=== PATIENT | male | born 1960 | race Caucasian/White ===

== ENCOUNTER → 2016-05-26 | Outpatient (CLI) | payer BC ==
--- NOTE | 2016-05-26 19:28 | PN ---
A 55-year-old male patient coming to see me in follow-up regarding his obstructive sleep apnea. The patient is coming in for a compliancy check. The patient has severe ROSA with an AHI of 65 and currently he is on CPAP at a pressure of 15 cm of water. The patient is utilizing AirFit P10 full-face mask. His compliancy data showed excellent CPAP use every night without any interruption. His average CPAP use is 8 hours per night. His AHI is down to 3.8. He is having some difficulties with leak around the mask with a leak factor of 58 liters per minute. Clinically he is much improved and alert during the day. His Phoenix score is down to 4. BP is 155/78, pulse 67, respirations 16. Phoenix score is 4 and weight is 258, temperature 97.6. GENERAL APPEARANCE: Calm, comfortable. HEENT: Negative for JVD. No goiter, neck mass. LUNGS: Clear to auscultation. HEART: Sounds are regular rate and rhythm. Normal S1, S2. ABDOMEN: Soft, nontender. EXTREMITIES: No edema. No cyanosis or clubbing. IMPRESSION: 1. Obstructive sleep apnea, severe with an AHI of 65, currently on CPAP pressure of 15 with good clinical response and compliance. 2. Leaks around the mask interface. 3. Hypersomnia, improved. Phoenix score is down to 4. PLAN: 1. Continue CPAP at the pressure of 15. 2. Add C-Flex of 3. 3. Offer this patient various mask interfaces to improve air leak. 4. Maintain good sleep hygiene measures. 5. See me back in a year's time in follow-up.
== END | disposition home or self-care (01) ==

== ENCOUNTER 2016-07-14 23:59 | Emergency (ER) | payer BC ==
[2016-07-15 00:06] VITALS: RESP 18
[2016-07-15] MEDS ORDERED: traMADol 50 MG TAB PO STA (00:33)
--- NOTE | 2016-07-15 00:47 | ED ---
Extremity Problem HPI - General Chief complaint: Extremity Problem,Nontraumatic Stated complaint: Leg swelling/Rash Time Seen by Provider: 07/15/16 00:11 Source: patient, RN notes reviewed Mode of arrival: ambulatory Limitations: no limitations - History of Present Illness Initial comments: Patient is a 55-year-old male presents to the emergency room for evaluation of right leg swelling and pain. Patient states he noticed a small rash over his right ankle yesterday and went and saw his primary care provider. Patient states he was placed on cortisone cream. Patient states today he noticed that the rash has become more significantly red and irritated. Patient states he noticed swelling of his right ankle that began today. Patient states he feels like his right foot is on fire. Patient states his calf muscle feels "tight". Patient states he's having pain on the posterior portion of his right knee. Patient denies any recent trauma to his leg. Patient states that he walks most of the day. Patient denies sitting in a plane recently. Patient denies any recent significant past medical history. Patient states he quit smoking about a year ago. Patient denies new detergents, lotions. - Related Data Home Medications Medication Instructions Recorded Confirmed Fluticasone Nasal [place] [Flonase 1 spr EA NOSTRIL DAILY 10/21/15 07/15/16 Nasal [place]] Loratadine [Claritin] 10 mg PO DAILY 10/21/15 07/15/16 Losartan/Hydrochlorothiazide 1 tab PO DAILY@1400 10/21/15 07/15/16 [Losartan-Hctz 100-25 mg Tab] Lovastatin [Mevacor] 20 mg PO DAILY 10/21/15 07/15/16 Montelukast Sodium [Singulair] 10 mg PO HS PRN 10/21/15 07/15/16 Olopatadine HCl [Pataday] 1 drop BOTH EYES BID 10/21/15 07/15/16 amLODIPine BESYLATE [Norvasc] 10 mg PO DAILY@1400 10/21/15 07/15/16 Previous Rx's Medication Instructions Recorded traMADol HCl [Ultram] 50 mg PO Q4H PRN #15 tab 07/15/16 Allergies Allergy/AdvReac Type Severity Reaction Status Date / Time No Known Allergies Allergy Verified 01/05/16 08:20 Review of Systems ROS Statement: Those systems with pertinent positive or pertinent negative responses have been documented in the HPI. ROS Other: All systems not noted in ROS Statement are negative. Past Medical History Past Medical History: GERD/Reflux, Hypertension, Osteoarthritis (OA), Skin Disorder Additional Past Medical History / Comment(s): inguinal hernia and umbilical hernia, psoriasis History of Any Multi-Drug Resistant Organisms: None Reported Past Surgical History: Appendectomy, Cholecystectomy, Hernia Repair Additional Past Surgical History / Comment(s): rt inguinal hernia x 2,vasectomy, Past Anesthesia/Blood Transfusion Reactions: Motion Sickness Additional Past Anesthesia/Blood Transfusion Reaction / Comment(s): no hx blood transfusion Past Psychological History: Anxiety, Panic Disorder Smoking Status: Former smoker Past Alcohol Use History: None Reported Additional Past Alcohol Use History / Comment(s): smoked on and off 17 yrs <1ppd Past Drug Use History: None Reported - Past Family History Father Family Medical History: Congestive Heart Failure (CHF), Myocardial Infarction ( [place]) Additional Family Medical History / Comment(s): alsoholism Mother Family Medical History: No Reported History General Exam - General Exam Comments Initial Comments: Sitting in exam room in no acute distress. Limitations: no limitations General appearance: alert, in no apparent distress Head exam: Present: atraumatic, normocephalic, normal inspection Eye exam: Present: normal appearance ENT exam: Present: normal exam Neck exam: Present: normal inspection Respiratory exam: Present: normal lung sounds bilaterally. Absent: respiratory distress Cardiovascular Exam: Present: regular rate, normal rhythm, normal heart sounds Right Knee exam: Present: full ROM, tenderness (Posterior knee) Lower Leg exam: Present: swelling. Absent: tenderness Ankle exam: Present: full ROM, swelling, erythema (erythematous, nonraised circumfrential rash over right ankle) Foot/Toe exam: Present: full ROM, swelling. Absent: tenderness Neurovascular tendon exam: Present: no vascular compromise. Absent: pulse deficit (2+ dorsal pedal and posterior tibial pulses), abnormal cap refill ( capillary refill less than 2 seconds) Gait: observed and limited by pain Back exam: Present: normal inspection Neurological exam: Present: alert, oriented X3, CN II-XII intact, normal gait Psychiatric exam: Present: normal affect, normal mood Skin exam: Present: warm, dry, intact, normal color Course Vital Signs 07/15/16 07/15/16 00:03 03:04 Temperature 98.3 F 98.5 F Pulse Rate 68 55 L Respiratory 18 18 Rate Blood Pressure 188/88 137/77 O2 Sat by Pulse 99 97 Oximetry Medical Decision Making - Medical Decision Making Patient is a 55-year-old male presents to the emergency room for evaluation of right leg pain and swelling. Right lower extremity venous Doppler shows no signs of DVT. D-dimer negative. WBC within normal limits. ESR within normal limits. Physical exam nonsignificant for possible gout. Patient has good pulses. Capillary refill less than 2 seconds. It appears the rash is a form of contact dermatitis. Advised patient to continue using cortisone cream as prescribed by his primary care provider. Advised patient to follow-up with renal medicine specialist or his primary care provider for further evaluation of right leg edema and pain. Patient may need to follow up with telephone answering service operator for further evaluation. Results discussed with patient. Patient states he understands everything that was discussed with him. Return parameters discussed. Case discussed with Dr. Lockwood who also evaluated patient. - Lab Data Result diagrams: 07/15/16 00:50 07/15/16 00:50 Lab Results 07/15/16 07/15/16 07/15/16 Range/Units 00:50 00:50 00:50 WBC 9.6 (3.8-10.6) k/uL RBC 4.91 (4.30-5.90) m/uL Hgb 14.6 (13.0-17.5) gm/dL Hct 42.3 (39.0-53.0) % MCV 86.1 (80.0-100.0) fL MCH 29.6 (25.0-35.0) pg MCHC 34.4 (31.0-37.0) g/dL RDW 13.0 (11.5-15.5) % Plt Count 287 (150-450) k/uL Neutrophils % 60 % Lymphocytes % 26 % Monocytes % 6 % Eosinophils % 3 % Basophils % 1 % Neutrophils # 5.8 (1.3-7.7) k/uL Lymphocytes # 2.6 (1.0-4.8) k/uL Monocytes # 0.6 (0-1.0) k/uL Eosinophils # 0.3 (0-0.7) k/uL Basophils # 0.1 (0-0.2) k/uL ESR Cancelled D-Dimer 0.48 (<0.60) mg/L FEU Sodium (137-145) mmol/L Potassium (3.5-5.1) mmol/L Chloride (98-107) mmol/L Carbon Dioxide (22-30) mmol/L Anion Gap mmol/L BUN (9-20) mg/dL Creatinine (0.66-1.25) mg/dL Est GFR (MDRD) Af Amer (>60 ml/min/1.73 sqM) Est GFR (MDRD) Non-Af (>60 ml/min/1.73 sqM) Glucose (74-99) mg/dL Calcium (8.4-10.2) mg/dL Total Bilirubin (0.2-1.3) mg/dL AST (17-59) U/L ALT (21-72) U/L Alkaline Phosphatase (38-126) U/L Total Creatine Kinase 288 H (55-170) U/L CK-MB (CK-2) 2.7 H* (0.0-2.4) ng/mL CK-MB (CK-2) Rel Index 0.9 Total Protein (6.3-8.2) g/dL Albumin (3.5-5.0) g/dL 07/15/16 07/15/16 Range/Units 00:50 02:05 WBC (3.8-10.6) k/uL RBC (4.30-5.90) m/uL Hgb (13.0-17.5) gm/dL Hct (39.0-53.0) % MCV (80.0-100.0) fL MCH (25.0-35.0) pg MCHC (31.0-37.0) g/dL RDW (11.5-15.5) % Plt Count (150-450) k/uL Neutrophils % % Lymphocytes % % Monocytes % % Eosinophils % % Basophils % % Neutrophils # (1.3-7.7) k/uL Lymphocytes # (1.0-4.8) k/uL Monocytes # (0-1.0) k/uL Eosinophils # (0-0.7) k/uL Basophils # (0-0.2) k/uL ESR 9 D-Dimer (<0.60) mg/L FEU Sodium 143 (137-145) mmol/L Potassium 3.7 (3.5-5.1) mmol/L Chloride 105 (98-107) mmol/L Carbon Dioxide 26 (22-30) mmol/L Anion Gap 12 mmol/L BUN 13 (9-20) mg/dL Creatinine 0.90 (0.66-1.25) mg/dL Est GFR (MDRD) Af Amer >60 (>60 ml/min/1.73 sqM) Est GFR (MDRD) Non-Af >60 (>60 ml/min/1.73 sqM) Glucose 105 H (74-99) mg/dL Calcium 10.2 (8.4-10.2) mg/dL Total Bilirubin 0.5 (0.2-1.3) mg/dL AST 29 (17-59) U/L ALT 52 (21-72) U/L Alkaline Phosphatase 69 (38-126) U/L Total Creatine Kinase (55-170) U/L CK-MB (CK-2) (0.0-2.4) ng/mL CK-MB (CK-2) Rel Index Total Protein 7.7 (6.3-8.2) g/dL Albumin 4.4 (3.5-5.0) g/dL - Radiology Data Radiology results: report reviewed, image reviewed Disposition Clinical Impression: Right leg pain, Rash and nonspecific skin eruption, Leg edema, right Disposition: HOME SELF-CARE Condition: Good Instructions: Leg Edema (ED) Additional Instructions: Please follow up with primary care provider or renal medicine specialist in 1-2 days. If any new symptom arises, symptoms worsen or fever develops, return to ER as soon as possible. Prescriptions: traMADol HCl [Ultram] 50 mg PO Q4H PRN #15 tab PRN Reason: Pain Referrals: Anuel Dvoer MD [Primary Care Provider] - 1-2 days Rodrigo Parra DO [Doctor of Osteopathic Medicine] - 1-2 days Time of Disposition: 03:56
--- NOTE | 2016-07-15 01:21 | US ---
History: Reason: Pain Exam: US VENOUS RIGHT LOWER EXTREMITY Comparison: None available FINDINGS: Deep venous system of the right lower extremity as appears patent and compressible with spontaneous and augmented flow without evidence of intraluminal echoes. IMPRESSION: No evidence of DVT within the right lower extremity.
[2016-07-15 01:49] LABS: Basophils # (A) 0.1 k/uL (0-0.2); Basophils % (A) 1 %; CH 29.6; CHCM 34.5; Eosinophils # (A) 0.3 k/uL (0-0.7); Eosinophils % (A) 3 %; HCT 42.3 % (39.0-53.0); HDW 2.64; HGB 14.6 gm/dL (13.0-17.5); Luc # (Auto) 0.28; Luc % (Auto) 3; Lymphocytes # (A) 2.6 k/uL (1.0-4.8); Lymphocytes % (A) 26 %; MCH 29.6 pg (25.0-35.0); MCHC 34.4 g/dL (31.0-37.0); MCV 86.1 fL (80.0-100.0); Mean Platelet Volume 7.7; Monocytes # (A) 0.6 k/uL (0-1.0); Monocytes % (A) 6 %; Neutrophils # (A) 5.8 k/uL (1.3-7.7); Neutrophils % (A) 60 %; RBC 4.91 m/uL (4.30-5.90); WBC 9.6 k/uL (3.8-10.6); WBC (Perox) 9.53
[2016-07-15 01:57] LABS: ALT 52 U/L (21-72); AST 29 U/L (17-59); Alkaline Phosphatase 69 U/L (38-126); Anion Gap 12 mmol/L; Blood Urea Nitrogen 13 mg/dL (9-20); Calcium 10.2 mg/dL (8.4-10.2); Carbon Dioxide 26 mmol/L (22-30); Chloride 105 mmol/L (98-107); Glucose 105 mg/dL (74-99); Non-African American GFR(MDRD) >60 (>60 ml/min/1.73 sqM); Potassium 3.7 mmol/L (3.5-5.1); Sodium 143 mmol/L (137-145); Total Bilirubin 0.5 mg/dL (0.2-1.3); Total Protein 7.7 g/dL (6.3-8.2)
[2016-07-15 02:11] LABS: Creatine Kinase MB 2.7 ng/mL (0.0-2.4)
[2016-07-15 03:05] VITALS: BP 137/77; PULSE 55; TEMP 98.5
== END 2016-07-15 04:03 | disposition home or self-care (01) ==
LOC: EC 23:59
DX: M79.604 Pain in right leg (principal); R60.0 Localized edema; M25.561 Pain in right knee; R21 Rash and other nonspecific skin eruption; I10 Essential (primary) hypertension; Z87.891 Personal history of nicotine dependence; Z79.899 Other long term (current) drug therapy
CPT/HCPCS: 36415; 80053; 82550; 82553; 85025; 85379; 85652; 99284

== ENCOUNTER → 2017-02-09 | Outpatient (CLI) | payer BC ==
--- NOTE | 2017-02-09 20:03 | PN ---
PROGRESS NOTE Vicente is 55, who was diagnosed having severe obstructive sleep apnea with an AHI of 67, he is currently on a CPAP pressure of 15 cm of water. He is coming for a followup and a check. His interval history is positive for the arthritis that was attributed to gout and this was affecting his toe and the right knee. He was treated with steroids and he has gained some limited amount of weight since then. He has been using his CPAP. He is very compliant. He is benefiting from the treatment. He is waking up alert and refreshed during the day. He tells me that he cannot sleep without machine at all. He has been wearing it every night. He is averaging about 7 hours of CPAP use every night. His AHI while on treatment is down to 2.6 and the patient's leak factor of the mask around 59 L/minute. He is using AirFit P 10 nose mask. Despite increased leak, he is very comfortable. He does not have any major issues, does not wake up at night and his treatment seems to be successful and is not interested in making adjustments in his mask interface. REVIEW OF SYSTEMS: 12-point review of system was done. Positive findings are mentioned above in the history of present illness. INTERVAL HISTORY: Is positive for few pounds weight gain related to systemic steroids. was positive for development of arthritis and gout. PHYSICAL EXAMINATION: BP is 116/67, pulse 72, respirations 16, temperature 98.1. Saturation 97% on room air. General appearance: Appears calm and comfortable. HEENT short neck, crowding of posterior pharynx. There is no goiter or neck masses. LUNGS: Clear to auscultation. HEART: Sounds regular rate and rhythm. Normal S1, S2. No S3, S4. No murmurs. ABDOMEN: Soft, nontender. No organomegaly. EXTREMITIES: No edema. No cyanosis or clubbing. Neuro: Alert and oriented times three. No focal neurological deficits. Psych is negative for anxiety or depression. Skin is negative for ulcers, wounds or cellulitis. is negative for joint deformities or arthritis. IMPRESSION: 1. Symptomatic obstructive sleep apnea with an AHI of 65 currently on CPAP pressure of 15 with excellent clinical response and compliance. The patient continues to benefit from treatment despite increased leak around the nose mask. Currently his AHI is down to 2.6 while on treatment. 2. Hypersomnia recovered. PLAN: 1. Encourage weight loss. 2. Avoid steroid therapy. 3. Implement good sleep hygiene measures. 4. Continue CPAP at same level of pressure. 5. No need for adjustment of mask interface as long as the patient is benefitting from treatment and his treatment is successful. 6. Will see him back in a year's time or earlier if needed. JOVON / EILEEN: [id number] /
== END ==
LOC: SLEEP 14:08
PROVIDERS: ATTEND Internal Medicine Critical Care Medicine
DX: G47.33 Obstructive sleep apnea (adult) (pediatric) (principal)

== ENCOUNTER 2017-05-07 11:57 | Observation (INO) | payer BC ==
[2017-05-07 12:40] LABS: Basophils % (A) 0 %; Eosinophils # (A) 0.1 k/uL (0-0.7); Eosinophils % (A) 1 %; HGB 14.8 gm/dL (13.0-17.5); Lymphocytes # (A) 1.8 k/uL (1.0-4.8); Lymphocytes % (A) 16 %; MCH 29.1 pg (25.0-35.0); MCHC 32.9 g/dL (31.0-37.0); MCV 88.4 fL (80.0-100.0); Mean Platelet Volume 7.3; Monocytes # (A) 0.6 k/uL (0-1.0); Monocytes % (A) 5 %; Neutrophils # (A) 8.6 k/uL (1.3-7.7); Neutrophils % (A) 77 %; Platelet Count 299 k/uL (150-450); RBC 5.09 m/uL (4.30-5.90); WBC 11.2 k/uL (3.8-10.6)
[2017-05-07 12:51] LABS: ALT 61 U/L (21-72); AST 28 U/L (17-59); Albumin 4.3 g/dL (3.5-5.0); Alkaline Phosphatase 64 U/L (38-126); Anion Gap 11 mmol/L; Blood Urea Nitrogen 18 mg/dL (9-20); Calcium 10.1 mg/dL (8.4-10.2); Carbon Dioxide 27 mmol/L (22-30); Chloride 99 mmol/L (98-107); Glucose 132 mg/dL (74-99); Lipase 118 U/L (23-300); Potassium 4.2 mmol/L (3.5-5.1); Sodium 137 mmol/L (137-145); Total Bilirubin 0.5 mg/dL (0.2-1.3); Total Protein 7.4 g/dL (6.3-8.2)
[2017-05-07 13:00] LABS: Prothrombin Time 9.8 sec (9.0-12.0)
[2017-05-07 13:16] LABS: Partial Thromboplastin Time 19.4 sec (22.0-30.0)
--- NOTE | 2017-05-07 13:29 | XR ---
EXAMINATION TYPE: XR chest 2V DATE OF EXAM: 05/07/2017 COMPARISON: 01/04/2016 HISTORY: Chest pain TECHNIQUE: Frontal and lateral views of the chest are obtained. FINDINGS: There is no focal air space opacity, pleural effusion, or pneumothorax seen. The cardiac silhouette size is within normal limits. The osseous structures are intact. Right hemidiaphragm kelin vation is similar to the exam of 2016 and chronic. Cholecystectomy clips are noted within the right u pper quadrant. Minimal multilevel degenerative changes of the thoracic spine are present. IMPRESSION: No acute cardiopulmonary process.
[2017-05-07] MEDS ORDERED: NALOXONE 0.4 MG/ML 1 ML VIAL IV PRN (13:38)
[2017-05-07] MEDS ORDERED: ONDANSETRON 4 MG/2 ML VIAL IVP PRN (13:38)
--- NOTE | 2017-05-07 13:38 | ED ---
Chest Pain HPI - General Chief Complaint: Chest Pain Stated Complaint: Chest pain Time Seen by Provider: 05/07/17 12:07 Source: patient, EMS Mode of arrival: EMS Limitations: no limitations - History of Present Illness Initial Comments: Patient complains of chest pain. Pain is substernal. It is pressure-like. He rates the pain 6/10. Patient was walking when the pain began. He has no nausea , vomiting, diaphoresis. He has no lightheadedness or dizziness. He denies palpitations. He has had no sick contacts. He was given aspirin prior to arrival for this. Nothing makes the chest pressure better or worse. - Related Data Home Medications Medication Instructions Recorded Confirmed Fluticasone Nasal [place] [Flonase 1 spr EA NOSTRIL DAILY PRN 10/21/15 05/07/17 Nasal [place]] Loratadine [Claritin] 10 mg PO DAILY 10/21/15 05/07/17 Losartan/Hydrochlorothiazide 1 tab PO DAILY@1400 10/21/15 05/07/17 [Losartan-Hctz 100-25 mg Tab] Lovastatin [Mevacor] 20 mg PO HS 10/21/15 05/07/17 Montelukast Sodium [Singulair] 10 mg PO HS 10/21/15 05/07/17 Olopatadine HCl [Pataday] 1 drop BOTH EYES BID PRN 10/21/15 05/07/17 Albuterol Inhaler [Ventolin Hfa 1 - 2 puff INHALATION RT-Q6H PRN 05/07/17 Inhaler] Allopurinol [Zyloprim] 100 mg PO BID 05/07/17 05/07/17 Gabapentin [Neurontin] 300 mg PO BID@0800,1600 05/07/17 05/07/17 Gabapentin [Neurontin] 400 mg PO HS 05/07/17 05/07/17 Allergies Allergy/AdvReac Type Severity Reaction Status Date / Time No Known Allergies Allergy Verified 05/07/17 12:45 Review of Systems ROS Statement: Those systems with pertinent positive or pertinent negative responses have been documented in the HPI. ROS Other: All systems not noted in ROS Statement are negative. EKG Findings - EKG Comments: EKG Findings:: EKG interpreted by me showing ventricular rate 73 bpm, normal WA interval and QRS complexes, no ST elevation or depression, interpreted by me as normal sinus rhythm. Past Medical History Past Medical History: GERD/Reflux, Hypertension, Osteoarthritis (OA), Skin Disorder Additional Past Medical History / Comment(s): inguinal hernia and umbilical hernia, psoriasis, Gout History of Any Multi-Drug Resistant Organisms: None Reported Past Surgical History: Appendectomy, Cholecystectomy, Hernia Repair Additional Past Surgical History / Comment(s): rt inguinal hernia x 2,vasectomy, Past Anesthesia/Blood Transfusion Reactions: Motion Sickness Additional Past Anesthesia/Blood Transfusion Reaction / Comment(s): no hx blood transfusion Past Psychological History: Anxiety, Panic Disorder Smoking Status: Former smoker Past Alcohol Use History: Occasional Past Drug Use History: None Reported - Past Family History Father Family Medical History: Congestive Heart Failure (CHF), Myocardial Infarction ( [place]) Additional Family Medical History / Comment(s): alsoholism Mother Family Medical History: No Reported History General Exam Limitations: no limitations General appearance: alert, in no apparent distress Head exam: Present: atraumatic, normocephalic, normal inspection Eye exam: Present: normal appearance, PERRL, EOMI. Absent: scleral icterus, conjunctival injection, periorbital swelling ENT exam: Present: normal exam, mucous membranes moist Neck exam: Present: normal inspection. Absent: tenderness, meningismus, lymphadenopathy Respiratory exam: Present: normal lung sounds bilaterally. Absent: respiratory distress, wheezes, rales, rhonchi, stridor Cardiovascular Exam: Present: regular rate, normal rhythm, normal heart sounds. Absent: systolic murmur, diastolic murmur, rubs, gallop, clicks GI/Abdominal exam: Present: soft, normal bowel sounds. Absent: distended, tenderness, guarding, rebound, rigid Extremities exam: Present: normal inspection, full ROM, normal capillary refill. Absent: tenderness, pedal edema, joint swelling, calf tenderness Back exam: Present: normal inspection Neurological exam: Present: alert, oriented X3, CN II-XII intact Psychiatric exam: Present: normal affect, normal mood Skin exam: Present: warm, dry, intact, normal color. Absent: rash Course Vital Signs 05/07/17 12:04 Temperature 99.4 F Pulse Rate 78 Respiratory 14 Rate Blood Pressure 144/68 O2 Sat by Pulse 96 Oximetry Chest Pain MDM - [facility] Patient complains of chest pain. Initial workup is negative. Patient will be admitted to the hospital. I will consult cardiology. Disposition Clinical Impression: Chest pain Disposition: ADMITTED IP TO THIS HOSP Condition: Fair Instructions: Chest Pain (ED) Referrals: Anuel Dover MD [Primary Care Provider] - 1-2 days Time of Disposition: 13:38
[2017-05-07] MEDS ORDERED: KETOTIFEN 0.025% OPHTH DROPS 5 ML BTL BOTH EYES PRN (13:40)
[2017-05-07] MEDS: LOSARTAN-HCTZ 50-12.5 MG 1 EACH TAB PO SCH (16:44)
[2017-05-07] MEDS: GABAPENTIN 300 MG CAP PO SCH (16:48)
[2017-05-07] MEDS: MONTELUKAST 10 MG TAB PO SCH (19:56)
[2017-05-07] MEDS: ATORVASTATIN 10 MG TAB PO SCH (19:56)
[2017-05-07] MEDS: FAMOTIDINE 20 MG TAB PO SCH (19:56)
[2017-05-07] MEDS: ALLOPURINOL 100 MG TAB PO SCH (19:56)
[2017-05-07] MEDS: GABAPENTIN 400 MG CAP PO SCH (19:56)
[2017-05-08 04:32] LABS: Appearance,Urine Clear (Clear); Bilirubin,Urine Negative (Negative); Blood,Urine Negative (Negative); Color,Urine Light Yellow; Glucose,Urine (UA) Negative (Negative); Ketones,Urine Negative (Negative); Leukocyte Esterase,Urine Negative (Negative); Nitrite,Urine Negative (Negative); Protein,Urine Negative (Negative); Specific Gravity,Urine 1.007 (1.001-1.035); Urobilinogen,Urine <2.0 mg/dL (<2.0)
[2017-05-08] MEDS: FAMOTIDINE 20 MG TAB PO SCH ×2 (08:40→22:00)
[2017-05-08] MEDS: ALLOPURINOL 100 MG TAB PO SCH ×2 (08:41→22:00)
[2017-05-08] MEDS: LORATADINE 10 MG TAB PO SCH (08:41)
[2017-05-08] MEDS: GABAPENTIN 400 MG CAP PO SCH ×2 (08:42→22:00)
[2017-05-08] MEDS: GABAPENTIN 300 MG CAP PO SCH ×2 (08:43→16:32)
--- NOTE | 2017-05-08 13:01 | CONS ---
CONSULTATION Mr. Lovelace is a 56-year-old gentleman who is seen for evaluation of chest pain. Patient gives a history that yesterday he started having pain between the shoulder blades and subsequently to the left side of the chest. The pain was increasing with deep breathing as well as with the sudden change in the position. It was not associated with any nausea or vomiting. The patient is moderately active physically. He denies any exertional chest pain. The patient was admitted about a year ago with atypical chest pain. EKGs and cardiac enzymes were normal and the stress test was normal. Patient has a history of hypertension, hyperlipidemia. There is no history of diabetes. There is no previous history of myocardial infarction. PAST MEDICAL HISTORY: Includes history of hypertension, inguinal hernia, umbilical hernia repair, appendicectomy, cholecystectomy, history of motion sickness. SOCIAL HISTORY: Smoking history, patient is a former smoker. FAMILY HISTORY: Family history of congestive cardiac failure. HOME MEDICATIONS: Include Flonase nasal spray, Claritin 10 mg daily, Losartan HCT once a day, Mevacor 20 mg daily, albuterol inhaler once a day, and Zyloprim. PHYSICAL EXAMINATION: At present reveals a 56-year-old gentleman who does not appear to be in any acute distress. Patient has a low-grade fever in the emergency room. He is afebrile now. Blood pressure is 114/63 mmHg. HEENT examination is negative. Neck is supple. There is no increase in jugular venous pressure. Both the carotid pulses are felt. There is no bruit. Chest is symmetrical. Heart: The PMI is not felt. First and second heart sounds are normal. There is no evidence of any murmur. Lungs are clinically clear to auscultation and percussion. Abdomen is soft. Liver and spleen are not enlarged. Bowel sounds are heard. Extremities: Peripheral pulses are 2+. EKG shows normal sinus rhythm without any acute ischemic changes. Patient's 3 sets of troponins are normal. FINAL IMPRESSION: 1. This patient is admitted with symptoms of chest pain. Clinically it appears to be atypical anginal pain. EKGs and cardiac enzymes are normal. There is no evidence of acute coronary syndrome. 2. History of hypertension. 3. History of hyperlipidemia. RECOMMENDATIONS: We will obtain echo and Doppler study. If the patient remains pain free, patient can be probably discharged home tomorrow and evaluation with a repeat stress test as an outpatient. Thank you very much for letting me participate in the care of this nice gentleman. MMKERRYL / IJN: [id number] /
[2017-05-08] MEDS: LOSARTAN-HCTZ 50-12.5 MG 1 EACH TAB PO SCH (14:54)
--- NOTE | 2017-05-08 15:33 | ECHOF ---
Referral Reason:chest pain MEASUREMENTS -------- HEIGHT: 182.9 cm WEIGHT: 110.7 kg BP: IVSd: 1.3 cm (0.6 - 1.1) LVIDd: 4.7 cm (3.9 - 5.3) LVPWd: 1.1 cm (0.6 - 1.1) EDV(Teich): 103 ml IVSs: 1.7 cm LVIDs: 4.0 cm LVPWs: 1.2 cm %IVS Thck: 35 % ESV(Teich): 70 ml EF(Teich): 32 % %FS: 15 % SV(Teich): 33 ml LA Diam: 4.2 cm (2.7 - 3.8) RVIDd: 3.1 cm (< 3.3) LALs A4C: 5.5 cm LAAs A4C: 18.5 cm LAESV A-L A4C: 53 ml LAESV MOD A4C: 52 ml LALs A2C: 5.5 cm LAAs A2C: 21.9 cm LAESV A-L A2C: 74 ml LAESV MOD A2C: 70 ml LAESV(A-L): 63 ml LAESV Index (A-L): 27.15 ml/m Ao Diam: 3.2 cm (2.0 - 3.7) LA Diam: 4.5 cm (2.7 - 3.8) AV Cusp: 2.2 cm (1.5 - 2.6) EPSS: 0.8 cm MV E Ervin: 0.64 m/s MV DecT: 188 ms MV Dec Taylor: 3.4 m/s MV A Ervin: 0.64 m/s MV E/A Ratio: 1.00 MV PHT: 55 ms AV Vmax: 1.37 m/s AV maxP.51 mmHg TR Vmax: 1.28 m/s TR maxP.59 mmHg RAP: 5.00 mmHg RVSP: 11.59 mmHg MV EF SLOPE: 99.72 mm/s (70 - 150) MV EXCURSION: 18.39 mm (> 18.000) FINDINGS -------- Sinus rhythm. This was a technically adequate study. The left ventricular size is normal. Left ventricular wall thickness is normal. Overall left vent ricular systolic function is low-normal with, an EF between 50 - 55 %. The right ventricle is normal in size. The right atrial size is normal. There is mild aortic valve sclerosis. There is no evidence of aortic regurgitation. Mild mitral annular calcification present. Mild mitral regurgitation is present. Mild tricuspid regurgitation present. There is no evidence of pulmonary hypertension. The right v entricular systolic pressure, as measured by Doppler, is 11.59mmHg. There is no pulmonic regurgitation present. The aortic root size is normal. There is no pericardial effusion. CONCLUSIONS -------- 1. The left ventricular size is normal. 2. Left ventricular wall thickness is normal. 3. Overall left ventricular systolic function is low-normal with, an EF between 50 - 55 %. 4. There is mild aortic valve sclerosis. 5. Mild mitral annular calcification present. 6. Mild mitral regurgitation is present. 7. Mild tricuspid regurgitation present. 8. There is no evidence of pulmonary hypertension. 9. The right ventricular systolic pressure, as measured by Doppler, is 11.59mmHg. 10. There is no pulmonic regurgitation present. 11. The aortic root size is normal. 12. There is no pericardial effusion. [employer]: Valentina Alex RDCS
--- NOTE | 2017-05-08 20:22 | HP ---
HISTORY AND PHYSICAL DATE OF SERVICE: 05/07/2017 CHIEF COMPLAINTS: Chest pain. This 56-year-old gentleman with a past medical history of multiple medical problems, including GERD, hypertension, DJD, history of pneumonia, sleep apnea is being followed by Dr. Dover and Ingris Ortiz in the outpatient setting. The patient apparently had chest pressure and 6/10 chest pressure type, especially when walking. Patient also had blood pressure fluctuations. Patient also had left forearm discomfort also. The patient came to [facility] and admitted for further evaluation and treatment. Patient had apparently sepsis which was negative about 1 year ago. The patient also had an extensive family history of coronary artery disease. There is no history of any fever, rigors, chills. No history of headache, loss of consciousness, seizures . PAST MEDICAL HISTORY: Hypertension, DJD, history of pneumonia, sleep apnea, history of inguinal hernia repair. MEDICATIONS PRIOR TO ADMISSION: Include home medications are: 1. Pataday 1 drop both eyes b.i.d. p.r.n. 2. Singular 10 mg daily. 3. Mevacor 20 mg q.h.s. 4. Losartan/hydrochlorothiazide 100/25 mg p.o. daily. 5. Claritin 10 mg daily. 6. Neurontin 400 mg q.h.s. and 300 mg p.o. b.i.d. 7. Flonase 1 spray daily p.r.n. 8. Zyloprim 100 mg p.o. b.i.d. 9. Ventolin HFA 1-2 puffs every 6 hours p.r.n. ALLERGIES: None. FAMILY HISTORY: History of CHF, myocardial infarction, alcohol in the family. SOCIAL HISTORY: History of alcohol. Remote history of smoking. REVIEW OF SYSTEMS: ENT: No diminished hearing, diminished vision. CARDIOVASCULAR: As mentioned earlier. RESPIRATORY: As mentioned earlier. GI: No nausea, vomiting. : No dysuria. NERVOUS: No numbness or weakness. ALLERGY/IMMUNOLOGY: No asthma or hay fever. MUSCULOSKELETAL: As mentioned earlier. HEMATOLOGY/ONCOLOGY: No history of anemia. ENDOCRINE: No history of diabetes, hypothyroidism. CONSTITUTIONAL: As mentioned earlier. DERMATOLOGY: Negative. RHEUMATOLOGY: Negative. PSYCHIATRY: As mentioned earlier. PHYSICAL EXAM: Alert, oriented x3. The pulse is 60, blood pressure 141/63, respirations 18, temperature 97.9, pulse ox 96% on 2L. HEENT: Conjunctivae normal. Oral mucosa moist. NECK: No jugular venous distention. No carotid bruits. No lymph node enlargement. CARDIOVASCULAR: S1, S2 muffled. RESPIRATORY: Breath sounds diminished in the bases. No rhonchi. No crackles. ABDOMEN: Soft, obese, nontender. No mass palpable. LEGS: No edema. No swelling. NERVOUS SYSTEM: Higher functions as mentioned earlier. Moves all 4 limbs. No focal motor or sensory deficits. LYMPHATIC: No lymphadenopathy in neck or axillae. SKIN: No ulcer, rash or bleeding. LABS: WBC 11.2. Troponins are negative. Glucose 132. ASSESSMENT: 1. Chest pain, possibly unstable angina. 2. History of gastroesophageal reflux disease. 3. Hypertension. 4. History of syncope. 5. Inguinal hernia repair. 6. Anxiety, panic disorder. 7. Family history of coronary artery disease. RECOMMENDATIONS AND DISCUSSION: In this 56-year-old gentleman who presented with multiple complex medical issues, will monitor the patient closely, continue the current medical management and symptomatic treatment. Rule out myocardial infarction, Cardiology consultation, possible stress test or cardiac cath. Guarded prognosis. Further recommendations to follow. A copy will be forwarded to Dr. Dover, who is the primary physician. MMODL / IJN: [id number] /
--- NOTE | 2017-05-08 21:15 | PN ---
PROGRESS NOTE DATE OF SERVICE: 05/08/2017 This 56-year-old gentleman who was admitted with chest pain is being closely monitored. Myocardial infarction ruled out. closely monitored. Cardiology is following the patient closely. No chest pain. No palpitations. No fever currently. PHYSICAL EXAM: Alert and oriented x3. The pulse is 50. Blood pressure is 131/78, respiration 16, temperature 97.6, pulse ox 97% on room air. HEENT: Conjunctivae normal. Oral mucosa moist. Neck is no jugular venous distention. No carotid bruit. No lymph node enlargement. Cardiovascular S1, S2 muffled. No S3, no S4. RESPIRATORY: Breath sounds diminished in the bases. A few scattered rhonchi. No crackles. ABDOMEN: Soft, nontender. No mass palpable. No mass palpable. Legs no edema. No swelling. Central nervous system: No focal deficits. LABS: Noted. ASSESSMENT: 1. Chest pain possible unstable angina. 2. Hypertension. 3. Degenerative joint disease. 4. Family history of coronary artery disease. 5. Sleep apnea. 6. History of inguinal hernia. 7. History of gout. 8. History of anxiety, panic disorder. RECOMMENDATIONS AND DISCUSSION: In this 56-year-old gentleman who presented with multiple complex medical issues , we will monitor the patient closely. Continue the current medications, management and symptomatic treatment. Follow closely with Cardiology. Otherwise, consider further workup to rule out possibility of coronary artery disease. Either as inpatient of outpatient ambulation, await 2D echo reports. MMODL / IJN: [id number] / PRERNA
[2017-05-08] MEDS: ATORVASTATIN 10 MG TAB PO SCH (22:00)
[2017-05-08] MEDS: MONTELUKAST 10 MG TAB PO SCH (22:00)
[2017-05-09 06:04] LABS: Basophils # (A) 0.1 k/uL (0-0.2); Basophils % (A) 1 %; Eosinophils # (A) 0.2 k/uL (0-0.7); Eosinophils % (A) 2 %; HCT 50.5 % (39.0-53.0); HGB 15.9 gm/dL (13.0-17.5); Lymphocytes # (A) 3.1 k/uL (1.0-4.8); Lymphocytes % (A) 24 %; MCH 28.7 pg (25.0-35.0); MCHC 31.5 g/dL (31.0-37.0); MCV 91.2 fL (80.0-100.0); Mean Platelet Volume 7.3; Monocytes # (A) 0.7 k/uL (0-1.0); Monocytes % (A) 6 %; Neutrophils # (A) 8.7 k/uL (1.3-7.7); Neutrophils % (A) 68 %; Platelet Count 326 k/uL (150-450); RBC 5.54 m/uL (4.30-5.90); RDW 14.5 % (11.5-15.5); WBC 12.9 k/uL (3.8-10.6)
[2017-05-09 06:18] LABS: Anion Gap 12 mmol/L; Blood Urea Nitrogen 18 mg/dL (9-20); Calcium 9.6 mg/dL (8.4-10.2); Carbon Dioxide 28 mmol/L (22-30); Chloride 99 mmol/L (98-107); Glucose 83 mg/dL (74-99); Potassium 4.3 mmol/L (3.5-5.1); Sodium 139 mmol/L (137-145)
[2017-05-09] MEDS: LORATADINE 10 MG TAB PO SCH (08:19)
[2017-05-09] MEDS: FAMOTIDINE 20 MG TAB PO SCH (08:19)
[2017-05-09] MEDS: ALLOPURINOL 100 MG TAB PO SCH (08:19)
[2017-05-09] MEDS: GABAPENTIN 300 MG CAP PO SCH (08:19)
[2017-05-09 09:00] VITALS: RESP 16
[2017-05-09 12:48] VITALS: BP 151/71; PULSE 88; TEMP 96.9
[2017-05-09] MEDS: LOSARTAN-HCTZ 50-12.5 MG 1 EACH TAB PO SCH (14:11)
--- NOTE | 2017-05-09 15:11 | DS ---
DISCHARGE SUMMARY DATE OF SERVICE: 05/09/2017. FINAL DIAGNOSES: 1. Chest pain, myocardial infarction ruled out, rule out coronary disease. 2. Possible pleurisy. 3. Hypertension. 4. History of degenerative joint disease. 5. Family history of coronary artery disease. 6. Sleep apnea. 7. History of inguinal hernia. 8. History of gout. 9. History of anxiety and panic disorder. DISCHARGE DISPOSITION: The patient is being discharged in stable condition with guarded prognosis. Cardiology cleared the patient for discharge. HISTORY OF PRESENT ILLNESS: This 56-year-old gentleman with past medical history of multiple medical problems was admitted with chest pain. Myocardial infarction ruled out. Cardiology recommended outpatient followup. The patient is able to ambulate. The pain was increasing on respirations as well. Patient previously had a stress test in the outpatient setting. On exam, vitals are stable. CARDIOVASCULAR: S1, S2. ABDOMEN: Soft. Nontender. NERVOUS SYSTEM: No focal deficits. DISCHARGE ADVICE AND MEDICATIONS: 1. Diet is cardiac. 2. Activity limited until followup. 3. Follow up with primary physician as advised. 4. Follow up with Cardiology as advised. 5. Follow with Dr. Dover in 2 days. MEDICATIONS: 1. Ventolin HFA 1-2 puffs q.6h p.r.n. 2. Zyloprim 100 mg p.o. b.i.d. 3. Ecotrin 81 mg p.o. daily. 4. Fluticasone 1 spray daily. 5. Neurontin 300 mg p.o. b.i.d. and 400 mg q.h.s. 7. Losartan hydrochlorothiazide 1 tab p.o. daily. 8. Mevacor 20 mg q.h.s. 9. Singular 10 mg q.h.s. 10.Olopatadine, Pataday 1 drop both eyes p.o. daily. MMODL / IJN: [id number] / MTDD
== END 2017-05-09 15:33 | disposition home or self-care (01) ==
LOC: EC 11:57 → 6SEL 13:39
PROVIDERS: ADMIT Internal Medicine; ATTEND Internal Medicine
DX: R07.89 Other chest pain (principal); K21.9 Gastro-esophageal reflux disease without esophagitis; I10 Essential (primary) hypertension; Z82.49 Family history of ischemic heart disease and other diseases of the circulatory system; Z87.891 Personal history of nicotine dependence; M19.90 Unspecified osteoarthritis, unspecified site; L40.9 Psoriasis, unspecified; G47.30 Sleep apnea, unspecified; M10.9 Gout, unspecified; F41.9 Anxiety disorder, unspecified; F41.0 Panic disorder [episodic paroxysmal anxiety]; Z98.890 Other specified postprocedural states; Z79.899 Other long term (current) drug therapy; Z87.01 Personal history of pneumonia (recurrent)
CPT/HCPCS: 99285; 36415; 93005; 93306; 83880; 80053; 80048; 83690; 83735; 84484 ×2; 85025 ×2; 85610; 85730; 81003; 87502; 71020; G0378 ×3

== ENCOUNTER 2017-07-24 12:07 | Emergency (ER) | payer BC ==
[2017-07-24] MEDS ORDERED: KETOROLAC 30 MG/ML 1 ML VIAL IM STA (12:45)
--- NOTE | 2017-07-24 12:57 | ED ---
General Adult HPI - General Chief complaint: Extremity Injury, Lower Stated complaint: Swollen Right Leg Time Seen by Provider: 07/24/17 12:32 Source: patient, RN notes reviewed Mode of arrival: ambulatory Limitations: no limitations - History of Present Illness Initial comments: 56-year-old male presents to the emergency department with a chief complaint of right knee pain. Patient states that the knee has been swollen for over a week now. Patient states he has a history of gout and saw his payroll accounting manager about a week ago and started colchicine. Patient states that the swelling has gone down considerably since that time. However it is still bothering him and he is having difficulty working. He is scheduled to work [employer] and Wednesday night. 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 Patient states the pain is in the calf, behind his knee, and [id number]. Patient states it is painful to walk on. He takes ibuprofen for pain medication but has not taken it today. He is also on allopurinol for gout. Patient denies any recent injury to the right knee. He denies ever having fluid taken off the knee. Patient denies recent travel, surgery. Patient is seeing his payroll accounting manager again in 3 days. - Related Data Home Medications Medication Instructions Recorded Confirmed Fluticasone Nasal [place] [Flonase 1 spr EA NOSTRIL DAILY PRN 10/21/15 07/24/17 Nasal [place]] Loratadine [Claritin] 10 mg PO DAILY 10/21/15 07/24/17 Losartan/Hydrochlorothiazide 1 tab PO DAILY@1400 10/21/15 07/24/17 [Losartan-Hctz 100-25 mg Tab] Montelukast Sodium [Singulair] 10 mg PO HS 10/21/15 07/24/17 Albuterol Inhaler [Ventolin Hfa 1 - 2 puff INHALATION RT-Q6H PRN 05/07/17 Inhaler] Allopurinol [Zyloprim] 100 mg PO BID 05/07/17 07/24/17 Gabapentin [Neurontin] 400 mg PO TID 05/07/17 07/24/17 ALPRAZolam [Xanax] 0.25 mg PO DAILY PRN 07/24/17 07/24/17 Atorvastatin [Lipitor] 40 mg PO HS 07/24/17 07/24/17 Colchicine [Colcrys] 0.6 mg PO DAILY@1400 07/24/17 07/24/17 Ibuprofen [Motrin] 800 mg PO TID PRN 07/24/17 07/24/17 Olopatadine HCl [Patanol] 1 drop BOTH EYES BID 07/24/17 07/24/17 Omeprazole [PriLOSEC] 20 mg PO HS 07/24/17 07/24/17 Previous Rx's Medication Instructions Recorded Aspirin EC [Ecotrin Low Dose] 81 mg PO DAILY #30 tablet. 05/09/17 Allergies Allergy/AdvReac Type Severity Reaction Status Date / Time No Known Allergies Allergy Verified 07/24/17 13:14 Review of Systems ROS Statement: Those systems with pertinent positive or pertinent negative responses have been documented in the HPI. ROS Other: All systems not noted in ROS Statement are negative. Past Medical History Past Medical History: GERD/Reflux, Hypertension, Osteoarthritis (OA), Pneumonia , Skin Disorder, Sleep Apnea/CPAP/BIPAP, Syncope Additional Past Medical History / Comment(s): inguinal hernia and umbilical hernia, psoriasis, Gout STRESS TEST 2016-NEG,DDD, STEROID INJ IN BACK History of Any Multi-Drug Resistant Organisms: None Reported Past Surgical History: Appendectomy, Cholecystectomy, Hernia Repair Additional Past Surgical History / Comment(s): rt inguinal hernia x 3, [facility] HERNIA REPAIR,vasectomy, Past Anesthesia/Blood Transfusion Reactions: Motion Sickness Additional Past Anesthesia/Blood Transfusion Reaction / Comment(s): no hx blood transfusion Past Psychological History: Anxiety, Panic Disorder Smoking Status: Former smoker - Past Family History Father Family Medical History: Congestive Heart Failure (CHF), Myocardial Infarction ( [place]) Additional Family Medical History / Comment(s): alcoholism Mother Family Medical History: Osteoarthritis (OA) General Exam Limitations: no limitations General appearance: alert, in no apparent distress Head exam: Present: atraumatic, normocephalic, normal inspection Respiratory exam: Present: normal lung sounds bilaterally. Absent: respiratory distress, wheezes, rales, rhonchi, stridor Cardiovascular Exam: Present: regular rate, normal rhythm, normal heart sounds. Absent: systolic murmur, diastolic murmur, rubs, gallop, clicks GI/Abdominal exam: Present: soft, normal bowel sounds. Absent: distended, tenderness, guarding, rebound, rigid Extremities exam: Present: full ROM, tenderness (in the right lower extremity, behind the knee), normal capillary refill (< 2 seconds in RLE), joint swelling ( swelling of the right knee.). Absent: pedal edema, calf tenderness (not tender to palpation, but patient states it is tender when he walks) Course Vital Signs 07/24/17 12:13 Temperature 98.4 F Pulse Rate 70 Respiratory 17 Rate Blood Pressure 170/79 O2 Sat by Pulse 97 Oximetry Medical Decision Making - Medical Decision Making 56-year-old male presents to the emergency department with a chief complaint of right knee pain. This pain has been going on for over a week. He states the pain is mostly behind his knee. Patient states he has a history of gout. He was started on colchicine one week ago which decreased the inflammation greatly. However it is still bothering him. 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 An ultrasound was taken of the right lower extremity and was negative for DVT. 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 Patient is following up with rheumatology in 3 days and will discuss with them about the Reeves's cyst. However i will also give him a referral to ortho in case rheumatology does not work with the Reeves's cyst. Patient was given a 30 mg shot of Toradol which helped with his pain. He is feeling better at this time. Starting this evening patient will increase his dose of ibuprofen from 100 mg twice a day to 800 mg TID-QID with food. He was not given steroids as he says his payroll accounting manager will probably give him a shot in 3 days at his appointment. He was given work off for the next 2 nights until he sees the payroll accounting manager as he is unable to stand for prolonged periods of time required in the factory. Disposition Clinical Impression: Knee pain, right, Reeves's cyst, Gout Disposition: HOME SELF-CARE Condition: Good Instructions: Gout (ED), Bakers Cyst (ED) Additional Instructions: Please follow up with rheumatology at your scheduled appointment in 3 days. Please follow-up with orthopedics if needed for the Reeves's cyst. Please increased your dose of ibuprofen to 800 mg 3 times a day to 4 times a day beginning later tonight. You may use ice for pain relief as well. Please try to keep your leg elevated and rested until you see payroll accounting manager on Wednesday. Referrals: Anuel Dover MD [Primary Care Provider] - 1-2 days Dorothy Shi PAC [PHYSICIAN ROLLER CHECKER] - 1-2 days Time of Disposition: 15:15
--- NOTE | 2017-07-24 14:37 | US ---
EXAMINATION TYPE: US venous doppler duplex LE RT DATE OF EXAM: 07/24/2017 12:48 PM COMPARISON: US 07/15/2016 CLINICAL HISTORY: Right leg Pain and swelling. History of gout right leg SIDE PERFORMED: Right TECHNIQUE: The lower extremity deep venous system is examined utilizing real time linear array sonog lyndsay with graded compression, doppler sonography and color-flow sonography. 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 There is normal flow, compressibility, vascular waveforms. Probable Reeves's cyst i n right popliteal fossa.
[2017-07-24 15:37] VITALS: BP 142/79; PULSE 57; RESP 16; TEMP 97.9
== END 2017-07-24 15:36 | disposition home or self-care (01) ==
LOC: EC 12:07
DX: M71.21 Synovial cyst of popliteal space [Baker], right knee (principal); M10.9 Gout, unspecified; K21.9 Gastro-esophageal reflux disease without esophagitis; I10 Essential (primary) hypertension; G47.30 Sleep apnea, unspecified; Z99.89 Dependence on other enabling machines and devices; Z87.891 Personal history of nicotine dependence; Z79.899 Other long term (current) drug therapy
CPT/HCPCS: 93971; 99283; 96372; J1885

== ENCOUNTER 2017-10-04 02:49 | Emergency (ER) | payer BC ==
[2017-10-04 02:56] VITALS: BP 221/98; PULSE 83; RESP 18; TEMP 99.1
[2017-10-04 03:37] LABS: Basophils # (A) 0.1 k/uL (0-0.2); Basophils % (A) 0 %; Eosinophils # (A) 0.1 k/uL (0-0.7); Eosinophils % (A) 1 %; HCT 42.6 % (39.0-53.0); HGB 14.6 gm/dL (13.0-17.5); Lymphocytes # (A) 2.6 k/uL (1.0-4.8); Lymphocytes % (A) 20 %; MCH 30.1 pg (25.0-35.0); MCHC 34.4 g/dL (31.0-37.0); MCV 87.4 fL (80.0-100.0); Monocytes # (A) 0.6 k/uL (0-1.0); Monocytes % (A) 5 %; Neutrophils # (A) 9.2 k/uL (1.3-7.7); Neutrophils % (A) 72 %; Platelet Count 264 k/uL (150-450); RBC 4.87 m/uL (4.30-5.90); RDW 14.4 % (11.5-15.5); WBC 12.7 k/uL (3.8-10.6)
--- NOTE | 2017-10-04 03:39 | ED ---
Arrhythmia/Palpitations HPI - General Chief Complaint: Arrhythmia/Palpitations Stated Complaint: heart racing Time Seen by Provider: 10/04/17 03:23 Source: patient Mode of arrival: ambulatory Limitations: no limitations - History of Present Illness Initial Comments: This patient's a 57-year-old man who presents to be evaluated for palpitations, shortness of breath, and anxiety. He states that he had been in his usual state of health last night. He was awakened approximately 2 AM with a sensation that his heart was racing, he was having a tight feeling in his chest at the epigastric area, and he was feeling a little short of breath. Patient states that he got up and things started to resolve but he felt he should be evaluated here. MD Complaint: "heart racing" Onset/Timin -: hour(s) Context: awoke with symptoms Associated Symptoms: shortness of breath, anxiety - Related Data Home Medications Medication Instructions Recorded Confirmed Fluticasone Nasal [place] [Flonase 1 spr EA NOSTRIL DAILY PRN 10/21/15 07/24/17 Nasal [place]] Loratadine [Claritin] 10 mg PO DAILY 10/21/15 07/24/17 Losartan/Hydrochlorothiazide 1 tab PO DAILY@1400 10/21/15 07/24/17 [Losartan-Hctz 100-25 mg Tab] Montelukast Sodium [Singulair] 10 mg PO 10/21/15 07/24/17 Albuterol Inhaler [Ventolin Hfa 1 - 2 puff INHALATION RT-Q6H PRN 05/07/17 Inhaler] Allopurinol [Zyloprim] 100 mg PO BID 05/07/17 07/24/17 Gabapentin [Neurontin] 400 mg PO TID 05/07/17 07/24/17 ALPRAZolam [Xanax] 0.25 mg PO DAILY PRN 07/24/17 07/24/17 Atorvastatin [Lipitor] 40 mg PO 07/24/17 07/24/17 Colchicine [Colcrys] 0.6 mg PO DAILY@1400 07/24/17 07/24/17 Ibuprofen [Motrin] 800 mg PO TID PRN 07/24/17 07/24/17 Olopatadine HCl [Patanol] 1 drop BOTH EYES BID 07/24/17 07/24/17 Omeprazole [PriLOSEC] 20 mg PO HS 07/24/17 07/24/17 Previous Rx's Medication Instructions Recorded Aspirin EC [Ecotrin Low Dose] 81 mg PO DAILY #30 tablet. 05/09/17 Allergies Allergy/AdvReac Type Severity Reaction Status Date / Time No Known Allergies Allergy Verified 10/04/17 02:56 Review of Systems ROS Statement: Those systems with pertinent positive or pertinent negative responses have been documented in the HPI. ROS Other: All systems not noted in ROS Statement are negative. Constitutional: Denies: fever, chills, weakness Respiratory: Reports: as per HPI, dyspnea. Denies: cough, wheezes Cardiovascular: Reports: chest pain, palpitations. Denies: dyspnea on exertion , orthopnea, edema, syncope Gastrointestinal: Denies: abdominal pain, nausea, vomiting, diarrhea Genitourinary: Denies: dysuria, hematuria Musculoskeletal: Denies: back pain Skin: Denies: rash Neurological: Denies: headache, weakness, numbness Past Medical History Past Medical History: GERD/Reflux, Hypertension, Osteoarthritis (OA), Pneumonia , Skin Disorder, Sleep Apnea/CPAP/BIPAP, Syncope Additional Past Medical History / Comment(s): inguinal hernia and umbilical hernia, psoriasis, Gout STRESS TEST 2016-NEG,DDD, STEROID INJ IN BACK History of Any Multi-Drug Resistant Organisms: None Reported Past Surgical History: Appendectomy, Cholecystectomy, Hernia Repair Additional Past Surgical History / Comment(s): rt inguinal hernia x 3, [facility] HERNIA REPAIR,vasectomy, Past Anesthesia/Blood Transfusion Reactions: Motion Sickness Additional Past Anesthesia/Blood Transfusion Reaction / Comment(s): no hx blood transfusion Past Psychological History: Anxiety, Panic Disorder Smoking Status: Former smoker Past Alcohol Use History: Rare Past Drug Use History: None Reported - Past Family History Father Family Medical History: Congestive Heart Failure (CHF), Myocardial Infarction ( [place]) Additional Family Medical History / Comment(s): alcoholism Mother Family Medical History: Osteoarthritis (OA) General Exam Limitations: no limitations General appearance: alert, in no apparent distress Head exam: Present: atraumatic, normocephalic Eye exam: Present: normal appearance. Absent: scleral icterus, conjunctival injection Respiratory exam: Present: normal lung sounds bilaterally. Absent: respiratory distress, wheezes, rales, rhonchi, stridor Cardiovascular Exam: Present: regular rate, normal rhythm, normal heart sounds. Absent: systolic murmur, diastolic murmur, rubs, gallop GI/Abdominal exam: Present: soft. Absent: distended, tenderness, guarding, rebound Extremities exam: Present: normal inspection, normal capillary refill. Absent: pedal edema, calf tenderness Back exam: Present: normal inspection Neurological exam: Present: alert Skin exam: Present: warm, dry, intact, normal color. Absent: rash, cyanosis, diaphoretic, erythema, petechiae, pallor, mottled Course Vital Signs 10/04/17 02:51 Temperature 99.1 F Pulse Rate 83 Respiratory 18 Rate Blood Pressure 221/98 O2 Sat by Pulse 96 Oximetry EKG Findings - EKG Results: EKG: interpreted by CELY GALINDO, sinus rhythm (Rate approximate 76 bpm), normal axis, normal QRS, normal ST/T - PR, Pacemaker, Normal: Normal tracing: normal tracing Medical Decision Making - Lab Data Result diagrams: 10/04/17 03:29 10/04/17 03:29 Lab Results 10/04/17 10/04/17 10/04/17 Range/Units 03:29 03:29 03:29 WBC 12.7 H (3.8-10.6) k/uL RBC 4.87 (4.30-5.90) m/uL Hgb 14.6 (13.0-17.5) gm/dL Hct 42.6 (39.0-53.0) % MCV 87.4 (80.0-100.0) fL MCH 30.1 (25.0-35.0) pg MCHC 34.4 (31.0-37.0) g/dL RDW 14.4 (11.5-15.5) % Plt Count 264 (150-450) k/uL Neutrophils % 72 % Lymphocytes % 20 % Monocytes % 5 % Eosinophils % 1 % Basophils % 0 % Neutrophils # 9.2 H (1.3-7.7) k/uL Lymphocytes # 2.6 (1.0-4.8) k/uL Monocytes # 0.6 (0-1.0) k/uL Eosinophils # 0.1 (0-0.7) k/uL Basophils # 0.1 (0-0.2) k/uL PT (9.0-12.0) sec INR (<1.2) APTT (22.0-30.0) sec Sodium 143 (137-145) mmol/L Potassium 4.1 (3.5-5.1) mmol/L Chloride 106 (98-107) mmol/L Carbon Dioxide 23 (22-30) mmol/L Anion Gap 14 mmol/L BUN 20 (9-20) mg/dL Creatinine 0.79 (0.66-1.25) mg/dL Est GFR (CKD-EPI)AfAm >90 (>60 ml/min/1.73 sqM) Est GFR (CKD-EPI)NonAf >90 (>60 ml/min/1.73 sqM) Glucose 143 H (74-99) mg/dL Calcium 9.6 (8.4-10.2) mg/dL Magnesium 2.1 (1.6-2.3) mg/dL Total Bilirubin 0.4 (0.2-1.3) mg/dL AST 36 (17-59) U/L ALT 59 (21-72) U/L Alkaline Phosphatase 120 (38-126) U/L Total Creatine Kinase 167 (55-170) U/L CK-MB (CK-2) 3.5 H* (0.0-2.4) ng/mL CK-MB (CK-2) Rel Index 2.1 Troponin I <0.012 (0.000-0.034) ng/mL Total Protein 6.9 (6.3-8.2) g/dL Albumin 4.4 (3.5-5.0) g/dL 10/04/17 Range/Units 03:29 WBC (3.8-10.6) k/uL RBC (4.30-5.90) m/uL Hgb (13.0-17.5) gm/dL Hct (39.0-53.0) % MCV (80.0-100.0) fL MCH (25.0-35.0) pg MCHC (31.0-37.0) g/dL RDW (11.5-15.5) % Plt Count (150-450) k/uL Neutrophils % % Lymphocytes % % Monocytes % % Eosinophils % % Basophils % % Neutrophils # (1.3-7.7) k/uL Lymphocytes # (1.0-4.8) k/uL Monocytes # (0-1.0) k/uL Eosinophils # (0-0.7) k/uL Basophils # (0-0.2) k/uL PT 9.6 (9.0-12.0) sec INR 1.0 (<1.2) APTT 22.2 (22.0-30.0) sec Sodium (137-145) mmol/L Potassium (3.5-5.1) mmol/L Chloride (98-107) mmol/L Carbon Dioxide (22-30) mmol/L Anion Gap mmol/L BUN (9-20) mg/dL Creatinine (0.66-1.25) mg/dL Est GFR (CKD-EPI)AfAm (>60 ml/min/1.73 sqM) Est GFR (CKD-EPI)NonAf (>60 ml/min/1.73 sqM) Glucose (74-99) mg/dL Calcium (8.4-10.2) mg/dL Magnesium (1.6-2.3) mg/dL Total Bilirubin (0.2-1.3) mg/dL AST (17-59) U/L ALT (21-72) U/L Alkaline Phosphatase (38-126) U/L Total Creatine Kinase (55-170) U/L CK-MB (CK-2) (0.0-2.4) ng/mL CK-MB (CK-2) Rel Index Troponin I (0.000-0.034) ng/mL Total Protein (6.3-8.2) g/dL Albumin (3.5-5.0) g/dL Disposition Clinical Impression: Sleep apnea Disposition: HOME SELF-CARE Condition: Good Instructions: Palpitations (ED) Referrals: Anuel Dover MD [Primary Care Provider] - 1-2 days
[2017-10-04 03:47] LABS: ALT 59 U/L (21-72); AST 36 U/L (17-59); Albumin 4.4 g/dL (3.5-5.0); Alkaline Phosphatase 120 U/L (38-126); Anion Gap 14 mmol/L; Blood Urea Nitrogen 20 mg/dL (9-20); Calcium 9.6 mg/dL (8.4-10.2); Carbon Dioxide 23 mmol/L (22-30); Chloride 106 mmol/L (98-107); Glucose 143 mg/dL (74-99); Magnesium 2.1 mg/dL (1.6-2.3); Potassium 4.1 mmol/L (3.5-5.1); Sodium 143 mmol/L (137-145); Total Bilirubin 0.4 mg/dL (0.2-1.3); Total Protein 6.9 g/dL (6.3-8.2)
[2017-10-04 03:54] LABS: Creatine Kinase 167 U/L (55-170)
[2017-10-04 03:55] LABS: Partial Thromboplastin Time 22.2 sec (22.0-30.0); Prothrombin Time 9.6 sec (9.0-12.0)
[2017-10-04 04:06] LABS: Troponin I <0.012 ng/mL (0.000-0.034)
[2017-10-04 04:08] LABS: Creatine Kinase MB 3.5 ng/mL (0.0-2.4)
--- NOTE | 2017-10-04 04:10 | XR ---
EXAM: XR Chest, 1 View CLINICAL HISTORY: dysrhythmia TECHNIQUE: Frontal view of the chest. COMPARISON: 05/07/2017 FINDINGS: Lungs: Unremarkable. No consolidation. Elevation of the right hemidiaphragm Pleural space: Unremarkable. No pneumothorax. Heart: Unremarkable. No cardiomegaly. Mediastinum: Unremarkable. Bones/joints: Unremarkable. IMPRESSION: Normal chest x-ray. Stable appearance from the prior study
== END 2017-10-04 05:04 | disposition home or self-care (01) ==
LOC: EC 02:49
DX: G47.30 Sleep apnea, unspecified (principal); R07.89 Other chest pain; F41.0 Panic disorder [episodic paroxysmal anxiety]; K21.9 Gastro-esophageal reflux disease without esophagitis; I10 Essential (primary) hypertension; Z99.89 Dependence on other enabling machines and devices; Z87.891 Personal history of nicotine dependence; Z79.899 Other long term (current) drug therapy
CPT/HCPCS: 36415; 71045; 80053; 82550; 82553; 83735; 84484; 85025; 85610; 85730; 93005; 99285

== ENCOUNTER → 2017-10-13 | Outpatient (CLI) | payer BC ==
--- NOTE | 2017-10-13 16:36 | MR ---
EXAMINATION TYPE: MR knee RT wo con DATE OF EXAM: 10/13/2017 COMPARISON: NONE HISTORY: Internal derangement of right knee TECHNIQUE: Multiplanar, multisequence imaging of the right knee is performed without IV contrast. FINDINGS: MEDIAL MENISCUS: There is increased signal within the substance of the posterior horn medial meniscus compatible with internal derangement or degenerative change. Anterior horn medial meniscus appears n ormal. LATERAL MENISCUS: Anterior and posterior horns are intact without tear. CRUCIATE LIGAMENTS: The anterior and posterior cruciate ligaments are intact and unremarkable. COLLATERAL LIGAMENTS: The medial collateral ligament and lateral collateral ligament complex are inta ct and unremarkable. EXTENSOR MECHANISM: Visualized quadriceps and patellar tendons are intact. EFFUSION: There is a small to moderate joint effusion. POPLITEAL CYST: There is a 5.4 x 1.8 x 2.0 cm popliteal cyst. TRICOMPARTMENT SPACES: There is narrowing of the medial compartment joint space. Milder narrowing of the lateral compartment joint space may be present. Patellofemoral joint space appears preserved. CARTILAGE: There is thinning of the articular cartilage mostly within the medial compartment joint sp augustus. BONE MARROW SIGNAL: No focal abnormal marrow signal is appreciated. OTHER: No additional significant abnormality is appreciated. IMPRESSION: 1. Type I tear posterior horn medial meniscus. 2. Moderate joint effusion. 3. Osteoarthritic degenerative change greater within the medial compartment right knee. 4. Popliteal cyst.
== END | disposition home or self-care (01) ==
LOC: RADMRIMAIN 09:10
PROVIDERS: ATTEND Internal Medicine Rheumatology
DX: S83.241A Other tear of medial meniscus, current injury, right knee, initial encounter (principal); M17.11 Unilateral primary osteoarthritis, right knee; M71.21 Synovial cyst of popliteal space [Baker], right knee

== ENCOUNTER 2017-10-29 23:49 | Observation (INO) | payer BC ==
--- NOTE | 2017-10-30 00:27 | ED ---
General Adult HPI - General Chief complaint: Arrhythmia/Palpitations Stated complaint: heart palpitations Time Seen by Provider: 10/30/17 00:04 Source: patient, family Mode of arrival: ambulatory Limitations: no limitations - Related Data Home Medications Medication Instructions Recorded Confirmed Fluticasone Nasal [place] [Flonase 1 spr EA NOSTRIL DAILY PRN 10/21/15 10/29/17 Nasal [place]] Loratadine [Claritin] 10 mg PO DAILY 10/21/15 10/29/17 Losartan/Hydrochlorothiazide 1 tab PO DAILY@1400 10/21/15 10/29/17 [Losartan-Hctz 100-25 mg Tab] Montelukast Sodium [Singulair] 10 mg PO HS 10/21/15 10/29/17 Albuterol Inhaler [Ventolin Hfa 1 - 2 puff INHALATION RT-Q6H PRN 05/07/17 Inhaler] Allopurinol [Zyloprim] 100 mg PO BID 05/07/17 10/29/17 Gabapentin [Neurontin] 400 mg PO TID 05/07/17 10/29/17 ALPRAZolam [Xanax] 0.25 mg PO DAILY PRN 07/24/17 10/29/17 Atorvastatin [Lipitor] 40 mg PO HS 07/24/17 10/29/17 Colchicine [Colcrys] 0.6 mg PO DAILY@1400 07/24/17 10/29/17 Ibuprofen [Motrin] 800 mg PO TID PRN 07/24/17 10/29/17 Olopatadine HCl [Patanol] 1 drop BOTH EYES BID 07/24/17 10/29/17 Omeprazole [PriLOSEC] 20 mg PO HS 07/24/17 10/29/17 Previous Rx's Medication Instructions Recorded Aspirin EC [Ecotrin Low Dose] 81 mg PO DAILY #30 tablet. 05/09/17 Allergies Allergy/AdvReac Type Severity Reaction Status Date / Time No Known Allergies Allergy Verified 10/29/17 23:54 Review of Systems ROS Statement: Those systems with pertinent positive or pertinent negative responses have been documented in the HPI. ROS Other: All systems not noted in ROS Statement are negative. Past Medical History Past Medical History: GERD/Reflux, Hypertension, Osteoarthritis (OA), Pneumonia , Skin Disorder, Sleep Apnea/CPAP/BIPAP, Syncope Additional Past Medical History / Comment(s): inguinal hernia and umbilical hernia, psoriasis, Gout STRESS TEST 2016-NEG,DDD, STEROID INJ IN BACK History of Any Multi-Drug Resistant Organisms: None Reported Past Surgical History: Appendectomy, Cholecystectomy, Hernia Repair Additional Past Surgical History / Comment(s): rt inguinal hernia x 3, [facility] HERNIA REPAIR,vasectomy, Past Anesthesia/Blood Transfusion Reactions: Motion Sickness Additional Past Anesthesia/Blood Transfusion Reaction / Comment(s): no hx blood transfusion Past Psychological History: Anxiety, Panic Disorder Smoking Status: Former smoker Past Alcohol Use History: Rare Past Drug Use History: None Reported - Past Family History Father Family Medical History: Congestive Heart Failure (CHF), Myocardial Infarction ( [place]) Additional Family Medical History / Comment(s): alcoholism Mother Family Medical History: Osteoarthritis (OA) General Exam Limitations: no limitations Course Vital Signs 10/29/17 10/30/17 23:50 00:56 Temperature 99.2 F Pulse Rate 85 75 Respiratory 20 16 Rate Blood Pressure 189/92 140/80 O2 Sat by Pulse 97 96 Oximetry EKG Findings - EKG Comments: EKG Findings:: EKG shows sinus rhythm rate of 82, [place] 170, QRS 90, QTc 441 Medical Decision Making - Lab Data Result diagrams: 10/30/17 00:16 10/30/17 00:16 Lab Results 10/30/17 10/30/17 10/30/17 Range/Units 00:16 00:16 00:16 WBC 12.3 H (3.8-10.6) k/uL RBC 4.82 (4.30-5.90) m/uL Hgb 14.4 (13.0-17.5) gm/dL Hct 42.4 (39.0-53.0) % MCV 87.9 (80.0-100.0) fL MCH 29.9 (25.0-35.0) pg MCHC 34.0 (31.0-37.0) g/dL RDW 14.3 (11.5-15.5) % Plt Count 371 (150-450) k/uL Neutrophils % 71 % Lymphocytes % 20 % Monocytes % 6 % Eosinophils % 1 % Basophils % 0 % Neutrophils # 8.8 H (1.3-7.7) k/uL Lymphocytes # 2.5 (1.0-4.8) k/uL Monocytes # 0.7 (0-1.0) k/uL Eosinophils # 0.1 (0-0.7) k/uL Basophils # 0.0 (0-0.2) k/uL PT (9.0-12.0) sec INR (<1.2) APTT (22.0-30.0) sec Sodium 141 (137-145) mmol/L Potassium 3.7 (3.5-5.1) mmol/L Chloride 105 (98-107) mmol/L Carbon Dioxide 25 (22-30) mmol/L Anion Gap 11 mmol/L BUN 20 (9-20) mg/dL Creatinine 0.80 (0.66-1.25) mg/dL Est GFR (CKD-EPI)AfAm >90 (>60 ml/min/1.73 sqM) Est GFR (CKD-EPI)NonAf >90 (>60 ml/min/1.73 sqM) Glucose 126 H (74-99) mg/dL Calcium 9.9 (8.4-10.2) mg/dL Magnesium 2.0 (1.6-2.3) mg/dL Total Bilirubin 0.3 (0.2-1.3) mg/dL AST 29 (17-59) U/L ALT 57 (21-72) U/L Alkaline Phosphatase 97 (38-126) U/L Total Creatine Kinase 205 H (55-170) U/L CK-MB (CK-2) 3.0 H* (0.0-2.4) ng/mL CK-MB (CK-2) Rel Index 1.5 Troponin I <0.012 (0.000-0.034) ng/mL Total Protein 7.0 (6.3-8.2) g/dL Albumin 4.5 (3.5-5.0) g/dL 10/30/17 Range/Units 00:16 WBC (3.8-10.6) k/uL RBC (4.30-5.90) m/uL Hgb (13.0-17.5) gm/dL Hct (39.0-53.0) % MCV (80.0-100.0) fL MCH (25.0-35.0) pg MCHC (31.0-37.0) g/dL RDW (11.5-15.5) % Plt Count (150-450) k/uL Neutrophils % % Lymphocytes % % Monocytes % % Eosinophils % % Basophils % % Neutrophils # (1.3-7.7) k/uL Lymphocytes # (1.0-4.8) k/uL Monocytes # (0-1.0) k/uL Eosinophils # (0-0.7) k/uL Basophils # (0-0.2) k/uL PT 9.8 (9.0-12.0) sec INR 1.0 (<1.2) APTT 22.8 (22.0-30.0) sec Sodium (137-145) mmol/L Potassium (3.5-5.1) mmol/L Chloride (98-107) mmol/L Carbon Dioxide (22-30) mmol/L Anion Gap mmol/L BUN (9-20) mg/dL Creatinine (0.66-1.25) mg/dL Est GFR (CKD-EPI)AfAm (>60 ml/min/1.73 sqM) Est GFR (CKD-EPI)NonAf (>60 ml/min/1.73 sqM) Glucose (74-99) mg/dL Calcium (8.4-10.2) mg/dL Magnesium (1.6-2.3) mg/dL Total Bilirubin (0.2-1.3) mg/dL AST (17-59) U/L ALT (21-72) U/L Alkaline Phosphatase (38-126) U/L Total Creatine Kinase (55-170) U/L CK-MB (CK-2) (0.0-2.4) ng/mL CK-MB (CK-2) Rel Index Troponin I (0.000-0.034) ng/mL Total Protein (6.3-8.2) g/dL Albumin (3.5-5.0) g/dL Disposition Clinical Impression: Chest pain, Palpitations, PVC (premature ventricular contraction) Disposition[facility] Condition: Good Instructions: Palpitations (ED) Is patient prescribed a controlled substance at d/c from ED?: No Referrals: Anuel Dover MD [Primary Care Provider] - 1-2 days
[2017-10-30 00:28] LABS: Basophils % (A) 0 %; Eosinophils # (A) 0.1 k/uL (0-0.7); Eosinophils % (A) 1 %; HCT 42.4 % (39.0-53.0); HGB 14.4 gm/dL (13.0-17.5); Lymphocytes # (A) 2.5 k/uL (1.0-4.8); Lymphocytes % (A) 20 %; MCH 29.9 pg (25.0-35.0); MCV 87.9 fL (80.0-100.0); Monocytes # (A) 0.7 k/uL (0-1.0); Monocytes % (A) 6 %; Neutrophils # (A) 8.8 k/uL (1.3-7.7); Neutrophils % (A) 71 %; Platelet Count 371 k/uL (150-450); RBC 4.82 m/uL (4.30-5.90); RDW 14.3 % (11.5-15.5); WBC 12.3 k/uL (3.8-10.6)
[2017-10-30] MEDS ORDERED: MORPHINE SULFATE 2 MG/ML SYRINGE IVP STA (00:31)
[2017-10-30] MEDS ORDERED: DIAZEPAM 5 MG/ML 2 ML INJ IVP STA (00:31)
[2017-10-30 00:36] LABS: ALT 57 U/L (21-72); AST 29 U/L (17-59); Albumin 4.5 g/dL (3.5-5.0); Alkaline Phosphatase 97 U/L (38-126); Anion Gap 11 mmol/L; Blood Urea Nitrogen 20 mg/dL (9-20); Calcium 9.9 mg/dL (8.4-10.2); Carbon Dioxide 25 mmol/L (22-30); Chloride 105 mmol/L (98-107); Glucose 126 mg/dL (74-99); Potassium 3.7 mmol/L (3.5-5.1); Sodium 141 mmol/L (137-145); Total Bilirubin 0.3 mg/dL (0.2-1.3)
[2017-10-30 00:38] LABS: Creatine Kinase 205 U/L (55-170)
[2017-10-30 00:39] LABS: Partial Thromboplastin Time 22.8 sec (22.0-30.0); Prothrombin Time 9.8 sec (9.0-12.0)
--- NOTE | 2017-10-30 00:48 | XR ---
EXAMINATION TYPE: XR chest 2V DATE OF EXAM: 10/30/2017 COMPARISON: 10/04/2017 HISTORY: Chest pain TECHNIQUE: Frontal and lateral views of the chest are obtained. FINDINGS: Heart and mediastinum are normal. Lungs are clear. Diaphragm is normal. There are chest le ads. Bony thorax appears normal. IMPRESSION: Normal chest. No change.
[2017-10-30 00:51] LABS: Troponin I <0.012 ng/mL (0.000-0.034)
[2017-10-30] MEDS ORDERED: ASPIRIN 81 MG PO STA (01:36)
[2017-10-30] MEDS ORDERED: NITROGLYCERIN SL TABS 0.4 MG TAB SUBLINGUAL PRN (01:36)
[2017-10-30 06:12] LABS: Creatine Kinase 139 U/L (55-170)
[2017-10-30 06:25] LABS: Creatine Kinase MB 2.2 ng/mL (0.0-2.4); Troponin I <0.012 ng/mL (0.000-0.034)
[2017-10-30] MEDS ORDERED: METOPROLOL TARTRATE 50 MG TAB PO SCH (09:00)
--- NOTE | 2017-10-30 11:54 | P.CRDCN ---
History of Present Illness History of present illness: Mr. Lovelace is a pleasant 57-year-old male past medical history significant for hypertension, obstructive sleep apnea, gastroesophageal reflux disease and obesity. He follows with Dr. Escamilla in the office. We have been asked to see him in consultation for symptoms of palpitations. He states when he was working last night he started feeling fluttering or flip-flopping in his chest. He states this would come on with no specific aggravating factor. He denies associated chest pain, dizziness, shortness of breath, nausea, vomiting or diaphoresis. He states he recently started using chewing tobacco approximately 2 days ago. He has a recent smoker he quit smoking in 2016 he had been smoking heavily since 1997. He recently saw Dr. Elizabeth In the office for evaluation of atypical chest discomfort and underwent a Cardiolite stress test. The stress test was negative for reversible cardiac ischemia. Most recent echocardiogram performed in April 2017 reveals preserved left ventricular systolic function with ejection fraction 50-55%, mild tricuspid regurgitation. EKG on arrival reveals sinus mechanism with PVCs with nonspecific T-wave abnormalities inferiorly. Chest x-ray is negative for acute cardiopulmonary process. Laboratory data reviewed, hemoglobin 14.4, WBC 12.3, platelets 371, sodium 141, potassium 3.7, magnesium 2.0, creatinine 0.8, troponin negative 2 with an elevated CK at 205 and a CK-MB of 3.0. Current cardiac medications include aspirin 81 mg daily, atorvastatin 40 mg daily, losartan/hydrochlorothiazide 100/25 mg daily. He also takes Prilosec, Claritin, Neurontin, colchicine, allopurinol, Ventolin and Xanax. Review of Systems At the time of my exam: CONSTITUTIONAL: Denies fever. Denies chills. EYES: Denies blurred vision. Denies vision changes. Denies eye pain. EARS, NOSE, MOUTH & THROAT: Denies headache. Denies sore throat. Denies ear pain. CARDIOVASCULAR: Denies chest pain. Denies shortness of breath. Denies orthopnea. Denies PND. Denies palpitations. RESPIRATORY: Denies cough. GASTROINTESTINAL: Denies abdominal pain. Denies diarrhea. Denies constipation. Denies nausea. Denies vomiting. MUSCULOSKELETAL: Denies myalgias. INTEGUMENTARY: Denies pruitis. Denies rash. NEUROLOGIC: Denies numbness. Denies tingling. Denies weakness. PSYCHIATRIC: Denies anxiety. Denies depression. ENDOCRINE: Denies fatigue. Denies weight change. Denies polydipsia. Denies polyurina. GENITOURINARY: Denies burning, hematuria or urgency with micturation. HEMATOLOGIC: Denies history of anemia. Denies bleeding. Past Medical History Past Medical History: GERD/Reflux, Hypertension, Osteoarthritis (OA), Pneumonia , Skin Disorder, Sleep Apnea/CPAP/BIPAP, Syncope Additional Past Medical History / Comment(s): inguinal hernia and umbilical hernia, psoriasis, Gout STRESS TEST 2016-NEG,DDD, STEROID INJ IN BACK History of Any Multi-Drug Resistant Organisms: None Reported Past Surgical History: Appendectomy, Cholecystectomy, Hernia Repair Additional Past Surgical History / Comment(s): rt inguinal hernia x 3, [facility] HERNIA REPAIR,vasectomy, Past Anesthesia/Blood Transfusion Reactions: Motion Sickness Additional Past Anesthesia/Blood Transfusion Reaction / Comment(s): no hx blood transfusion Past Psychological History: Anxiety, Panic Disorder Smoking Status: Former smoker Past Alcohol Use History: Rare Past Drug Use History: None Reported - Past Family History Father Family Medical History: Congestive Heart Failure (CHF), Myocardial Infarction ( [place]) Additional Family Medical History / Comment(s): alcoholism Mother Family Medical History: Osteoarthritis (OA) Medications and Allergies Home Medications Medication Instructions Recorded Confirmed Type Fluticasone Nasal [place] [Flonase 1 spr EA NOSTRIL DAILY PRN 10/21/15 10/30/17 History Nasal [place]] Loratadine [Claritin] 10 mg PO DAILY 10/21/15 10/30/17 History Losartan/Hydrochlorothiazide 1 tab PO DAILY 10/21/15 10/30/17 History [Losartan-Hctz 100-25 mg Tab] Montelukast Sodium [Singulair] 10 mg PO HS 10/21/15 10/30/17 History Albuterol Inhaler [Ventolin Hfa 1 - 2 puff INHALATION RT-Q6H PRN 05/07/17 History Inhaler] Gabapentin [Neurontin] 400 mg PO TID 05/07/17 10/30/17 History Aspirin EC [Ecotrin Low Dose] 81 mg PO DAILY #30 tablet. 05/09/17 10/30/17 Rx ALPRAZolam [Xanax] 0.25 mg PO DAILY PRN 07/24/17 10/30/17 History Atorvastatin [Lipitor] 40 mg PO HS 07/24/17 10/30/17 History Colchicine [Colcrys] 0.6 mg PO DAILY 07/24/17 10/30/17 History Ibuprofen [Motrin] 800 mg PO TID PRN 07/24/17 10/30/17 History Olopatadine HCl [Patanol] 1 drop BOTH EYES BID 07/24/17 10/30/17 History Omeprazole [PriLOSEC] 20 mg PO HS 07/24/17 10/30/17 History Allopurinol [Zyloprim] 300 mg PO DAILY 10/30/17 10/30/17 History Allergies Allergy/AdvReac Type Severity Reaction Status Date / Time No Known Allergies Allergy Verified 10/30/17 10:12 Physical Exam Vitals: Vital Signs Temp Pulse Resp BP Pulse Ox 10/30/17 04:51 65 16 141/82 97 10/30/17 01:45 74 16 146/78 98 10/30/17 00:56 75 16 140/80 96 10/29/17 23:50 99.2 F 85 20 189/92 97 Intake and Output 10/29/17 10/30/17 10/30/17 22:59 06:59 14:59 Other: Weight 117.934 kg Blood pressure 141/82 heart rate 65 afebrile maintaining oxygen saturation on room air GENERAL: This is a 57-year-old occasion male in no apparent distress at the time of my examination. Obese. HEENT: Head is atraumatic, normocephalic. Pupils are equal, round. Sclerae anicteric. Conjunctivae are clear. Mucous membranes of the mouth are moist. Neck is supple. There is no jugular venous distention. No carotid bruit is heard. LUNGS: Clear to auscultation no wheezes, rales or rhonchi. No chest wall tenderness is noted on palpation or with deep breathing. HEART: Regular rate and rhythm without murmurs, rubs or gallops. S1 and S2 heard. ABDOMEN: Soft, nontender. Bowel sounds are heard. No organomegaly noted. EXTREMITIES: No evidence of peripheral edema and no calf tenderness noted. VASCULAR: Radial and dorsalis pedis pulses palpated, no evidence of clubbing. NEUROLOGIC: Patient is awake, alert and oriented x3. ( Results 10/30/17 00:16 10/30/17 00:16 Cardiac Enzymes 10/30/17 10/30/17 10/30/17 Range/Units 00:16 00:16 05:35 AST 29 (17-59) U/L CK-MB (CK-2) 3.0 H* 2.2 (0.0-2.4) ng/mL Troponin I <0.012 <0.012 (0.000-0.034) ng/mL Coagulation 10/30/17 Range/Units 00:16 PT 9.8 (9.0-12.0) sec APTT 22.8 (22.0-30.0) sec CBC 10/30/17 Range/Units 00:16 WBC 12.3 H (3.8-10.6) k/uL RBC 4.82 (4.30-5.90) m/uL Hgb 14.4 (13.0-17.5) gm/dL Hct 42.4 (39.0-53.0) % Plt Count 371 (150-450) k/uL Comprehensive Metabolic Panel 10/30/17 Range/Units 00:16 Sodium 141 (137-145) mmol/L Potassium 3.7 (3.5-5.1) mmol/L Chloride 105 (98-107) mmol/L Carbon Dioxide 25 (22-30) mmol/L BUN 20 (9-20) mg/dL Creatinine 0.80 (0.66-1.25) mg/dL Glucose 126 H (74-99) mg/dL Calcium 9.9 (8.4-10.2) mg/dL AST 29 (17-59) U/L ALT 57 (21-72) U/L Alkaline Phosphatase 97 (38-126) U/L Total Protein 7.0 (6.3-8.2) g/dL Albumin 4.5 (3.5-5.0) g/dL Current Medications Generic Name Dose Route Start Last Admin Trade Name Freq PRN Reason Stop Dose Admin Aspirin 325 mg 10/31/17 09:00 Aspirin PO DAILY [facility] Metoprolol Tartrate 50 mg 10/30/17 09:00 Lopressor PO BID [facility] Nitroglycerin 0.4 mg 10/30/17 01:36 Nitrostat SUBLINGUAL Q5M PRN Chest Pain Intake and Output 06/10/30/17 10/30/17 22:59 06:59 14:59 Other: Weight 117.934 kg 10/30/17 00:16 10/30/17 00:16 Assessment and Plan Assessment: ASSESSMENT 1. Palpitations with evidence of PVCs on EKG and telemetry 2. Hypertension 3. Dyslipidemia 4. Gastroesophageal reflux disease 5. Chronic tobacco use 6. Sleep apnea 7. Obesity PLAN Check TSH. Resume losartan/chlorothiazide, aspirin and atorvastatin at home doses. Continue to monitor on telemetry for evidence of arrhythmia. Thank you kindly for this consultation. Nurse Practitioner note has been reviewed, I agree with a documented findings and plan of care. Patient was seen and examined.
--- NOTE | 2017-10-30 12:01 | P.HPIM ---
History of Present Illness This is a pleasant 57 years old male with past medical history of GERD, hypertension, osteoarthritis, pneumonia, sleep apnea on CPAP/BiPAP, syncope, negative stress test in 2016 as per document chronic back pain status post steroid injection. Cholecystectomy. Reports smoking about 2 years ago. Occasional alcohol drinking. Patient presents this time because of palpitation. Patient stating when day earlier at work he was chewing tobacco with his friend after that he started having palpitation continue was not associated with chest pain, abdominal pain, dizziness, dyspnea or syncope. Patient comes to the emergency room and currently his palpitation is improved but still there. 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 Also. He reports history of chest pain where he underwent stress test about 6 months ago, mostly its unremarkable as per patient but he is not sure. In ED patient had EKG showing sinus rhythm with frequent premature contrecoup or complexes, ventricular rate is 82/m and QTC is 441 Review of Systems CONSTITUTIONAL: No fever, no malaise, no fatigue. HEENT: No recent visual problems or hearing problems. Denied any sore throat. CARDIOVASCULAR: No orthopnea, PND, no palpitations, no syncope. PULMONARY: No shortness of breath, no cough, no hemoptysis. GASTROINTESTINAL: No diarrhea, no nausea, no vomiting, no abdominal pain. Normoactive bowel sounds. NEUROLOGICAL: No headaches, no weakness, no numbness. HEMATOLOGICAL: Denies any bleeding or petechiae. GENITOURINARY: Denies any burning micturition, frequency, or urgency. MUSCULOSKELETAL/RHEUMATOLOGICAL: Denies any joint pain, swelling, or any muscle pain. ENDOCRINE: Denies any polyuria or polydipsia. Past Medical History Past Medical History: GERD/Reflux, Hypertension, Osteoarthritis (OA), Pneumonia , Skin Disorder, Sleep Apnea/CPAP/BIPAP, Syncope Additional Past Medical History / Comment(s): inguinal hernia and umbilical hernia, psoriasis, Gout STRESS TEST 2016-NEG,DDD, STEROID INJ IN BACK History of Any Multi-Drug Resistant Organisms: None Reported Past Surgical History: Appendectomy, Cholecystectomy, Hernia Repair Additional Past Surgical History / Comment(s): rt inguinal hernia x 3, [facility] HERNIA REPAIR,vasectomy, Past Anesthesia/Blood Transfusion Reactions: Motion Sickness Additional Past Anesthesia/Blood Transfusion Reaction / Comment(s): no hx blood transfusion Past Psychological History: Anxiety, Panic Disorder Smoking Status: Former smoker Past Alcohol Use History: Rare Past Drug Use History: None Reported - Past Family History Father Family Medical History: Congestive Heart Failure (CHF), Myocardial Infarction ( [place]) Additional Family Medical History / Comment(s): alcoholism Mother Family Medical History: Osteoarthritis (OA) Medications and Allergies Home Medications Medication Instructions Recorded Confirmed Type Fluticasone Nasal [place] [Flonase 1 spr EA NOSTRIL DAILY PRN 10/21/15 10/30/17 History Nasal [place]] Loratadine [Claritin] 10 mg PO DAILY 10/21/15 10/30/17 History Losartan/Hydrochlorothiazide 1 tab PO DAILY 10/21/15 10/30/17 History [Losartan-Hctz 100-25 mg Tab] Montelukast Sodium [Singulair] 10 mg PO HS 10/21/15 10/30/17 History Albuterol Inhaler [Ventolin Hfa 1 - 2 puff INHALATION RT-Q6H PRN 05/07/17 History Inhaler] Gabapentin [Neurontin] 400 mg PO TID 05/07/17 10/30/17 History Aspirin EC [Ecotrin Low Dose] 81 mg PO DAILY #30 tablet.dr 05/09/17 10/30/17 Rx ALPRAZolam [Xanax] 0.25 mg PO DAILY PRN 07/24/17 10/30/17 History Atorvastatin [Lipitor] 40 mg PO HS 07/24/17 10/30/17 History Colchicine [Colcrys] 0.6 mg PO DAILY 07/24/17 10/30/17 History Ibuprofen [Motrin] 800 mg PO TID PRN 07/24/17 10/30/17 History Olopatadine HCl [Patanol] 1 drop BOTH EYES BID 07/24/17 10/30/17 History Omeprazole [PriLOSEC] 20 mg PO HS 07/24/17 10/30/17 History Allopurinol [Zyloprim] 300 mg PO DAILY 10/30/17 10/30/17 History Allergies Allergy/AdvReac Type Severity Reaction Status Date / Time No Known Allergies Allergy Verified 10/30/17 10:12 Physical Exam Vitals: Vital Signs Temp Pulse Resp BP Pulse Ox 10/30/17 08:51 74 18 149/70 97 10/30/17 08:00 18 10/30/17 04:51 65 16 141/82 97 10/30/17 01:45 74 16 146/78 98 10/30/17 00:56 75 16 140/80 96 10/29/17 23:50 99.2 F 85 20 189/92 97 Intake and Output 10/29/17 10/30/17 10/30/17 22:59 06:59 14:59 Other: Weight 117.934 kg GENERAL: The patient is alert and oriented x3, not in any acute distress. Well developed, well nourished. HEENT: Pupils are round and equally reacting to light. EOMI. No scleral icterus. No conjunctival pallor. Normocephalic, atraumatic. No pharyngeal erythema. No thyromegaly. CARDIOVASCULAR: S1 and S2 present. No murmurs, rubs, or gallops. PULMONARY: Chest is clear to auscultation, no wheezing or crackles. ABDOMEN: Soft, nontender, nondistended, normoactive bowel sounds. No palpable organomegaly. MUSCULOSKELETAL: No joint swelling or deformity. EXTREMITIES: No cyanosis, clubbing, or pedal edema. NEUROLOGICAL: Gross neurological examination did not reveal any focal deficits. SKIN: No rashes. Results CBC & Chem 7: 10/30/17 00:16 10/30/17 00:16 Labs: Abnormal Lab Results - Last 24 Hours (Table) 10/30/17 10/30/17 10/30/17 Range/Units 00:16 00:16 00:16 WBC 12.3 H (3.8-10.6) k/uL Neutrophils # 8.8 H (1.3-7.7) k/uL Glucose 126 H (74-99) mg/dL Total Creatine Kinase 205 H (55-170) U/L CK-MB (CK-2) 3.0 H* (0.0-2.4) ng/mL Assessment and Plan Assessment: -Palpitation, EKG showing frequent PVCs -History of chest pain and syncope -Hypertension -GERD -osteoarthritis -Chronic back pain Plan: This is a pleasant 57 years old male with past medical history as above who presents because of one-day of palpitation. Recurrent. EKG showing frequent PVCs. We going to admit him with cardiology consultation and cardiology workup. Continue with same treatment, continue with symptomatic treatment. GI and DVT prophylaxis. And further recommendation based on clinical course
[2017-10-30] MEDS ORDERED: PANTOPRAZOLE 40 MG TABLET PO SCH (12:15)
[2017-10-30 12:21] VITALS: PULSE 57
[2017-10-30 12:58] VITALS: BP 134/63; RESP 16; TEMP 97.7
--- NOTE | 2017-10-30 13:51 | P.CRDCN ---
History of Present Illness History of present illness: Gen. elderly male patient of Dr. Escamilla who presented with recurrent palpitations and fluttering in the chest that made him dizzy and nauseous and sweaty. Right ventricular outflow tract PVCs free wall/posteriorly, were noted. He's had a stress test and echo in the office. I would advise him to see Dr. Escamilla and get a 24 Holter monitor to assess his PVC burden for consideration for EP study and ablation. I explained to the patient that if he has a low PVC burden, this could affect the mapping procedure during an EP study Past Medical History Past Medical History: GERD/Reflux, Hypertension, Osteoarthritis (OA), Pneumonia , Skin Disorder, Sleep Apnea/CPAP/BIPAP, Syncope Additional Past Medical History / Comment(s): inguinal hernia and umbilical hernia, psoriasis, Gout STRESS TEST 2016-NEG,DDD, STEROID INJ IN BACK History of Any Multi-Drug Resistant Organisms: None Reported Past Surgical History: Appendectomy, Cholecystectomy, Hernia Repair Additional Past Surgical History / Comment(s): rt inguinal hernia x 3, [facility] HERNIA REPAIR,vasectomy, Past Anesthesia/Blood Transfusion Reactions: Motion Sickness Additional Past Anesthesia/Blood Transfusion Reaction / Comment(s): no hx blood transfusion Past Psychological History: Anxiety, Panic Disorder Smoking Status: Former smoker Past Alcohol Use History: Rare Past Drug Use History: None Reported - Past Family History Father Family Medical History: Congestive Heart Failure (CHF), Myocardial Infarction ( [place]) Additional Family Medical History / Comment(s): alcoholism Mother Family Medical History: Osteoarthritis (OA) Medications and Allergies Home Medications Medication Instructions Recorded Confirmed Type RX: Fluticasone Nasal [place] 1 spr EA NOSTRIL DAILY PRN 10/21/15 10/30/17 History [Flonase Nasal [place]] RX: Loratadine [Claritin] 10 mg PO DAILY 10/21/15 10/30/17 History RX: Losartan/Hydrochlorothiazide 1 tab PO DAILY 10/21/15 10/30/17 History [Losartan-Hctz 100-25 mg Tab] RX: Montelukast Sodium [Singulair] 10 mg PO HS 10/21/15 10/30/17 History RX: Albuterol Inhaler [Ventolin 1 - 2 puff INHALATION RT-Q6H PRN 05/07/17 History Hfa Inhaler] RX: Gabapentin [Neurontin] 400 mg PO TID 05/07/17 10/30/17 History Aspirin EC [Ecotrin Low Dose] 81 mg PO DAILY #30 tablet. 05/09/17 10/30/17 Rx ALPRAZolam [Xanax] 0.25 mg PO DAILY PRN 07/24/17 10/30/17 History Atorvastatin [Lipitor] 40 mg PO HS 07/24/17 10/30/17 History Colchicine [Colcrys] 0.6 mg PO DAILY 07/24/17 10/30/17 History Ibuprofen [Motrin] 800 mg PO TID PRN 07/24/17 10/30/17 History Olopatadine HCl [Patanol] 1 drop BOTH EYES BID 07/24/17 10/30/17 History Omeprazole [PriLOSEC] 20 mg PO HS 07/24/17 10/30/17 History Allopurinol [Zyloprim] 300 mg PO DAILY 10/30/17 10/30/17 History Allergies Allergy/AdvReac Type Severity Reaction Status Date / Time No Known Allergies Allergy Verified 10/30/17 10:12 Physical Exam Vitals: Vital Signs Temp Pulse Resp BP BP Pulse Ox 10/30/17 12:55 97.7 F 16 134/63 97 10/30/17 12:00 57 L 20 147/71 95 10/30/17 08:51 74 18 149/70 97 10/30/17 08:00 18 10/30/17 04:51 65 16 141/82 97 10/30/17 01:45 74 16 146/78 98 10/30/17 00:56 75 16 140/80 96 10/29/17 23:50 99.2 F 85 20 189/92 97 Intake and Output 10/29/17 10/30/17 10/30/17 22:59 06:59 14:59 Other: Weight 117.934 kg 117.6 kg Results 10/30/17 00:16 10/30/17 00:16 Cardiac Enzymes 10/30/17 10/30/17 10/30/17 Range/Units 00:16 00:16 05:35 AST 29 (17-59) U/L CK-MB (CK-2) 3.0 H* 2.2 (0.0-2.4) ng/mL Troponin I <0.012 <0.012 (0.000-0.034) ng/mL Coagulation 10/30/17 Range/Units 00:16 PT 9.8 (9.0-12.0) sec APTT 22.8 (22.0-30.0) sec CBC 10/30/17 Range/Units 00:16 WBC 12.3 H (3.8-10.6) k/uL RBC 4.82 (4.30-5.90) m/uL Hgb 14.4 (13.0-17.5) gm/dL Hct 42.4 (39.0-53.0) % Plt Count 371 (150-450) k/uL Comprehensive Metabolic Panel 10/30/17 Range/Units 00:16 Sodium 141 (137-145) mmol/L Potassium 3.7 (3.5-5.1) mmol/L Chloride 105 (98-107) mmol/L Carbon Dioxide 25 (22-30) mmol/L BUN 20 (9-20) mg/dL Creatinine 0.80 (0.66-1.25) mg/dL Glucose 126 H (74-99) mg/dL Calcium 9.9 (8.4-10.2) mg/dL AST 29 (17-59) U/L ALT 57 (21-72) U/L Alkaline Phosphatase 97 (38-126) U/L Total Protein 7.0 (6.3-8.2) g/dL Albumin 4.5 (3.5-5.0) g/dL Current Medications Generic Name Dose Route Start Last Admin Trade Name Freq PRN Reason Stop Dose Admin Aspirin 81 mg 10/31/17 09:00 Aspirin PO DAILY [facility] Atorvastatin Calcium 40 mg 10/30/17 21:00 Lipitor PO HS [facility] HCTZ/Losartan Potassium 2 each 10/30/17 14:00 Hyzaar 50-12.5 PO DAILY@1400 [facility] Heparin Sodium (Porcine) 5,000 unit 10/30/17 21:00 Heparin SQ Q12HR [facility] Nitroglycerin 0.4 mg 10/30/17 01:36 Nitrostat SUBLINGUAL Q5M PRN Chest Pain Pantoprazole Sodium 40 mg 10/30/17 12:15 Protonix PO AC-BRKFST MARIAELENA Intake and Output 10/29/17 10/30/17 10/30/17 22:59 06:59 14:59 Other: Weight 117.934 kg 117.6 kg Patient Weight 10/31/17 06:59 Weight 117.6 kg 10/30/17 00:16 10/30/17 00:16
[2017-10-30 13:53] LABS: Creatine Kinase 115 U/L (55-170)
[2017-10-30] MEDS ORDERED: LOSARTAN-HCTZ 50-12.5 MG 1 EACH TAB PO SCH (14:00)
[2017-10-30 14:03] LABS: Creatine Kinase MB 1.6 ng/mL (0.0-2.4); Troponin I <0.012 ng/mL (0.000-0.034)
--- NOTE | 2017-10-30 17:25 | P.DS ---
Providers Date of admission: 10/30/17 01:38 Attending physician: Shira Sanchez Consults: 10/30/17 01:36 Consult Physician Urgent Consulting Provider: Estrella Ridley Consult Reason/Comments: pvc,cp Do you want consulting provider notified?: Yes Primary care physician: Anuel Stanislaw [facility] Course: This is a pleasant 57 years old male with past medical history of GERD, hypertension, osteoarthritis, pneumonia, sleep apnea on CPAP/BiPAP, syncope, negative stress test in 2016 as per document chronic back pain status post steroid injection. Cholecystectomy. Reports smoking about 2 years ago. Occasional alcohol drinking. Patient presents this time because of palpitation. Patient stating when day earlier at work he was chewing tobacco with his friend after that he started having palpitation continue was not associated with chest pain, abdominal pain, dizziness, dyspnea or syncope. Patient comes to the emergency room and currently his palpitation is improved but still there. Of note the patient states this is the second episode., the first episode was over the when he came to emergency room and discharge right away to follow-up with his engraver pantograph as an outpatient. Also. He reports history of chest pain where he underwent stress test about 6 months ago, mostly its unremarkable as per patient but he is not sure. In ED patient had EKG showing sinus rhythm with frequent premature contrecoup or complexes, ventricular rate is 82/m and QTC is 441 patient has been evaluated by engraver pantograph here and recommended follow-up with cardiology office in one week for 24-hour Holter. Today is weekend I instructed the patient to call and make an appointment in 1 week and he verbalized understanding and acceptance. He had also mild leukocytosis of 12.3 K. Outpatient steroid injection for his low back pain about 1 week ago which is known to cause leukocytosis. Patient didn't want to wait to recheck his white BC and he agrees to take prescription to his doctor office where he has appointment on 11-24 recheck his WBC him again. Patient was cleared by engraver pantograph for discharge today. Patient on discharge denies any other symptoms and has no more palpitation. Patient was found stable and can be discharged home however he needs follow-up as an outpatient and he agrees Please refer to today exam in the H&P Time spent more than 35 minutes Patient Condition at Discharge: Good Plan - Discharge Summary Discharge Rx Participant: No New Discharge Prescriptions: No Action Loratadine [Claritin] 10 mg PO DAILY Fluticasone Nasal [place] [Flonase Nasal [place]] 1 spr EA NOSTRIL DAILY PRN PRN Reason: Congestion Montelukast Sodium [Singulair] 10 mg PO HS Losartan/Hydrochlorothiazide [Losartan-Hctz 100-25 mg Tab] 1 tab PO DAILY Albuterol Inhaler [Ventolin Hfa Inhaler] 1 - 2 puff INHALATION RT-Q6H PRN PRN Reason: Shortness Of Breath Gabapentin [Neurontin] 400 mg PO TID Aspirin EC [Ecotrin Low Dose] 81 mg PO DAILY #30 tablet. Colchicine [Colcrys] 0.6 mg PO DAILY ALPRAZolam [Xanax] 0.25 mg PO DAILY PRN PRN Reason: Anxiety Omeprazole [PriLOSEC] 20 mg PO HS Olopatadine HCl [Patanol] 1 drop BOTH EYES BID Atorvastatin [Lipitor] 40 mg PO HS Ibuprofen [Motrin] 800 mg PO TID PRN PRN Reason: Pain Allopurinol [Zyloprim] 300 mg PO DAILY Discharge Medication List Fluticasone Nasal [place] [Flonase Nasal [place]] 1 spr EA NOSTRIL DAILY PRN [History] Loratadine [Claritin] 10 mg PO DAILY 10/21/15 [History] Losartan/Hydrochlorothiazide [Losartan-Hctz 100-25 mg Tab] 1 tab PO DAILY [History] Montelukast Sodium [Singulair] 10 mg PO HS 10/21/15 [History] Albuterol Inhaler [Ventolin Hfa Inhaler] 1 - 2 puff INHALATION RT-Q6H PRN [History] Gabapentin [Neurontin] 400 mg PO TID 05/07/17 [History] Aspirin EC [Ecotrin Low Dose] 81 mg PO DAILY #30 tablet. 05/09/17 [Rx] ALPRAZolam [Xanax] 0.25 mg PO DAILY PRN 07/24/17 [History] Atorvastatin [Lipitor] 40 mg PO HS 07/24/17 [History] Colchicine [Colcrys] 0.6 mg PO DAILY 07/24/17 [History] Olopatadine HCl [Patanol] 1 drop BOTH EYES BID 07/24/17 [History] Omeprazole [PriLOSEC] 20 mg PO HS 07/24/17 [History] Allopurinol [Zyloprim] 300 mg PO DAILY 10/30/17 [History] Follow up Appointment(s)/Referral(s): Anuel Dover MD [Primary Care Provider] - 11/08/17 (we recommend to check your blood test with your doctor ) Edd Escamilla MD [STAFF PHYSICIAN] - 1 Week Patient Instructions/Handouts: Palpitations (ED)
[2017-10-30] MEDS ORDERED: ATORVASTATIN 40 MG TAB PO SCH (21:00)
[2017-10-30] MEDS ORDERED: HEPARIN SODIUM,PORCINE 5,000 UNIT/ML 1 ML VIAL SQ SCH (21:00)
[2017-10-31] MEDS ORDERED: ASPIRIN 81 MG PO SCH (09:00)
[2017-10-31] MEDS ORDERED: ASPIRIN 325 MG TAB PO SCH (09:00)
== END 2017-10-30 17:50 | disposition home or self-care (01) ==
LOC: EC 23:49 → 3OBS 10-30 01:38
PROVIDERS: ADMIT Hospitalist; ATTEND Hospitalist
DX: R00.2 Palpitations (principal); I49.3 Ventricular premature depolarization; I10 Essential (primary) hypertension; M19.90 Unspecified osteoarthritis, unspecified site; K21.9 Gastro-esophageal reflux disease without esophagitis; G47.33 Obstructive sleep apnea (adult) (pediatric); D72.829 Elevated white blood cell count, unspecified; T38.0X5A Adverse effect of glucocorticoids and synthetic analogues, initial encounter; M10.9 Gout, unspecified; F17.220 Nicotine dependence, chewing tobacco, uncomplicated; E78.5 Hyperlipidemia, unspecified; G89.29 Other chronic pain; M54.9 Dorsalgia, unspecified; R55 Syncope and collapse; E66.9 Obesity, unspecified; Z68.35 Body mass index [BMI] 35.0-35.9, adult; F41.0 Panic disorder [episodic paroxysmal anxiety]; Z99.89 Dependence on other enabling machines and devices; Z90.49 Acquired absence of other specified parts of digestive tract; Z90.89 Acquired absence of other organs; Z79.82 Long term (current) use of aspirin; Z79.51 Long term (current) use of inhaled steroids; Z79.899 Other long term (current) drug therapy; Z87.01 Personal history of pneumonia (recurrent); Z82.49 Family history of ischemic heart disease and other diseases of the circulatory system; Z81.1 Family history of alcohol abuse and dependence; Z82.61 Family history of arthritis
CPT/HCPCS: 99285 ×2; 36415; 93005; 80053; 84443; 82550; 82553; 83735; 84484; 85025; 85610; 85730; 71046; G0378

== ENCOUNTER 2017-11-02 15:12 | Observation (INO) | payer BC ==
[2017-11-02] MEDS ORDERED: SODIUM CHLORIDE 0.9% 1,000 ML IV STA (15:48)
[2017-11-02] MEDS ORDERED: ASPIRIN 81 MG PO STA (15:48)
[2017-11-02 16:08] LABS: ALT 48 U/L (21-72); AST 26 U/L (17-59); Albumin 4.5 g/dL (3.5-5.0); Alkaline Phosphatase 73 U/L (38-126); Anion Gap 13 mmol/L; Blood Urea Nitrogen 21 mg/dL (9-20); Calcium 9.8 mg/dL (8.4-10.2); Carbon Dioxide 24 mmol/L (22-30); Chloride 104 mmol/L (98-107); Glucose 158 mg/dL (74-99); Potassium 3.8 mmol/L (3.5-5.1); Sodium 141 mmol/L (137-145); Total Bilirubin 0.6 mg/dL (0.2-1.3); Total Protein 7.1 g/dL (6.3-8.2)
[2017-11-02 16:10] LABS: Basophils % (A) 0 %; Eosinophils # (A) 0.1 k/uL (0-0.7); Eosinophils % (A) 1 %; HCT 44.2 % (39.0-53.0); HGB 15.3 gm/dL (13.0-17.5); Lymphocytes # (A) 1.6 k/uL (1.0-4.8); Lymphocytes % (A) 11 %; MCH 30.5 pg (25.0-35.0); MCHC 34.7 g/dL (31.0-37.0); MCV 88.1 fL (80.0-100.0); Mean Platelet Volume 7.2; Monocytes # (A) 0.7 k/uL (0-1.0); Monocytes % (A) 4 %; Neutrophils # (A) 12.3 k/uL (1.3-7.7); Neutrophils % (A) 84 %; Platelet Count 356 k/uL (150-450); RBC 5.01 m/uL (4.30-5.90); RDW 14.5 % (11.5-15.5); WBC 14.8 k/uL (3.8-10.6)
[2017-11-02 16:19] LABS: Creatine Kinase 104 U/L (55-170)
[2017-11-02 16:21] LABS: Partial Thromboplastin Time 21.5 sec (22.0-30.0); Prothrombin Time 9.7 sec (9.0-12.0)
[2017-11-02 16:32] LABS: Creatine Kinase MB 1.9 ng/mL (0.0-2.4); Troponin I <0.012 ng/mL (0.000-0.034)
--- NOTE | 2017-11-02 16:35 | XR ---
EXAMINATION TYPE: XR chest 2V DATE OF EXAM: 11/02/2017 COMPARISON: Chest x-ray October 30, 2017 HISTORY: History of asthma with palpitations. TECHNIQUE: Frontal and lateral views of the chest are obtained. FINDINGS: Overlying EKG leads are redemonstrated. There is no focal air space opacity, pleural effus ion, or pneumothorax seen. The cardiac silhouette size is within normal limits. The osseous struct ures are intact. Cholecystectomy clips are redemonstrated. IMPRESSION: No acute cardiopulmonary process. No significant change from prior.
[2017-11-02] MEDS ORDERED: NITROGLYCERIN SL TABS 0.4 MG TAB SUBLINGUAL PRN (17:53)
[2017-11-02] MEDS ORDERED: ACETAMINOPHEN TAB 325 MG TAB PO PRN (17:53)
--- NOTE | 2017-11-02 17:53 | ED ---
Arrhythmia/Palpitations HPI - General Chief Complaint: Arrhythmia/Palpitations Stated Complaint: racing heart-revisit Time Seen by Provider: 11/02/17 15:22 Source: patient Mode of arrival: wheelchair Limitations: no limitations - History of Present Illness Initial Comments: Review 7 years old gentleman comes in with a palpitation he was recently hospitalized for palpitation he has appointment in 3 days to see the cardiology he said he feels his heart stopped sometime then it's too fast and do the time is to slow he also complaining about a bit of a chest pressure he is not short winded he denies any pleuritic chest pain no fever no chills he is not coughing up any phlegm he denies any history of asthma - Related Data Home Medications Medication Instructions Recorded Confirmed Fluticasone Nasal [place] [Flonase 1 spray EA NOSTRIL DAILY PRN 10/21/15 11/02/17 Nasal [place]] Loratadine [Claritin] 10 mg PO DAILY 10/21/15 11/02/17 Losartan/Hydrochlorothiazide 1 tab PO DAILY 10/21/15 11/02/17 [Losartan-Hctz 100-25 mg Tab] Montelukast Sodium [Singulair] 10 mg PO HS 10/21/15 11/02/17 Albuterol Inhaler [Ventolin Hfa 1 - 2 puff INHALATION RT-Q6H PRN 05/07/17 Inhaler] Gabapentin [Neurontin] 400 mg PO TID 05/07/17 11/02/17 ALPRAZolam [Xanax] 0.25 mg PO DAILY PRN 07/24/17 11/02/17 Atorvastatin [Lipitor] 40 mg PO HS 07/24/17 11/02/17 Olopatadine HCl [Patanol] 1 drop BOTH EYES BID PRN 07/24/17 11/02/17 Omeprazole [PriLOSEC] 20 mg PO HS 07/24/17 11/02/17 Allopurinol [Zyloprim] 300 mg PO DAILY 10/30/17 11/02/17 Previous Rx's Medication Instructions Recorded Aspirin EC [Ecotrin Low Dose] 81 mg PO DAILY #30 tablet. 05/09/17 Allergies Allergy/AdvReac Type Severity Reaction Status Date / Time No Known Allergies Allergy Verified 11/02/17 16:05 Review of Systems ROS Statement: Those systems with pertinent positive or pertinent negative responses have been documented in the HPI. ROS Other: All systems not noted in ROS Statement are negative. Past Medical History Past Medical History: GERD/Reflux, Hypertension, Osteoarthritis (OA), Pneumonia , Skin Disorder, Sleep Apnea/CPAP/BIPAP, Syncope Additional Past Medical History / Comment(s): inguinal hernia and umbilical hernia, psoriasis, Gout STRESS TEST 2016-NEG,DDD, STEROID INJ IN BACK History of Any Multi-Drug Resistant Organisms: None Reported Past Surgical History: Appendectomy, Cholecystectomy, Hernia Repair Additional Past Surgical History / Comment(s): rt inguinal hernia x 3, [facility] HERNIA REPAIR,vasectomy, Past Anesthesia/Blood Transfusion Reactions: Motion Sickness Additional Past Anesthesia/Blood Transfusion Reaction / Comment(s): no hx blood transfusion Past Psychological History: Anxiety, Panic Disorder Smoking Status: Former smoker Past Alcohol Use History: Rare Past Drug Use History: None Reported - Past Family History Father Family Medical History: Congestive Heart Failure (CHF), Myocardial Infarction ( [place]) Additional Family Medical History / Comment(s): alcoholism Mother Family Medical History: Osteoarthritis (OA) General Exam - General Exam Comments Initial Comments: General: The patient is awake and alert, in no distress, and does not appear acutely ill. Skin: Skin is warm and dry and no rashes or lesions are noted. Eye: Pupils are equal, round and reactive to light, extra-ocular movements are intact; there is normal conjunctiva bilaterally. Ears, nose, mouth and throat: There are moist mucous membranes and no oral lesions. Neck: The neck is supple, there is no tenderness or JVD. Cardiovascular: There is a regular rate and rhythm. No murmur, rub or gallop is appreciated. Respiratory: To auscultation bilateral, no wheezing no rhonchi no distress respiratory krueger noticed Gastrointestinal: Soft, non-distended, non-tender abdomen without masses or organomegaly noted. There is no rebound or guarding present. Bowel sounds are unremarkable. Back: There is no tenderness to palpation in the midline. There is no obvious deformity. Musculoskeletal: Normal ROM, no tenderness, There is no pedal edema. There is no calf tenderness or swelling. No cords were appreciated. Neurological: CN II-XII intact, Cranial nerves III through XII are intact. There are no obvious motor or sensory deficits. Coordination appears grossly intact. Speech is normal. Psychiatric: Cooperative, appropriate mood & affect, normal judgment. Limitations: no limitations Course Vital Signs 11/02/17 11/02/17 11/02/17 15:13 15:31 17:17 Temperature 98.2 F Pulse Rate 101 H 92 67 Respiratory 18 18 18 Rate Blood Pressure 144/77 170/77 110/63 O2 Sat by Pulse 97 97 97 Oximetry Count is elevated at term 15 there is some left shift troponin is unremarkable chemistries are unremarkable considering the palpitation and he be be admitted to Dr. Sanchez service cardiology be consulted white count we'll continue to watch him is afebrile right now or urinalysis is that explains EKG Findings - EKG Comments: EKG Findings:: EKG is a sinus rhythm ventricular rate is 82 [place] interval is 190 QRS duration is 94 QT/QTc is 370/441 review of this EKG reveals symptoms C is no ST elevation or ST depression noticed in this EKG Medical Decision Making - Lab Data Result diagrams: 11/02/17 15:33 11/02/17 15:33 Lab Results 11/02/17 11/02/17 11/02/17 Range/Units 15:33 15:33 15:33 WBC 14.8 H (3.8-10.6) k/uL RBC 5.01 (4.30-5.90) m/uL Hgb 15.3 (13.0-17.5) gm/dL Hct 44.2 (39.0-53.0) % MCV 88.1 (80.0-100.0) fL MCH 30.5 (25.0-35.0) pg MCHC 34.7 (31.0-37.0) g/dL RDW 14.5 (11.5-15.5) % Plt Count 356 (150-450) k/uL Neutrophils % 84 % Lymphocytes % 11 % Monocytes % 4 % Eosinophils % 1 % Basophils % 0 % Neutrophils # 12.3 H (1.3-7.7) k/uL Lymphocytes # 1.6 (1.0-4.8) k/uL Monocytes # 0.7 (0-1.0) k/uL Eosinophils # 0.1 (0-0.7) k/uL Basophils # 0.0 (0-0.2) k/uL PT (9.0-12.0) sec INR (<1.2) APTT (22.0-30.0) sec Sodium 141 (137-145) mmol/L Potassium 3.8 (3.5-5.1) mmol/L Chloride 104 (98-107) mmol/L Carbon Dioxide 24 (22-30) mmol/L Anion Gap 13 mmol/L BUN 21 H (9-20) mg/dL Creatinine 0.92 (0.66-1.25) mg/dL Est GFR (CKD-EPI)AfAm >90 (>60 ml/min/1.73 sqM) Est GFR (CKD-EPI)NonAf >90 (>60 ml/min/1.73 sqM) Glucose 158 H (74-99) mg/dL Calcium 9.8 (8.4-10.2) mg/dL Magnesium 2.0 (1.6-2.3) mg/dL Total Bilirubin 0.6 (0.2-1.3) mg/dL AST 26 (17-59) U/L ALT 48 (21-72) U/L Alkaline Phosphatase 73 (38-126) U/L Total Creatine Kinase 104 (55-170) U/L CK-MB (CK-2) 1.9 (0.0-2.4) ng/mL CK-MB (CK-2) Rel Index 1.8 Troponin I <0.012 (0.000-0.034) ng/mL Total Protein 7.1 (6.3-8.2) g/dL Albumin 4.5 (3.5-5.0) g/dL 11/02/17 Range/Units 15:33 WBC (3.8-10.6) k/uL RBC (4.30-5.90) m/uL Hgb (13.0-17.5) gm/dL Hct (39.0-53.0) % MCV (80.0-100.0) fL MCH (25.0-35.0) pg MCHC (31.0-37.0) g/dL RDW (11.5-15.5) % Plt Count (150-450) k/uL Neutrophils % % Lymphocytes % % Monocytes % % Eosinophils % % Basophils % % Neutrophils # (1.3-7.7) k/uL Lymphocytes # (1.0-4.8) k/uL Monocytes # (0-1.0) k/uL Eosinophils # (0-0.7) k/uL Basophils # (0-0.2) k/uL PT 9.7 (9.0-12.0) sec INR 1.0 (<1.2) APTT 21.5 L (22.0-30.0) sec Sodium (137-145) mmol/L Potassium (3.5-5.1) mmol/L Chloride (98-107) mmol/L Carbon Dioxide (22-30) mmol/L Anion Gap mmol/L BUN (9-20) mg/dL Creatinine (0.66-1.25) mg/dL Est GFR (CKD-EPI)AfAm (>60 ml/min/1.73 sqM) Est GFR (CKD-EPI)NonAf (>60 ml/min/1.73 sqM) Glucose (74-99) mg/dL Calcium (8.4-10.2) mg/dL Magnesium (1.6-2.3) mg/dL Total Bilirubin (0.2-1.3) mg/dL AST (17-59) U/L ALT (21-72) U/L Alkaline Phosphatase (38-126) U/L Total Creatine Kinase (55-170) U/L CK-MB (CK-2) (0.0-2.4) ng/mL CK-MB (CK-2) Rel Index Troponin I (0.000-0.034) ng/mL Total Protein (6.3-8.2) g/dL Albumin (3.5-5.0) g/dL Disposition Clinical Impression: Palpitation Disposition: ADMITTED IP TO THIS HOSP Condition: Good Instructions: Palpitations (ED) Referrals: Anuel Dover MD [Primary Care Provider] - 1-2 days
[2017-11-02] MEDS ORDERED: ALPRAZolam 0.25 MG TAB PO PRN (17:56)
[2017-11-02] MEDS ORDERED: FLUTICASONE 50MCG/SPRAY NASAL 16GM EA NOSTRIL PRN (17:56)
[2017-11-02] MEDS ORDERED: ALBUTEROL NEBULIZED 2.5 MG/3 ML INHALATION PRN (17:56)
[2017-11-02] MEDS ORDERED: KETOTIFEN 0.025% OPHTH DROPS 5 ML BTL BOTH EYES PRN (17:56)
[2017-11-02] MEDS: GABAPENTIN 400 MG CAP PO SCH (20:52)
[2017-11-02] MEDS ORDERED: MONTELUKAST 10 MG TAB PO SCH (21:00)
[2017-11-02] MEDS ORDERED: ATORVASTATIN 40 MG TAB PO SCH (21:00)
[2017-11-02] MEDS ORDERED: PANTOPRAZOLE 40 MG TABLET PO SCH (21:00)
[2017-11-02] MEDS ORDERED: TEMAZEPAM 15 MG CAP PO PRN (21:00)
--- NOTE | 2017-11-02 22:02 | HP ---
HISTORY AND PHYSICAL CHIEF COMPLAINT: Palpitations. HISTORY OF PRESENT ILLNESS: This 57-year-old gentleman with a past medical history of multiple medical problems, including hypertension, DJD, history pneumonia, sleep apnea, history of inguinal hernia, cholecystectomy, anxiety, panic disorder, being followed by Dr. Dover in the outpatient setting, was recently admitted with palpitations. Patient was treated symptomatically. Patient discharged home, but after going home, the patient had again multiple palpitations. One episode was rather prolonged and the patient came to [facility] and admitted for further evaluation and treatment. Patient also complaining of mild chest pressure, also. There is no history of any fever, rigors. No history of headache, loss of consciousness, seizures. PAST MEDICAL HISTORY: History of GERD, hypertension, DJD, history of sleep apnea, syncope, inguinal hernia, appendectomy, anxiety, panic disorder. MEDICATIONS PRIOR TO ADMISSION: Home medications are: 1. Prilosec 20 mg q.h.s. 2. Patanol 1 drop both eyes b.i.d. p.r.n. 3. Singular 10 mg q.h.s. 4. Losartan/hydrochlorothiazide 100/25 p.o. b.i.d. p.o. daily. 5. Claritin 10 mg p.o. daily. 6. Neurontin 100 mg p.o. t.i.d. 7. Flonase nasal spray daily p.r.n. 8. Lipitor 40 mg q.h.s. 9. Ecotrin 81 mg. 10.Zyloprim 300 mg p.o. daily. 11.Ventolin HFA 1-2 puffs every 6 hours p.r.n. 12.Xanax 0.5 daily p.r.n. ALLERGIES: None. FAMILY HISTORY: History of CHF, myocardial infarction, alcoholism in the family. SOCIAL HISTORY: Occasional alcohol. Previous history of smoking. REVIEW OF SYSTEMS: ENT: No diminished hearing or vision. CARDIOVASCULAR: As mentioned earlier. RESPIRATORY: As mentioned earlier. GI: No nausea, vomiting. : No dysuria. NERVOUS: No numbness or weakness. ALLERGY/IMMUNOLOGY: No asthma, hay fever. MUSCULOSKELETAL: As mentioned earlier. HEMATOLOGY/ONCOLOGY: No history of anemia. ENDOCRINE: No history of diabetes, hypothyroidism. CONSTITUTIONAL: As mentioned earlier. DERMATOLOGY: Negative. RHEUMATOLOGY: Negative. PSYCHIATRY: As mentioned earlier. PHYSICAL EXAM: Alert and oriented x3. Pulse 72, blood pressure 147/69, respirations 16, temperature 98.6, pulse ox 94% on room air. HEENT: Conjunctivae normal. Oral mucosa moist. NECK: No jugular venous distention. No carotid bruits. No lymph node enlargement. CARDIOVASCULAR: S1, S2 muffled. RESPIRATORY: Breath sounds diminished in the bases. A few scattered rhonchi. No crackles. ABDOMEN: Soft, obese, nontender. No mass palpable. LEGS: No edema. No swelling. NERVOUS SYSTEM: Higher functions as mentioned earlier. Moves all 4 limbs. No focal motor or sensory deficits. LYMPHATIC: No lymphadenopathy in the neck or axillae. SKIN: No ulcer, rash or bleeding. LABS: At this time show WBC 14, hemoglobin 15.3 and BUN is 21 and glucose 158. ASSESSMENT: 1. Chest palpitations for evaluation, possible cardiac arrhythmia, rule out coronary artery disease. 2. Increased WBC. 3. Hypertension. 4. Gastroesophageal reflux disease. 5. History pneumonia. 6. History of sleep apnea. 7. History of syncope. 8. Inguinal hernia and umbilical hernia. 9. History of psoriasis. 10.History of gout. 11.History of anxiety, panic disorder. RECOMMENDATIONS AND DISCUSSION: In this 57-year-old gentleman who presented with multiple complex medical issues, we will monitor the patient closely, continue the current medical management and symptomatic treatment, definitively rule out the possibility of myocardial infarction, cardiology consultation. The patient had a stress test in 2016. We will continue to monitor. Guarded prognosis because of the multiple complex medical conditions. Further recommendations to follow. A copy of this dictation will be forwarded to Dr. Dover, who is the primary physician. See orders for further details. MMODL / IJN: [id number] /
[2017-11-02 22:48] LABS: Creatine Kinase 77 U/L (55-170)
[2017-11-02 23:01] LABS: Creatine Kinase MB 1.3 ng/mL (0.0-2.4); Troponin I <0.012 ng/mL (0.000-0.034)
[2017-11-03 02:24] LABS: Appearance,Urine Clear (Clear); Bilirubin,Urine Negative (Negative); Blood,Urine Negative (Negative); Color,Urine Light Yellow; Glucose,Urine (UA) Negative (Negative); Ketones,Urine Negative (Negative); Leukocyte Esterase,Urine Negative (Negative); Nitrite,Urine Negative (Negative); Protein,Urine Negative (Negative); Specific Gravity,Urine 1.006 (1.001-1.035); Urobilinogen,Urine <2.0 mg/dL (<2.0)
[2017-11-03 02:47] LABS: Amphetamine Screen,Urine Not Detected (NotDetected); Barbiturate Screen,Urine Not Detected (NotDetected); Benzodiazepines Screen,Urine Not Detected (NotDetected); Cocaine Screen,Urine Not Detected (NotDetected); Methadone Screen, Urine Not Detected (NotDetected); Opiate Screen,Urine Not Detected (NotDetected); Oxycodone Screen, Urine Not Detected (NotDetected); Phencyclidine Screen,Urine Not Detected (NotDetected); Tricyclic Antidepressant,Urine Not Detected (NotDetected); Urn Cannabinoid Scrn Not Detected (NotDetected)
[2017-11-03 07:40] LABS: Anion Gap 9 mmol/L; Blood Urea Nitrogen 16 mg/dL (9-20); Calcium 9.1 mg/dL (8.4-10.2); Carbon Dioxide 24 mmol/L (22-30); Chloride 107 mmol/L (98-107); Cholesterol 139 mg/dL (<200); Glucose 99 mg/dL (74-99); HDL Cholesterol 38 mg/dL (40-60); LDL Cholesterol,Calculated 75 mg/dL (0-99); Potassium 4.1 mmol/L (3.5-5.1); Sodium 140 mmol/L (137-145); Triglycerides 129 mg/dL (<150)
[2017-11-03 08:35] LABS: Basophils % (A) 0 %; Eosinophils # (A) 0.1 k/uL (0-0.7); Eosinophils % (A) 1 %; HCT 43.5 % (39.0-53.0); HGB 14.4 gm/dL (13.0-17.5); Lymphocytes # (A) 2.5 k/uL (1.0-4.8); Lymphocytes % (A) 19 %; MCHC 33.2 g/dL (31.0-37.0); MCV 90.4 fL (80.0-100.0); Mean Platelet Volume 7.3; Monocytes % (A) 8 %; Neutrophils # (A) 9.1 k/uL (1.3-7.7); Neutrophils % (A) 71 %; Platelet Count 306 k/uL (150-450); RBC 4.81 m/uL (4.30-5.90); RDW 14.3 % (11.5-15.5); WBC 12.9 k/uL (3.8-10.6)
[2017-11-03] MEDS ORDERED: ALLOPURINOL 300 MG TAB PO SCH (09:00)
[2017-11-03] MEDS ORDERED: ASPIRIN 325 MG TAB PO SCH (09:00)
[2017-11-03] MEDS ORDERED: ASPIRIN 81 MG PO SCH (09:00)
[2017-11-03] MEDS ORDERED: LORATADINE 10 MG TAB PO SCH (09:00)
[2017-11-03] MEDS ORDERED: LOSARTAN-HCTZ 50-12.5 MG 1 EACH TAB PO SCH (09:00)
[2017-11-03 10:19] LABS: Creatine Kinase 73 U/L (55-170); Creatine Kinase MB 1.2 ng/mL (0.0-2.4); Troponin I <0.012 ng/mL (0.000-0.034)
--- NOTE | 2017-11-03 11:43 | P.CRDCN ---
History of Present Illness History of present illness: Mr. Lovelace is a pleasant 57-year-old male past medical history significant for hypertension, obstructive sleep apnea, GERD and obestiy. He denies coronary artery disease. He follows with Dr. Escamilla in the office. We have been asked to see him in consultation for palpitations. He was seen here over the weekend and diagnosed with right ventricular outflow tract PVC's per Dr. Barton. He was advised to follow up with Dr. Escamilla for Holter monitor to assess PVC burden for consideration of EP study. His appointment with Dr. Escamilla is 11/12. He states he again felt frequent palpitations yesterday that were associated with shortness of breath, nausea, dizziness and mild chest pain. He states he could feel persistent fluttering that was not precipitated by any specific factors. The symptoms have been intermittent and ongoing since admission. He became concerned with his symptoms and came back for evaluation. EKG reveals sinus mechanism with non-specific T-wave abnormalities noted with supraventricular PVC noted. Similar to previous EKG. Chest x-ray is negative for an acute cardiopulmonary process. Laboratory data reviewed, WBC 12.9, hemoglobin 14.4, platelets 306, sodium 141, potassium 3.8, magnesium 2.0, creatinine 0.92, cardiac enzymes negative 2, TSH 1.53. Most recent echocardiogram performed April 2017 reveals preserved left ventricular systolic function with ejection fraction 50-55%, mild MR and mild TR noted. Current cardiac medications include aspirin 81 mg daily, atorvastatin 40 mg daily, losartan/hydrochlorothiazide 100/25 mg daily. He also takes Prilosec, Claritin, Neurontin, allopurinol, Ventolin and Xanax when necessary. He underwent a Cardiolite stress test in the office June 2017 which was negative for reversible cardiac ischemia. Review of Systems At the time of my exam: CONSTITUTIONAL: Denies fever. Denies chills. EYES: Denies blurred vision. Denies vision changes. Denies eye pain. EARS, NOSE, MOUTH & THROAT: Denies headache. Denies sore throat. Denies ear pain. CARDIOVASCULAR: Denies chest pain. Denies shortness of breath. Denies orthopnea. Denies PND. Complains of palpitations. RESPIRATORY: Denies cough. GASTROINTESTINAL: Denies abdominal pain. Denies diarrhea. Denies constipation. Denies nausea. Denies vomiting. MUSCULOSKELETAL: Denies myalgias. INTEGUMENTARY: Denies pruitis. Denies rash. NEUROLOGIC: Denies numbness. Denies tingling. Denies weakness. PSYCHIATRIC: Denies anxiety. Denies depression. ENDOCRINE: Denies fatigue. Denies weight change. Denies polydipsia. Denies polyurina. GENITOURINARY: Denies burning, hematuria or urgency with micturation. HEMATOLOGIC: Denies history of anemia. Denies bleeding. Past Medical History Past Medical History: GERD/Reflux, Hypertension, Osteoarthritis (OA), Pneumonia , Skin Disorder, Sleep Apnea/CPAP/BIPAP, Syncope Additional Past Medical History / Comment(s): inguinal hernia and umbilical hernia, psoriasis, Gout STRESS TEST 2016-NEG,DDD, STEROID INJ IN BACK History of Any Multi-Drug Resistant Organisms: None Reported Past Surgical History: Appendectomy, Cholecystectomy, Hernia Repair Additional Past Surgical History / Comment(s): rt inguinal hernia x 3, [facility] HERNIA REPAIR,vasectomy, Past Anesthesia/Blood Transfusion Reactions: Motion Sickness Additional Past Anesthesia/Blood Transfusion Reaction / Comment(s): no hx blood transfusion Smoking Status: Former smoker - Past Family History Father Family Medical History: Congestive Heart Failure (CHF), Myocardial Infarction ( [place]) Additional Family Medical History / Comment(s): alcoholism Mother Family Medical History: Osteoarthritis (OA) Medications and Allergies Home Medications Medication Instructions Recorded Confirmed Type Fluticasone Nasal [place] [Flonase 1 spray EA NOSTRIL DAILY PRN 10/21/15 11/02/17 History Nasal [place]] Loratadine [Claritin] 10 mg PO DAILY 10/21/15 11/02/17 History Losartan/Hydrochlorothiazide 1 tab PO DAILY 10/21/15 11/02/17 History [Losartan-Hctz 100-25 mg Tab] Montelukast Sodium [Singulair] 10 mg PO HS 10/21/15 11/02/17 History Albuterol Inhaler [Ventolin Hfa 1 - 2 puff INHALATION RT-Q6H PRN 05/07/17 History Inhaler] Gabapentin [Neurontin] 400 mg PO TID 05/07/17 11/02/17 History Aspirin EC [Ecotrin Low Dose] 81 mg PO DAILY #30 tablet. 05/09/17 11/02/17 Rx ALPRAZolam [Xanax] 0.25 mg PO DAILY PRN 07/24/17 11/02/17 History Atorvastatin [Lipitor] 40 mg PO HS 07/24/17 11/02/17 History Olopatadine HCl [Patanol] 1 drop BOTH EYES BID PRN 07/24/17 11/02/17 History Omeprazole [PriLOSEC] 20 mg PO HS 07/24/17 11/02/17 History Allopurinol [Zyloprim] 300 mg PO DAILY 10/30/17 11/02/17 History Allergies Allergy/AdvReac Type Severity Reaction Status Date / Time No Known Allergies Allergy Verified 11/02/17 16:05 Physical Exam Vitals: Vital Signs Temp Pulse Pulse Resp BP BP Pulse Ox 11/02/17 23:52 98.6 F 54 L 16 145/69 93 L 11/02/17 18:59 98.6 F 72 16 147/69 94 L 11/02/17 18:37 66 18 124/65 100 11/02/17 17:17 67 18 110/63 97 11/02/17 15:31 92 18 170/77 97 11/02/17 15:13 98.2 F 101 H 18 144/77 97 Intake and Output 11/02/17 11/03/17 11/03/17 22:59 06:59 14:59 Intake Total 480 Balance 480 Intake: Oral 480 Other: Weight 116.7 kg Blood pressure 145/69 heart rate 54 afebrile maintaining oxygen saturation on room air GENERAL: This is a 57-year-old male in no apparent distress at the time of my examination. HEENT: Head is atraumatic, normocephalic. Pupils are equal, round. Sclerae anicteric. Conjunctivae are clear. Mucous membranes of the mouth are moist. Neck is supple. There is no jugular venous distention. No carotid bruit is heard. LUNGS: Clear to auscultation no wheezes, rales or rhonchi. No chest wall tenderness is noted on palpation or with deep breathing. HEART: Regular rate and rhythm without murmurs, rubs or gallops. S1 and S2 heard. ABDOMEN: Soft, nontender. Bowel sounds are heard. No organomegaly noted. EXTREMITIES: No evidence of peripheral edema and no calf tenderness noted. VASCULAR: Radial and dorsalis pedis pulses palpated, no evidence of clubbing. NEUROLOGIC: Patient is awake, alert and oriented x3. Results 11/03/17 07:20 11/02/17 15:33 Cardiac Enzymes 11/02/17 11/02/17 11/02/17 Range/Units 15:33 15:33 22:00 AST 26 (17-59) U/L CK-MB (CK-2) 1.9 1.3 (0.0-2.4) ng/mL Troponin I <0.012 <0.012 (0.000-0.034) ng/mL Coagulation 11/02/17 Range/Units 15:33 PT 9.7 (9.0-12.0) sec APTT 21.5 L (22.0-30.0) sec CBC 11/02/17 11/03/17 Range/Units 15:33 07:20 WBC 14.8 H 12.9 H (3.8-10.6) k/uL RBC 5.01 4.81 (4.30-5.90) m/uL Hgb 15.3 14.4 (13.0-17.5) gm/dL Hct 44.2 43.5 (39.0-53.0) % Plt Count 356 306 (150-450) k/uL Comprehensive Metabolic Panel 11/02/17 Range/Units 15:33 Sodium 141 (137-145) mmol/L Potassium 3.8 (3.5-5.1) mmol/L Chloride 104 (98-107) mmol/L Carbon Dioxide 24 (22-30) mmol/L BUN 21 H (9-20) mg/dL Creatinine 0.92 (0.66-1.25) mg/dL Glucose 158 H (74-99) mg/dL Calcium 9.8 (8.4-10.2) mg/dL AST 26 (17-59) U/L ALT 48 (21-72) U/L Alkaline Phosphatase 73 (38-126) U/L Total Protein 7.1 (6.3-8.2) g/dL Albumin 4.5 (3.5-5.0) g/dL Current Medications Generic Name Dose Route Start Last Admin Trade Name Freq PRN Reason Stop Dose Admin Acetaminophen 650 mg 11/02/17 17:53 Tylenol Tab PO Q4HR PRN Pain Albuterol Sulfate 2.5 mg 11/02/17 17:56 Ventolin Nebulized INHALATION RT-Q6H PRN Shortness Of Breath Allopurinol 300 mg 11/03/17 09:00 Zyloprim PO DAILY [facility] Alprazolam 0.25 mg 11/02/17 17:56 Xanax PO DAILY PRN Anxiety Aspirin 325 mg 11/03/17 09:00 Aspirin PO DAILY [facility] Aspirin 81 mg 11/03/17 09:00 Aspirin PO DAILY [facility] Atorvastatin Calcium 40 mg 11/02/17 21:00 11/02/17 20:52 Lipitor PO 40 mg HS [facility] Administration Fluticasone Propionate 1 spray 11/02/17 17:56 Flonase Nasal [place] EA NOSTRIL DAILY PRN Congestion Gabapentin 400 mg 11/02/17 22:00 11/02/17 20:52 Neurontin PO 400 mg TID MARIAELENA Administration HCTZ/Losartan Potassium 2 each 11/03/17 09:00 Hyzaar 50-12.5 PO DAILY [facility] Ketotifen Fumarate 1 drops 11/02/17 17:56 Zaditor BOTH EYES BID PRN Allergy Symptoms Loratadine 10 mg 11/03/17 09:00 Claritin PO DAILY [facility] Montelukast Sodium 10 mg 11/02/17 21:00 11/02/17 20:53 Singulair PO 10 mg HS MARIAELENA Administration Nitroglycerin 0.4 mg 11/02/17 17:53 Nitrostat SUBLINGUAL Q5M PRN Chest Pain Pantoprazole Sodium 40 mg 11/02/17 21:00 11/02/17 20:52 Protonix PO 40 mg HS MARIAELENA Administration Temazepam 15 mg 11/02/17 21:00 Restoril PO HS PRN Insomnia Intake and Output 11/02/17 11/03/17 11/03/17 22:59 06:59 14:59 Intake Total 480 Balance 480 Intake: Oral 480 Other: Weight 116.7 kg 11/03/17 07:20 11/02/17 15:33 Assessment and Plan Assessment: ASSESSMENT 1. Palpitations with PVCs on EKG and telemetry 2. Hypertension 3. Dyslipidemia 4. Gastroesophageal reflux disease 5. Chronic tobacco use 6. Sleep apnea 7. Leukocytosis PLAN Apply 24-hour Holter monitor to assess PVC burden for possibility of ablation as an outpatient. Follow up with Dr. Escamilla at already scheduled appointment 11/12. Thank you kindly for this consultation. Nurse Practitioner note has been reviewed, I agree with a documented findings and plan of care. Patient was seen and examined.
[2017-11-03] MEDS: GABAPENTIN 400 MG CAP PO SCH (12:06)
[2017-11-03 12:11] VITALS: BP 158/77; PULSE 57; RESP 18; TEMP 98.5
--- NOTE | 2017-11-03 16:32 | DS ---
DISCHARGE SUMMARY DATE OF SERVICE: 11/03/2017. FINAL DIAGNOSES: 1. Palpitations, rule out cardiac arrhythmia. Myocardial infarction ruled out. 2. Increased WBC. 3. Hypertension. 4. Gastroesophageal reflux disease. 5. History of pneumonia. 6. History of sleep apnea. 7. History of syncope. 8. History inguinal hernia, umbilical hernia. 9. History of psoriasis. 10.History of gout. 11.Anxiety and panic attack. DISCHARGE DISPOSITION: The patient is discharged in stable condition with guarded prognosis. HISTORY OF PRESENT ILLNESS: This 57-year-old gentleman with a past medical history of multiple medical problems was admitted chest palpitations. Myocardial infarction ruled out. Cardiology recommended outpatient Holter monitoring. The patient has some element of anxiety also. PVCs shown in telemetry, which showed during the previous admission also. On exam, vitals are stable. Cardiovascular: S1, S2 Abdomen: Soft. Nervous System: No focal deficit. DISCHARGE ADVICE AND MEDICATIONS: 1. Diet cardiac. 2. Activity limited until followup. 3. Follow up with Dr. Dover in 2-3 days. 4. Follow up with Cardiology has recommended, Holter monitor. 5. Ventolin HFA 1-2 q.6h p.r.n. 6. Zyloprim 300 mg p.o. daily. 7. Xanax 0.5 daily. 8. Lipitor 40 mg q.h.s. 9. Flonase 1 spray daily. 10.Neurontin 400 mg p.o. t.i.d. 11.Claritin 10 mg daily. 12.Losartan hydrochlorothiazide 1 tab p.o. daily. 13.Singulair 10 mg q.h.s. 14.Patanol 1 drop both eyes. 15.Prilosec 20 mg q.h.s. 16.Ecotrin 81 mg p.o. daily. Once again, the patient discharged in stable condition with guarded prognosis. MMODL / IJN: [id number] /
== END 2017-11-03 15:12 | disposition home or self-care (01) ==
LOC: EC 15:12 → 3OBS 17:53
PROVIDERS: ADMIT Hospitalist; ATTEND Hospitalist
DX: R00.2 Palpitations (principal); I10 Essential (primary) hypertension; K21.9 Gastro-esophageal reflux disease without esophagitis; Z87.01 Personal history of pneumonia (recurrent); G47.33 Obstructive sleep apnea (adult) (pediatric); R55 Syncope and collapse; K42.9 Umbilical hernia without obstruction or gangrene; K40.90 Unilateral inguinal hernia, without obstruction or gangrene, not specified as recurrent; L40.9 Psoriasis, unspecified; M10.9 Gout, unspecified; F41.0 Panic disorder [episodic paroxysmal anxiety]; I49.3 Ventricular premature depolarization; E78.5 Hyperlipidemia, unspecified; D72.829 Elevated white blood cell count, unspecified; E66.9 Obesity, unspecified; Z68.34 Body mass index [BMI] 34.0-34.9, adult; R07.89 Other chest pain; Z79.899 Other long term (current) drug therapy; R11.0 Nausea; I49.8 Other specified cardiac arrhythmias; R42 Dizziness and giddiness; M19.90 Unspecified osteoarthritis, unspecified site; Z99.89 Dependence on other enabling machines and devices; Z79.82 Long term (current) use of aspirin; Z90.49 Acquired absence of other specified parts of digestive tract; Z87.891 Personal history of nicotine dependence; Z82.49 Family history of ischemic heart disease and other diseases of the circulatory system
CPT/HCPCS: 99285; 96360 ×2; 96361 ×2; 36415; 93005; 93225; 93226; 80061; 80053; 80048; 84443; 82550 ×2; 82553 ×2; 83735; 84484 ×2; 85025 ×2; 85610; 85730; 81003; 80306; 71046; G0378 ×2

== ENCOUNTER 2017-12-01 17:06 | Emergency (ER) | payer BC ==
--- NOTE | 2017-12-01 17:25 | ED ---
General Adult HPI - General Chief complaint: Arrhythmia/Palpitations Stated complaint: chest pain Time Seen by Provider: 12/01/17 17:07 Source: EMS, RN notes reviewed, old records reviewed Mode of arrival: EMS Limitations: no limitations - History of Present Illness Initial comments: This is a 57-year-old male to the ER for evaluation. Patient was essay for evaluation regarding regarding palpitations, patient feeling flushed. Patient has history of palpitations was started on metoprolol. No other change in medications. Patient has no nausea vomiting diarrhea no drugs or alcohol. Patient denies any other complaints. No change in diet and awaking weight loss. Patient states he was at work he felt the palpitations like his heart was beating in his chest, no chest pain no shortness of breath - Related Data Home Medications Medication Instructions Recorded Confirmed Fluticasone Nasal [place] [Flonase 1 spray EA NOSTRIL DAILY PRN 10/21/15 12/01/17 Nasal [place]] Loratadine [Claritin] 10 mg PO DAILY 10/21/15 12/01/17 Losartan/Hydrochlorothiazide 1 tab PO DAILY 10/21/15 12/01/17 [Losartan-Hctz 100-25 mg Tab] Montelukast Sodium [Singulair] 10 mg PO HS 10/21/15 12/01/17 Albuterol Inhaler [Ventolin Hfa 2 puff INHALATION RT-Q4H PRN 05/07/17 12/01/17 Inhaler] Gabapentin [Neurontin] 400 mg PO TID 05/07/17 12/01/17 ALPRAZolam [Xanax] 0.25 mg PO DAILY PRN 07/24/17 12/01/17 Atorvastatin [Lipitor] 40 mg PO HS 07/24/17 12/01/17 Olopatadine HCl [Patanol] 1 drop BOTH EYES BID PRN 07/24/17 12/01/17 Omeprazole [PriLOSEC] 40 mg PO HS 07/24/17 12/01/17 Allopurinol [Zyloprim] 300 mg PO DAILY 10/30/17 12/01/17 Colchicine 0.6 mg PO DAILY 12/01/17 12/01/17 Ibuprofen [Motrin] 800 mg PO TID PRN 12/01/17 12/01/17 Metoprolol Succinate (ER) [Toprol 25 mg PO DAILY 12/01/17 12/01/17 Xl] Previous Rx's Medication Instructions Recorded Aspirin EC [Ecotrin Low Dose] 81 mg PO DAILY #30 tablet. 05/09/17 Allergies Allergy/AdvReac Type Severity Reaction Status Date / Time No Known Allergies Allergy Verified 12/01/17 17:37 Review of Systems ROS Statement: Those systems with pertinent positive or pertinent negative responses have been documented in the HPI. ROS Other: All systems not noted in ROS Statement are negative. Past Medical History Past Medical History: GERD/Reflux, Hypertension, Osteoarthritis (OA), Pneumonia , Skin Disorder, Sleep Apnea/CPAP/BIPAP, Syncope Additional Past Medical History / Comment(s): inguinal hernia and umbilical hernia, psoriasis, Gout STRESS TEST 2016-NEG,DDD, STEROID INJ IN BACK History of Any Multi-Drug Resistant Organisms: None Reported Past Surgical History: Appendectomy, Cholecystectomy, Hernia Repair Additional Past Surgical History / Comment(s): rt inguinal hernia x 3, [facility] HERNIA REPAIR,vasectomy, Past Anesthesia/Blood Transfusion Reactions: Motion Sickness Additional Past Anesthesia/Blood Transfusion Reaction / Comment(s): no hx blood transfusion Past Psychological History: Anxiety, Panic Disorder Smoking Status: Former smoker - Past Family History Father Family Medical History: Congestive Heart Failure (CHF), Myocardial Infarction ( [place]) Additional Family Medical History / Comment(s): alcoholism Mother Family Medical History: Osteoarthritis (OA) General Exam Limitations: no limitations General appearance: alert, in no apparent distress Head exam: Present: atraumatic, normocephalic, normal inspection Eye exam: Present: normal appearance, PERRL, EOMI. Absent: scleral icterus, conjunctival injection, periorbital swelling ENT exam: Present: normal exam, mucous membranes moist Neck exam: Present: normal inspection. Absent: tenderness, meningismus, lymphadenopathy Respiratory exam: Present: normal lung sounds bilaterally. Absent: respiratory distress, wheezes, rales, rhonchi, stridor Cardiovascular Exam: Present: regular rate, normal rhythm, normal heart sounds. Absent: systolic murmur, diastolic murmur, rubs, gallop, clicks GI/Abdominal exam: Present: soft, normal bowel sounds. Absent: distended, tenderness, guarding, rebound, rigid Extremities exam: Present: normal inspection, full ROM, normal capillary refill. Absent: tenderness, pedal edema, joint swelling, calf tenderness Back exam: Present: normal inspection Neurological exam: Present: alert, oriented X3, CN II-XII intact Psychiatric exam: Present: normal affect, normal mood Skin exam: Present: warm, dry, intact, normal color. Absent: rash Course Vital Signs 12/01/17 17:07 Temperature 99.1 F Pulse Rate 66 Respiratory 16 Rate Blood Pressure 165/77 O2 Sat by Pulse 99 Oximetry - Reevaluation(s) Reevaluation #1: 12/01/17 19:14 Spoke with cardiology, history of PVCs positive PVCs. Patient can be discharged home to follow-up as an outpatient Reevaluation #2: 12/01/17 19:15 Medical record is reviewed including to prior hospital admissions for same EKG Findings - EKG Comments: EKG Findings:: EKG shows sinus rhythm rate of 71, ME 180, QRS 92, QTc 447 Medical Decision Making - Medical Decision Making 67 male the ER with palpitations history of, positive PVC. Patient can be discharged home - Lab Data Result diagrams: 12/01/17 17:11 12/01/17 17:11 Lab Results 12/01/17 12/01/17 12/01/17 Range/Units 17:11 17:11 17:11 WBC 9.4 (3.8-10.6) k/uL RBC 4.35 (4.30-5.90) m/uL Hgb 13.0 (13.0-17.5) gm/dL Hct 38.4 L (39.0-53.0) % MCV 88.2 (80.0-100.0) fL MCH 29.9 (25.0-35.0) pg MCHC 33.9 (31.0-37.0) g/dL RDW 13.6 (11.5-15.5) % Plt Count 274 (150-450) k/uL Neutrophils % 74 % Lymphocytes % 17 % Monocytes % 5 % Eosinophils % 1 % Basophils % 0 % Neutrophils # 6.9 (1.3-7.7) k/uL Lymphocytes # 1.6 (1.0-4.8) k/uL Monocytes # 0.5 (0-1.0) k/uL Eosinophils # 0.1 (0-0.7) k/uL Basophils # 0.0 (0-0.2) k/uL PT (9.0-12.0) sec INR (<1.2) APTT (22.0-30.0) sec Sodium 139 (137-145) mmol/L Potassium 3.8 (3.5-5.1) mmol/L Chloride 105 (98-107) mmol/L Carbon Dioxide 24 (22-30) mmol/L Anion Gap 10 mmol/L BUN 18 (9-20) mg/dL Creatinine 0.84 (0.66-1.25) mg/dL Est GFR (CKD-EPI)AfAm >90 (>60 ml/min/1.73 sqM) Est GFR (CKD-EPI)NonAf >90 (>60 ml/min/1.73 sqM) Glucose 112 H (74-99) mg/dL Calcium 9.1 (8.4-10.2) mg/dL Total Bilirubin 0.5 (0.2-1.3) mg/dL AST 35 (17-59) U/L ALT 54 (21-72) U/L Alkaline Phosphatase 77 (38-126) U/L Total Creatine Kinase 267 H (55-170) U/L CK-MB (CK-2) 3.0 H* (0.0-2.4) ng/mL CK-MB (CK-2) Rel Index 1.1 Troponin I <0.012 (0.000-0.034) ng/mL Total Protein 6.3 (6.3-8.2) g/dL Albumin 4.0 (3.5-5.0) g/dL Urine Color Urine Appearance (Clear) Urine pH (5.0-8.0) Ur Specific [place] (1.001-1.035) Urine Protein (Negative) Urine Glucose (UA) (Negative) Urine Ketones (Negative) Urine Blood (Negative) Urine Nitrite (Negative) Urine Bilirubin (Negative) Urine Urobilinogen (<2.0) mg/dL Ur Leukocyte Esterase (Negative) 12/01/17 12/01/17 Range/Units 17:11 17:52 WBC (3.8-10.6) k/uL RBC (4.30-5.90) m/uL Hgb (13.0-17.5) gm/dL Hct (39.0-53.0) % MCV (80.0-100.0) fL MCH (25.0-35.0) pg MCHC (31.0-37.0) g/dL RDW (11.5-15.5) % Plt Count (150-450) k/uL Neutrophils % % Lymphocytes % % Monocytes % % Eosinophils % % Basophils % % Neutrophils # (1.3-7.7) k/uL Lymphocytes # (1.0-4.8) k/uL Monocytes # (0-1.0) k/uL Eosinophils # (0-0.7) k/uL Basophils # (0-0.2) k/uL PT 9.8 (9.0-12.0) sec INR 1.0 (<1.2) APTT 22.9 (22.0-30.0) sec Sodium (137-145) mmol/L Potassium (3.5-5.1) mmol/L Chloride (98-107) mmol/L Carbon Dioxide (22-30) mmol/L Anion Gap mmol/L BUN (9-20) mg/dL Creatinine (0.66-1.25) mg/dL Est GFR (CKD-EPI)AfAm (>60 ml/min/1.73 sqM) Est GFR (CKD-EPI)NonAf (>60 ml/min/1.73 sqM) Glucose (74-99) mg/dL Calcium (8.4-10.2) mg/dL Total Bilirubin (0.2-1.3) mg/dL AST (17-59) U/L ALT (21-72) U/L Alkaline Phosphatase (38-126) U/L Total Creatine Kinase (55-170) U/L CK-MB (CK-2) (0.0-2.4) ng/mL CK-MB (CK-2) Rel Index Troponin I (0.000-0.034) ng/mL Total Protein (6.3-8.2) g/dL Albumin (3.5-5.0) g/dL Urine Color Light Yellow Urine Appearance Clear (Clear) Urine pH 6.0 (5.0-8.0) Ur Specific [place] 1.006 (1.001-1.035) Urine Protein Negative (Negative) Urine Glucose (UA) Negative (Negative) Urine Ketones Negative (Negative) Urine Blood Negative (Negative) Urine Nitrite Negative (Negative) Urine Bilirubin Negative (Negative) Urine Urobilinogen <2.0 (<2.0) mg/dL Ur Leukocyte Esterase Negative (Negative) Disposition Clinical Impression: Palpitations, PVC (premature ventricular contraction) Disposition: HOME SELF-CARE Condition: Good Instructions: Palpitations (ED) Is patient prescribed a controlled substance at d/c from ED?: No Referrals: Anuel Dover MD [Primary Care Provider] - 1-2 days
[2017-12-01 17:38] LABS: Basophils % (A) 0 %; Eosinophils # (A) 0.1 k/uL (0-0.7); Eosinophils % (A) 1 %; HCT 38.4 % (39.0-53.0); Lymphocytes # (A) 1.6 k/uL (1.0-4.8); Lymphocytes % (A) 17 %; MCH 29.9 pg (25.0-35.0); MCHC 33.9 g/dL (31.0-37.0); MCV 88.2 fL (80.0-100.0); Mean Platelet Volume 6.8; Monocytes # (A) 0.5 k/uL (0-1.0); Monocytes % (A) 5 %; Neutrophils # (A) 6.9 k/uL (1.3-7.7); Neutrophils % (A) 74 %; Platelet Count 274 k/uL (150-450); RBC 4.35 m/uL (4.30-5.90); RDW 13.6 % (11.5-15.5); WBC 9.4 k/uL (3.8-10.6)
[2017-12-01 17:43] LABS: ALT 54 U/L (21-72); AST 35 U/L (17-59); Alkaline Phosphatase 77 U/L (38-126); Anion Gap 10 mmol/L; Blood Urea Nitrogen 18 mg/dL (9-20); Calcium 9.1 mg/dL (8.4-10.2); Carbon Dioxide 24 mmol/L (22-30); Chloride 105 mmol/L (98-107); Glucose 112 mg/dL (74-99); Potassium 3.8 mmol/L (3.5-5.1); Sodium 139 mmol/L (137-145); Total Bilirubin 0.5 mg/dL (0.2-1.3); Total Protein 6.3 g/dL (6.3-8.2)
[2017-12-01 17:48] LABS: Partial Thromboplastin Time 22.9 sec (22.0-30.0); Prothrombin Time 9.8 sec (9.0-12.0)
[2017-12-01 17:54] LABS: Creatine Kinase 267 U/L (55-170)
--- NOTE | 2017-12-01 18:03 | XR ---
EXAMINATION: XR chest 2V DATE AND TIME: 12/01/2017 5:44 PM ORDERING PROVIDER: Scottie Parker DO CLINICAL INDICATION: Weakness TECHNIQUE: PA and lateral COMPARISON: 11/02/2017 DESCRIPTION: The lungs are clear. The pleural spaces are negative. The cardiac silhouette is not enlarged. The mediastinal and pleural silhouettes are unremarkable. The skeletal structures are intact without focal findings. The soft tissues are unremarkable. IMPRESSION: NO ACUTE PROCESS.
[2017-12-01 18:05] LABS: Appearance,Urine Clear (Clear); Bilirubin,Urine Negative (Negative); Blood,Urine Negative (Negative); Color,Urine Light Yellow; Glucose,Urine (UA) Negative (Negative); Ketones,Urine Negative (Negative); Leukocyte Esterase,Urine Negative (Negative); Nitrite,Urine Negative (Negative); Protein,Urine Negative (Negative); Specific Gravity,Urine 1.006 (1.001-1.035); Urobilinogen,Urine <2.0 mg/dL (<2.0)
[2017-12-01 18:07] LABS: Troponin I <0.012 ng/mL (0.000-0.034)
[2017-12-01 19:30] VITALS: BP 143/65; PULSE 69; RESP 18; TEMP 97.8
== END 2017-12-01 19:35 | disposition home or self-care (01) ==
LOC: EC 17:06
DX: I49.3 Ventricular premature depolarization (principal); K21.9 Gastro-esophageal reflux disease without esophagitis; I10 Essential (primary) hypertension; Z79.899 Other long term (current) drug therapy; Z87.891 Personal history of nicotine dependence
CPT/HCPCS: 36415; 71046; 80053; 81003; 82550; 82553; 84484; 85025; 85610; 85730; 93005; 99285

== ENCOUNTER → 2018-04-19 | Outpatient (CLI) | payer BC ==
--- NOTE | 2018-04-19 15:28 | PN ---
PROGRESS NOTE A 57-year-old male patient coming to see me in followup regarding his obstructive sleep apnea. This is an annual check. The patient has severe ROSA with an AHI of 65. Since the time of diagnosis, gained around 20 pounds. used to weigh 243, he is up to 263. Currently, CPAP at a pressure of 15. He is doing extremely well. No apneas while on CPAP therapy. No snoring while on CPAP therapy. He continues to benefit from the treatment. He is using the AirFit P10 Medium-size nose pillows. Compliance data shows excellent use, an average of 7.2 hours per night. CPAP use for more than 4 hours 100%, leak factor is 46 L/minute. AHI while on treatment is down to 3.5. Clinically, he is benefitting from the treatment. He has a degenerative arthritis and he is receiving Depo-Medrol shot for back pain and sciatic and degenerative arthritis and based on that, he is gaining weight. REVIEW OF SYSTEMS: A 12-point review of system was done, positive for weight gain. No major hypersomnia or sleepiness during the day. No snoring at nighttime. No sleep paralysis. No hallucinations. No nocturnal dyspnea, chest pain, heartburn or any other complications of CPAP therapy. BP 145/75, pulse 71, respirations 18, temperature 98.2, saturation 96% on room air. Weight is 263, height is 5, 11 inches, [place] score is 3, BMI 36.6. GENERAL APPEARANCE: Calm, comfortable. Head is atraumatic, normocephalic. NECK: Supple. Mallampati class IV. There is no goiter neck mass. LUNGS: Clear to auscultation. HEART: Sounds regular rhythm. Normal S1, S2. No S3, S4. No murmurs. ABDOMEN: Soft, nontender. No organomegaly. EXTREMITIES: No edema. No cyanosis or clubbing. IMPRESSION: 1. Symptomatic obstructive sleep apnea, severe apnea-hypopnexa index of 65 currently on CPAP pressure of 15 cm of water. 2. Obesity with interval weight gain. Body mass index is 36.6. Weight is 263. 3. Chronic degenerative arthritis, receiving steroid shots which are obviously contributing to his weight gain. 4. Hypersomnia, improved. PLAN: 1. Keep CPAP with a pressure of 15. Treatment remains successful, compliance data was checked and evaluated. 2. Implement good sleep hygiene measures. 3. New CPAP supplies and during the AirFit P10 nose pillows. 4. We will continue to follow. See me back in a year's time. Of emphasis will be weight loss knowing that the patient has gained around 20 pounds since his original diagnosis two years back. Will continue to follow. MMKERRYL / JAYDENN: [id number] /
== END | disposition home or self-care (01) ==
LOC: SLEEP 13:36
PROVIDERS: ATTEND Internal Medicine Critical Care Medicine
DX: G47.33 Obstructive sleep apnea (adult) (pediatric) (principal); E66.9 Obesity, unspecified; M19.90 Unspecified osteoarthritis, unspecified site; Z68.36 Body mass index [BMI] 36.0-36.9, adult; Z99.89 Dependence on other enabling machines and devices

== ENCOUNTER 2018-07-10 11:05 | Observation (INO) | payer BC ==
[2018-07-10] MEDS ORDERED: FAMOTIDINE 20 MG/2 ML VIAL IV STA (11:16)
--- NOTE | 2018-07-10 11:16 | ED ---
Chest Pain HPI - General Chief Complaint: Chest Pain Stated Complaint: Chest pain Time Seen by Provider: 07/10/18 11:12 Source: patient Mode of arrival: EMS Limitations: no limitations - History of Present Illness Initial Comments: Patient is a 57-year-old male presenting for chest pressure. The patient states that his been intermittent for the last 3 days. However, when he was at discharge, he became much more severe and is located in the middle of his chest. His also located in the left side and not radiating. It is not associated with any modifying factors. It is also not associated with nausea/ vomiting/diarrhea but he states that he has been burping. He states that he has had multiple stress tests all of which been negative but his last cath was in the . He denies any infectious eye symptoms such as fevers or chills or cough. - Related Data Home Medications Medication Instructions Recorded Confirmed Fluticasone Nasal [place] [Flonase 1 spray EA NOSTRIL DAILY PRN 10/21/15 07/10/18 Nasal [place]] Loratadine [Claritin] 10 mg PO DAILY 10/21/15 07/10/18 Losartan/Hydrochlorothiazide 1 tab PO DAILY 10/21/15 07/10/18 [Losartan-Hctz 100-25 mg Tab] Montelukast Sodium [Singulair] 10 mg PO HS 10/21/15 07/10/18 Albuterol Inhaler [Ventolin Hfa 2 puff INHALATION RT-Q4H PRN 05/07/17 07/10/18 Inhaler] Gabapentin [Neurontin] 400 mg PO TID 05/07/17 07/10/18 ALPRAZolam [Xanax] 0.25 mg PO DAILY PRN 07/24/17 07/10/18 Atorvastatin [Lipitor] 40 mg PO HS 07/24/17 07/10/18 Allopurinol [Zyloprim] 300 mg PO DAILY 10/30/17 07/10/18 Colchicine 0.6 mg PO DAILY PRN 12/01/17 07/10/18 Ibuprofen [Motrin] 800 mg PO TID PRN 12/01/17 07/10/18 Metoprolol Succinate (ER) [Toprol 25 mg PO DAILY 12/01/17 07/10/18 Xl] Similson Complete Eye Drop 1 drop BOTH EYES DAILY PRN 07/10/18 07/10/18 Previous Rx's Medication Instructions Recorded Aspirin EC [Ecotrin Low Dose] 81 mg PO DAILY #30 tablet. 05/09/17 Allergies Allergy/AdvReac Type Severity Reaction Status Date / Time No Known Allergies Allergy Verified 12/01/17 17:37 Review of Systems ROS Statement: Those systems with pertinent positive or pertinent negative responses have been documented in the HPI. Constitutional: Negative for chills, fatigue and fever. HENT: Negative for congestion. Respiratory: Negative for chest tightness, shortness of breath and wheezing. Negative for cough Cardiovascular: Positive for chest pain and palpitations. Gastrointestinal: Negative for abdominal pain. Negative for abdominal distention , diarrhea, nausea and vomiting. Genitourinary: Negative for dysuria. Musculoskeletal: Negative for back pain, neck pain and neck stiffness. Skin: Negative for color change. Neurological: Negative for dizziness, speech difficulty, weakness and light- headedness. Psychiatric/Behavioral: Negative for agitation and confusion. Negative for anxiety ROS Other: All systems not noted in ROS Statement are negative. EKG Findings - EKG Comments: EKG Findings:: EKG shows sinus bradycardia with a rate of 59 bpm, VA interval 198, QRS 92, QTC 392. There is a mild ST elevation less than 1 mm in lead V1. There are no reciprocal depressions. Past Medical History Past Medical History: GERD/Reflux, Hypertension, Osteoarthritis (OA), Pneumonia , Skin Disorder, Sleep Apnea/CPAP/BIPAP, Syncope Additional Past Medical History / Comment(s): inguinal hernia and umbilical hernia, psoriasis, Gout STRESS TEST 2016-NEG,DDD, STEROID INJ IN BACK History of Any Multi-Drug Resistant Organisms: None Reported Past Surgical History: Appendectomy, Cholecystectomy, Hernia Repair Additional Past Surgical History / Comment(s): rt inguinal hernia x 3, [facility] HERNIA REPAIR,vasectomy, Past Anesthesia/Blood Transfusion Reactions: Motion Sickness Additional Past Anesthesia/Blood Transfusion Reaction / Comment(s): no hx blood transfusion Past Psychological History: Anxiety, Panic Disorder Smoking Status: Former smoker Past Alcohol Use History: Rare Past Drug Use History: None Reported - Past Family History Father Family Medical History: Congestive Heart Failure (CHF), Myocardial Infarction ( [place]) Additional Family Medical History / Comment(s): alcoholism Mother Family Medical History: Osteoarthritis (OA) General Exam - General Exam Comments Initial Comments: Constitutional: Pt appears well-developed and well-nourished. No distress. Head: Normocephalic and atraumatic. Eyes: EOM are normal. Neck: Normal range of motion. Neck supple. Cardiovascular: Normal rate, regular rhythm, S1 normal, S2 normal and normal heart sounds. Exam reveals no gallop and no friction rub. No murmur heard. Pulmonary/Chest: Effort normal and breath sounds normal. No tachypnea and no bradypnea. No respiratory distress. No wheezes or rales noted. Abdominal: Soft. Bowel sounds are normal. Pt exhibits no shifting dullness, no distension, no pulsatile liver, no fluid wave, no abdominal bruit and no ascites. There is no rigidity, no rebound, no guarding, no tenderness at McBurney's point and negative Cortez's sign. There is no tenderness. Musculoskeletal: Normal range of motion. Neurological: Pt is alert and oriented to person, place, and time. No cranial nerve deficit. Skin: Skin is warm and dry. No rash noted. Pt is not diaphoretic. No erythema. No pallor. Psychiatric: Pt has a normal mood and affect. Pt behavior is normal. Thought content normal. Limitations: no limitations Course Vital Signs 07/10/18 07/10/18 11:06 13:13 Temperature 99.3 F Pulse Rate 78 53 L Respiratory 18 18 Rate Blood Pressure 136/86 135/77 O2 Sat by Pulse 97 98 Oximetry Chest Pain MDM - MDM Laboratory studies showed that there was mild leukocytosis 12.6 but there is no obvious evidence of infection. From a cardiac standpoint, EKG had some very minimal findings of ST elevations in the anterior leads. However, troponin was noted to be negative. Chest x-ray was also negative for acute infiltrate or emergent process. However, because the patient has significant risk factors in his been 2 years since he has had stresses here this facility, it is thought that it be worthwhile to keep him in observation for cardiac evaluation.Explained all labs and diagnostic test results and that we will admit patient to hospital. Pt is agreeable to plan and case has been discussed with Dr. Cherry and they agree to accept the pt. Disposition Clinical Impression: Chest pain Disposition: ADMITTED IP TO THIS HOSP Condition: Fair Instructions (If sedation given, give patient instructions): Chest Pain (ED) Referrals: Anuel Dover MD [Primary Care Provider] - 1-2 days Decision to Admit Reason: Admit from EC Decision Date: 07/10/18 Decision Time: 14:53
[2018-07-10 13:11] LABS: Basophils % (A) 0 %; Eosinophils # (A) 0.1 k/uL (0-0.7); Eosinophils % (A) 1 %; HCT 41.4 % (39.0-53.0); HGB 13.8 gm/dL (13.0-17.5); Lymphocytes # (A) 2.1 k/uL (1.0-4.8); Lymphocytes % (A) 17 %; MCH 29.2 pg (25.0-35.0); MCHC 33.4 g/dL (31.0-37.0); MCV 87.4 fL (80.0-100.0); Mean Platelet Volume 7.4; Monocytes # (A) 0.7 k/uL (0-1.0); Monocytes % (A) 5 %; Neutrophils # (A) 9.6 k/uL (1.3-7.7); Neutrophils % (A) 76 %; Platelet Count 282 k/uL (150-450); RBC 4.74 m/uL (4.30-5.90); WBC 12.6 k/uL (3.8-10.6)
[2018-07-10 13:19] LABS: ALT 46 U/L (21-72); AST 23 U/L (17-59); Alkaline Phosphatase 89 U/L (38-126); Anion Gap 8 mmol/L; Blood Urea Nitrogen 19 mg/dL (9-20); Calcium 9.5 mg/dL (8.4-10.2); Carbon Dioxide 25 mmol/L (22-30); Chloride 109 mmol/L (98-107); Glucose 102 mg/dL (74-99); Magnesium 2.1 mg/dL (1.6-2.3); Potassium 4.2 mmol/L (3.5-5.1); Sodium 142 mmol/L (137-145); Total Bilirubin 0.3 mg/dL (0.2-1.3); Total Protein 6.6 g/dL (6.3-8.2)
--- NOTE | 2018-07-10 13:28 | XR ---
EXAMINATION TYPE: XR chest 2V DATE OF EXAM: 07/10/2018 COMPARISON: 12/01/2017 HISTORY: 57-year-old male with chest pain TECHNIQUE: PA and lateral views FINDINGS: Heart is upper limits of normal in size. Aorta and pulmonary vasculature within normal limits. No con solidation or pleural effusion. IMPRESSION: No acute cardiopulmonary process.
[2018-07-10 13:39] LABS: INR 0.9 (<1.2); Prothrombin Time 9.8 sec (9.0-12.0)
[2018-07-10] MEDS ORDERED: NITROGLYCERIN SL TABS 0.4 MG TAB SUBLINGUAL PRN (14:42)
[2018-07-10] MEDS ORDERED: IBUPROFEN 800 MG TAB PO PRN (15:35)
[2018-07-10] MEDS ORDERED: ALPRAZolam 0.25 MG TAB PO PRN (15:35)
[2018-07-10] MEDS ORDERED: [UNRECOGNIZED DRUG - OTHER] BOTH EYES PRN (15:35)
[2018-07-10] MEDS ORDERED: ALBUTEROL NEBULIZED 2.5 MG/3 ML INHALATION PRN (15:35)
[2018-07-10] MEDS ORDERED: COLCHICINE 0.6 MG EACH PO PRN (15:35)
[2018-07-10] MEDS: GABAPENTIN 400 MG CAP PO SCH ×2 (16:22→21:50)
[2018-07-10 16:34] LABS: Glucose,Whole Blood 126 mg/dL (75-99)
[2018-07-10 16:44] VITALS: BMI 35.8
[2018-07-10 20:40] LABS: Glucose,Whole Blood 114 mg/dL (75-99)
[2018-07-10] MEDS ORDERED: ONDANSETRON 4 MG/2 ML VIAL IVP PRN (20:48)
[2018-07-10] MEDS ORDERED: MAGNESIUM HYDROXIDE 2,400 MG/10 ML CUP PO PRN (20:48)
[2018-07-10] MEDS ORDERED: LACTULOSE 20 GM/30 ML CUP PO PRN (20:48)
[2018-07-10] MEDS ORDERED: ACETAMINOPHEN TAB 325 MG TAB PO PRN (20:48)
[2018-07-10] MEDS ORDERED: TEMAZEPAM 15 MG CAP PO PRN (20:48)
[2018-07-10] MEDS ORDERED: CALCIUM CARBONATE 500 MG CHEWABLE PO PRN (20:48)
[2018-07-10] MEDS ORDERED: ENOXAPARIN 40 MG/0.4 ML SYRINGE SQ SCH (21:00)
[2018-07-10] MEDS ORDERED: MONTELUKAST 10 MG TAB PO SCH (21:00)
[2018-07-10] MEDS ORDERED: ATORVASTATIN 40 MG TAB PO SCH ×2 (21:00)
--- NOTE | 2018-07-10 21:28 | HP ---
HISTORY AND PHYSICAL DATE OF ADMISSION: July 10, 2018. PRESENTING COMPLAINT: Palpitations. HISTORY OF PRESENTING COMPLAINT: This is a pleasant 57-year-old patient who follows with Dr. Dover. Musculoskeletal Physiotherapist is Dr. Ellyn Escamilla. Chronic stable medical conditions include GERD, hypertension, osteoarthritis, obstructive sleep apnea, and recently diagnosed diabetes. The patient was at [employer] this morning and noticed some palpitation and chest pressure, has been present on and off and then got an anxiety attack, felt a bit weird. Also had a near syncope episode. There was no perspiration. The patient decided to come in. The patient not too long ago had a negative stress test stress. Admitted for further cardiac workup. REVIEW OF SYSTEMS: CONSTITUTIONAL: None. HEENT: None. CARDIOVASCULAR: As above. GASTROINTESTINAL: Heartburn. GENITOURINARY: None. MUSCULOSKELETAL: Arthritic pain in joints. DERMATOLOGICAL, HEMATOLOGIC, LYMPHATIC: none. PSYCHIATRY none. NEUROLOGICAL none. PAST MEDICAL HISTORY: GERD, hypertension, osteoarthritis, skin disorder, obstructive sleep apnea, uses CPAP. Inguinal and umbilical hernia psoriasis. Gout. Negative stress test in 2016. Steroid injection in the past. PAST SURGICAL HISTORY: Appendectomy, cholecystectomy, hernia repair, right inguinal hernia repair, umbilical hernia repair, vasectomy. PSYCH HISTORY: History of anxiety. SOCIAL HISTORY: Lives alone. Smoked for 18 years, 1 pack a day stopped in 2015. The patient works at [employer]. FAMILY HISTORY: Of myocardial infarction, congestive heart failure. HOME MEDICATIONS: 1. complete eye drops 1 drop both eyes daily p.r.n. 2. Singulair 10 mg q.h.s. 3. Toprol-XL 25 mg a day. 4. Losartan hydrochlorothiazide 100/25 1 tablet p.o. daily. 5. Claritin 10 mg p.o. daily. 6. Motrin 800 mg t.i.d. p.r.n. 7. Neurontin 400 mg p.o. t.i.d. 8. Flonase, colchicine 0.6 mg daily p.r.n. 9. Lipitor 40 mg q.h.s. 10.Aspirin 81 mg a day. 11.Allopurinol 300 mg a day. 12.Ventolin HFA 2 puffs q.4 p.r.n. 13.Xanax 0.25 p.o. daily p.r.n. ALLERGIES: None. PHYSICAL EXAMINATION: VITAL SIGNS: Vital signs on presentation temperature 99.3, pulse 78, respiratory 18, blood pressure 136/86, pulse ox 97% on 2 L and 98% room air. GENERAL APPEARANCE: Well built, BMI 35.8. Lying in bed, slightly anxious. EYES: Pupils are equal. Conjunctivae normal. HEENT: External appearance of nose and ears normal. Oral cavity normal. NECK: JVD not raised. Mass not palpable. RESPIRATORY: Effort normal. LUNGS are clear. CARDIOVASCULAR: 1st and 2nd sounds normal. No edema. ABDOMEN: Soft, nontender. Liver and spleen not palpable. LYMPHATICS: No lymph nodes palpable in the neck and axilla. PSYCHIATRY: Alert and oriented times three. Mood and affect slightly anxious- appearing. NEUROLOGICAL: Pupils equal. Cranial nerves grossly intact. Power and sensation grossly intact. INVESTIGATIONS: White count 12.6, hemoglobin 13.8. Potassium 4.2. BUN and creatinine is normal. Troponin times two negative. EKG tracing personally reviewed by me shows normal sinus rhythm, some Q-waves in inferior leads. Chest x-ray film personally reviewed by me shows elevated right diaphragm, borderline cardiomegaly. Lung martinez are clear. ASSESSMENT: 1. The patient is having episodes of palpitation, chest pressure, has underlying anxiety. This could be psychosomatic, but need to rule out a cardiac cause. The patient's last stress test 3 years ago was negative. The patient's cardiac risk factors include obesity, newly diagnosed diabetes and hypertension. 2. Gastroesophageal reflux disease. 3. Essential hypertension. 4. Primary osteoarthritis. 5. Obstructive sleep apnea uses CPAP machine. 6. Newly diagnosed diabetes mellitus type 2. 7. Obesity; BMI 35.8. 8. Elevated right diaphragm. PLAN: Serial cardiac enzymes are in place. Telemetry is in place to rule out any arrhythmia. The patient will need a stress test. We will also do a sniff test on the patient. Care was discussed with the patient. Questions were answered. Copy to Dr. Dover. JOVON / EILEEN: [id number] /
[2018-07-11 03:33] VITALS: RESP 18
[2018-07-11 03:57] LABS: Cholesterol 116 mg/dL (<200); HDL Cholesterol 36 mg/dL (40-60); LDL Cholesterol,Calculated 56 mg/dL (0-99); Triglycerides 122 mg/dL (<150)
[2018-07-11 06:42] LABS: Glucose,Whole Blood 92 mg/dL (75-99)
[2018-07-11] MEDS ORDERED: ASPIRIN 81 MG PO SCH (09:00)
[2018-07-11] MEDS ORDERED: LOSARTAN-HCTZ 50-12.5 MG 1 EACH TAB PO SCH (09:00)
[2018-07-11] MEDS ORDERED: ASPIRIN 325 MG TAB PO SCH (09:00)
[2018-07-11] MEDS ORDERED: ALLOPURINOL 300 MG TAB PO SCH (09:00)
[2018-07-11] MEDS ORDERED: LORATADINE 10 MG TAB PO SCH (09:00)
[2018-07-11] MEDS ORDERED: METOPROLOL SUCCINATE (ER) 25 MG TAB.ER.24H PO SCH (09:00)
--- NOTE | 2018-07-11 11:06 | FL ---
EXAMINATION TYPE: [place] sniff test without CXR DATE OF EXAM: 07/11/2018 COMPARISON: 11/16/2015 and 07/10/2018 HISTORY: Shortness of breath after hernia repair 2 years ago. Right hemidiaphragm elevation. TECHNIQUE: 36 seconds of fluoroscopy time was utilized to evaluate the right hemidiaphragm with real- time fluoroscopic imaging. The exam was video recorded and therefore no fluoroscopic images were save d. FINDINGS: There is normal and symmetric hemidiaphragm excursion bilaterally. No radiographic evidence of phrenic nerve palsy or paralysis. Right hemidiaphragm is slightly elevated in comparison to the l eft, unchanged from the exam of 11/16/2015 IMPRESSION: Normal sniff test. No evidence of phrenic nerve palsy/paralysis.
[2018-07-11 11:54] LABS: Glucose,Whole Blood 217 mg/dL (75-99)
--- NOTE | 2018-07-11 12:43 | P.CRDCN ---
History of Present Illness History of present illness: This is a pleasant 57-year-old male past medical history significant for hypertension, dyslipidemia, gout, anxiety and palpitations with PVCs. He follows in the office with Dr. VC Escamilla. He has no history of prior coronary artery disease. He has been diagnosed with RV outflow tract PVC's and is maintained on Toprol. We have been asked to see him in consultation for symptoms of chest discomfort and palpitations. Approximately 2 weeks ago he was diagnosed with a sinus infection and started on antibiotics and steroids. Shortly thereafter he started feeling palpitations intermittently throughout the week. While at [employer] yesterday started feeling palpitations again and then a pressure sensation in his chest. This was very intermittent with no specific aggravating factors. He denies associated shortness of breath, dizziness, nausea, vomiting or diaphoresis. He denies exertional chest pain. He states he has continued to feel intermittent PVC's since arriving at the the hospital. EKG reveals sinus mechanism with no acute ST-T wave abnormalities with evidence of inferior Q waves. Similar to previous EKG. Telemetry tracings are unremarkable. Chest x-ray negative for an acute cardiopulmonary process. Laboratory data reviewed, cardiac enzymes negative 3, WBC 12.6, hemoglobin 13.8 , platelets 282, sodium 142, potassium 4.2, creatinine 0.73, magnesium 2.1, NT proBNP 154, LDL 56 and HDL 36. Current cardiac medications include aspirin 81 mg daily, atorvastatin 40 mg daily, losartan/hydrochlorothiazide 100/25 mg daily and Toprol 25 mg daily. Most recent stress test performed in the office June 2017 with a Cardiolite stress test which revealed evidence of a fixed defect in the inferoseptal wall suggestive of soft tissue attenuation with no reversible cardiac ischemia. At the time of my exam: CONSTITUTIONAL: Denies fever. Denies chills. EYES: Denies blurred vision. Denies vision changes. Denies eye pain. EARS, NOSE, MOUTH & THROAT: Denies headache. Denies sore throat. Denies ear pain. CARDIOVASCULAR: Denies chest pain. Denies shortness of breath. Denies orthopnea. Denies PND. Denies palpitations. RESPIRATORY: Denies cough. GASTROINTESTINAL: Denies abdominal pain. Denies diarrhea. Denies constipation. Denies nausea. Denies vomiting. MUSCULOSKELETAL: Denies myalgias. INTEGUMENTARY: Denies pruitis. Denies rash. NEUROLOGIC: Denies numbness. Denies tingling. Denies weakness. PSYCHIATRIC: Denies anxiety. Denies depression. ENDOCRINE: Denies fatigue. Denies weight change. Denies polydipsia. Denies polyurina. GENITOURINARY: Denies burning, hematuria or urgency with micturation. HEMATOLOGIC: Denies history of anemia. Denies bleeding. Blood pressure 150/77 heart rate 53 afebrile maintaining oxygen saturation on room air GENERAL: This is a 57-year-old male in no apparent distress at the time of my examination. HEENT: Head is atraumatic, normocephalic. Pupils are equal, round. Sclerae anicteric. Conjunctivae are clear. Mucous membranes of the mouth are moist. Neck is supple. There is no jugular venous distention. No carotid bruit is heard. LUNGS: Clear to auscultation no wheezes, rales or rhonchi. No chest wall tenderness is noted on palpation or with deep breathing. HEART: Regular rate and rhythm without murmurs, rubs or gallops. S1 and S2 heard. ABDOMEN: Soft, nontender. Bowel sounds are heard. No organomegaly noted. EXTREMITIES: No evidence of peripheral edema and no calf tenderness noted. VASCULAR: Radial and dorsalis pedis pulses palpated, no evidence of clubbing. NEUROLOGIC: Patient is awake, alert and oriented x3. ASSESSMENT Palpitations with history of PVC's Chest pain associated with palpitations, an acute event has been ruled out. Recent stress test in the office is negative for reversible ischemia. Hypertension Dyslipidemia Asthma Anxiety History of gout PLAN An acute coronary event has been ruled out. TSH obtained and is normal. Palpitations most likely exacerbated by recent sinus infection and steroid use. Stable to be discharged home to follow up with Dr. Escamilla in the office. Thank you kindly for this consultation. Nurse Practitioner note has been reviewed, I agree with a documented findings and plan of care. Patient was seen and examined. Past Medical History Past Medical History: GERD/Reflux, Hypertension, Osteoarthritis (OA), Pneumonia , Skin Disorder, Sleep Apnea/CPAP/BIPAP, Syncope Additional Past Medical History / Comment(s): inguinal hernia and umbilical hernia, psoriasis, Gout STRESS TEST 2016-NEG,DDD, STEROID INJ IN BACK, CPAP at home History of Any Multi-Drug Resistant Organisms: None Reported Past Surgical History: Appendectomy, Cholecystectomy, Hernia Repair Additional Past Surgical History / Comment(s): rt inguinal hernia x 3, [facility] HERNIA REPAIR,vasectomy, Past Anesthesia/Blood Transfusion Reactions: Motion Sickness Additional Past Anesthesia/Blood Transfusion Reaction / Comment(s): no hx blood transfusion Past Psychological History: Anxiety, Panic Disorder Additional Psychological History / Comment(s): 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 LIVES ALONE IN [address], NO PETS. 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 SERVICE Smoking Status: Former smoker Past Alcohol Use History: Rare Additional Past Alcohol Use History / Comment(s): STARTED 1997 AND QUIT 2015 SMOKED 1 PPD Past Drug Use History: None Reported - Past Family History Father Family Medical History: Congestive Heart Failure (CHF), Myocardial Infarction ( [place]) Additional Family Medical History / Comment(s): alcoholism Mother Family Medical History: Osteoarthritis (OA) Medications and Allergies Home Medications Medication Instructions Recorded Confirmed Type Fluticasone Nasal [place] [Flonase 1 spray EA NOSTRIL DAILY PRN 10/21/15 07/10/18 History Nasal [place]] Loratadine [Claritin] 10 mg PO DAILY 10/21/15 07/10/18 History Losartan/Hydrochlorothiazide 1 tab PO DAILY 10/21/15 07/10/18 History [Losartan-Hctz 100-25 mg Tab] Montelukast Sodium [Singulair] 10 mg PO HS 10/21/15 07/10/18 History Albuterol Inhaler [Ventolin Hfa 2 puff INHALATION RT-Q4H PRN 05/07/17 07/10/18 History Inhaler] Gabapentin [Neurontin] 400 mg PO TID 05/07/17 07/10/18 History Aspirin EC [Ecotrin Low Dose] 81 mg PO DAILY #30 tablet. 05/09/17 07/10/18 Rx ALPRAZolam [Xanax] 0.25 mg PO DAILY PRN 07/24/17 07/10/18 History Atorvastatin [Lipitor] 40 mg PO HS 07/24/17 07/10/18 History Allopurinol [Zyloprim] 300 mg PO DAILY 10/30/17 07/10/18 History Colchicine 0.6 mg PO DAILY PRN 12/01/17 07/10/18 History Ibuprofen [Motrin] 800 mg PO TID PRN 12/01/17 07/10/18 History Metoprolol Succinate (ER) [Toprol 25 mg PO DAILY 12/01/17 07/10/18 History Xl] Similson Complete Eye Drop 1 drop BOTH EYES DAILY PRN 07/10/18 07/10/18 History Allergies Allergy/AdvReac Type Severity Reaction Status Date / Time No Known Allergies Allergy Verified 12/01/17 17:37 Physical Exam Vitals: Vital Signs Temp Pulse Pulse Resp BP BP Pulse Ox 07/11/18 07:35 97.8 F 53 L 18 150/77 97 07/11/18 03:32 97.8 F 53 L 18 150/72 98 07/11/18 02:21 60 17 07/11/18 00:19 98.3 F 62 18 139/69 98 07/10/18 21:18 59 L 18 07/10/18 20:00 57 L 18 07/10/18 19:53 98.1 F 58 L 18 128/70 96 07/10/18 16:16 99.3 F 71 16 163/81 98 07/10/18 16:15 97.4 F L 63 16 153/78 98 07/10/18 16:01 71 16 163/81 98 07/10/18 15:55 65 18 161/83 98 07/10/18 13:13 53 L 18 135/77 98 07/10/18 11:06 99.3 F 78 18 136/86 97 Intake and Output 07/10/18 07/11/18 07/11/18 22:59 06:59 14:59 Other: Voiding Method Toilet Toilet # Voids 1 1 Results 07/10/18 12:50 07/10/18 12:50 Cardiac Enzymes 07/10/18 07/10/18 07/10/18 Range/Units 12:50 12:50 18:48 AST 23 (17-59) U/L Troponin I <0.012 <0.012 (0.000-0.034) ng/mL 07/11/18 Range/Units 01:00 AST (17-59) U/L Troponin I <0.012 (0.000-0.034) ng/mL Coagulation 07/10/18 Range/Units 12:50 PT 9.8 (9.0-12.0) sec APTT 23.0 (22.0-30.0) sec Lipids 07/10/18 Range/Units 12:50 Triglycerides 122 (<150) mg/dL Cholesterol 116 (<200) mg/dL HDL Cholesterol 36 L (40-60) mg/dL CBC 07/10/18 Range/Units 12:50 WBC 12.6 H (3.8-10.6) k/uL RBC 4.74 (4.30-5.90) m/uL Hgb 13.8 (13.0-17.5) gm/dL Hct 41.4 (39.0-53.0) % Plt Count 282 (150-450) k/uL Comprehensive Metabolic Panel 07/10/18 Range/Units 12:50 Sodium 142 (137-145) mmol/L Potassium 4.2 (3.5-5.1) mmol/L Chloride 109 H (98-107) mmol/L Carbon Dioxide 25 (22-30) mmol/L BUN 19 (9-20) mg/dL Creatinine 0.73 (0.66-1.25) mg/dL Glucose 102 H (74-99) mg/dL Calcium 9.5 (8.4-10.2) mg/dL AST 23 (17-59) U/L ALT 46 (21-72) U/L Alkaline Phosphatase 89 (38-126) U/L Total Protein 6.6 (6.3-8.2) g/dL Albumin 4.0 (3.5-5.0) g/dL Current Medications Generic Name Dose Route Start Last Admin Trade Name Freq PRN Reason Stop Dose Admin Acetaminophen 650 mg 07/10/18 20:48 Tylenol Tab PO Q6HR PRN Mild Pain or Fever > 100.5 Albuterol Sulfate 2.5 mg 07/10/18 15:35 Ventolin Nebulized INHALATION RT-Q4H PRN Shortness Of Breath Allopurinol 300 mg 07/11/18 09:00 Zyloprim PO DAILY MARIAELENA Alprazolam 0.25 mg 07/10/18 15:35 Xanax PO DAILY PRN Anxiety Aspirin 81 mg 07/11/18 09:00 Aspirin PO DAILY MARIAELENA Atorvastatin Calcium 40 mg 07/10/18 21:00 07/10/18 20:05 Lipitor PO Not Given HS MARIAELENA Atorvastatin Calcium 40 mg 07/10/18 21:00 07/10/18 20:04 Lipitor PO 40 mg HS [facility] Administration Calcium Carbonate/Glycine 1,000 mg 07/10/18 20:48 Tums PO Q4HR PRN Dyspepsia Colchicine 0.6 mg 07/10/18 15:35 Colcrys PO DAILY PRN gout flare Enoxaparin Sodium 40 mg 07/10/18 21:00 07/10/18 21:51 Lovenox SQ 40 mg HS [facility] Administration Gabapentin 400 mg 07/10/18 16:00 07/10/18 21:50 Neurontin PO 400 mg TID [facility] Administration HCTZ/Losartan Potassium 2 each 07/11/18 09:00 Hyzaar 50-12.5 PO DAILY [facility] Ibuprofen 800 mg 07/10/18 15:35 Motrin PO TID PRN Pain Lactulose 20 gm 07/10/18 20:48 Cephulac PO DAILY PRN Constipation Loratadine 10 mg 07/11/18 09:00 Claritin PO DAILY [facility] Magnesium Hydroxide 2,400 mg 07/10/18 20:48 Milk Of Magnesia PO DAILY PRN Constipation Metoprolol Succinate 25 mg 07/11/18 09:00 Toprol Xl PO DAILY [facility] Montelukast Sodium 10 mg 07/10/18 21:00 07/10/18 20:04 Singulair PO 10 mg HS [facility] Administration Nitroglycerin 0.4 mg 07/10/18 14:42 Nitrostat SUBLINGUAL Q5M PRN Chest Pain Ondansetron HCl 4 mg 07/10/18 20:48 Zofran IVP Q8HR PRN Nausea And Vomiting Temazepam 15 mg 07/10/18 20:48 Restoril PO HS PRN Insomnia Intake and Output 07/10/18 07/11/18 07/11/18 22:59 06:59 14:59 Other: Voiding Method Toilet Toilet # Voids 1 1 07/10/18 12:50 07/10/18 12:50
[2018-07-11] MEDS: GABAPENTIN 400 MG CAP PO SCH ×2 (14:50)
[2018-07-11 15:48] VITALS: BP 147/82; PULSE 71; TEMP 97.5
--- NOTE | 2018-07-12 06:26 | DS ---
DISCHARGE SUMMARY DATE OF ADMISSION: 07/10/2018 DATE OF DISCHARGE: 07/11/2018 FINAL DIAGNOSES: 1. Chest pain, palpitations, likely psychosomatic. 2. Gastroesophageal reflux disease. 3. Essential hypertension. 4. Primary osteoarthritis. 5. Obstructive sleep apnea, uses CPAP machine. 6. Newly diagnosed diabetes mellitus type 2. 7. Obesity; BMI 35.8. 8. Elevated right diaphragm with a Sniff test being negative. HOSPITAL COURSE: The patient presented with palpitation and chest pressure. He felt an anxiety attack was also coming on. The patient's troponins were negative. The patient was seen by Cardiology who cleared the patient to be discharged. The patient's right diaphragm was elevated on the chest x-ray. The Sniff test was negative. The patient is feeling well, up and about by the time of discharge. No further symptoms. On examination, temperature 97.5 pulse 71, respirations 18, blood pressure 147/82, pulse ox 97% on room air. LUNGS: Clear. CARDIOVASCULAR: First and second sounds normal. CONSULTATIONS: Dr. Ridley from Cardiology. DISCHARGE MEDICATIONS: 1. Flonase 1 spray each nostril daily p.r.n. 2. Claritin 10 mg a day. 3. Losartan hydrochlorothiazide 100/25 one tablet p.o. daily. 4. Singulair 10 mg q.h.s. 5. Ventolin HFA 2 puffs q.4 p.r.n. 6. Neurontin 400 mg t.i.d. 7. Aspirin 81 mg a day. 8. Xanax 0.25 p.o. daily p.r.n. 9. Lipitor 40 mg q.h.s. 10.Allopurinol 300 mg p.o. daily. 11.Colchicine 0.6 mg p.o. daily p.r.n. 12.Motrin 800 mg t.i.d. p.r.n. 13.Toprol XL 25 mg daily. 14. Complete Eye Drop 1 drop to both eyes p.r.n. Follow up with Dr. Dover in 2 days. Follow up with Dr. Ellyn Escamilla in one week. MMODL / IJN: [id number] /
== END 2018-07-11 16:31 | disposition home or self-care (01) ==
LOC: EC 11:05 → 1SOBS 14:42
PROVIDERS: ADMIT Hospitalist; ATTEND Hospitalist
DX: R07.89 Other chest pain (principal); I49.3 Ventricular premature depolarization; E11.9 Type 2 diabetes mellitus without complications; E66.9 Obesity, unspecified; Z68.35 Body mass index [BMI] 35.0-35.9, adult; E78.5 Hyperlipidemia, unspecified; F41.0 Panic disorder [episodic paroxysmal anxiety]; F41.1 Generalized anxiety disorder; G47.33 Obstructive sleep apnea (adult) (pediatric); I10 Essential (primary) hypertension; M10.9 Gout, unspecified; L40.9 Psoriasis, unspecified; J45.909 Unspecified asthma, uncomplicated; K21.9 Gastro-esophageal reflux disease without esophagitis; M19.91 Primary osteoarthritis, unspecified site; Z79.82 Long term (current) use of aspirin; Z79.899 Other long term (current) drug therapy; D72.829 Elevated white blood cell count, unspecified; Z87.891 Personal history of nicotine dependence; Z99.89 Dependence on other enabling machines and devices; Z90.49 Acquired absence of other specified parts of digestive tract; Z87.01 Personal history of pneumonia (recurrent); Z82.49 Family history of ischemic heart disease and other diseases of the circulatory system
CPT/HCPCS: 96372; 96374; 99285; 36415; 93005; 83880; 80061; 80053; 84443; 83735; 84484 ×2; 85025; 85610; 85730; 76000; 71046; G0378 ×2; J1650

== ENCOUNTER 2018-11-18 12:39 | Emergency (ER) | payer BC ==
[2018-11-18 12:56] VITALS: RESP 18
[2018-11-18] MEDS ORDERED: SODIUM CHLORIDE 0.9% 1,000 ML IV STA (12:59)
[2018-11-18] MEDS ORDERED: ACETAMINOPHEN TAB 325 MG TAB PO STA (13:28)
[2018-11-18 13:54] LABS: Basophils % (A) 0 %; Eosinophils # (A) 0.2 k/uL (0-0.7); Eosinophils % (A) 1 %; HCT 41.6 % (39.0-53.0); HGB 14.1 gm/dL (13.0-17.5); Lymphocytes # (A) 1.8 k/uL (1.0-4.8); Lymphocytes % (A) 17 %; MCH 29.3 pg (25.0-35.0); MCHC 33.9 g/dL (31.0-37.0); MCV 86.6 fL (80.0-100.0); Mean Platelet Volume 7.3; Monocytes # (A) 0.6 k/uL (0-1.0); Monocytes % (A) 6 %; Neutrophils # (A) 7.8 k/uL (1.3-7.7); Neutrophils % (A) 75 %; Platelet Count 305 k/uL (150-450); RBC 4.81 m/uL (4.30-5.90); RDW 13.5 % (11.5-15.5); WBC 10.5 k/uL (3.8-10.6)
--- NOTE | 2018-11-18 14:00 | ED ---
General Adult HPI - General Chief complaint: Abdominal Pain Stated complaint: abd pain Time Seen by Provider: 11/18/18 12:59 Source: patient, RN notes reviewed, old records reviewed Mode of arrival: ambulatory - History of Present Illness Initial comments: 58-year-old male patient with past medical history of hypertension, status post appendectomy cholecystectomy until hernia repair presents to ED for abdominal pain, distention, decreased flatus. Patient reports this has been ongoing for approximately 12 hours. Patient reports he has denies abdominal discomfort, no focal area of abdominal pain. Patient states that he is still passing flatus. Patient reports that he had diarrhea yesterday, has not had any stool since. Patient denies any nausea or vomiting, denies any increased eructation. Patient denies any chest pain or shortness of breath. Denies any other complaints at this time. Systemic: Pt denies fatigue, fever/chills, rash. Pt denies weakness, night sweats, weight loss. Neuro: Pt denies headache, visual disturbances, syncope or pre-syncope. HEENT: Pt denies ocular discharge or irritation, otalgia, rhinorrhea, pharyngitis or notable lymphadenopathy. Cardiopulmonary: Pt denies chest pain, SOB, heart palpitations, dyspnea on exertion. Abdominal/GI: Pt denies n/v/d. : Pt denies dysuria, burning w/ urination, frequency/urgency. Denies new onset urinary or bowel incontinence. MSK: Pt denies myalgia, loss of strength or function in extremities. Neuro: Pt denies new onset weakness, paresthesias. - Related Data Home Medications Medication Instructions Recorded Confirmed Fluticasone Nasal [place] [Flonase 1 spray EA NOSTRIL DAILY PRN 10/21/15 07/10/18 Nasal [place]] Loratadine [Claritin] 10 mg PO DAILY 10/21/15 07/10/18 Losartan/Hydrochlorothiazide 1 tab PO DAILY 10/21/15 07/10/18 [Losartan-Hctz 100-25 mg Tab] Montelukast Sodium [Singulair] 10 mg PO HS 10/21/15 07/10/18 Albuterol Inhaler [Ventolin Hfa 2 puff INHALATION RT-Q4H PRN 05/07/17 07/10/18 Inhaler] Gabapentin [Neurontin] 400 mg PO TID 05/07/17 07/10/18 ALPRAZolam [Xanax] 0.25 mg PO DAILY PRN 07/24/17 07/10/18 Atorvastatin [Lipitor] 40 mg PO HS 07/24/17 07/10/18 Allopurinol [Zyloprim] 300 mg PO DAILY 10/30/17 07/10/18 Colchicine 0.6 mg PO DAILY PRN 12/01/17 07/10/18 Ibuprofen [Motrin] 800 mg PO TID PRN 12/01/17 07/10/18 Metoprolol Succinate (ER) [Toprol 25 mg PO DAILY 12/01/17 07/10/18 XL] Similson Complete Eye Drop 1 drop BOTH EYES DAILY PRN 07/10/18 07/10/18 Previous Rx's Medication Instructions Recorded Aspirin EC [Ecotrin Low Dose] 81 mg PO DAILY #30 tablet. 05/09/17 Allergies Allergy/AdvReac Type Severity Reaction Status Date / Time No Known Allergies Allergy Verified 11/18/18 12:57 Review of Systems ROS Statement: Those systems with pertinent positive or pertinent negative responses have been documented in the HPI. ROS Other: All systems not noted in ROS Statement are negative. Past Medical History Past Medical History: GERD/Reflux, Hypertension, Osteoarthritis (OA), Pneumonia, Skin Disorder, Sleep Apnea/CPAP/BIPAP, Syncope Additional Past Medical History / Comment(s): inguinal hernia and umbilical hernia, psoriasis, Gout STRESS TEST 2016-NEG,DDD, STEROID INJ IN BACK, CPAP at home History of Any Multi-Drug Resistant Organisms: None Reported Past Surgical History: Appendectomy, Cholecystectomy, Hernia Repair Additional Past Surgical History / Comment(s): rt inguinal hernia x 3, [facility] HERNIA REPAIR,vasectomy, Past Anesthesia/Blood Transfusion Reactions: Motion Sickness Additional Past Anesthesia/Blood Transfusion Reaction / Comment(s): no hx blood transfusion Past Psychological History: Anxiety, Panic Disorder Smoking Status: Former smoker Past Alcohol Use History: Rare Past Drug Use History: None Reported - Past Family History Father Family Medical History: Congestive Heart Failure (CHF), Myocardial Infarction ([place]) Additional Family Medical History / Comment(s): alcoholism Mother Family Medical History: Osteoarthritis (OA) General Exam - General Exam Comments Initial Comments: Constitutional: NAD, AOX3, Pt has pleasant affect. HEENT: NC/AT, trachea midline, neck supple, no lymphadenopathy. Posterior pharynx non erythematous, without exudates. External ears appear normal, without discharge. Mucous membranes moist. Eyes PERRLA, EOM intact. There is no scleral icterus. No pallor noted. Cardiopulmonary: RRR, no murmurs, rubs or gallops, no JVD noted. Lungs CTAB in anterior and posterior martinez. No peripheral edema. Abdominal exam: Abdomen soft and mildly distended. Abdomen mildly tender to palpation in RLQ. Bowel sounds active in RLQ. No hepatosplenomegaly. No ecchymosis Neuro: CN II-XII grossly intact. No nuchal rigidity. No raccon eyes, no trinidad sign, no hemotympanum. No cervical spinal tenderness. MSK: No posterior calf tenderness bilaterally, homans sign negative bilaterally. Posterior tibialis and radial pulse +2 bilaterally. Sensation intact in upper and lower extremities. Full active ROM in upper and lower extremities, 5/5 stregnth. Course Vital Signs 11/18/18 11/18/18 12:54 14:53 Temperature 99.4 F 99.2 F Pulse Rate 78 73 Respiratory 18 18 Rate Blood Pressure 133/75 125/72 O2 Sat by Pulse 97 98 Oximetry Medical Decision Making - Medical Decision Making 58-year-old male patient with past medical history of hypertension, status post appendectomy cholecystectomy until hernia repair presents to ED for abdominal pain, distention, decreased flatus. Patient reports this has been ongoing for approximately 12 hours. Patient reports he has denies abdominal discomfort, no focal area of abdominal pain. Patient states that he is still passing flatus. Patient reports that he had diarrhea yesterday, has not had any stool since. Patient denies any nausea or vomiting, denies any increased eructation. Patient denies any chest pain or shortness of breath. Denies any other complaints at this time. Patient vital signs stable, afebrile. Physical exam displayed: Abdomen soft and mildly distended. Abdomen mildly tender to palpation in RLQ. CT abdomen and pelvis displayed mild to moderate uncomplicated epiploplic appendegitis. Radiologist Dr. Mortensen was contacted who confirmed this. Pt is s/p appendectomy. Pt will be discharged with tylenol 3. Will follow up with PCP and previously established surgeon Dr. Bhagat. Case discussed with Dr. Bonilla. - Lab Data Result diagrams: 11/18/18 13:35 11/18/18 13:35 Lab Results 11/18/18 11/18/18 11/18/18 Range/Units 13:35 13:35 13:35 WBC 10.5 (3.8-10.6) k/uL RBC 4.81 (4.30-5.90) m/uL Hgb 14.1 (13.0-17.5) gm/dL Hct 41.6 (39.0-53.0) % MCV 86.6 (80.0-100.0) fL MCH 29.3 (25.0-35.0) pg MCHC 33.9 (31.0-37.0) g/dL RDW 13.5 (11.5-15.5) % Plt Count 305 (150-450) k/uL Neutrophils % 75 % Lymphocytes % 17 % Monocytes % 6 % Eosinophils % 1 % Basophils % 0 % Neutrophils # 7.8 H (1.3-7.7) k/uL Lymphocytes # 1.8 (1.0-4.8) k/uL Monocytes # 0.6 (0-1.0) k/uL Eosinophils # 0.2 (0-0.7) k/uL Basophils # 0.0 (0-0.2) k/uL Sodium 141 (137-145) mmol/L Potassium 3.7 (3.5-5.1) mmol/L Chloride 106 (98-107) mmol/L Carbon Dioxide 26 (22-30) mmol/L Anion Gap 9 mmol/L BUN 11 (9-20) mg/dL Creatinine 0.70 (0.66-1.25) mg/dL Est GFR (CKD-EPI)AfAm >90 (>60 ml/min/1.73 sqM) Est GFR (CKD-EPI)NonAf >90 (>60 ml/min/1.73 sqM) Glucose 88 (74-99) mg/dL Plasma Lactic Acid Edilberto 0.8 (0.7-2.0) mmol/L Calcium 9.4 (8.4-10.2) mg/dL Total Bilirubin 0.5 (0.2-1.3) mg/dL AST 24 (17-59) U/L ALT 35 (21-72) U/L Alkaline Phosphatase 77 (38-126) U/L Total Protein 7.4 (6.3-8.2) g/dL Albumin 4.5 (3.5-5.0) g/dL Lipase 99 (23-300) U/L Urine Color Urine Appearance (Clear) Urine pH (5.0-8.0) Ur Specific [place] (1.001-1.035) Urine Protein (Negative) Urine Glucose (UA) (Negative) Urine Ketones (Negative) Urine Blood (Negative) Urine Nitrite (Negative) Urine Bilirubin (Negative) Urine Urobilinogen (<2.0) mg/dL Ur Leukocyte Esterase (Negative) 11/18/18 Range/Units 13:35 WBC (3.8-10.6) k/uL RBC (4.30-5.90) m/uL Hgb (13.0-17.5) gm/dL Hct (39.0-53.0) % MCV (80.0-100.0) fL MCH (25.0-35.0) pg MCHC (31.0-37.0) g/dL RDW (11.5-15.5) % Plt Count (150-450) k/uL Neutrophils % % Lymphocytes % % Monocytes % % Eosinophils % % Basophils % % Neutrophils # (1.3-7.7) k/uL Lymphocytes # (1.0-4.8) k/uL Monocytes # (0-1.0) k/uL Eosinophils # (0-0.7) k/uL Basophils # (0-0.2) k/uL Sodium (137-145) mmol/L Potassium (3.5-5.1) mmol/L Chloride (98-107) mmol/L Carbon Dioxide (22-30) mmol/L Anion Gap mmol/L BUN (9-20) mg/dL Creatinine (0.66-1.25) mg/dL Est GFR (CKD-EPI)AfAm (>60 ml/min/1.73 sqM) Est GFR (CKD-EPI)NonAf (>60 ml/min/1.73 sqM) Glucose (74-99) mg/dL Plasma Lactic Acid Edilberto (0.7-2.0) mmol/L Calcium (8.4-10.2) mg/dL Total Bilirubin (0.2-1.3) mg/dL AST (17-59) U/L ALT (21-72) U/L Alkaline Phosphatase (38-126) U/L Total Protein (6.3-8.2) g/dL Albumin (3.5-5.0) g/dL Lipase (23-300) U/L Urine Color Light Yellow Urine Appearance Clear (Clear) Urine pH 7.0 (5.0-8.0) Ur Specific [place] 1.006 (1.001-1.035) Urine Protein Negative (Negative) Urine Glucose (UA) Negative (Negative) Urine Ketones Negative (Negative) Urine Blood Negative (Negative) Urine Nitrite Negative (Negative) Urine Bilirubin Negative (Negative) Urine Urobilinogen <2.0 (<2.0) mg/dL Ur Leukocyte Esterase Negative (Negative) Disposition Clinical Impression: Epiploic appendagitis Disposition: HOME SELF-CARE Condition: Stable Additional Instructions: Patient to adhere to previously discussed treatment plan and will take medication(s) as directed. Patient to follow up with PCP in 1-2 days. Patient to return to ED if symptoms do not improve. Follow up with PCP and Dr. Bhagat tomorrow. Use pain medication as needed for pain. Return to ER if condition worsnes. Is patient prescribed a controlled substance at d/c from ED?: No Referrals: Anuel Dover MD [Primary Care Provider] - 1-2 days
[2018-11-18 14:03] LABS: Appearance,Urine Clear (Clear); Bilirubin,Urine Negative (Negative); Blood,Urine Negative (Negative); Color,Urine Light Yellow; Glucose,Urine (UA) Negative (Negative); Ketones,Urine Negative (Negative); Leukocyte Esterase,Urine Negative (Negative); Nitrite,Urine Negative (Negative); Protein,Urine Negative (Negative); Specific Gravity,Urine 1.006 (1.001-1.035); Urobilinogen,Urine <2.0 mg/dL (<2.0)
[2018-11-18 14:07] LABS: ALT 35 U/L (21-72); AST 24 U/L (17-59); African American GFR (CKD) >90 (>60 ml/min/1.73 sqM); Albumin 4.5 g/dL (3.5-5.0); Alkaline Phosphatase 77 U/L (38-126); Anion Gap 9 mmol/L; Blood Urea Nitrogen 11 mg/dL (9-20); Calcium 9.4 mg/dL (8.4-10.2); Carbon Dioxide 26 mmol/L (22-30); Chloride 106 mmol/L (98-107); Glucose 88 mg/dL (74-99); Lipase 99 U/L (23-300); Potassium 3.7 mmol/L (3.5-5.1); Sodium 141 mmol/L (137-145); Total Bilirubin 0.5 mg/dL (0.2-1.3); Total Protein 7.4 g/dL (6.3-8.2)
--- NOTE | 2018-11-18 14:29 | CT ---
EXAMINATION TYPE: CT abdomen pelvis w con DATE OF EXAM: 11/18/2018 COMPARISON: None. HISTORY: RLQ pain right lower quadrant pain. CT DLP: 1500.9 mGycm, Automated Exposure Control for Dose Reduction was Utilized. CONTRAST: CT scan of the abdomen and pelvis is performed without oral but with IV Contrast, patient injected wi th 100 mL of Isovue 300. FINDINGS: LUNG BASES: No significant abnormality is appreciated. LIVER/GB: Cholecystectomy clips are present. Liver is diffusely low dense consistent with fatty infil tration. PANCREAS: No significant abnormality is seen. SPLEEN: No significant abnormality is seen. ADRENALS: No significant abnormality is seen. KIDNEYS: No significant abnormality is seen. BOWEL: Terminal ileum is visualized coronal image 50-year-old felt within normal limits. Just superio r to this level there is mild to moderate fat stranding and ill-defined fluid along the mesenteric dee rface centered at site of a prominent 2.4 cm epiploic appendage coronal image 38. Normal abnormal tia endix difficult to visualize with certainty, perhaps it is surgically absent already? No inflammatory change centered at base of cecum is noted. Occasional diverticula in the left and sigmoid colon PROSTATE/SEMINAL VESICLES: No gross abnormality seen. LYMPH NODES: No greater than 1cm abdominal or pelvic lymph nodes are appreciated. OSSEOUS STRUCTURES: No significant abnormality is seen. OTHER: Moderate-sized fat-containing right inguinal hernia. IMPRESSION: CT findings are consistent with mild to moderate uncomplicated epiploic appendicitis as d etailed above in the proximal right colon medial mesenteric surface just above the terminal ileum.
[2018-11-18] MEDS ORDERED: ACET/COD 300 MG/30 MG STARTER PACK 6 TAB BTL PO STA (15:12)
[2018-11-18 15:46] VITALS: BP 147/77; PULSE 58; TEMP 98.2
== END 2018-11-18 15:44 | disposition home or self-care (01) ==
LOC: EC 12:39
DX: K63.89 Other specified diseases of intestine (principal); R14.0 Abdominal distension (gaseous); R14.3 Flatulence; I10 Essential (primary) hypertension; M10.9 Gout, unspecified; G47.30 Sleep apnea, unspecified; M19.90 Unspecified osteoarthritis, unspecified site; F41.0 Panic disorder [episodic paroxysmal anxiety]; Z87.891 Personal history of nicotine dependence; Z79.899 Other long term (current) drug therapy; Z87.01 Personal history of pneumonia (recurrent); Z87.19 Personal history of other diseases of the digestive system; Z90.49 Acquired absence of other specified parts of digestive tract; Z99.89 Dependence on other enabling machines and devices; Z98.890 Other specified postprocedural states
CPT/HCPCS: 36415; 80053; 83605; 83690; 85025; 81003; 74177; 99285; 96360; Q9967

== ENCOUNTER 2019-01-23 05:51 | Day surgery (SDC) | payer BC ==
[2019-01-17 18:04] VITALS: BMI 34.4
[~2019-01-23 05:51] MED LIST: DEXAMETHASONE SOD PHOSPHATE 10 MG/ML 1 ML VIAL IV ONE; HEPARIN SODIUM,PORCINE 5,000 UNIT/ML 1 ML VIAL SQ ONE; HYDROmorphone 0.5 MG/0.5 ML SYRINGE IVP PRN; LIDOCAINE 1% 20 ML VIAL (10MG/ML) FOR IV START INTRADERMA PRN; ONDANSETRON 4 MG/2 ML VIAL IVP ONE; fentaNYL (PF) 50 MCG/ML 2 ML AMP IV PRN
[2019-01-23] MEDS: LACTATED RINGERS 1,000 ML IV SCH ×2 (06:32→08:07)
[2019-01-23 06:34] LABS: Glucose,Whole Blood 122 mg/dL (75-99)
[2019-01-23] MEDS ORDERED: BUPIVACAINE (PF) 0.25% 30 ML VIAL SQ ONE ×3 (07:33→08:25)
[2019-01-23] MEDS ORDERED: PROPOFOL 10 MG/ML 20 ML VIAL IV ONE (08:08)
[2019-01-23] MEDS ORDERED: ROCURONIUM BROMIDE 10 MG/ML 10 ML VIAL IV ONE (08:08)
[2019-01-23] MEDS ORDERED: NEOSTIGMINE 1 MG/ML 10 ML VIAL ONE (08:08)
[2019-01-23] MEDS ORDERED: SUCCINYLCHOLINE CHLORIDE 100 MG/5 ML SYR IV ONE (08:08)
[2019-01-23] MEDS ORDERED: GLYCOPYRROLATE 0.2 MG/ML 2 ML VIAL ONE (08:08)
[2019-01-23] MEDS ORDERED: LIDOCAINE 1% INJ 10MG/ML (20 ML MDV) ONE (08:08)
[2019-01-23] MEDS ORDERED: MIDAZOLAM 2 MG/2 ML VIAL ONE (08:08)
[2019-01-23] MEDS ORDERED: ROPIVACAINE 5 MG/ML 30 ML VIAL ONE (08:08)
[2019-01-23] MEDS ORDERED: fentaNYL (PF) 50 MCG/ML 2 ML AMP ONE (08:08)
[2019-01-23] MEDS ORDERED: KETOROLAC 30 MG/ML 1 ML VIAL ONE (08:08)
--- NOTE | 2019-01-23 08:19 | P.GSHP ---
History of Present Illness H&P Date: 01/23/19 Chief Complaint: Right inguinal and umbilical hernia This is a 4-year-old male who presents today for repair of right inguinal and umbilical hernia. Past Medical History Past Medical History: Diabetes Mellitus, GERD/Reflux, Hyperlipidemia, Hypertension, Osteoarthritis (OA), Pneumonia, Skin Disorder, Sleep Apnea/CPAP/BIPAP, Syncope Additional Past Medical History / Comment(s): inguinal hernia and umbilical h ernia, psoriasis, Gout STRESS TEST 2016-NEG,DDD, STEROID INJ IN BACK, CPAP at home, TYPE II DIABETES History of Any Multi-Drug Resistant Organisms: None Reported Past Surgical History: Appendectomy, Cholecystectomy, Hernia Repair Additional Past Surgical History / Comment(s): rt inguinal hernia x 3, [facility] HERNIA REPAIR,vasectomy, Past Anesthesia/Blood Transfusion Reactions: Motion Sickness Additional Past Anesthesia/Blood Transfusion Reaction / Comment(s): no hx blood transfusion Smoking Status: Former smoker - Past Family History Father Family Medical History: Congestive Heart Failure (CHF), Myocardial Infarction ([place]) Additional Family Medical History / Comment(s): alcoholism Mother Family Medical History: Osteoarthritis (OA) Medications and Allergies Home Medications Medication Instructions Recorded Confirmed Type Fluticasone Nasal [place] [Flonase 1 spray EA NOSTRIL DAILY PRN 10/21/15 01/23/19 History Nasal [place]] Losartan/Hydrochlorothiazide 1 tab PO DAILY 10/21/15 01/23/19 History [Losartan-Hctz 100-25 mg Tab] Montelukast Sodium [Singulair] 10 mg PO HS 10/21/15 01/23/19 History Albuterol Inhaler [Ventolin Hfa 2 puff INHALATION RT-Q4H PRN 05/07/17 01/23/19 History Inhaler] Gabapentin [Neurontin] 400 mg PO TID 05/07/17 01/23/19 History Aspirin EC [Ecotrin Low Dose] 81 mg PO DAILY #30 tablet. 05/09/17 01/23/19 Rx ALPRAZolam [Xanax] 0.25 mg PO DAILY PRN 07/24/17 01/23/19 History Atorvastatin [Lipitor] 40 mg PO HS 07/24/17 01/23/19 History Allopurinol [Zyloprim] 300 mg PO DAILY 10/30/17 01/23/19 History Colchicine 0.6 mg PO DAILY PRN 12/01/17 01/23/19 History Ibuprofen [Motrin] 800 mg PO TID PRN 12/01/17 01/23/19 History Metoprolol Succinate (ER) [Toprol 25 mg PO DAILY 12/01/17 01/23/19 History XL] Similson Complete Eye Drop 1 drop BOTH EYES DAILY PRN 07/10/18 01/23/19 History Allergies Allergy/AdvReac Type Severity Reaction Status Date / Time No Known Allergies Allergy Verified 01/23/19 06:15 Surgical - Exam Vital Signs Temp Pulse Resp BP Pulse Ox 98.3 F 65 16 148/70 95 01/23/19 06:21 01/23/19 06:21 01/23/19 06:21 01/23/19 06:21 01/23/19 06:21 - General well developed, well nourished, no distress - Eyes PERRL - ENT normal pinna - Neck no masses - Respiratory normal expansion - Cardiovascular Rhythm: regular - Abdomen Abdomen: soft, non tender Hernia: inguinal (Right inguinal hernia), umbilical (Mild hernia) Results - Labs Abnormal Lab Results - Last 24 Hours (Table) 01/23/19 Range/Units 06:30 POC Glucose (mg/dL) 122 H (75-99) mg/dL Assessment and Plan Assessment: Recurrent right inguinal hernia, umbilical hernia we'll perform open repair.
[2019-01-23 09:26] VITALS: TEMP 97.2
[2019-01-23 09:32] LABS: Glucose,Whole Blood 147 mg/dL (75-99)
[2019-01-23 09:34] VITALS: RESP 18
[2019-01-23] MEDS ORDERED: SODIUM CHLORIDE 0.9% 1,000 ML IV ONE ×2 (09:37)
--- NOTE | 2019-01-23 09:46 | P.OP ---
Date of Procedure: 01/23/19 Preoperative Diagnosis: Recurrent radial hernia Umbilical hernia Postoperative Diagnosis: Recurrent radial hernia Umbilical hernia Procedure(s) Performed: Open repair of recurrent inguinal hernia Open repair of umbilical hernia Partial omentectomy Anesthesia: RADHA Surgeon: Brown Koenig Estimated Blood Loss (ml): 5 Pathology: other (Omentum) Condition: stable Disposition: PACU Description of Procedure: Patient's placed on the operative table in supine position. He received general anesthesia. His abdomen was prepped and draped usual sterile fashion. The patient had a previous right inguinal hernia. He scar was visualized. A standard inguinal hernia incision was made in the right groin. Then using blunt and sharp dissection with cautery the subcutaneous tissue divided. The fascia external week was exposed. The fascia was incised with 15 blade and using Metastases months scissors the fascia was opened. The incarcerated right inguinal hernias visualized. The incarcerated hernia sac was medial to the cord. This was inverted back into the peritoneal cavity. A mushroom plug mesh patch was placed by inserting the plug portion into the inguinal canal and then securing the Prolene to the hammer cells fascia and the pubic tubercle medially the fascia external oblique was then closed using 0 Vicryl suture. Marcus's fascia closed with 3-0 Vicryl suture skin was closed interrupted 3-0 Monocryl suture. Dermabond was applied. Next the umbilical hernia was repaired. An infra umbilical skin incision was made then using cautery the hernia sac was dissected free from some taste tissues. Hernia sac was opened and the incarcerated omentum was transected with cautery sent to pathology. The fascial defect was then closed with 0 Ethibond figure 8 suture. Skin was closed interrupted 3-0 Monocryl suture. Dermabond was applied. Patient top she will was sent to recovery in stable condition.
[2019-01-23 10:47] VITALS: BP 137/86; PULSE 68
--- NOTE | 2019-01-23 11:17 | P.ANPRN ---
Procedure Note - Anesthesia - Nerve Block Performed Right Transversus Abdominis Date of Procedure: 01/23/19 Procedure Start Time: 07:05 Procedure Stop Time: 07:09 Location of Patient Procedure: PreOp Indication: Acute Post-Operative Pain, Analgesia, Requested by Surgeon Sedation Type: Sedate with meaningful contact maintained Preparation: Sterile Prep Position: Supine Needle Types: Pajunk Needle Gauge: 21 Ultrasound used to visualize needle placement: Yes Ultrasound used to observe medication spread: Yes Injectate: 0.5% Ropivacaine (see comment for volume) Blood Aspirated: No Pain Paresthesia on Injection Noted: No Resistance on Injection: Normal Image Stored and Saved: Yes Events: Uneventful and Well Tolerated
== END 2019-01-23 11:27 | disposition home or self-care (01) ==
LOC: OR 05:51
PROVIDERS: ATTEND Surgery
DX: K40.31 Unilateral inguinal hernia, with obstruction, without gangrene, recurrent (principal); K42.0 Umbilical hernia with obstruction, without gangrene; I10 Essential (primary) hypertension; E78.5 Hyperlipidemia, unspecified; E11.9 Type 2 diabetes mellitus without complications; K21.9 Gastro-esophageal reflux disease without esophagitis; M19.90 Unspecified osteoarthritis, unspecified site; G47.30 Sleep apnea, unspecified; L40.9 Psoriasis, unspecified; M10.9 Gout, unspecified; Z79.82 Long term (current) use of aspirin; Z79.899 Other long term (current) drug therapy; Z87.891 Personal history of nicotine dependence; Z98.52 Vasectomy status; Z90.49 Acquired absence of other specified parts of digestive tract; Z99.89 Dependence on other enabling machines and devices; Z82.49 Family history of ischemic heart disease and other diseases of the circulatory system; Z81.1 Family history of alcohol abuse and dependence; Z82.69 Family history of other diseases of the musculoskeletal system and connective tissue
CPT/HCPCS: 64486; 88305; 49521; 49587; C1781; J2250; J1644; J1100; J2710; J0690; J2405; J2001; J3010; J1885; J2795; J0330; J2704

== ENCOUNTER 2019-05-25 01:17 | Emergency (ER) | payer BC ==
[2019-05-25 01:23] VITALS: TEMP 98.3
[2019-05-25] MEDS ORDERED: ASPIRIN 81 MG PO STA (01:52)
[2019-05-25] MEDS ORDERED: SODIUM CHLORIDE 0.9% 500 ML 500 ML IV STA (01:52)
[2019-05-25 02:09] LABS: Basophils # (A) 0.1 k/uL (0-0.2); Basophils % (A) 0 %; Eosinophils # (A) 0.2 k/uL (0-0.7); Eosinophils % (A) 1 %; HCT 39.8 % (39.0-53.0); HGB 13.7 gm/dL (13.0-17.5); Lymphocytes # (A) 2.5 k/uL (1.0-4.8); Lymphocytes % (A) 14 %; MCH 30.2 pg (25.0-35.0); MCHC 34.4 g/dL (31.0-37.0); MCV 87.6 fL (80.0-100.0); Mean Platelet Volume 7.8; Monocytes # (A) 0.9 k/uL (0-1.0); Monocytes % (A) 5 %; Neutrophils # (A) 14.5 k/uL (1.3-7.7); Neutrophils % (A) 79 %; Platelet Count 326 k/uL (150-450); RBC 4.55 m/uL (4.30-5.90); RDW 13.5 % (11.5-15.5); WBC 18.3 k/uL (3.8-10.6)
[2019-05-25 02:18] LABS: ALT 32 U/L (4-49); AST 33 U/L (17-59); African American GFR (CKD) >90 (>60 ml/min/1.73 sqM); Albumin 4.3 g/dL (3.5-5.0); Alkaline Phosphatase 76 U/L (38-126); Anion Gap 10 mmol/L; Blood Urea Nitrogen 21 mg/dL (9-20); Calcium 9.5 mg/dL (8.4-10.2); Carbon Dioxide 23 mmol/L (22-30); Chloride 107 mmol/L (98-107); Glucose 103 mg/dL (74-99); Magnesium 1.9 mg/dL (1.6-2.3); Non-African American GFR(CKD) >90 (>60 ml/min/1.73 sqM); Potassium 3.6 mmol/L (3.5-5.1); Sodium 140 mmol/L (137-145); Total Bilirubin 0.5 mg/dL (0.2-1.3); Total Protein 7.1 g/dL (6.3-8.2)
[2019-05-25 02:22] LABS: D-Dimer 0.31 mg/L FEU (<0.60); Partial Thromboplastin Time 22.9 sec (22.0-30.0); Prothrombin Time 10.1 sec (9.0-12.0)
--- NOTE | 2019-05-25 02:31 | XR ---
EXAMINATION TYPE: XR chest 2V DATE OF EXAM: 05/25/2019 COMPARISON: 07/10/2018 HISTORY: Chest pain TECHNIQUE: FINDINGS: Heart and mediastinum are normal. Lungs are clear. Diaphragm is normal. There are chest polly ds. Bony thorax appears normal. IMPRESSION: Normal chest. No change.
--- NOTE | 2019-05-25 03:42 | ED ---
General Adult HPI <Robel Lockwood - Last Filed: 05/25/19 05:31> - General Source: patient, family, RN notes reviewed, old records reviewed Mode of arrival: ambulatory Limitations: no limitations <Erik Rico - Last Filed: 05/26/19 05:04> - General Chief complaint: Chest Pain Stated complaint: Palpitations - History of Present Illness Initial comments: 58-year-old male patient presents seizure chief complaint of chest pain. Patient reports that beginning at approximately 4 PM yesterday he began experiencing some substernal chest heaviness. Patient force that he hasn't having cough, congestion for last 3 days. Was seen by his primary care yesterday initiated Augmentin. Patient reportedly had 1 dose of steroids ad ministered by his primary care provider but is not currently taking any steroids. Reports that he went to sleep last night approximately 9 PM. Woke up this morning with distal extremities in the chest heaviness. This is substernal, without any radiation. Denies any other associated symptoms. De nies any shortness of breath. Patient has a history of type 2 diabetes, hypertension and hyperlipidemia. Patient was most recently seen on an inpatient basis and July by cardiology where he was diagnosed with palpitations with PVCs. At that time patient had a recent in office stress test which was negative for reversible ischemia. Denies other complaints this time. Systemic: Pt denies fatigue, fever/chills, rash. Pt denies weakness, night sweats, weight loss. Neuro: Pt denies headache, visual disturbances, syncope or pre-syncope. HEENT: Pt denies ocular discharge or irritation, otalgia, rhinorrhea, pharyngitis or notable lymphadenopathy. Cardiopulmonary: Pt denies chest pain, heart palpitations, dyspnea on exertion. Abdominal/GI: Pt denies abdominal pain, n/v/d. : Pt denies dysuria, burning w/ urination, frequency/urgency. Denies new onset urinary or bowel incontinence. MSK: Pt denies myalgia, loss of strength or function in extremities. Neuro: Pt denies new onset weakness, paresthesias. (Erik Rico) - Related Data Home Medications Medication Instructions Recorded Confirmed Fluticasone Nasal [place] [Flonase 1 spray EA NOSTRIL DAILY PRN 10/21/15 05/25/19 Nasal [place]] Montelukast Sodium [Singulair] 10 mg PO HS 10/21/15 05/25/19 Gabapentin [Neurontin] 400 mg PO TID 05/07/17 05/25/19 ALPRAZolam [Xanax] 0.25 mg PO DAILY PRN 07/24/17 05/25/19 Atorvastatin [Lipitor] 40 mg PO HS 07/24/17 05/25/19 Allopurinol [Zyloprim] 300 mg PO DAILY 10/30/17 05/25/19 Ibuprofen [Motrin] 800 mg PO TID PRN 12/01/17 05/25/19 Metoprolol Succinate (ER) [Toprol 25 mg PO DAILY 12/01/17 05/25/19 XL] Albuterol Inhaler [Ventolin Hfa 1 - 2 puff INHALATION RT-Q6H PRN 05/25/19 05/25/19 Inhaler] Cetirizine HCl [Zyrtec] 10 mg PO DAILY 05/25/19 05/25/19 Hydrochlorothiazide 25 mg PO DAILY 05/25/19 05/25/19 Losartan [Cozaar] 100 mg PO DAILY 05/25/19 05/25/19 Previous Rx's Medication Instructions Recorded Aspirin EC [Ecotrin Low Dose] 81 mg PO DAILY #30 tablet. 05/09/17 Albuterol Inhaler [Ventolin Hfa 1 - 2 puff INHALATION Q4-6H PRN #1 05/25/19 Inhaler] inhaler Azithromycin [Zithromax Z-pack] 0 mg PO DIRECTED #6 tab 05/25/19 methylPREDNISolone Dose Pack 4 mg PO DIRECTED #21 package 05/25/19 [Medrol Dose Pack] Allergies Allergy/AdvReac Type Severity Reaction Status Date / Time No Known Allergies Allergy Verified 05/25/19 01:23 Review of Systems ROS Other: All systems not noted in ROS Statement are negative. <Robel Lockwood - Last Filed: 05/25/19 05:31> ROS Other: All systems not noted in ROS Statement are negative. <Erik Rico - Last Filed: 05/26/19 05:04> ROS Statement: Those systems with pertinent positive or pertinent negative responses have been documented in the HPI. Past Medical History Past Medical History: Diabetes Mellitus, GERD/Reflux, Hyperlipidemia, Hypertension, Osteoarthritis (OA), Pneumonia, Skin Disorder, Sleep Apnea/CPAP/BIPAP, Syncope Additional Past Medical History / Comment(s): inguinal hernia and umbilical hernia, psoriasis, Gout STRESS TEST 2016-NEG,DDD, STEROID INJ IN BACK, CPAP at home, TYPE II DIABETES History of Any Multi-Drug Resistant Organisms: None Reported Past Surgical History: Appendectomy, Cholecystectomy, Hernia Repair Additional Past Surgical History / Comment(s): rt inguinal hernia x 3, [facility] HERNIA REPAIR,vasectomy, Past Anesthesia/Blood Transfusion Reactions: Motion Sickness Additional Past Anesthesia/Blood Transfusion Reaction / Comment(s): no hx blood transfusion Past Psychological History: Anxiety, Panic Disorder Smoking Status: Former smoker Past Alcohol Use History: None Reported Past Drug Use History: None Reported - Past Family History Father Family Medical History: Congestive Heart Failure (CHF), Myocardial Infarction ([place]) Additional Family Medical History / Comment(s): alcoholism Mother Family Medical History: Osteoarthritis (OA) <Erik Rico - Last Filed: 05/26/19 05:04> General Exam Limitations: no limitations <Erik Rico - Last Filed: 05/26/19 05:04> - General Exam Comments Initial Comments: Constitutional: NAD, AOX3, Pt has pleasant affect. HEENT: NC/AT, trachea midline, neck supple, no lymphadenopathy. Posterior pharynx non erythematous, without exudates. External ears appear normal, without discharge. Mucous membranes moist. Eyes PERRLA, EOM intact. There is no scleral icterus. No pallor noted. Cardiopulmonary: RRR, no murmurs, rubs or gallops, no JVD noted. Lungs CTAB in anterior and posterior martinez. No peripheral edema. Abdominal exam: Abdomen soft and non-distended. Abdomen non-tender to palpation in all 4 quadrants. Bowel sounds active in LLQ. No hepatosplenomegaly. No ecchymosis Neuro: CN II-XII grossly intact. No nuchal rigidity. No raccon eyes, no trinidad sign, no hemotympanum. No cervical spinal tenderness. MSK: No posterior calf tenderness bilaterally, homans sign negative bilaterally. Posterior tibialis and radial pulse +2 bilaterally. Sensation intact in upper and lower extremities. Full active ROM in upper and lower extremities, 5/5 stregnth. (Erik Rico) Course Vital Signs 01/05/25/19 05/25/19 01:19 04:14 04:25 Temperature 98.3 F Pulse Rate 75 65 68 Respiratory 20 18 Rate Blood Pressure 183/92 132/79 O2 Sat by Pulse 98 98 Oximetry 05/25/19 05/25/19 04:32 05:44 Temperature Pulse Rate 69 78 Respiratory 17 Rate Blood Pressure 140/60 O2 Sat by Pulse Oximetry Medical Decision Making - Lab Data Result diagrams: 05/25/19 02:00 05/25/19 02:00 <Robel Lockwood - Last Filed: 05/25/19 05:31> - Lab Data Result diagrams: 05/25/19 02:00 05/25/19 02:00 - EKG Data -: EKG Interpreted by Me (and Dr. Sifuentes) <Erik Rico - Last Filed: 05/26/19 05:04> - Medical Decision Making 4-year-old male patient presents ED chief complaint of chest heaviness substernal nature. Patient vital signs with mild hypertension. Physical exam didn't display acute pathology. Laboratory investigations reveal leukocytosis likely due to recent steroid usage. Troponin is negative. D-dimer is negative. EKG is nonischemic. Patient reports the symptoms are minimal at this time. Patient signed out to attending physician Dr. Sifuentes pending repeat troponin. (Erik Rico) - Lab Data Lab Results 05/25/19 05/25/19 05/25/19 Range/Units 02:00 02:00 02:00 WBC 18.3 H (3.8-10.6) k/uL RBC 4.55 (4.30-5.90) m/uL Hgb 13.7 (13.0-17.5) gm/dL Hct 39.8 (39.0-53.0) % MCV 87.6 (80.0-100.0) fL MCH 30.2 (25.0-35.0) pg MCHC 34.4 (31.0-37.0) g/dL RDW 13.5 (11.5-15.5) % Plt Count 326 (150-450) k/uL Neutrophils % 79 % Lymphocytes % 14 % Monocytes % 5 % Eosinophils % 1 % Basophils % 0 % Neutrophils # 14.5 H (1.3-7.7) k/uL Lymphocytes # 2.5 (1.0-4.8) k/uL Monocytes # 0.9 (0-1.0) k/uL Eosinophils # 0.2 (0-0.7) k/uL Basophils # 0.1 (0-0.2) k/uL PT 10.1 (9.0-12.0) sec INR 1.0 (<1.2) APTT 22.9 (22.0-30.0) sec D-Dimer 0.31 (<0.60) mg/L FEU Sodium 140 (137-145) mmol/L Potassium 3.6 (3.5-5.1) mmol/L Chloride 107 (98-107) mmol/L Carbon Dioxide 23 (22-30) mmol/L Anion Gap 10 mmol/L BUN 21 H (9-20) mg/dL Creatinine 0.74 (0.66-1.25) mg/dL Est GFR (CKD-EPI)AfAm >90 (>60 ml/min/1.73 sqM) Est GFR (CKD-EPI)NonAf >90 (>60 ml/min/1.73 sqM) Glucose 103 H (74-99) mg/dL Calcium 9.5 (8.4-10.2) mg/dL Magnesium 1.9 (1.6-2.3) mg/dL Total Bilirubin 0.5 (0.2-1.3) mg/dL AST 33 (17-59) U/L ALT 32 (4-49) U/L Alkaline Phosphatase 76 (38-126) U/L Troponin I (0.000-0.034) ng/mL NT-Pro-B Natriuret Pep pg/mL Total Protein 7.1 (6.3-8.2) g/dL Albumin 4.3 (3.5-5.0) g/dL 05/25/19 05/25/19 05/25/19 Range/Units 02:00 02:00 04:50 WBC (3.8-10.6) k/uL RBC (4.30-5.90) m/uL Hgb (13.0-17.5) gm/dL Hct (39.0-53.0) % MCV (80.0-100.0) fL MCH (25.0-35.0) pg MCHC (31.0-37.0) g/dL RDW (11.5-15.5) % Plt Count (150-450) k/uL Neutrophils % % Lymphocytes % % Monocytes % % Eosinophils % % Basophils % % Neutrophils # (1.3-7.7) k/uL Lymphocytes # (1.0-4.8) k/uL Monocytes # (0-1.0) k/uL Eosinophils # (0-0.7) k/uL Basophils # (0-0.2) k/uL PT (9.0-12.0) sec INR (<1.2) APTT (22.0-30.0) sec D-Dimer (<0.60) mg/L FEU Sodium (137-145) mmol/L Potassium (3.5-5.1) mmol/L Chloride (98-107) mmol/L Carbon Dioxide (22-30) mmol/L Anion Gap mmol/L BUN (9-20) mg/dL Creatinine (0.66-1.25) mg/dL Est GFR (CKD-EPI)AfAm (>60 ml/min/1.73 sqM) Est GFR (CKD-EPI)NonAf (>60 ml/min/1.73 sqM) Glucose (74-99) mg/dL Calcium (8.4-10.2) mg/dL Magnesium (1.6-2.3) mg/dL Total Bilirubin (0.2-1.3) mg/dL AST (17-59) U/L ALT (4-49) U/L Alkaline Phosphatase (38-126) U/L Troponin I <0.012 <0.012 (0.000-0.034) ng/mL NT-Pro-B Natriuret Pep 160 pg/mL Total Protein (6.3-8.2) g/dL Albumin (3.5-5.0) g/dL - EKG Data EKG Comments: Ventricular rate 74, painful and 94, QRS 110, QT/QTC 398/411. Sinus rhythm with occasional PVC. Otherwise normal EKG. No concern for acute ischemia at this time. (Erik Rico) Disposition Is patient prescribed a controlled substance at d/c from ED?: No <Robel Lockwood - Last Filed: 05/25/19 05:31> Is patient prescribed a controlled substance at d/c from ED?: No <TrishaErik J - Last Filed: 05/26/19 05:04> Clinical Impression: Bronchitis Disposition: HOME SELF-CARE Condition: Stable Instructions (If sedation given, give patient instructions): Acute Bronchitis (ED) Prescriptions: methylPREDNISolone Dose Pack [Medrol Dose Pack] 4 mg PO DIRECTED #21 package Albuterol Inhaler [Ventolin Hfa Inhaler] 1 - 2 puff INHALATION Q4-6H PRN #1 inhaler PRN Reason: Cough Azithromycin [Zithromax Z-pack] 0 mg PO DIRECTED #6 tab Referrals: Anuel Dover MD [Primary Care Provider] - 1-2 days
[2019-05-25] MEDS ORDERED: IPRATROPIUM-ALBUTEROL 3 ML NEB INHALATION STA (04:11)
[2019-05-25 05:51] VITALS: BP 140/60; PULSE 78; RESP 17
== END 2019-05-25 05:51 | disposition home or self-care (01) ==
LOC: EC 01:17
DX: J40 Bronchitis, not specified as acute or chronic (principal); I10 Essential (primary) hypertension; D72.829 Elevated white blood cell count, unspecified; E78.5 Hyperlipidemia, unspecified; G47.30 Sleep apnea, unspecified; M19.90 Unspecified osteoarthritis, unspecified site; M10.9 Gout, unspecified; F41.9 Anxiety disorder, unspecified; Z87.891 Personal history of nicotine dependence; Z79.1 Long term (current) use of non-steroidal anti-inflammatories (NSAID); Z79.51 Long term (current) use of inhaled steroids; Z79.899 Other long term (current) drug therapy; Z87.01 Personal history of pneumonia (recurrent); Z99.89 Dependence on other enabling machines and devices; Z82.49 Family history of ischemic heart disease and other diseases of the circulatory system
CPT/HCPCS: 36415; 71046; 80053; 83735; 83880; 84484; 85025; 85379; 85610; 85730; 93005; 94640; 96360; 96361; 99285

== ENCOUNTER 2020-01-02 09:38 | Emergency (ER) | payer BC ==
[2020-01-02 09:44] VITALS: BP 166/90; PULSE 92; RESP 18; TEMP 98.7
[2020-01-02] MEDS ORDERED: KETOROLAC 15 MG/ML 1 ML VIAL IM STA (09:56)
--- NOTE | 2020-01-02 10:07 | ED ---
General Adult HPI - General Chief complaint: Extremity Injury, Lower Stated complaint: knee pain Time Seen by Provider: 01/02/20 09:49 Source: patient, RN notes reviewed Mode of arrival: ambulatory Limitations: no limitations - History of Present Illness Initial comments: 59-year-old male with a past medical history diabetes mellitus, hyperlipidemia, hypertension, GERD presents to the emergency room for a chief complaint of left knee pain. Patient states that 3 days ago he was twisting and injured the left knee. Patient states he heard a crack or a pop in the left knee at that time. Patient states that yesterday he went to work all day and afterwards it was worse. Patient reports that today he was walking down the stairs and at the bottom felt like he could not bear weight because of the pain.Patient has no other complaints at this time including shortness of breath, chest pain, abdominal pain, nausea or vomiting, headache, or visual changes. - Related Data Home Medications Medication Instructions Recorded Confirmed Fluticasone Nasal [place] [Flonase 1 spray EA NOSTRIL DAILY PRN 10/21/15 05/25/19 Nasal [place]] Montelukast Sodium [Singulair] 10 mg PO HS 10/21/15 05/25/19 Gabapentin [Neurontin] 400 mg PO TID 05/07/17 05/25/19 ALPRAZolam [Xanax] 0.25 mg PO DAILY PRN 07/24/17 05/25/19 Atorvastatin [Lipitor] 40 mg PO HS 07/24/17 05/25/19 allopurinoL [Zyloprim] 300 mg PO DAILY 10/30/17 05/25/19 Ibuprofen [Motrin] 800 mg PO TID PRN 12/01/17 05/25/19 Metoprolol Succinate (ER) [Toprol 25 mg PO DAILY 12/01/17 05/25/19 XL] Albuterol Inhaler ([place]hu) [Ventolin 1 - 2 puff INHALATION RT-Q6H PRN 05/25/19 05/25/19 Hfa Inhaler] Cetirizine HCl [Zyrtec] 10 mg PO DAILY 05/25/19 05/25/19 Losartan [Cozaar] 100 mg PO DAILY 05/25/19 05/25/19 hydroCHLOROthiazide 25 mg PO DAILY 05/25/19 05/25/19 Previous Rx's Medication Instructions Recorded Aspirin EC [Ecotrin Low Dose] 81 mg PO DAILY #30 tablet. 05/09/17 Albuterol Inhaler (Mhu) [Ventolin 1 - 2 puff INHALATION Q4-6H PRN #1 05/25/19 Hfa Inhaler (Mhu)] inhaler Azithromycin [Zithromax Z-pack] 0 mg PO DIRECTED #6 tab 05/25/19 methylPREDNISolone Dose Pack 4 mg PO DIRECTED #21 package 05/25/19 [Medrol Dose Pack] Allergies Allergy/AdvReac Type Severity Reaction Status Date / Time No Known Allergies Allergy Verified 01/02/20 09:44 Review of Systems ROS Statement: Those systems with pertinent positive or pertinent negative responses have been documented in the HPI. ROS Other: All systems not noted in ROS Statement are negative. Past Medical History Past Medical History: Diabetes Mellitus, GERD/Reflux, Hyperlipidemia, Hypertension, Osteoarthritis (OA), Skin Disorder, Sleep Apnea/CPAP/BIPAP, Syncope Additional Past Medical History / Comment(s): psoriasis, Gout STRESS TEST 2016- NEG,DDD, STEROID INJ IN BACK, CPAP at home, TYPE II DIABETES History of Any Multi-Drug Resistant Organisms: None Reported Past Surgical History: Appendectomy, Cholecystectomy, Hernia Repair Additional Past Surgical History / Comment(s): rt inguinal hernia x 3, [facility] HERNIA REPAIR,vasectomy, Past Anesthesia/Blood Transfusion Reactions: Motion Sickness Additional Past Anesthesia/Blood Transfusion Reaction / Comment(s): no hx blood transfusion Past Psychological History: Anxiety, Panic Disorder Smoking Status: Never smoker Past Alcohol Use History: Occasional Past Drug Use History: None Reported - Past Family History Father Family Medical History: Congestive Heart Failure (CHF), Myocardial Infarction ([place]) Additional Family Medical History / Comment(s): alcoholism Mother Family Medical History: Osteoarthritis (OA) General Exam Limitations: no limitations General appearance: alert, in no apparent distress Head exam: Present: atraumatic, normocephalic, normal inspection Eye exam: Present: normal appearance, PERRL, EOMI. Absent: scleral icterus, conjunctival injection, periorbital swelling ENT exam: Present: normal exam, mucous membranes moist Neck exam: Present: normal inspection. Absent: tenderness, meningismus Respiratory exam: Present: normal lung sounds bilaterally. Absent: respiratory distress, wheezes, rales, rhonchi, stridor Cardiovascular Exam: Present: regular rate, normal rhythm, normal heart sounds. Absent: systolic murmur, diastolic murmur, rubs, gallop, clicks GI/Abdominal exam: Present: soft, normal bowel sounds. Absent: distended, tenderness, guarding, rebound, rigid Extremities exam: Present: normal capillary refill (Capillary refill less than 2 seconds, DP pulse 2+ in the left lower extremity.), other (Sensation intact lower extremity, left.). Absent: full ROM (Patient has about 90 flexion of the left knee, full extension.), joint swelling (No edema or erythema noted of the left kidney.), calf tenderness Course Vital Signs 01/02/20 09:41 Temperature 98.7 F Pulse Rate 92 Respiratory 18 Rate Blood Pressure 166/90 O2 Sat by Pulse 99 Oximetry Medical Decision Making - Medical Decision Making X-ray of the left knee shows no acute fracture or dislocation. There is a suprapatellar small joint effusion. There is also mild to moderate tricompartmental joint space loss without significant spurring. At this time patient was placed in a knee immobilizer. Given prescription for crutches. He will follow up with orthopedics. He'll take Motrin and Tylenol for pain. He will return to the emergency room for any worsening symptoms. Disposition Clinical Impression: Knee pain, Suprapatellar effusion of knee Disposition: HOME SELF-CARE Condition: Good Instructions (If sedation given, give patient instructions): Knee Pain (ED) Additional Instructions: Please take Motrin and Tylenol for pain. Please rest ice and elevate the left knee. Use knee immobilizer while walking. Use crutches. Follow-up with orthopedics. Return to the emergency room for any worsening symptoms. Is patient prescribed a controlled substance at d/c from ED?: No Referrals: Anuel Dover MD [Primary Care Provider] - 1-2 days Brian Cortez MD [STAFF PHYSICIAN] - 1-2 days Time of Disposition: 10:30
--- NOTE | 2020-01-02 10:22 | XR ---
EXAMINATION TYPE: XR knee complete LT DATE OF EXAM: 01/02/2020 CLINICAL HISTORY: Pain and swelling after popping injury. TECHNIQUE: Three views of the left knee are obtained. COMPARISON: None. FINDINGS: There is no acute fracture/dislocation evident in the left knee. [id number] tricompa rtmental joint space loss without significant spurring. Increased density suprapatellar bursa suspici ous for small joint effusion. IMPRESSION: There is no acute fracture or dislocation in the left knee.
== END 2020-01-02 11:09 | disposition home or self-care (01) ==
LOC: EC 09:38
DX: M25.562 Pain in left knee (principal); M25.462 Effusion, left knee; E11.9 Type 2 diabetes mellitus without complications; E78.5 Hyperlipidemia, unspecified; I10 Essential (primary) hypertension; F41.0 Panic disorder [episodic paroxysmal anxiety]; Z79.899 Other long term (current) drug therapy
CPT/HCPCS: 73562; 99283; 96372; L1830; J1885

== ENCOUNTER 2020-09-24 22:46 | Observation (INO) | payer BC ==
--- NOTE | 2020-09-24 23:12 | ED ---
Chest Pain HPI - General Chief Complaint: Chest Pain Stated Complaint: Palpitations Time Seen by Provider: 09/24/20 23:07 Source: patient, RN notes reviewed, old records reviewed Mode of arrival: wheelchair Limitations: no limitations - History of Present Illness Initial Comments: This is a 60-year-old male DF for evaluation. Patient has palpitations on and off does admit to anxiety and has persistent chest pain. Patient does have shortness of breath mild nausea no significant chest pain and heaviness. Patient has no recent significant sick contacts. No travel history. Patient does have diabetes high blood pressure high cholesterol MD Complaint: chest pain -: hour(s) Onset: during rest Pain Location: substernal, left chest Pain Radiation: none Severity: moderate Severity scale (1-10): 4 Quality: tightness, heaviness Consistency: intermittent Improves With: nothing Context: recent illness Anginal Symptoms: nausea, sense of impending doom Other Symptoms: cough, palpitations Treatments Prior to Arrival: none - Related Data Home Medications Medication Instructions Recorded Confirmed Fluticasone Nasal [place] [Flonase 1 spray EA NOSTRIL DAILY 10/21/15 09/24/20 Nasal [place]] Montelukast Sodium [Singulair] 10 mg PO HS 10/21/15 09/24/20 Gabapentin [Neurontin] 400 mg PO TID 05/07/17 09/24/20 ALPRAZolam [Xanax] 0.25 mg PO DAILY PRN 07/24/17 09/24/20 Atorvastatin [Lipitor] 40 mg PO HS 07/24/17 09/24/20 allopurinoL [Zyloprim] 300 mg PO DAILY 10/30/17 09/24/20 Ibuprofen [Motrin] 800 mg PO TID PRN 12/01/17 09/24/20 Metoprolol Succinate (ER) [Toprol 25 mg PO DAILY 12/01/17 09/24/20 XL] Cetirizine HCl [Zyrtec] 10 mg PO DAILY 05/25/19 09/24/20 Losartan [Cozaar] 100 mg PO DAILY 05/25/19 09/24/20 hydroCHLOROthiazide 25 mg PO DAILY 05/25/19 09/24/20 Albuterol Inhaler [Ventolin Hfa 2 puff INHALATION RT-QID PRN 09/24/20 09/24/20 Inhaler] Olopatadine HCl [Patanol] 1 drop BOTH EYES BID 09/24/20 09/24/20 Previous Rx's Medication Instructions Recorded Aspirin EC [Ecotrin Low Dose] 81 mg PO DAILY #30 tablet. 05/09/17 Allergies Allergy/AdvReac Type Severity Reaction Status Date / Time No Known Allergies Allergy Verified 09/24/20 23:37 Review of Systems ROS Statement: Those systems with pertinent positive or pertinent negative responses have been documented in the HPI. ROS Other: All systems not noted in ROS Statement are negative. EKG Findings - EKG Comments: EKG Findings:: EKG is sinus rhythm 70 Pr 128 QRS 90 QTC 423 Past Medical History Past Medical History: Diabetes Mellitus, GERD/Reflux, Hyperlipidemia, Hypertension, Osteoarthritis (OA), Skin Disorder, Sleep Apnea/CPAP/BIPAP, Syncope Additional Past Medical History / Comment(s): psoriasis, Gout STRESS TEST 2016- NEG,DDD, STEROID INJ IN BACK, CPAP at home, TYPE II DIABETES History of Any Multi-Drug Resistant Organisms: None Reported Past Surgical History: Appendectomy, Cholecystectomy, Hernia Repair Additional Past Surgical History / Comment(s): rt inguinal hernia x 3, [facility] HERNIA REPAIR,vasectomy, Past Anesthesia/Blood Transfusion Reactions: Motion Sickness Additional Past Anesthesia/Blood Transfusion Reaction / Comment(s): no hx blood transfusion Past Psychological History: Anxiety, Panic Disorder Smoking Status: Never smoker Past Alcohol Use History: Occasional Past Drug Use History: None Reported - Past Family History Father Family Medical History: Congestive Heart Failure (CHF), Myocardial Infarction ([place]) Additional Family Medical History / Comment(s): alcoholism Mother Family Medical History: Osteoarthritis (OA) General Exam Limitations: no limitations General appearance: alert, in no apparent distress, anxious Head exam: Present: atraumatic, normocephalic, normal inspection Eye exam: Present: normal appearance, PERRL, EOMI. Absent: scleral icterus, conjunctival injection, periorbital swelling ENT exam: Present: normal exam, mucous membranes moist Neck exam: Present: normal inspection. Absent: tenderness, meningismus, lymphadenopathy Respiratory exam: Present: normal lung sounds bilaterally. Absent: respiratory distress, wheezes, rales, rhonchi, stridor Cardiovascular Exam: Present: regular rate, normal rhythm, normal heart sounds. Absent: systolic murmur, diastolic murmur, rubs, gallop, clicks GI/Abdominal exam: Present: soft, normal bowel sounds. Absent: distended, tenderness, guarding, rebound, rigid Extremities exam: Present: normal inspection, full ROM, normal capillary refill. Absent: tenderness, pedal edema, joint swelling, calf tenderness Back exam: Present: normal inspection Neurological exam: Present: alert, oriented X3, CN II-XII intact Psychiatric exam: Present: normal affect, normal mood Skin exam: Present: warm, dry, intact, normal color. Absent: rash Course Vital Signs 09/24/20 09/24/20 09/25/20 22:57 23:10 05:53 Temperature 97.9 F 98.4 F Pulse Rate 78 78 73 Respiratory 18 20 15 Rate Blood Pressure 161/90 157/88 116/72 O2 Sat by Pulse 97 96 96 Oximetry 09/25/20 09:10 Temperature Pulse Rate 68 Respiratory 18 Rate Blood Pressure 145/79 O2 Sat by Pulse Oximetry - Reevaluation(s) Reevaluation #1: Medical record is reviewed Patient has significant improvement in symptoms here in the ER Spoke patient regarding findings at length and questions are answered Chest Pain MDM - MDM 60 male positive PVCs. Chest pain. Patient will be admitted for cardiology to evaluate Disposition Clinical Impression: Palpitations, PVC (premature ventricular contraction), Chest pain, Atypical chest pain, Panic attack Disposition: ADMITTED IP TO THIS HOSP Is patient prescribed a controlled substance at d/c from ED?: No
[2020-09-24 23:46] LABS: Basophils # (A) 0.1 k/uL (0-0.2); Basophils % (A) 1 %; Eosinophils # (A) 0.2 k/uL (0-0.7); Eosinophils % (A) 2 %; HGB 14.3 gm/dL (13.0-17.5); Lymphocytes # (A) 1.8 k/uL (1.0-4.8); Lymphocytes % (A) 19 %; MCH 29.8 pg (25.0-35.0); MCHC 34.8 g/dL (31.0-37.0); MCV 85.8 fL (80.0-100.0); Mean Platelet Volume 7.8; Monocytes # (A) 0.5 k/uL (0-1.0); Monocytes % (A) 5 %; Neutrophils # (A) 7.2 k/uL (1.3-7.7); Neutrophils % (A) 73 %; Platelet Count 271 k/uL (150-450); RBC 4.78 m/uL (4.30-5.90); WBC 9.9 k/uL (3.8-10.6)
[2020-09-25 00:02] LABS: INR 0.9 (<1.2); Partial Thromboplastin Time 23.8 sec (22.0-30.0); Prothrombin Time 10.1 sec (9.0-12.0)
[2020-09-25 00:13] LABS: ALT 28 U/L (4-49); AST 31 U/L (17-59); African American GFR (CKD) >90 (>60 ml/min/1.73 sqM); Albumin 4.5 g/dL (3.5-5.0); Alkaline Phosphatase 101 U/L (38-126); Anion Gap 10 mmol/L; Blood Urea Nitrogen 19 mg/dL (9-20); Calcium 9.8 mg/dL (8.4-10.2); Carbon Dioxide 25 mmol/L (22-30); Chloride 105 mmol/L (98-107); Creatine Kinase 293 U/L (55-170); Glucose 134 mg/dL (74-99); Lipase 149 U/L (23-300); Magnesium 1.9 mg/dL (1.6-2.3); Non-African American GFR(CKD) >90 (>60 ml/min/1.73 sqM); Sodium 140 mmol/L (137-145); Total Bilirubin 0.4 mg/dL (0.2-1.3); Total Protein 7.1 g/dL (6.3-8.2)
[2020-09-25 00:14] LABS: Potassium 3.7 mmol/L (3.5-5.1)
[2020-09-25] MEDS ORDERED: NITROGLYCERIN SL TABS 0.4 MG TAB SUBLINGUAL PRN (01:26)
--- NOTE | 2020-09-25 02:07 | XR ---
EXAM: XR Chest, 2 Views CLINICAL HISTORY: ITS.REASON XR Reason: Chest Pain TECHNIQUE: Frontal and lateral views of the chest. COMPARISON: Chest x-ray dated 05/25/2019 FINDINGS: Lungs: Unremarkable. Pleural space: Unremarkable. Heart: Unremarkable. Mediastinum: Unremarkable. Bones/joints: Unremarkable. IMPRESSION: Normal chest x-rays.
[2020-09-25 05:54] VITALS: TEMP 98.4
[2020-09-25] MEDS ORDERED: ASPIRIN 81 MG PO SCH (09:00)
[2020-09-25] MEDS ORDERED: LOSARTAN 50 MG TAB PO SCH (09:00)
[2020-09-25] MEDS ORDERED: hydroCHLOROthiazide 25 MG TAB PO SCH (09:00)
[2020-09-25] MEDS ORDERED: METOPROLOL SUCCINATE (ER) 25 MG TAB.ER.24H PO SCH (09:00)
[2020-09-25 09:13] VITALS: RESP 18
[2020-09-25] MEDS ORDERED: ALBUTEROL NEBULIZED 2.5 MG/3 ML INHALATION PRN (09:57)
[2020-09-25] MEDS ORDERED: ALPRAZolam 0.25 MG TAB PO PRN (09:57)
[2020-09-25] MEDS ORDERED: GABAPENTIN 400 MG CAP PO SCH (10:00)
[2020-09-25] MEDS ORDERED: allopurinoL 300 MG TAB PO SCH (10:00)
[2020-09-25] MEDS ORDERED: KETOTIFEN 0.025% OPHTH DROPS 5 ML BTL BOTH EYES SCH (10:00)
[2020-09-25 13:33] VITALS: BP 151/89; PULSE 62
--- NOTE | 2020-09-25 16:12 | CONS ---
CONSULTATION Vicente Lovelace is a 59-year-old gentleman who used to see Dr. Ellyn Escamilla in the past. 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 Had a previous stress test in 2018 that was negative. He has hypertension and hyperlipidemia. He has not seen a engine repair supervisor in the last over a year. He came in because he felt anxious. He felt some palpitations. He also had a sensation of sharp discomfort in the chest. Quality of which was quite atypical. He has underlying history of hypertension, hyperlipidemia, and PVCs. At the time of my evaluation, he is resting comfortably without symptoms. The rhythm strip review suggests that he had mostly isolated PVCs. He is on Toprol-XL, which he is taking faithfully. At the time of my evaluation, he is quite asymptomatic. PAST MEDICAL HISTORY: 1. History of hypertension. 2. Hyperlipidemia. 3. Bronchial asthma. 4. 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 5. No evidence of any abnormal stress test or documented ischemia. In June 2017, he had a normal stress Cardiolite scan. He walked for about 6 minutes with a heart rate of 144 beats per minute and with exercise his PVCs actually improved. MEDICATIONS: Medications at home include metoprolol succinate 25 mg daily, Singulair 10 mg daily, hydrochlorothiazide 25 mg daily, Cozaar 100 mg daily. He takes some gabapentin, atorvastatin 40 mg daily, aspirin 81 mg daily. ALLERGIES: None. PHYSICAL EXAMINATION: On examination, blood pressure is 154/70, pulse rate is 68 per minute regular. HEENT unremarkable. Fundus was not examined by me. Neck is supple. No JVD. I do not hear a carotid bruit. There is no thyromegaly. Heart exam reveals S1, S2 heard normally without a rub, murmur or gallop. Lungs are clear. Abdomen is soft, nontender. Lower extremities reveal normal pulses. No edema. Central nervous system is normal. EKG revealed sinus mechanism, isolated PVCs. No acute changes. IMPRESSION: 1. Atypical chest pain in a patient with a normal stress test about 2-1/2 to 3 years ago. 2. Hyperlipidemia. 3. Hypertension, under fair control. 4. History of PVCs. RECOMMENDATIONS: I am recommending patient can be discharged today on current medications. I will see him in the office next week and make further recommendations and consider stress testing as an outpatient. Discussed my thoughts in detail with the patient. He can be discharged today. Thank you very much for the consult. JOVON / EILEEN: [id number] /
--- NOTE | 2020-09-25 20:12 | P.HPIM ---
History of Present Illness H&P Date: 09/25/20 Chief Complaint: Palpitations heart racing History of presenting complaint: This is a 59-year-old patient, follows with Dr. Dover. Chronic stable medical conditions include diabetes, GERD, hypertension, hyperlipidemia, osteoporosis redness, obstructive Sleep apnea, scoliosis, gout, has a CPAP at home. Patient presents with episodes of palpitation present on and off lasting for good 2 hours. [place] hot and sweaty. Her chest pressure no dizziness or lightheadedness. Did have some nausea. Denies any prior cardiac history. Had a negative stress test in 2016. Review of systems: GEN.: None EYES: None HEENT: None NECK: None RESPIRATORY: None CARDIOVASCULAR: As above GASTROINTESTINAL: None GENITOURINARY: None MUSCULOSKELETAL: None LYMPHATICS: None HEMATOLOGICAL: None PSYCHIATRY: None NEUROLOGICAL: None Past medical history to include: Diabetes mellitus, GERD, hypertension, hyperlipidemia, osteoarthritis, scoliosis, obstructive sleep apnea uses CPAP, gout, anxiety Social history: Lives alone. Works full [employer]. Patient smoked for 18 years [address] opped in 2016. Alcohol-Occasionally. Physical examination: VITAL SIGNS: 97.9, 78, 18, 161/90, 97% room air GENERAL: BMI 36.8, laying in bed, not in distress. EYES: Pupils equal. Conjunctiva normal. HEENT: External appearance of nose and ears normal, oral cavity grossly normal. NECK: JVD not raised; masses not palpable. HEART: First and second heart sounds are normal; no edema. LUNGS: Respiratory rate normal; clear to auscultation. ABDOMEN: Soft, nontender, liver spleen not palpable, no masses palpable. PSYCH: Alert and oriented x3; mood and affect normal. NEUROLOGICAL: Cranial nerves grossly intact; no facial asymmetry, power and sensation grossly intact. LYMPHATICS: No lymph nodes palpable in the axilla and neck INVESTIGATIONS, reviewed in the clinical context: WBC 9.9 hemoglobin 14.3 platelets 271 potassium 3.7 creatinine 0.82 Troponin I 3 negative ProBNP 64 Coronavirus [PCR]-not detected EKG tracing personally reviewed by me-normal sinus rhythm with PVC Chest x-ray film personally reviewed by me-unremarkable Assessment and plan: -Episodes of palpitation and heart racing accompanied by feeling hot and sweaty lasting for good hours 2 hours. Possible paroxysmal arrhythmia self-limiting. No ischemic symptoms. Patient put on telemetry. Cardiology consulted. -Essential hypertension on Cozaar -Hyperlipidemia On Lipitor -Chronic gout On allopurinol -Anxiety not otherwise specified On Xanax when necessary -Obstructive sleep apnea Uses CPAP Home medications resumed. Care was discussed with the patient. Cardiology consulted. Placed on telemetry. Past Medical History Past Medical History: Diabetes Mellitus, GERD/Reflux, Hyperlipidemia, Hypertension, Osteoarthritis (OA), Skin Disorder, Sleep Apnea/CPAP/BIPAP, Syncope Additional Past Medical History / Comment(s): psoriasis, Gout STRESS TEST 2016- NEG,DDD, STEROID INJ IN BACK, CPAP at home, TYPE II DIABETES History of Any Multi-Drug Resistant Organisms: None Reported Past Surgical History: Appendectomy, Cholecystectomy, Hernia Repair Additional Past Surgical History / Comment(s): rt inguinal hernia x 3, [facility] HERNIA REPAIR,vasectomy, Past Anesthesia/Blood Transfusion Reactions: Motion Sickness Additional Past Anesthesia/Blood Transfusion Reaction / Comment(s): no hx blood transfusion Past Psychological History: Anxiety, Panic Disorder Smoking Status: Never smoker Past Alcohol Use History: Occasional Past Drug Use History: None Reported - Past Family History Father Family Medical History: Congestive Heart Failure (CHF), Myocardial Infarction ([place]) Additional Family Medical History / Comment(s): alcoholism Mother Family Medical History: Osteoarthritis (OA) Medications and Allergies Home Medications Medication Instructions Recorded Confirmed Type Fluticasone Nasal [place] [Flonase 1 spray EA NOSTRIL DAILY 10/21/15 09/24/20 History Nasal [place]] Montelukast Sodium [Singulair] 10 mg PO HS 10/21/15 09/24/20 History Gabapentin [Neurontin] 400 mg PO TID 05/07/17 09/24/20 History Aspirin EC [Ecotrin Low Dose] 81 mg PO DAILY #30 tablet. 05/09/17 09/24/20 Rx ALPRAZolam [Xanax] 0.25 mg PO DAILY PRN 07/24/17 09/24/20 History Atorvastatin [Lipitor] 40 mg PO HS 07/24/17 09/24/20 History allopurinoL [Zyloprim] 300 mg PO DAILY 10/30/17 09/24/20 History Ibuprofen [Motrin] 800 mg PO TID PRN 12/01/17 09/24/20 History Metoprolol Succinate (ER) [Toprol 25 mg PO DAILY 12/01/17 09/24/20 History XL] Cetirizine HCl [Zyrtec] 10 mg PO DAILY 05/25/19 09/24/20 History Losartan [Cozaar] 100 mg PO DAILY 05/25/19 09/24/20 History hydroCHLOROthiazide 25 mg PO DAILY 05/25/19 09/24/20 History Albuterol Inhaler [Ventolin Hfa 2 puff INHALATION RT-QID PRN 09/24/20 09/24/20 History Inhaler] Olopatadine HCl [Patanol] 1 drop BOTH EYES BID 09/24/20 09/24/20 History Allergies Allergy/AdvReac Type Severity Reaction Status Date / Time No Known Allergies Allergy Verified 09/24/20 23:37 Physical Exam Vitals: Vital Signs Temp Pulse Resp BP Pulse Ox 09/25/20 09:10 68 18 145/79 09/25/20 05:53 98.4 F 73 15 116/72 96 09/24/20 23:10 78 20 157/88 96 09/24/20 22:57 97.9 F 78 18 161/90 97 Intake and Output 09/24/20 09/25/20 09/25/20 22:59 06:59 14:59 Other: Weight 122.924 kg Results CBC & Chem 7: 09/24/20 23:24 09/24/20 23:24 Labs: Abnormal Lab Results - Last 24 Hours (Table) 09/24/20 Range/Units 23:24 Glucose 134 H (74-99) mg/dL Creatine Kinase 293 H (55-170) U/L
--- NOTE | 2020-09-25 20:15 | P.DS ---
Providers Date of admission: 09/25/20 01:27 Expected date of discharge: 09/25/20 Attending physician: Joseph Cherry Consults: 09/25/20 01:26 Consult Physician Urgent Consulting Provider: Estrella Ridley Consult Reason/Comments: palpitaions,cp Do you want consulting provider notified?: Yes Primary care physician: [facility] Course: Chief Complaint: Palpitations heart racing History of presenting complaint: This is a 59-year-old patient, follows with Dr. Dover. Chronic stable medical conditions include diabetes, GERD, hypertension, hyperlipidemia, osteoporosis redness, obstructive Sleep apnea, scoliosis, gout, has a CPAP at home. Patient presents with episodes of palpitation present on and off lasting for good 2 hours. [place] hot and sweaty. Her chest pressure no dizziness or lightheadedness. Did have some nausea. Denies any prior cardiac history. Had a negative stress test in 2016. EKG was unremarkable. Telemetry did not show any arrhythmia. Troponins were negative. Seen by: Anuel Whitfield. Patient will follow-up with Dr. PAM Whitfield in the office Discussed with patient. Consultation: Dr. PAM Whitfield-cardiology Past medical history to include: Diabetes mellitus, GERD, hypertension, hyperlipidemia, osteoarthritis, scoliosis, obstructive sleep apnea uses CPAP, gout, anxiety Social history: Lives alone. Works full [employer]. Patient smoked for 18 years 1 pack a day stopped in 2016. Alcohol-Occasionally. Physical examination: VITAL SIGNS: 98.4, 73, 15, 160/72, 96% on room air GENERAL: BMI 36.8, comfortable EYES: Pupils equal. Conjunctiva normal. NECK: JVD not raised; masses not palpable. HEART: First and second heart sounds are normal; no edema. LUNGS: Respiratory rate normal; clear to auscultation. ABDOMEN: Soft, nontender, liver spleen not palpable, no masses palpable. PSYCH: Alert and oriented x3; mood and affect normal. INVESTIGATIONS, reviewed in the clinical context: WBC 9.9 hemoglobin 14.3 platelets 271 potassium 3.7 creatinine 0.82 Troponin I 3 negative ProBNP 64 Coronavirus [PCR]-not detected EKG tracing personally reviewed by me-normal sinus rhythm with PVC Chest x-ray film personally reviewed by me-unremarkable Assessment and plan: -Episodes of palpitation and heart racing accompanied by feeling hot and sweaty lasting for good hours 2 hours. Possible paroxysmal arrhythmia self-limiting. No ischemic symptoms. Patient put on telemetry. Seen by cardiology. Will follow-up in the office. Possibly paroxysmal arrhythmia -Essential hypertension on Cozaar, Toprol-XL -Hyperlipidemia On Lipitor -Chronic gout On allopurinol -Anxiety not otherwise specified On Xanax when necessary -Obstructive sleep apnea Uses CPAP Disposition: Home Plan - Discharge Summary New Discharge Prescriptions: Continue Fluticasone Nasal [place] [Flonase Nasal [place]] 1 spray EA NOSTRIL DAILY Montelukast Sodium [Singulair] 10 mg PO HS Gabapentin [Neurontin] 400 mg PO TID Aspirin EC [Ecotrin Low Dose] 81 mg PO DAILY #30 tablet. ALPRAZolam [Xanax] 0.25 mg PO DAILY PRN PRN Reason: Anxiety Atorvastatin [Lipitor] 40 mg PO HS allopurinoL [Zyloprim] 300 mg PO DAILY Metoprolol Succinate (ER) [Toprol XL] 25 mg PO DAILY Ibuprofen [Motrin] 800 mg PO TID PRN PRN Reason: Pain Losartan [Cozaar] 100 mg PO DAILY hydroCHLOROthiazide 25 mg PO DAILY Cetirizine HCl [Zyrtec] 10 mg PO DAILY Albuterol Inhaler [Ventolin Hfa Inhaler] 2 puff INHALATION RT-QID PRN PRN Reason: Shortness Of Breath Olopatadine HCl [Patanol] 1 drop BOTH EYES BID Discharge Medication List Fluticasone Nasal [place] [Flonase Nasal [place]] 1 spray EA NOSTRIL DAILY 10/21/15 [History] Montelukast Sodium [Singulair] 10 mg PO HS 10/21/15 [History] Gabapentin [Neurontin] 400 mg PO TID 05/07/17 [History] Aspirin EC [Ecotrin Low Dose] 81 mg PO DAILY #30 tablet. 05/09/17 [Rx] ALPRAZolam [Xanax] 0.25 mg PO DAILY PRN 07/24/17 [History] Atorvastatin [Lipitor] 40 mg PO HS 07/24/17 [History] allopurinoL [Zyloprim] 300 mg PO DAILY 10/30/17 [History] Ibuprofen [Motrin] 800 mg PO TID PRN 12/01/17 [History] Metoprolol Succinate (ER) [Toprol XL] 25 mg PO DAILY 12/01/17 [History] Cetirizine HCl [Zyrtec] 10 mg PO DAILY 05/25/19 [History] Losartan [Cozaar] 100 mg PO DAILY 05/25/19 [History] hydroCHLOROthiazide 25 mg PO DAILY 05/25/19 [History] Albuterol Inhaler [Ventolin Hfa Inhaler] 2 puff INHALATION RT-QID PRN 09/24/20 [History] Olopatadine HCl [Patanol] 1 drop BOTH EYES BID 09/24/20 [History] Follow up Appointment(s)/Referral(s): Bg Whitfield MD [STAFF PHYSICIAN] - 10/02/20 8:30 am Anuel Dover MD [Primary Care Provider] - 1-2 days Discharge Disposition: HOME SELF-CARE
[2020-09-25] MEDS ORDERED: ATORVASTATIN 40 MG TAB PO SCH (21:00)
[2020-09-25] MEDS ORDERED: MONTELUKAST 10 MG TAB PO SCH (21:00)
[2020-09-26] MEDS ORDERED: ASPIRIN 325 MG TAB PO SCH (09:00)
== END 2020-09-25 13:33 | disposition home or self-care (01) ==
LOC: EC 22:46 → 1SOBS 09-25 01:27
PROVIDERS: ADMIT Hospitalist; ATTEND Hospitalist
DX: R07.89 Other chest pain (principal); I49.3 Ventricular premature depolarization; R00.2 Palpitations; R00.0 Tachycardia, unspecified; I10 Essential (primary) hypertension; E78.5 Hyperlipidemia, unspecified; M1A.9XX0 Chronic gout, unspecified, without tophus (tophi); F41.9 Anxiety disorder, unspecified; R11.0 Nausea; G47.33 Obstructive sleep apnea (adult) (pediatric); Z20.822 Contact with and (suspected) exposure to COVID-19; E11.9 Type 2 diabetes mellitus without complications; F41.0 Panic disorder [episodic paroxysmal anxiety]; K21.9 Gastro-esophageal reflux disease without esophagitis; M81.0 Age-related osteoporosis without current pathological fracture; J45.909 Unspecified asthma, uncomplicated; M41.9 Scoliosis, unspecified; M19.90 Unspecified osteoarthritis, unspecified site; L40.9 Psoriasis, unspecified; J45.998 Other asthma; Z79.82 Long term (current) use of aspirin; Z79.899 Other long term (current) drug therapy; Z98.52 Vasectomy status; Z87.891 Personal history of nicotine dependence; Z90.49 Acquired absence of other specified parts of digestive tract; Z81.1 Family history of alcohol abuse and dependence; Z82.49 Family history of ischemic heart disease and other diseases of the circulatory system; Z82.61 Family history of arthritis
CPT/HCPCS: 99285; 36415; 93005; 83880; 80053; 82550; 83690; 83735; 84484 ×2; 85025; 85610; 85730; 87635; 71046; G0378

== ENCOUNTER 2021-12-13 12:18 | Observation (INO) | payer BC ==
[2021-12-13] MEDS ORDERED: ASPIRIN 81 MG PO STA (12:33)
[2021-12-13] MEDS ORDERED: NITROGLYCERIN OINT 1 INCH/GM PACKET TOPICAL STA (12:33)
--- NOTE | 2021-12-13 12:56 | ED ---
General Adult HPI - General Chief complaint: Chest Pain Stated complaint: chest pain Time Seen by Provider: 12/13/21 12:20 Source: patient, RN notes reviewed, old records reviewed Mode of arrival: ambulatory Limitations: no limitations - History of Present Illness Initial comments: This is a 61-year-old male with past medical history significant for diet controlled diabetes high blood pressure. Patient also has a strong family history of heart disease his sister at 50 years old from a heart attack. Recent states she quit smoking about 6 years ago. Patient comes in today because last couple days he's been having chest pain or difficulty just sits and rests it seems to go away. Patient came in today because he is having chest pain and radiates under his left arm is mildly short of breath he has had no diaphoretic episodes and also in denies any nausea. Patient denies abdominal pain patient denies any vomiting or diarrhea. Patient denies any recent fever chills or cough. Patient denies lightheadedness or dizziness. Patient states he was told to have a stress test by cardiology over a year ago and he has not follow-up to do that. Patient currently is having chest pain but is not as bad as it was earlier. - Related Data Home Medications Medication Instructions Recorded Confirmed Fluticasone Nasal [place] [Flonase 1 spray EA NOSTRIL DAILY 10/21/15 09/24/20 Nasal [place]] Montelukast Sodium [Singulair] 10 mg PO HS 10/21/15 09/24/20 Gabapentin [Neurontin] 400 mg PO TID 05/07/17 09/24/20 ALPRAZolam [Xanax] 0.25 mg PO DAILY PRN 07/24/17 09/24/20 Atorvastatin [Lipitor] 40 mg PO HS 07/24/17 09/24/20 allopurinoL [Zyloprim] 300 mg PO DAILY 10/30/17 09/24/20 Ibuprofen [Motrin] 800 mg PO TID PRN 12/01/17 09/24/20 Metoprolol Succinate (ER) [Toprol 25 mg PO DAILY 12/01/17 09/24/20 XL] Cetirizine HCl [Zyrtec] 10 mg PO DAILY 05/25/19 09/24/20 Losartan [Cozaar] 100 mg PO DAILY 05/25/19 09/24/20 hydroCHLOROthiazide 25 mg PO DAILY 05/25/19 09/24/20 Albuterol Inhaler [Ventolin Hfa 2 puff INHALATION RT-QID PRN 09/24/20 09/24/20 Inhaler] Olopatadine HCl [Patanol 0.1%] 1 drop BOTH EYES BID 09/24/20 09/24/20 Previous Rx's Medication Instructions Recorded Aspirin EC [Ecotrin Low Dose] 81 mg PO DAILY #30 tablet. 05/09/17 Allergies Allergy/AdvReac Type Severity Reaction Status Date / Time No Known Allergies Allergy Verified 12/13/21 12:28 Review of Systems ROS Statement: Those systems with pertinent positive or pertinent negative responses have been documented in the HPI. ROS Other: All systems not noted in ROS Statement are negative. Past Medical History Past Medical History: Diabetes Mellitus, GERD/Reflux, Hyperlipidemia, Hypertension, Osteoarthritis (OA), Skin Disorder, Sleep Apnea/CPAP/BIPAP, Syncope Additional Past Medical History / Comment(s): psoriasis, Gout STRESS TEST 2016- NEG,DDD, STEROID INJ IN BACK, CPAP at home, TYPE II DIABETES History of Any Multi-Drug Resistant Organisms: None Reported Past Surgical History: Appendectomy, Cholecystectomy, Hernia Repair Additional Past Surgical History / Comment(s): rt inguinal hernia x 3, [facility] HERNIA REPAIR,vasectomy, Past Anesthesia/Blood Transfusion Reactions: Motion Sickness Additional Past Anesthesia/Blood Transfusion Reaction / Comment(s): no hx blood transfusion Past Psychological History: Anxiety, Panic Disorder Smoking Status: Never smoker Past Alcohol Use History: Occasional Past Drug Use History: None Reported - Past Family History Father Family Medical History: Congestive Heart Failure (CHF), Myocardial Infarction ([place]) Additional Family Medical History / Comment(s): alcoholism Mother Family Medical History: Osteoarthritis (OA) General Exam - General Exam Comments Initial Comments: GENERAL: Patient is well-developed and well-nourished. Patient is nontoxic and well- hydrated and is in mild distress. ENT: Neck is soft and supple. No significant lymphadenopathy is noted. Oropharynx is clear. Moist mucous membranes. Neck has full range of motion without eliciting any pain. EYES: The sclera were anicteric and conjunctiva were pink and moist. Extraocular movements were intact and pupils were equal round and reactive to light. Eyelids were unremarkable. PULMONARY: Unlabored respirations. Good breath sounds bilaterally. No audible rales rhon chi or wheezing was noted. CARDIOVASCULAR: There is a regular rate and rhythm without any murmurs gallops or rubs. ABDOMEN: Soft and nontender with normal bowel sounds. SKIN: Skin is clear with no lesions or rashes and otherwise unremarkable. NEUROLOGIC: Patient is alert and oriented x3. Cranial nerves II through XII are grossly intact. Motor and sensory are also intact. Normal speech, volume and content. Symmetrical smile. MUSCULOSKELETAL: Normal extremities with adequate strength and full range of motion. No lower extremity swelling or edema. No calf tenderness. LYMPHATICS: No significant lymphadenopathy is noted PSYCHIATRIC: Normal psychiatric evaluation. Limitations: no limitations Course Vital Signs 12/13/21 12/13/21 12:25 12:47 Temperature 98.4 F Pulse Rate 89 76 Respiratory 20 16 Rate Blood Pressure 181/71 160/92 O2 Sat by Pulse 98 97 Oximetry Medical Decision Making - Medical Decision Making EKG shows sinus rhythm at 72 bpm OH interval is 214 QRS is under QT interval 323 QTC is 347. Patient's EKG shows no ST segment elevation or depression. Chest x-ray shows no acute abnormality. I spoke with some physicians that he agreed to admit the patient admitted the patient wrote admitting orders - Lab Data Result diagrams: 12/13/21 12:46 12/13/21 12:46 Lab Results 12/13/21 12/13/21 12/13/21 Range/Units 12:46 12:46 12:46 WBC 6.4 (3.8-10.6) k/uL RBC 4.67 (4.30-5.90) m/uL Hgb 14.4 (13.0-17.5) gm/dL Hct 42.0 (39.0-53.0) % MCV 89.8 (80.0-100.0) fL MCH 30.8 (25.0-35.0) pg MCHC 34.3 (31.0-37.0) g/dL RDW 13.5 (11.5-15.5) % Plt Count 277 (150-450) k/uL MPV 8.0 Neutrophils % 73 % Lymphocytes % 19 % Monocytes % 3 % Eosinophils % 3 % Basophils % 0 % Neutrophils # 4.6 (1.3-7.7) k/uL Lymphocytes # 1.2 (1.0-4.8) k/uL Monocytes # 0.2 (0-1.0) k/uL Eosinophils # 0.2 (0-0.7) k/uL Basophils # 0.0 (0-0.2) k/uL PT 10.2 (9.0-12.0) sec INR 0.9 (<1.2) APTT 22.7 (22.0-30.0) sec Sodium 139 (137-145) mmol/L Potassium 3.4 L (3.5-5.1) mmol/L Chloride 105 (98-107) mmol/L Carbon Dioxide 21 L (22-30) mmol/L Anion Gap 13 mmol/L BUN 14 (9-20) mg/dL Creatinine 0.65 L (0.66-1.25) mg/dL Est GFR (CKD-EPI)AfAm >90 (>60 ml/min/1.73 sqM) Est GFR (CKD-EPI)NonAf >90 (>60 ml/min/1.73 sqM) Glucose 165 H (74-99) mg/dL Calcium 9.5 (8.4-10.2) mg/dL Magnesium 1.7 (1.6-2.3) mg/dL Total Bilirubin 0.7 (0.2-1.3) mg/dL AST 39 (17-59) U/L ALT 34 (4-49) U/L Alkaline Phosphatase 87 (38-126) U/L Troponin I (0.000-0.034) ng/mL Total Protein 7.2 (6.3-8.2) g/dL Albumin 4.6 (3.5-5.0) g/dL 12/13/21 Range/Units 12:46 WBC (3.8-10.6) k/uL RBC (4.30-5.90) m/uL Hgb (13.0-17.5) gm/dL Hct (39.0-53.0) % MCV (80.0-100.0) fL MCH (25.0-35.0) pg MCHC (31.0-37.0) g/dL RDW (11.5-15.5) % Plt Count (150-450) k/uL MPV Neutrophils % % Lymphocytes % % Monocytes % % Eosinophils % % Basophils % % Neutrophils # (1.3-7.7) k/uL Lymphocytes # (1.0-4.8) k/uL Monocytes # (0-1.0) k/uL Eosinophils # (0-0.7) k/uL Basophils # (0-0.2) k/uL PT (9.0-12.0) sec INR (<1.2) APTT (22.0-30.0) sec Sodium (137-145) mmol/L Potassium (3.5-5.1) mmol/L Chloride (98-107) mmol/L Carbon Dioxide (22-30) mmol/L Anion Gap mmol/L BUN (9-20) mg/dL Creatinine (0.66-1.25) mg/dL Est GFR (CKD-EPI)AfAm (>60 ml/min/1.73 sqM) Est GFR (CKD-EPI)NonAf (>60 ml/min/1.73 sqM) Glucose (74-99) mg/dL Calcium (8.4-10.2) mg/dL Magnesium (1.6-2.3) mg/dL Total Bilirubin (0.2-1.3) mg/dL AST (17-59) U/L ALT (4-49) U/L Alkaline Phosphatase (38-126) U/L Troponin I <0.012 (0.000-0.034) ng/mL Total Protein (6.3-8.2) g/dL Albumin (3.5-5.0) g/dL Disposition Clinical Impression: Chest pain Disposition: ADMITTED IP TO THIS [facility] Referrals: Anuel Dover MD [Primary Care Provider] - 1-2 days Time of Disposition: 13:50
[2021-12-13 12:57] LABS: Basophils % (A) 0 %; Eosinophils # (A) 0.2 k/uL (0-0.7); Eosinophils % (A) 3 %; HGB 14.4 gm/dL (13.0-17.5); Lymphocytes # (A) 1.2 k/uL (1.0-4.8); Lymphocytes % (A) 19 %; MCH 30.8 pg (25.0-35.0); MCHC 34.3 g/dL (31.0-37.0); MCV 89.8 fL (80.0-100.0); Monocytes # (A) 0.2 k/uL (0-1.0); Monocytes % (A) 3 %; Neutrophils # (A) 4.6 k/uL (1.3-7.7); Neutrophils % (A) 73 %; Platelet Count 277 k/uL (150-450); RBC 4.67 m/uL (4.30-5.90); RDW 13.5 % (11.5-15.5); WBC 6.4 k/uL (3.8-10.6)
[2021-12-13 13:07] LABS: ALT 34 U/L (4-49); AST 39 U/L (17-59); African American GFR (CKD) >90 (>60 ml/min/1.73 sqM); Albumin 4.6 g/dL (3.5-5.0); Alkaline Phosphatase 87 U/L (38-126); Anion Gap 13 mmol/L; Blood Urea Nitrogen 14 mg/dL (9-20); Calcium 9.5 mg/dL (8.4-10.2); Carbon Dioxide 21 mmol/L (22-30); Chloride 105 mmol/L (98-107); Glucose 165 mg/dL (74-99); INR 0.9 (<1.2); Magnesium 1.7 mg/dL (1.6-2.3); Non-African American GFR(CKD) >90 (>60 ml/min/1.73 sqM); Partial Thromboplastin Time 22.7 sec (22.0-30.0); Potassium 3.4 mmol/L (3.5-5.1); Prothrombin Time 10.2 sec (9.0-12.0); Sodium 139 mmol/L (137-145); Total Bilirubin 0.7 mg/dL (0.2-1.3); Total Protein 7.2 g/dL (6.3-8.2)
--- NOTE | 2021-12-13 13:46 | XR ---
EXAMINATION TYPE: XR chest 2V DATE OF EXAM: 12/13/2021 12:55 PM COMPARISON: Chest radiographs from 09/25/2020 TECHNIQUE: XR chest 2V 2 view. CLINICAL INDICATION:Male, 61 years old with history of Chest Pain; FINDINGS: Lungs/Pleura: There is no evidence of pleural effusion, focal consolidation, or pneumothorax. Pulmonary vascularity: Unremarkable. Heart/mediastinum: Cardiomediastinal silhouette is unremarkable. Musculoskeletal: No acute osseous pathology. IMPRESSION: No acute cardiopulmonary disease/process.
[2021-12-13] MEDS ORDERED: NITROGLYCERIN SL TABS 0.4 MG TAB SUBLINGUAL PRN (13:51)
[2021-12-13] MEDS ORDERED: LORazepam 2 MG/ML INJ IV STA (14:05)
[2021-12-13] MEDS ORDERED: LORATADINE 10 MG TAB PO PRN (14:39)
[2021-12-13] MEDS ORDERED: POTASSIUM CHLORIDE ER 20 MEQ TAB.ER PO STA (14:44)
--- NOTE | 2021-12-13 14:48 | P.HPIM ---
History of Present Illness H&P Date: 12/13/21 Chief Complaint: Chest pain Patient is a 61-year-old male with PMH of type 2 diabetes mellitus controlled with diet, hypertension, dyslipidemia, obstructive sleep apnea and asthma that presents ED for chest pain. Patient reports 2 day history of palpitations and heaviness in his left chest. The pain radiates from the substernal area to the left armpit. His chest pain is associated with diaphoresis. He denies any nausea or vomiting. No history of CAD or CHF. He recently had a sister that from a cardiac event in her 50s which prompted him to come to the ED. He denies any headache, lower extremity edema, fever or chills, cough, shortness of breath, changes in urination or bowel habits. No changes in appetite or weight. He denies any dizziness, numbness/weakness/tingling of the extremities. In the ED, vital signs were stable except for elevated SBP as high as 181. CBC was unremarkable. Coagulation panel negative. CMP showed potassium of 3.4, bicarb of 21 and creatinine is 0.65 with glucose of 165. Initial troponin was less than 0.012 with EKG showing sinus rhythm with first-degree AV block. Chest x- ray was negative. Patient is admitted for chest pain, rule out acute coronary syndrome under observation status. Review of systems is performed and is negative except above. General: [non toxic], [no distress], [appears at stated age] Derm: [warm], [dry] Head: [atraumatic], [normocephalic], [symmetric] Eyes: [EOMI], [no lid lag], [anicteric sclera] Mouth: [no lip lesion], [mucus membranes moist] Cardiovascular: [S1S2 reg], [no murmur] Lungs: [CTA bilateral], [no rhonchi, no rales] , [no accessory muscle use] Abdominal: [soft], [ nontender to palpation], [no guarding], [no appreciable organomegaly] Ext: [no gross muscle atrophy], [no edema], [no contractures] Neuro: [ CN II-XI grossly intact], [no focal neuro deficits] Psych: [Alert], [oriented], [appropriate affect] #Chest pain with palpitations #Hypokalemia #Diabetes mellitus #Morbid obesity Chronic conditions: Obstructive sleep apnea, hypertension, dyslipidemia, asthma Patient presents with chest pain with typical features. Less likely to be musculoskeletal. Troponins were trended and ACS will be ruled out. He was given aspirin 324 mg by mouth in the ED. He'll be restarted on aspirin and Lipitor. Telemetry monitoring will be ordered. Echocardiogram will be ordered. Cardiology will be consulted for further management of this patient. His potassium will be replaced and BMP will be repeated tomorrow morning. Patient be started on low-dose insulin sliding scale along with Accu-Cheks 4 times a day and hypoglycemic precautions. Patient would benefit from a structured weight loss program. CPAP will be ordered for bedtime with regard to ROSA. Restart hydr ochlorothiazide, losartan and metoprolol for history of hypertension. Monitor vitals, adjust medications if necessary. His asthma appears stable and will be restarted on Singulair with albuterol inhaler as needed for shortness breath and wheezing. DVT prophylaxis: [Heparin] Discussed with: [Patient, ED physician] Anticipated discharge: [1-2 days] Anticipated discharge place: [Home] A total of [35] minutes was spent on the care of this complex patient more than 50% of the time was spent in counseling and care coordination. Patient names his daughter Susan [phone] decision maker if he can't make decisions for himself. Patient would like to be full code. Past Medical History Past Medical History: Diabetes Mellitus, GERD/Reflux, Hyperlipidemia, Hypertension, Osteoarthritis (OA), Skin Disorder, Sleep Apnea/CPAP/BIPAP, Syncope Additional Past Medical History / Comment(s): psoriasis, Gout STRESS TEST 2016- NEG,DDD, STEROID INJ IN BACK, CPAP at home, TYPE II DIABETES History of Any Multi-Drug Resistant Organisms: None Reported Past Surgical History: Appendectomy, Cholecystectomy, Hernia Repair Additional Past Surgical History / Comment(s): rt inguinal hernia x 3, UMB HERNIA REPAIR,vasectomy, Past Anesthesia/Blood Transfusion Reactions: Motion Sickness Additional Past Anesthesia/Blood Transfusion Reaction / Comment(s): no hx blood transfusion Past Psychological History: Anxiety, Panic Disorder Smoking Status: Never smoker Past Alcohol Use History: Occasional Past Drug Use History: None Reported - Past Family History Father Family Medical History: Congestive Heart Failure (CHF), Myocardial Infarction ([place]) Additional Family Medical History / Comment(s): alcoholism Mother Family Medical History: Osteoarthritis (OA) Medications and Allergies Home Medications Medication Instructions Recorded Confirmed Type Fluticasone Nasal [place] [Flonase 1 spray EA NOSTRIL DAILY 10/21/15 12/13/21 History Nasal [place]] Montelukast Sodium [Singulair] 10 mg PO HS 10/21/15 12/13/21 History Gabapentin [Neurontin] 400 mg PO TID 05/07/17 12/13/21 History Aspirin EC [Ecotrin Low Dose] 81 mg PO DAILY #30 tablet. 05/09/17 12/13/21 Rx Atorvastatin [Lipitor] 40 mg PO HS 07/24/17 12/13/21 History allopurinoL [Zyloprim] 300 mg PO DAILY 10/30/17 12/13/21 History Ibuprofen [Motrin] 800 mg PO TID PRN 12/01/17 12/13/21 History Metoprolol Succinate (ER) [Toprol 25 mg PO DAILY 12/01/17 12/13/21 History XL] Cetirizine HCl [Zyrtec] 10 mg PO DAILY PRN 05/25/19 12/13/21 History hydroCHLOROthiazide 25 mg PO DAILY 05/25/19 12/13/21 History Albuterol Inhaler [Ventolin Hfa 2 puff INHALATION RT-QID PRN 09/24/20 12/13/21 History Inhaler] Olopatadine HCl [Patanol 0.1%] 1 drop BOTH EYES BID 09/24/20 12/13/21 History Losartan Potassium [Cozaar] 100 mg PO DAILY 12/13/21 12/13/21 History Allergies Allergy/AdvReac Type Severity Reaction Status Date / Time No Known Allergies Allergy Verified 12/13/21 14:16 Physical Exam Vitals: Vital Signs Temp Pulse Resp BP Pulse Ox 12/13/21 12:47 76 16 160/92 97 12/13/21 12:25 98.4 F 89 20 181/71 98 Intake and Output 12/12/21 12/13/21 12/13/21 22:59 06:59 14:59 Other: Weight 120.202 kg Results CBC & Chem 7: 12/13/21 12:46 12/13/21 12:46 Labs: Abnormal Lab Results - Last 24 Hours (Table) 08/06/22 Range/Units 12:46 Potassium 3.4 L (3.5-5.1) mmol/L Carbon Dioxide 21 L (22-30) mmol/L Creatinine 0.65 L (0.66-1.25) mg/dL Glucose 165 H (74-99) mg/dL
[2021-12-13] MEDS: HEPARIN SODIUM,PORCINE/PF 5,000 UNIT/0.5 ML SYRINGE SQ SCH (15:32)
[2021-12-13] MEDS: GABAPENTIN 400 MG CAP PO SCH ×2 (15:32→21:31)
[2021-12-13 18:01] LABS: Glucose,Whole Blood 95 mg/dL (70-110)
[2021-12-13] MEDS: INSULIN ASPART (NovoLOG) 100 UNIT/ML VIAL SQ SCH ×2 (18:07→21:31)
[2021-12-13] MEDS: NITROGLYCERIN OINT 1 INCH/GM PACKET TOPICAL SCH (18:08)
[2021-12-13 21:07] LABS: Glucose,Whole Blood 110 mg/dL (70-110)
[2021-12-13] MEDS: MONTELUKAST 10 MG TAB PO SCH (21:31)
[2021-12-13] MEDS: ATORVASTATIN 40 MG TAB PO SCH (21:31)
[2021-12-13] MEDS ORDERED: ACETAMINOPHEN TAB 325 MG TAB PO PRN (21:35)
[2021-12-14] MEDS: HEPARIN SODIUM,PORCINE/PF 5,000 UNIT/0.5 ML SYRINGE SQ SCH ×4 (00:18→23:24)
[2021-12-14] MEDS: NITROGLYCERIN OINT 1 INCH/GM PACKET TOPICAL SCH ×5 (00:18→23:24)
[2021-12-14 07:39] LABS: Glucose,Whole Blood 118 mg/dL (70-110)
[2021-12-14] MEDS: ALBUTEROL HFA INHALER INHALATION PRN ×4 (08:11→20:22)
[2021-12-14 08:53] LABS: African American GFR (CKD) >90 (>60 ml/min/1.73 sqM); Anion Gap 9 mmol/L; Blood Urea Nitrogen 13 mg/dL (9-20); Calcium 9.1 mg/dL (8.4-10.2); Carbon Dioxide 24 mmol/L (22-30); Chloride 106 mmol/L (98-107); Glucose 93 mg/dL (74-99); Non-African American GFR(CKD) >90 (>60 ml/min/1.73 sqM); Potassium 4.1 mmol/L (3.5-5.1); Sodium 139 mmol/L (137-145)
[2021-12-14] MEDS ORDERED: ASPIRIN 325 MG TAB PO SCH (09:00)
[2021-12-14] MEDS: INSULIN ASPART (NovoLOG) 100 UNIT/ML VIAL SQ SCH ×4 (09:06→20:24)
[2021-12-14] MEDS ORDERED: CAFFEINE CITRATE 60 MG/3 ML VIAL IV PRN (09:26)
[2021-12-14] MEDS ORDERED: AMINOPHYLLINE 500 MG/20 ML VIAL IV PRN (09:26)
--- NOTE | 2021-12-14 09:34 | P.CRDCN ---
History of Present Illness Consult date: 12/14/21 Chief complaint: Chest pain History of present illness: This is a 61-year-old gentleman with a past medical history significant for borderline diabetes as well as hypertension and dyslipidemia and also very significant family history of coronary artery disease with his sister just recently with massive heart attack resented to the hospital complaining of chest discomfort. The patient was in his usual state of health but about 3 days ago he started experiencing intermittent episodes of chest discomfort. He described the discomfort as a pressure in the middle of the chest with no radiation to the arms or neck or shoulders or back in no associated symptoms of sweating or nausea or vomiting or any feeling of heart racing or fluttering or presyncope or see. He checked his pressure and the pressure was elevated he was at home and h e started having an anxiety and the chest discomfort has gotten worse. He decided to come to the hospital. Currently he is chest pain-free. He underwent a workup including EKG showing sinus rhythm without any significant ST or T-wave abnormalities and also cardiac enzymes came in to be unremarkable. The chest x- ray did not show any acute abnormalities Past Medical History Past Medical History: Diabetes Mellitus, GERD/Reflux, Hyperlipidemia, Hypertension, Osteoarthritis (OA), Skin Disorder, Sleep Apnea/CPAP/BIPAP, Syncope Additional Past Medical History / Comment(s): psoriasis, Gout STRESS TEST 2016- NEG,DDD, STEROID INJ IN BACK, CPAP at home, TYPE II DIABETES History of Any Multi-Drug Resistant Organisms: None Reported Past Surgical History: Appendectomy, Cholecystectomy, Hernia Repair Additional Past Surgical History / Comment(s): rt inguinal hernia x 3, UMB HERNIA REPAIR,vasectomy, Past Anesthesia/Blood Transfusion Reactions: Motion Sickness Additional Past Anesthesia/Blood Transfusion Reaction / Comment(s): no hx blood transfusion Past Psychological History: Anxiety, Panic Disorder Additional Psychological History / Comment(s): 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 LIVES ALONE IN [address]ND [address]LO[address]T, NO PETS. 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 SERVICE Smoking Status: Former smoker Past Alcohol Use History: Occasional Additional Past Alcohol Use History / Comment(s): STARTED 1997 AND QUIT 2016 SMOKED 1 PPD Past Drug Use History: None Reported - Past Family History Father Family Medical History: Congestive Heart Failure (CHF), Myocardial Infarction ([place]) Additional Family Medical History / Comment(s): alcoholism Mother Family Medical History: Osteoarthritis (OA) Medications and Allergies Home Medications Medication Instructions Recorded Confirmed Type Fluticasone Nasal [place] [Flonase 1 spray EA NOSTRIL DAILY 10/21/15 12/13/21 History Nasal [place]] Montelukast Sodium [Singulair] 10 mg PO HS 10/21/15 12/13/21 History Gabapentin [Neurontin] 400 mg PO TID 05/07/17 12/13/21 History Aspirin EC [Ecotrin Low Dose] 81 mg PO DAILY #30 tablet. 05/09/17 12/13/21 Rx Atorvastatin [Lipitor] 40 mg PO HS 07/24/17 12/13/21 History allopurinoL [Zyloprim] 300 mg PO DAILY 10/30/17 12/13/21 History Ibuprofen [Motrin] 800 mg PO TID PRN 12/01/17 12/13/21 History Metoprolol Succinate (ER) [Toprol 25 mg PO DAILY 12/01/17 12/13/21 History XL] Cetirizine HCl [Zyrtec] 10 mg PO DAILY PRN 05/25/19 12/13/21 History hydroCHLOROthiazide 25 mg PO DAILY 05/25/19 12/13/21 History Albuterol Inhaler [Ventolin Hfa 2 puff INHALATION RT-QID PRN 09/24/20 12/13/21 History Inhaler] Olopatadine HCl [Patanol 0.1%] 1 drop BOTH EYES BID 09/24/20 12/13/21 History Losartan Potassium [Cozaar] 100 mg PO DAILY 12/13/21 12/13/21 History Allergies Allergy/AdvReac Type Severity Reaction Status Date / Time No Known Allergies Allergy Verified 12/13/21 14:16 Physical Exam Vitals: Vital Signs Temp Pulse Pulse Resp BP BP Pulse Ox 12/14/21 08:11 98 12/14/21 07:00 97.8 F 49 L 15 124/72 98 12/14/21 02:00 97.8 F 57 L 18 147/77 98 12/13/21 20:00 97.9 F 59 L 17 124/68 98 12/13/21 15:39 60 12 129/69 96 12/13/21 12:47 76 16 160/92 97 12/13/21 12:25 98.4 F 89 20 181/71 98 Intake and Output 12/13/21 12/14/21 12/14/21 22:59 06:59 14:59 Other: # Voids 2 2 Weight 120.202 kg - Constitutional General appearance: no acute distress - Respiratory Respiratory: bilateral: CTA - Cardiovascular Rhythm: regular Heart sounds: normal: S1, S2 Results 12/13/21 12:46 12/14/21 07:37 Cardiac Enzymes 12/13/21 12/13/21 12/13/21 Range/Units 12:46 12:46 15:51 AST 39 (17-59) U/L Troponin I <0.012 <0.012 (0.000-0.034) ng/mL 12/13/21 Range/Units 21:11 AST (17-59) U/L Troponin I <0.012 (0.000-0.034) ng/mL Coagulation 12/13/21 Range/Units 12:46 PT 10.2 (9.0-12.0) sec APTT 22.7 (22.0-30.0) sec CBC 12/13/21 Range/Units 12:46 WBC 6.4 (3.8-10.6) k/uL RBC 4.67 (4.30-5.90) m/uL Hgb 14.4 (13.0-17.5) gm/dL Hct 42.0 (39.0-53.0) % Plt Count 277 (150-450) k/uL Comprehensive Metabolic Panel 12/13/21 12/14/21 Range/Units 12:46 07:37 Sodium 139 139 (137-145) mmol/L Potassium 3.4 L 4.1 (3.5-5.1) mmol/L Chloride 105 106 (98-107) mmol/L Carbon Dioxide 21 L 24 (22-30) mmol/L BUN 14 13 (9-20) mg/dL Creatinine 0.65 L 0.77 (0.66-1.25) mg/dL Glucose 165 H 93 (74-99) mg/dL Calcium 9.5 9.1 (8.4-10.2) mg/dL AST 39 (17-59) U/L ALT 34 (4-49) U/L Alkaline Phosphatase 87 (38-126) U/L Total Protein 7.2 (6.3-8.2) g/dL Albumin 4.6 (3.5-5.0) g/dL Current Medications Generic Name Dose Route Start Last Admin Trade Name Freq PRN Reason Stop Dose Admin Acetaminophen 650 mg 12/13/21 21:35 12/13/21 21:42 Acetaminophen Tab 325 Mg Tab PO 650 mg Q4HR PRN Administration Fever and/ or Pain Albuterol Sulfate 2 puff 12/13/21 14:39 12/14/21 08:11 Albuterol Hfa Inhaler INHALATION 2 puff RT-QID PRN Administration Shortness Of Breath Allopurinol 300 mg 12/14/21 09:00 Allopurinol 300 Mg Tab PO DAILY [facility] Aminophylline 100 mg 12/14/21 09:26 Aminophylline 500 Mg/20 Ml Vial IV 12/14/21 13:28 ONCE PRN Patient Response Aspirin 81 mg 12/14/21 09:00 Aspirin 81 Mg PO DAILY [facility] Atorvastatin Calcium 40 mg 12/13/21 21:00 12/13/21 21:31 Atorvastatin 40 Mg Tab PO 40 mg HS [facility] Administration Caffeine Citrate 60 mg 12/14/21 09:26 Caffeine Citrate 60 Mg/3 Ml Vial IV 12/14/21 13:28 ONCE PRN Patient Response Fluticasone Propionate 1 spray 12/14/21 09:00 Fluticasone 50mcg/[place] Nasal 16gm EA NOSTRIL DAILY [facility] Gabapentin 400 mg 12/13/21 16:00 12/13/21 21:31 Gabapentin 400 Mg Cap PO 400 mg TID [facility] Administration Heparin Sodium (Porcine) 5,000 unit 12/13/21 16:00 12/14/21 00:18 Heparin Sodium,Porcine/Pf 5,000 Unit/0.5 Ml Syringe SQ 5,000 unit Q8HR [facility] Administration Hydrochlorothiazide 25 mg 12/14/21 09:00 Hydrochlorothiazide 25 Mg Tab PO DAILY [facility] Insulin Aspart 0 unit 12/13/21 17:30 12/14/21 09:06 Insulin Aspart (Novolog) 100 Unit/Ml Vial SQ Not Given ACHS [facility] Protocol Loratadine 10 mg 12/13/21 14:39 Loratadine 10 Mg Tab PO DAILY PRN Allergy Symptoms Losartan Potassium 100 mg 12/14/21 09:00 Losartan 50 Mg Tab PO DAILY [facility] Metoprolol Succinate 25 mg 12/14/21 09:00 Metoprolol Succinate (Er) 25 Mg Tab.Er.24h PO DAILY [facility] Montelukast Sodium 10 mg 12/13/21 21:00 12/13/21 21:31 Montelukast 10 Mg Tab PO 10 mg HS [facility] Administration Nitroglycerin 0.4 mg 12/13/21 13:51 Nitroglycerin Sl Tabs 0.4 Mg Tab SUBLINGUAL Q5M PRN Chest Pain Nitroglycerin 1 inch 12/13/21 18:00 12/14/21 05:01 Nitroglycerin Oint 1 Inch/Gm Packet TOPICAL Not Given Q6HR [facility] Regadenoson 0.4 mg 12/14/21 09:26 Regadenoson 0.4 Mg/5 Ml Syringe IV 12/14/21 13:28 ONCE PRN Per Protocol Intake and Output 12/13/21 12/14/21 12/14/21 22:59 06:59 14:59 Other: # Voids 2 2 Weight 120.202 kg 12/13/21 12:46 12/14/21 07:37 Assessment and Plan Assessment: Assessment #1 intermittent episodes of chest discomfort appeared to be atypical #2 borderline diabetes #3 hypertension #4 dyslipidemia Plan #1 acute coronary event was ruled out #2 rule out severe obstructive coronary artery disease #3 obtain a stress test #4 follow-up with the patient
[2021-12-14] MEDS: ASPIRIN 81 MG PO SCH (09:41)
[2021-12-14] MEDS: GABAPENTIN 400 MG CAP PO SCH ×3 (09:41→20:56)
[2021-12-14] MEDS: FLUTICASONE 50MCG/SPRAY NASAL 16GM EA NOSTRIL SCH (09:41)
[2021-12-14] MEDS: LOSARTAN 50 MG TAB PO SCH (09:41)
[2021-12-14] MEDS: allopurinoL 300 MG TAB PO SCH (09:41)
[2021-12-14] MEDS: hydroCHLOROthiazide 25 MG TAB PO SCH (09:41)
[2021-12-14] MEDS: METOPROLOL SUCCINATE (ER) 25 MG TAB.ER.24H PO SCH (09:41)
[2021-12-14 11:45] LABS: Glucose,Whole Blood 151 mg/dL (70-110)
--- NOTE | 2021-12-14 12:05 | P.PN ---
Subjective Progress Note Date: 12/14/21 Principal diagnosis: Chest pressure Patient was seen and examined. No acute events overnight. Patient continues to report chest pressure. Requesting eye drops. Objective - Vital Signs Vital signs: Vital Signs Temp 97.8 F 12/14/21 07:00 Pulse 49 L 12/14/21 07:00 Resp 15 12/14/21 07:00 BP 124/72 12/14/21 07:00 Pulse Ox 98 12/14/21 08:11 FiO2 Intake & Output 12/13/21 12/14/21 12/14/21 18:59 06:59 18:59 Intake Total 200 Balance 200 Weight 120.202 kg Intake: Oral 200 Other: # Voids 2 - Exam General: [non toxic], [no distress], [appears at stated age] Derm: [warm], [dry] Head: [atraumatic], [normocephalic], [symmetric] Eyes: [EOMI], [no lid lag], [anicteric sclera] Mouth: [no lip lesion], [mucus membranes moist] Cardiovascular: [S1S2 reg], [no murmur] Lungs: [CTA bilateral], [no rhonchi, no rales] , [no accessory muscle use] Ext: [no gross muscle atrophy], [no edema], [no contractures] Neuro: [no focal neuro deficits] Psych: [Alert], [oriented], [appropriate affect] - Labs CBC & Chem 7: 12/13/21 12:46 12/14/21 07:37 Labs: Abnormal Lab Results - Last 24 Hours (Table) 12/13/21 12/14/21 12/14/21 Range/Units 12:46 07:37 11:43 Potassium 3.4 L (3.5-5.1) mmol/L Carbon Dioxide 21 L (22-30) mmol/L Creatinine 0.65 L (0.66-1.25) mg/dL Glucose 165 H (74-99) mg/dL POC Glucose (mg/dL) 118 H 151 H (70-110) mg/dL Assessment and Plan Assessment: #Chest pain with palpitations #Diabetes mellitus #Morbid obesity Resolved: Hypokalemia Chronic conditions: Obstructive sleep apnea, hypertension, dyslipidemia, asthma Patient presents with chest pain with typical features. Less likely to be musculoskeletal. Troponins were trended and ACS is ruled out. He was given aspirin 324 mg by mouth in the ED. He'll be restarted on aspirin and Lipitor. Telemetry monitoring will be ordered. Echocardiogram will be ordered. Plans for stress test tomorrow. Cardiology on board. Patient be started on low-dose insulin sliding scale along with Accu-Cheks 4 times a day and hypoglycemic precautions. Patient would benefit from a structured weight loss program. CPAP will be ordered for bedtime with regard to ROSA. Restart hy drochlorothiazide, losartan and metoprolol for history of hypertension. Monitor vitals, adjust medications if necessary. His asthma appears stable and will be restarted on Singulair with albuterol inhaler as needed for shortness breath and wheezing. DVT prophylaxis: [Heparin] Discussed with: [Patient] Anticipated discharge: [1-2 days] Anticipated discharge place: [Home] Patient names his daughter Susan [phone] decision maker if he can't make decisions for himself. Patient would like to be full code.
[2021-12-14] MEDS: KETOTIFEN 0.025% OPHTH DROPS 5 ML BTL BOTH EYES SCH ×2 (12:24→20:26)
[2021-12-14 17:18] LABS: Glucose,Whole Blood 108 mg/dL (70-110)
[2021-12-14 20:10] LABS: Glucose,Whole Blood 144 mg/dL (70-110)
[2021-12-14] MEDS: ATORVASTATIN 40 MG TAB PO SCH (20:26)
[2021-12-14] MEDS: MONTELUKAST 10 MG TAB PO SCH (20:26)
[2021-12-15] MEDS: NITROGLYCERIN OINT 1 INCH/GM PACKET TOPICAL SCH ×3 (05:36→16:38)
[2021-12-15] MEDS ORDERED: REGADENOSON 0.4 MG/5 ML SYRINGE IV PRN (07:00)
[2021-12-15 07:23] LABS: Glucose,Whole Blood 111 mg/dL (70-110)
[2021-12-15] MEDS: ALBUTEROL HFA INHALER INHALATION PRN ×4 (07:28→21:20)
[2021-12-15] MEDS: hydroCHLOROthiazide 25 MG TAB PO SCH (08:20)
[2021-12-15] MEDS: allopurinoL 300 MG TAB PO SCH (08:20)
[2021-12-15] MEDS: ASPIRIN 81 MG PO SCH (08:20)
[2021-12-15] MEDS: GABAPENTIN 400 MG CAP PO SCH ×3 (08:20→20:35)
[2021-12-15] MEDS: LOSARTAN 50 MG TAB PO SCH (08:21)
[2021-12-15] MEDS: KETOTIFEN 0.025% OPHTH DROPS 5 ML BTL BOTH EYES SCH ×2 (08:21→20:35)
[2021-12-15] MEDS: INSULIN ASPART (NovoLOG) 100 UNIT/ML VIAL SQ SCH ×4 (08:21→23:19)
[2021-12-15] MEDS: HEPARIN SODIUM,PORCINE/PF 5,000 UNIT/0.5 ML SYRINGE SQ SCH ×3 (08:21→23:19)
[2021-12-15] MEDS: FLUTICASONE 50MCG/SPRAY NASAL 16GM EA NOSTRIL SCH (08:22)
--- NOTE | 2021-12-15 09:16 | P.PN ---
Subjective 61-year-old gentleman with a past medical history significant for borderline diabetes, hypertension and dyslipidemia and also very significant family history of coronary artery disease with his sister just recently with massive heart attack. He follows with Dr. Whitfield. We are consulted for chest pain. Patient presented to the hospital complaining of chest discomfort. The patient was in his usual state of health but about 3 days ago he started experiencing intermittent episodes of chest discomfort. He described the discomfort as a pressure in the middle of the chest with no radiation to the arms or neck or shoulders or back in no associated symptoms of sweating or nausea or vomiting or any feeling of heart racing or fluttering or presyncope or see. He checked his pressure and the pressure was elevated he was at home and he started having an anxiety and the chest discomfort has gotten worse. He decided to come to the hospital. He underwent a workup including EKG showing sinus rhythm without any significant ST or T-wave abnormalities and also cardiac enzymes came in to be unremarkable. The chest x-ray did not show any acute abnormalities Patient seen and examined at bedside, he is chest pain free. Denies any shortness of breath. Acute coronary syndrome has been ruled out. Vitals signs are stable. Meds: Aspirin 81 mg daily, atorvastatin 40 mg nightly, hydrochlorothiazide 25 mg daily, losartan 100 mg daily, metoprolol succinate 25 mg daily GENERAL: Well-appearing, well-nourished and in no acute distress. NECK: Supple without JVD or thyromegaly. LUNGS: Breath sounds clear to auscultation bilaterally. Respiration equal and unlabored. No wheezes, rales or rhonchi. HEART: Regular rate and rhythm without murmurs, rubs or gallops. S1 and S2 heard. EXTREMITIES: Normal range of motion, no edema. No clubbing or cyanosis. Peripheral pulses intact. ASSESSMENT Chest pain, atypical, acute coronary syndrome has ruled out Hypertension Dyslipidemia Family history of coronary artery disease Borderline diabetes PLAN Plan for Lexiscan stress test and echocardiogram today Continue home cardiac medications ADDENDUM: Lexiscan stress test reported predominantly fixed defect involving the inferior and inferoapical myocardium. Small areal of stress induced reversible ischemia not excluded Recommend cardiac catheterization, patient is agreeable. Will discuss with patient's primary well blower Dr. Whitfield and plan for cardiac catheterization tomorrow NPO after midnight I have discussed the risks, benefits and alternative therapies for the above- mentioned procedure and for both sedation/analgesia as well as necessary blood product administration, if indicated, as they pertain to this patient. The patient has indicated understanding and acceptance of the risks and procedures discussed. Questions have been answered appropriately and he is agreeable to move forward with the above-stated procedure. Further recommendations based on clinical course Nurse Practitioner note has been reviewed, I agree with a documented findings and plan of care. Patient was seen and examined. Objective - Vital Signs Vital signs: Vital Signs Temp 97.7 F 12/15/21 07:00 Pulse 55 L 12/15/21 07:00 Resp 14 12/15/21 07:00 BP 144/71 12/15/21 07:00 Pulse Ox 94 L 12/15/21 07:00 FiO2 21 12/15/21 03:27 Intake & Output 12/14/21 12/15/21 12/15/21 18:59 06:59 18:59 Intake Total 658 Balance 658 Intake: Oral 658 Other: # Voids 3 1 - Labs CBC & Chem 7: 12/13/21 12:46 12/14/21 07:37 Labs: Abnormal Lab Results - Last 24 Hours (Table) 12/14/21 12/14/21 12/14/21 Range/Units 04:29 11:43 20:08 POC Glucose (mg/dL) 151 H 144 H (70-110) mg/dL Triglycerides 172.00 H (0.00-149.00) mg/dL HDL Cholesterol 33.60 L (40.00-60.00) mg/dL 12/15/21 Range/Units 07:22 POC Glucose (mg/dL) 111 H (70-110) mg/dL Triglycerides (0.00-149.00) mg/dL HDL Cholesterol (40.00-60.00) mg/dL
[2021-12-15] MEDS: METOPROLOL SUCCINATE (ER) 25 MG TAB.ER.24H PO SCH (10:06)
[2021-12-15] MEDS ORDERED: REGADENOSON 0.4 MG/5 ML SYRINGE IV ONE (10:43)
--- NOTE | 2021-12-15 10:47 | NM ---
EXAMINATION TYPE: NM stress lexiscan cardiolite DATE OF EXAM: 12/15/2021 COMPARISON: NONE HISTORY: Chest pain TECHNIQUE: After the intravenous administration of 10.3 mCi Tc 99m Sestamibi - Cardiolite resting SP ECT images acquired 45 minutes post injection. The patient received 0.4mg Lexiscan, 25.4 mCi Tc 99m Sestamibi - Stress images obtained [address] injection FINDINGS: Review of stress and rest SPECT images demonstrates predominantly fixed defect involving the inferior wall myocardium. Corresponding wall motion hypokinesis. Gated analysis showsan estimated left ventr icular ejection fraction of 53 %. IMPRESSION: 1. Predominantly fixed defect involving the inferior and inferoapical myocardium. Small area of stres s-induced reversible ischemia not excluded.
[2021-12-15] MEDS ORDERED: ALPRAZolam 0.5 MG TAB PO PRN (11:47)
[2021-12-15] MEDS ORDERED: ALPRAZolam 0.25 MG TAB PO PRN (11:47)
--- NOTE | 2021-12-15 11:50 | CA ---
Lexiscan Nuclear Stress Test Report Name: Vicente Lovelace Exam Date: 12/15/2021 08:53 Exam Location: [facility] Stress Ht (in): 72 Wt (lb): 265 BSA: 2.40 Ordering Phys: Lyle Dailey MD Referring Phys: DONA,, Technologist: Micheal Hammonds Age: 61 Gender: M : 1960 Procedure CPT: Indications: Reflex order-Stress test ICD-10 Codes: Patient History: Medications: SEE CHART Meds past 24 hrs: Pretest Chest Pain: STRESS TEST Lexiscan Protocol Exercise Duration (min:sec): 02:[address] Depressions (mm): Angina Score: Peñaloza Score: Resting HR (bpm): 60 Peak HR (bpm): 94 Resting BP (mmHg): 151 / 80 Peak BP (mmHg): 169 / 63 MPHR: 157 Target HR: 133 % MPHR: 60 METS: 1.0 Total Dose: Peak Dose: Atropine: Double Product: 85673 BP Response: Stress Termination: PROTOCOL COMPLETE Stress Symptoms: NO SYMPTOMS Stress Summary: ECG ANALYSIS Resting ECG: Normal sinus rhythm normal axis normal intervals Stress ECG: Negative stress test by EKG criteria CONCLUSIONS Negative stress test by EKG criteria Cardiolite portion of the stress test will be reported separately Dr. Kyle Lynch MD (Electronically Signed) Final Date: 15 December 2021 11:49
[2021-12-15 11:51] LABS: Glucose,Whole Blood 192 mg/dL (70-110)
--- NOTE | 2021-12-15 11:55 | CA ---
Transthoracic Echo Report Name: Vicente Lovelace Age: 61 Gender: M : 1960 Exam Date: 12/15/2021 08:11 Exam Location: [facility] Ht (in): 72 Wt (lb): 265 Ordering Physician: Trung Gusman MD Attending/Referring Phys: Manager Of Supply Chain Kindra Red RDCS Procedure CPT: Indications: Chest Pain Cardiac Hx: Technical Quality: Good Contrast 1: Total Dose (mL): Contrast 2: Total Dose (mL): MEASUREMENTS (Male / Female) Normal Values 2D ECHO LV Diastolic Diameter PLAX 5.0 cm 4.2 - 5.9 / 3.9 - 5.3 cm LV Systolic Diameter PLAX 3.3 cm IVS Diastolic Thickness 1.4 cm 0.6 - 1.0 / 0.6 - 0.9 cm LVPW Diastolic Thickness 1.5 cm 0.6 - 1.0 / 0.6 - 0.9 cm LV Relative Wall Thickness 0.6 RV Internal Dim ED PLAX 4.1 cm LA Systolic Diameter LX 3.7 cm 3.0 - 4.0 / 2.7 - 3.8 cm LA Volume 68.5 cm??? 18 - 58 / 22 - 52 cm??? M-MODE Aortic Root Diameter MM 3.3 cm MV E Point Septal Separation 1.0 cm AV Cusp Separation MM 2.4 cm DOPPLER AV Peak Velocity 150.0 cm/s AV Peak Gradient 9.0 mmHg MV Area PHT 2.6 cm??? Mitral E Point Velocity 89.2 cm/s Mitral A Point Velocity 75.8 cm/s Mitral E to A Ratio 1.2 MV Deceleration Time 289.4 ms MV E' Velocity 5.9 cm/s Mitral E to MV E' Ratio 15.1 TR Peak Velocity 213.8 cm/s TR Peak Gradient 18.3 mmHg Right Ventricular Systolic Press 22.5 mmHg FINDINGS Left Ventricle Left ventricular ejection fraction is estimated at 60-65 %. Left ventricular cavity size normal. Moderate concentric left ventricular hypertrophy. Right Ventricle Severe right ventricular dilatation. Right ventricular systolic pressure within normal limits. Right Atrium Normal right atrial size. Left Atrium Mildly increased left atrial volume. Mildly increased left atrial area. No evidence for an atrial septal defect. Mitral Valve Mitral annular calcification. No mitral stenosis, regurgitation or prolapse. Aortic Valve Trileaflet aortic valve. No aortic valve stenosis or regurgitation. Tricuspid Valve Mild tricuspid regurgitation. Pulmonic Valve Structurally normal pulmonic valve. Pericardium Normal pericardium. No pericardial effusion. Aorta Normal size aortic root and proximal ascending aorta. CONCLUSIONS Normal LV systolic function Mild basal inferior wall hypokinesis Mild left atrial enlargement Mild tricuspid regurgitation Previewed by: Dr. Kyle Lynch MD (Electronically Signed) Final Date: 15 December 2021 11:54
--- NOTE | 2021-12-15 14:01 | P.PN ---
Subjective Progress Note Date: 12/15/21 CC: Chest pain which is now resolved 12/15: Mr. Lovelace was seen and examined. No chest pain or shortness of breath. Plan of care discussed with him. Vitals: Reviewed General: No acute distress HEENT: Mucous membranes moist neck supple Cardiovascular: RRR, S1-S2 Lungs: Breath sounds equal and clear to auscultation bilaterally. No wheezing, rhonchi or rales Abdomen: Soft, nontender, nondistended Extremities: No lower extremity edema Lab data reviewed 1. Chest pain, resolved Stress test cannot exclude reversible ischemia therefore left heart catheterization planned for tomorrow. Continue with aspirin and statin. Telemetry monitoring. Continue with ARB and BB. 2. Hypertension BP acceptable. Continue with HCTZ, losartan and metoprolol. 3. Hyperlipidemia Continue statin 4. ROSA Home CPAP if compliant 5. Obesity Weight loss counseling prior to discharge 6. Diabetes mellitus 2 Blood sugar acceptable. Continue SSI. 7. Asthma Inhalers as needed Disposition: Heart cath tomorrow, if negative can be discharged Objective - Vital Signs Vital signs: Vital Signs Temp 97.9 F 12/15/21 13:27 Pulse 66 12/15/21 13:27 Resp 16 12/15/21 13:27 BP 134/71 12/15/21 13:27 Pulse Ox 96 12/15/21 13:27 FiO2 21 12/15/21 03:27 Intake & Output 12/14/21 12/15/21 12/15/21 18:59 06:59 18:59 Intake Total 658 Balance 658 Intake: Oral 658 Other: # Voids 3 1 2 - Labs CBC & Chem 7: 12/13/21 12:46 12/14/21 07:37 Labs: Abnormal Lab Results - Last 24 Hours (Table) 12/14/21 12/15/21 12/15/21 Range/Units 20:08 07: 11:50 POC Glucose (mg/dL) 144 H 111 H 192 H (70-110) mg/dL
[2021-12-15 16:33] LABS: Glucose,Whole Blood 112 mg/dL (70-110)
[2021-12-15 19:22] LABS: Glucose,Whole Blood 156 mg/dL (70-110)
[2021-12-15] MEDS: MONTELUKAST 10 MG TAB PO SCH (20:35)
[2021-12-15] MEDS: ATORVASTATIN 40 MG TAB PO SCH (20:35)
[2021-12-15] MEDS: SODIUM CHLORIDE 0.9% 1,000 ML in EMPTY BAG 1 BAG IV SCH (23:19)
[2021-12-16] MEDS: NITROGLYCERIN OINT 1 INCH/GM PACKET TOPICAL SCH ×2 (00:07→05:49)
[2021-12-16 05:17] LABS: Glucose,Whole Blood 130 mg/dL (70-110)
[2021-12-16] MEDS ORDERED: ATORVASTATIN 80 MG TAB PO STA (05:21)
[2021-12-16] MEDS ORDERED: ASPIRIN 81 MG PO STA (05:21)
[2021-12-16] MEDS: ASPIRIN 81 MG PO SCH (05:49)
[2021-12-16] MEDS: KETOTIFEN 0.025% OPHTH DROPS 5 ML BTL BOTH EYES SCH (05:55)
[2021-12-16] MEDS: allopurinoL 300 MG TAB PO SCH (05:55)
[2021-12-16] MEDS: LOSARTAN 50 MG TAB PO SCH (05:55)
[2021-12-16] MEDS: FLUTICASONE 50MCG/SPRAY NASAL 16GM EA NOSTRIL SCH (05:55)
[2021-12-16] MEDS: METOPROLOL SUCCINATE (ER) 25 MG TAB.ER.24H PO SCH (05:55)
[2021-12-16] MEDS: GABAPENTIN 400 MG CAP PO SCH ×2 (05:55→15:11)
[2021-12-16] MEDS: hydroCHLOROthiazide 25 MG TAB PO SCH (05:56)
[2021-12-16] MEDS ORDERED: ATORVASTATIN 80 MG TAB PO ONE (06:07)
[2021-12-16] MEDS ORDERED: HEPARIN SODIUM,PORCINE 10,000 UNIT in SODIUM CHLORIDE 0.9% 1,000 ML IRRIGATION PRN (07:00)
[2021-12-16] MEDS ORDERED: HEPARIN SODIUM,PORCINE 2,500 UNIT in SODIUM CHLORIDE 0.9% 250 ML IRRIGATION PRN (07:00)
[2021-12-16 07:04] LABS: Glucose,Whole Blood 137 mg/dL (70-110)
[2021-12-16] MEDS: ALBUTEROL HFA INHALER INHALATION PRN ×2 (07:13→15:20)
[2021-12-16] MEDS: INSULIN ASPART (NovoLOG) 100 UNIT/ML VIAL SQ SCH ×2 (07:36→13:05)
[2021-12-16] MEDS: SODIUM CHLORIDE 0.9% 1,000 ML in EMPTY BAG 1 BAG IV SCH (08:20)
[2021-12-16] MEDS: HEPARIN SODIUM,PORCINE/PF 5,000 UNIT/0.5 ML SYRINGE SQ SCH ×2 (08:21→15:11)
[2021-12-16 09:15] LABS: Basophils # (A) 0.05 X 10*3/uL (0.00-0.10); Basophils % (A) 0.5 %; Eosinophils # (A) 0.25 X 10*3/uL (0.04-0.35); Eosinophils % (A) 2.3 %; HCT 41.6 % (39.6-50.0); HGB 13.5 g/dL (13.0-17.0); Immature Grans, Automated 0.3 %; Lymphocytes # (A) 2.67 X 10*3/uL (0.90-5.00); Lymphocytes % (A) 24.9 %; MCH 29.4 pg (27.0-32.0); MCHC 32.5 g/dL (32.0-37.0); MCV 90.6 fL (80.0-97.0); Monocytes # (A) 0.85 X 10*3/uL (0.20-1.00); Monocytes % (A) 7.9 %; NRBC Per 100 WBC 0 /100 WBCS (0.0-0.0); Neutrophils # (A) 6.87 X 10*3/uL (1.80-7.70); Neutrophils % (A) 64.1 %; Platelet Count 261 X 10*3/uL (140-440); RBC 4.59 X 10*6/uL (4.40-5.60); RDW 13.3 % (11.5-14.5); WBC 10.72 X 10*3/uL (4.50-10.00)
[2021-12-16 10:00] LABS: African American GFR (CKD) 110.2 (60.0-200.0); Anion Gap 11.7 mmol/L (10.00-18.00); BUN/Creat Ratio 18.13 Ratio (12.00-20.00); Blood Urea Nitrogen 14.5 mg/dL (9.0-27.0); Calcium 9.2 mg/dL (8.7-10.3); Carbon Dioxide 23.3 mmol/L (20.0-27.5); Non-African American GFR(CKD) 95.1 (60.0-200.0)
[2021-12-16] MEDS ORDERED: HEPARIN SODIUM 1,000 UN/ML (10ML VL) ONE (10:26)
[2021-12-16] MEDS ORDERED: VERAPAMIL 2.5 MG/ML 2 ML AMP ONE (10:27)
[2021-12-16] MEDS ORDERED: IV FLUID CONTINUATION 1,000 ML IV ONE (10:34)
[2021-12-16] MEDS ORDERED: LIDOCAINE 1% INJ 10MG/ML (5 ML VIAL-PF) SQ ONE (10:59)
[2021-12-16] MEDS ORDERED: MIDAZOLAM HCL 10 MG/10 ML VIAL IV ONE (10:59)
[2021-12-16] MEDS ORDERED: VERAPAMIL SYRINGE (5 MG/10 ML) INTRAARTER ONE (11:00)
[2021-12-16] MEDS ORDERED: HEPARIN SODIUM 1,000 UN/ML (10ML VL) IV ONE (11:01)
[2021-12-16] MEDS ORDERED: IOPAMIDOL-370 100ML BTL INJ ONE (11:10)
[2021-12-16] MEDS ORDERED: SODIUM CHLORIDE 0.9% 1,000 ML IV SCH (11:30)
[2021-12-16 11:35] VITALS: RESP 14
[2021-12-16 11:44] LABS: Glucose,Whole Blood 112 mg/dL (70-110)
--- NOTE | 2021-12-16 12:58 | P.DS ---
Providers Date of admission: 12/13/21 13:51 Expected date of discharge: 12/16/21 Attending physician: Trung Gusman MD Consults: 12/13/21 13:51 Consult Physician Urgent Consulting Provider: [facility] Consult Reason/Comments: Chest pain Do you want consulting provider notified?: Yes Primary care physician: [facility] Course: Discharge Diagnosis: Chest pain Hypertension Hyperlipidemia ROSA Obesity Diabetes mellitus type 2 Asthma Hospital Course: Patient is a 60-year-old male with a past medical history of diabetes mellitus type 2 controlled with diet, asthma, sleep apnea who presents to the ED with chest pain. Patient had a stress test done that showed fixed defect involving the inferior and inferior apical myocardium and small area of stress-induced reversible ischemia could not be excluded. Patient then had a heart catheterization done and he had no PCI intervention. The cath report is pending at the time of discharge. However cardiology cleared patient for discharge. Patient instructed to follow with cardiology outpatient. Patient seen and examined at bedside.[] Vital signs reviewed and stable. General: [non toxic], [no distress], [appears at stated age] Derm: [warm], [dry] Head: [atraumatic], [normocephalic], [symmetric] Eyes: [EOMI], [no lid lag], [anicteric sclera] Mouth: [no lip lesion], [mucus membranes moist] Cardiovascular: [S1S2 reg], [no murmur], [positive posterior tibial pulse bilateral], Lungs: [CTA bilateral], [no rhonchi, no rales] , [no accessory muscle use] Abdominal: [soft], [ nontender to palpation], [no guarding], [no appreciable organomegaly] Ext: [no gross muscle atrophy], [no edema], [no contractures] Neuro: [ CN II-XI grossly intact], [no focal neuro deficits] Psych: [Alert], [oriented], [appropriate affect] A total of [33] minutes of time were spent preparing this complex discharge summary . Patient Condition at Discharge: Good Plan - Discharge Summary Discharge Rx Participant: No New Discharge Prescriptions: Continue Fluticasone Nasal [place] [Flonase Nasal [place]] 1 spray EA NOSTRIL DAILY Montelukast Sodium [Singulair] 10 mg PO HS Gabapentin [Neurontin] 400 mg PO TID Aspirin EC [Ecotrin Low Dose] 81 mg PO DAILY #30 tablet. Atorvastatin [Lipitor] 40 mg PO HS allopurinoL [Zyloprim] 300 mg PO DAILY Metoprolol Succinate (ER) [Toprol XL] 25 mg PO DAILY hydroCHLOROthiazide 25 mg PO DAILY Cetirizine HCl [Zyrtec] 10 mg PO DAILY PRN PRN Reason: Allergy Symptoms Losartan Potassium [Cozaar] 100 mg PO DAILY Albuterol Inhaler [Ventolin Hfa Inhaler] 2 puff INHALATION RT-QID PRN PRN Reason: Shortness Of Breath Olopatadine HCl [Patanol 0.1%] 1 drop BOTH EYES BID Discontinued Ibuprofen [Motrin] 800 mg PO TID PRN PRN Reason: Pain Discharge Medication List Fluticasone Nasal [place] [Flonase Nasal [place]] 1 spray EA NOSTRIL DAILY 10/21/15 [History] Montelukast Sodium [Singulair] 10 mg PO HS 10/21/15 [History] Gabapentin [Neurontin] 400 mg PO TID 05/07/17 [History] Aspirin EC [Ecotrin Low Dose] 81 mg PO DAILY #30 tablet. 05/09/17 [Rx] Atorvastatin [Lipitor] 40 mg PO HS 07/24/17 [History] allopurinoL [Zyloprim] 300 mg PO DAILY 10/30/17 [History] Metoprolol Succinate (ER) [Toprol XL] 25 mg PO DAILY 12/01/17 [History] Cetirizine HCl [Zyrtec] 10 mg PO DAILY PRN 05/25/19 [History] hydroCHLOROthiazide 25 mg PO DAILY 05/25/19 [History] Albuterol Inhaler [Ventolin Hfa Inhaler] 2 puff INHALATION RT-QID PRN 09/24/20 [History] Olopatadine HCl [Patanol 0.1%] 1 drop BOTH EYES BID 09/24/20 [History] Losartan Potassium [Cozaar] 100 mg PO DAILY 12/13/21 [History] Follow up Appointment(s)/Referral(s): Bg Whitfield MD [STAFF PHYSICIAN] - 12/23/21 10:00 am (please schedule for n ext wednesday or wednesday Morning) Anuel Dover MD [Primary Care Provider] - 1-2 days Patient Instructions/Handouts: After Radial Heart Catheterization (GEN) Discharge Disposition: HOME SELF-CARE
[2021-12-16 15:33] VITALS: BP 114/64; PULSE 63; TEMP 97.8
[2021-12-16 17:26] LABS: Glucose,Whole Blood 163 mg/dL (70-110)
--- NOTE | 2021-12-16 21:57 | CC ---
CARDIAC CATHETERIZATION REPORT PROCEDURE: Left heart catheterization, coronary angiography. PERFORMED BY: Dr. Magaly Whitfield. SEDATION: Moderate conscious sedation time was 14 minutes. Patient was administered Versed. Oxygen saturation, hemodynamics, and EKG were monitored closely. CLINICAL INFORMATION: Mr. Vicente Lovelace is a 61-year-old gentleman, history of obstructive sleep apnea, hypertension, hyperlipidemia, and borderline diabetes mellitus. He presented to the hospital with episode of chest pain, had a positive stress test with inferior wall fixed and reversible defect, was advised cardiac cath after due discussion regarding risks, benefits, and options. PROCEDURE NOTE: Under local anesthesia and strict aseptic precautions, a 6-[place] introducer was placed in the right radial artery. Using JR4 and JL 3.5 catheters, I performed coronary angiography, and the same right catheter was used to check LV pressure, but LV gram was not performed. The sheath was taken out and TR band applied as per protocol. This patient tolerated procedure well. Saturation of the fingers of the right hand was 94%. CARDIAC CATHETERIZATION FINDINGS: The left ventricular end-diastolic pressure was 6 mmHg without any gradient across aortic valve. CORONARY ANGIOGRAPHY FINDINGS: RIGHT CORONARY ARTERY: Technically nondominant vessel, small in caliber and distribution, has minor irregularities, no significant disease. There is a conus branch that comes off very proximally and appears to supply a fair amount of myocardium. LEFT MAIN CORONARY ARTERY: Short, patent vessel, free of significant disease, bifurcates into LAD and circumflex. LEFT ANTERIOR DESCENDING CORONARY ARTERY: Good-caliber vessel, extends along the anterior wall, gives off septal and diagonal branches, runs all the way to the apex and supplies the inferoapical lateral portion of left ventricle. No significant disease in the large caliber, large distribution LAD. Distally, the LAD is small in caliber and has mild diffuse disease towards the apex. LEFT POSTERIOR CIRCUMFLEX CORONARY ARTERY: Technically, a dominant vessel gives off good-sized obtuse marginal in the mid portion and distally bifurcates into PDA and PLV, both of which supply a sizable amount of myocardium. There are minor irregularities but no significant disease in the circumflex system. The circumflex marginal has about a 40% narrowing with minor diffuse irregularities, but no significant disease. Left ventriculogram was not performed. LV pressures were checked. FINAL IMPRESSION: This patient has normal filling pressures. No gradient across aortic valve. He has left dominant system with a circumflex marginal of about 40% diffuse disease, nondominant RCA is free of significant disease. LAD has minor irregularities. RECOMMENDATIONS: I am recommending continued medical therapy with risk factor modification including statins, beta blockers, and losartan. Findings were discussed with the patient. His family was not available and he suggested that he would call the family himself. JOVON / EILEEN: [phone] /
== END 2021-12-16 18:12 | disposition home or self-care (01) ==
LOC: EC 12:18 → 6NMEDSUR 13:51
PROVIDERS: ADMIT Family Medicine; ATTEND Family Medicine
DX: R07.89 Other chest pain (principal); R00.2 Palpitations; I10 Essential (primary) hypertension; E78.5 Hyperlipidemia, unspecified; G47.33 Obstructive sleep apnea (adult) (pediatric); E11.9 Type 2 diabetes mellitus without complications; J45.909 Unspecified asthma, uncomplicated; I07.1 Rheumatic tricuspid insufficiency; E66.01 Morbid (severe) obesity due to excess calories; Z68.35 Body mass index [BMI] 35.0-35.9, adult; E87.6 Hypokalemia; R94.31 Abnormal electrocardiogram [ECG] [EKG]; I20.0 Unstable angina; I44.0 Atrioventricular block, first degree; K21.9 Gastro-esophageal reflux disease without esophagitis; M19.90 Unspecified osteoarthritis, unspecified site; L40.9 Psoriasis, unspecified; M10.9 Gout, unspecified; F41.0 Panic disorder [episodic paroxysmal anxiety]; F41.9 Anxiety disorder, unspecified; Z71.3 Dietary counseling and surveillance; Z90.49 Acquired absence of other specified parts of digestive tract; Z79.899 Other long term (current) drug therapy; Z79.82 Long term (current) use of aspirin; Z87.891 Personal history of nicotine dependence; Z81.1 Family history of alcohol abuse and dependence; Z82.49 Family history of ischemic heart disease and other diseases of the circulatory system
CPT/HCPCS: 96372 ×2; 96374; 99285; 36415; 94660 ×3; 94640 ×6; 93005; 93017; 93306; 93458; 80061; 80053; 80048 ×2; 83735; 84484; 85025 ×2; 85610; 85730; 71046; 78452; G0378 ×4; C1769 ×2; C1894; A9500; J2060; J2001; J1644 ×5; J2785; Q9967; J2250

== ENCOUNTER 2023-02-04 17:39 | Observation (INO) | payer BC ==
--- NOTE | 2023-02-04 18:08 | ED ---
Chest Pain HPI - General Source: patient, RN notes reviewed Mode of arrival: ambulatory Limitations: no limitations - History of Present Illness MD Complaint: chest pain <Sandra Juarez - Last Filed: 02/04/23 18:05> <Rasta Elena - Last Filed: 02/05/23 04:03> - General Chief Complaint: Chest Pain Stated Complaint: chest pains Time Seen by Provider: 02/04/23 18:04 - History of Present Illness Initial Comments: This is a 62 year old male who presents to the emergency department for chest pain. States that this is dull with radiation into his back and left shoulder. Also has cold sweats. He has a hx of coronary artery disease, but has not required any stents. (Sandra Juarez) 62-year-old male with history of CAD presents with chief complaint of chest pain. Pain is located primarily on the left side with radiation to the back. States that it is a dull aching pain. He admits to cold sweats. States that the pain started yesterday and was just intermittent, however today the pain is constant and worse. No shortness of breath. He admits to occasional palpitations. No nausea, vomiting, abdominal pain. No fevers, cough, congestion. Patient had a catheterization about one year ago that showed 40% disease to the left circumflex. (Rasta Elena) - Related Data Home Medications Medication Instructions Recorded Confirmed Fluticasone Nasal [place] [Flonase 1 spr EA NOSTRIL HS 10/21/15 02/04/23 Nasal [place]] Montelukast Sodium [Singulair] 10 mg PO HS 10/21/15 02/04/23 Gabapentin [Neurontin] 400 mg PO TID 05/07/17 02/04/23 Atorvastatin [Lipitor] 40 mg PO HS 07/24/17 02/04/23 allopurinoL [Zyloprim] 300 mg PO DAILY 10/30/17 02/04/23 Metoprolol Succinate (ER) [Toprol 25 mg PO DAILY 12/01/17 02/04/23 XL] Cetirizine HCl [Zyrtec] 10 mg PO DAILY PRN 05/25/19 02/04/23 hydroCHLOROthiazide 25 mg PO DAILY 05/25/19 02/04/23 Albuterol Inhaler [Ventolin Hfa 2 puff INHALATION RT-QID PRN 09/24/20 02/04/23 Inhaler] Olopatadine HCl [Patanol 0.1%] 1 drop BOTH EYES BID 09/24/20 02/04/23 Losartan Potassium [Cozaar] 100 mg PO DAILY 12/13/21 02/04/23 ALPRAZolam [Xanax] 0.25 mg PO DIRECTED PRN 02/04/23 02/04/23 Ibuprofen [Motrin] 800 mg PO TID PRN 02/04/23 02/04/23 amLODIPine [Norvasc] 5 mg PO HS 02/04/23 02/04/23 Previous Rx's Medication Instructions Recorded Aspirin EC [Ecotrin Low Dose] 81 mg PO DAILY #30 tablet. 05/09/17 Allergies Allergy/AdvReac Type Severity Reaction Status Date / Time No Known Allergies Allergy Verified 02/04/23 21:03 Review of Systems ROS Other: All systems not noted in ROS Statement are negative. <Sandra Juarez - Last Filed: 02/04/23 18:05> ROS Other: All systems not noted in ROS Statement are negative. <Rasta Elena - Last Filed: 02/05/23 04:03> ROS Statement: Those systems with pertinent positive or pertinent negative responses have been documented in the HPI. EKG Findings - EKG Comments: EKG Findings:: Sinus rhythm ventricular rate 62. TN interval 167. QRS 96. QT 413. QTC 417. Normal axis. No ischemic changes. <Rasta Elena - Last Filed: 02/05/23 04:03> Past Medical History Past Medical History: Chest Pain / Angina, Diabetes Mellitus, GERD/Reflux, Hyperlipidemia, Hypertension, Osteoarthritis (OA), Skin Disorder, Sleep Apnea/CPAP/BIPAP, Syncope Additional Past Medical History / Comment(s): psoriasis, Gout STRESS TEST 2016- NEG,DDD, STEROID INJ IN BACK, CPAP at home, TYPE II DIABETES History of Any Multi-Drug Resistant Organisms: None Reported Past Surgical History: Appendectomy, Cholecystectomy, Hernia Repair Additional Past Surgical History / Comment(s): rt inguinal hernia x 3, [facility] HERNIA REPAIR,vasectomy, Past Anesthesia/Blood Transfusion Reactions: Motion Sickness Additional Past Anesthesia/Blood Transfusion Reaction / Comment(s): no hx blood transfusion Past Psychological History: Anxiety, Panic Disorder Smoking Status: Former smoker Past Alcohol Use History: Occasional Past Drug Use History: None Reported - Past Family History Father Family Medical History: Congestive Heart Failure (CHF), Myocardial Infarction (MA) Additional Family Medical History / Comment(s): alcoholism Mother Family Medical History: Osteoarthritis (OA) <Sandra Juarez - Last Filed: 02/04/23 18:05> General Exam Limitations: no limitations <Sandra Juarez - Last Filed: 02/04/23 18:05> Limitations: no limitations General appearance: alert, in no apparent distress Head exam: Present: atraumatic, normocephalic, normal inspection Eye exam: Present: normal appearance, EOMI Neck exam: Present: normal inspection, full ROM Respiratory exam: Present: normal lung sounds bilaterally. Absent: respiratory distress, wheezes, rales, rhonchi, stridor Cardiovascular Exam: Present: regular rate, normal rhythm, normal heart sounds. Absent: systolic murmur, diastolic murmur, rubs, gallop, clicks Neurological exam: Present: alert, oriented X3, CN II-XII intact Psychiatric exam: Present: normal affect, normal mood Skin exam: Present: warm, dry, intact, normal color. Absent: rash <Rasta Elena - Last Filed: 02/05/23 04:03> - General Exam Comments Initial Comments: Visual Physical Exam Vital signs reviewed General: Well-appearing, nontoxic, no acute distress. Head: Normocephalic, atraumatic Eyes: PERRLA, EOMI ENT: Airway patent Chest: Nonlabored breathing Skin: No visual rash, normal skin tone Neuro: Alert and oriented 3 Musculoskeletal: No gross abnormalities I performed the QuickNote portion of this chart. Signed Sandra Juarez PA-C. (Sandra Juarez) Course Vital Signs 02/04/23 02/04/23 02/04/23 17:50 19:56 20:41 Temperature 98.4 F Pulse Rate 66 68 70 Respiratory 16 16 17 Rate Blood Pressure 177/78 160/81 141/70 O2 Sat by Pulse 97 96 Oximetry 02/04/23 02/04/23 02/05/23 22:02 23:34 01:31 Temperature Pulse Rate 56 L 50 L 53 L Respiratory 11 L 22 15 Rate Blood Pressure 126/67 140/60 114/68 O2 Sat by Pulse Oximetry Chest Pain MDM <Rasta Elena - Last Filed: 02/05/23 04:03> - MDM Was pt. sent in by a medical professional or institution (, [facility], DOCUMENT MANAGEMENT CONSULTANT, urgent care, hospital, or care home...) When possible be specific @ -No Did you speak to anyone other than the patient for history (EMS, parent, family, police, friend...)? What history was obtained from this source @ -No Did you review nursing and triage notes (agree or disagree)? Why? @ -I reviewed and agree with nursing and triage notes Were old charts reviewed (outside hosp., previous admission, EMS record, old EKG, old radiological studies, urgent care reports/EKG's, care home records)? Report findings @ -No old charts were reviewed Differential Diagnosis (chest pain, altered mental status, abdominal pain women, abdominal pain men, vaginal bleeding, weakness, fever, dyspnea, syncope, headache, dizziness, GI bleed, back pain, seizure, CVA, palpatations, mental health, musculoskeletal)? @ -MDM Differential Chest Pain: Stable Angina, Unstable Angina, STEMI, NSTEMI Aortic Dissection, Pneumothorax, Musculoskeletal, Esophageal Spasm GERD, Cholecystitis, Pancreatitis, Zosterâ€¦ This is not meant to be an all-inclusive list. EKG interpreted by me (3pts min.). @ -As above X-rays interpreted by me (1pt min.). @ -Chest X-ray shows no acute process CT interpreted by me (1pt min.). @ -None done U/S interpreted by me (1pt. min.). @ -None done What testing was considered but not performed or refused? (CT, X-rays, U/S, labs)? Why? @ -None What meds were considered but not given or refused? Why? @ -None Did you discuss the management of the patient with other professionals (professionals i.e. [facility] Dunlap, DOCUMENT MANAGEMENT CONSULTANT, lab, RT, psych nurse, licensed clinical social worker, popped corn oven attendant, teacher, legal officer, machine adjuster leader case trim)? Give summary @ -I spoke with Dr. Cherry who accepted admission Was smoking cessation discussed for >3mins.? @ -No Was critical care preformed (if so, how long)? @ -No Were there social determinants of health that impacted care today? How? (Homelessness, low income, unemployed, alcoholism, drug addiction, transportation, low edu. Level, literacy, decrease access to med. care, detention, rehab)? @ -No Was there de-escalation of care discussed even if they declined (Discuss DNR or withdrawal of care, Hospice)? DNR status @ -No What co-morbidities impacted this encounter? (DM, HTN, Smoking, COPD, CAD, Cancer, CVA, ARF, Chemo, Hep., AIDS, mental health diagnosis, sleep apnea, morbid obesity)? @ -CAD Was patient admitted / discharged? Hospital course, mention meds given and route, prescriptions, significant lab abnormalities, going to OR and other pertinent info. @ -62-year-old male with history of CAD presenting with chief complaint of chest pain. Physical examination is benign. Lab work is grossly negative. EKG shows no acute findings and chest x-ray is negative. Patient will be admitted for observation with evaluation by cardiology in the a.m. He is agreeable with this plan. I discussed this case with my attending Dr. Bonilla Undiagnosed new problem with uncertain prognosis? @ -No Drug Therapy requiring intensive monitoring for toxicity (Heparin, Nitro, Insulin, Cardizem)? @ -No Were any procedures done? @ -No Diagnosis/symptom? @ -Chest pain Acute, or Chronic, or Acute on Chronic? @ -Acute Uncomplicated (without systemic symptoms) or Complicated (systemic symptoms)? @ -Complicated Side effects of treatment? @ -No Exacerbation, Progression, or Severe Exacerbation? @ -No Poses a threat to life or bodily function? How? (Chest pain, [place], MA, pneumonia, PE, COPD, DKA, ARF, appy, cholecystitis, CVA, Diverticulitis, Homicidal, Suicidal, threat to staff... and all critical care pts) @ -Yes (Rasta Elena) Disposition <Sandra Juarez - Last Filed: 02/04/23 18:05> Time of Disposition: 20:18 <Rasta Elena - Last Filed: 02/05/23 04:03> Clinical Impression: Chest pain Disposition: ADMITTED IP TO THIS HOSP Condition: Fair
[2023-02-04 18:24] LABS: Basophils % (A) 0 %; Eosinophils # (A) 0.1 k/uL (0-0.7); Eosinophils % (A) 1 %; HCT 45.2 % (39.0-53.0); HGB 15.2 gm/dL (13.0-17.5); Lymphocytes # (A) 1.9 k/uL (1.0-4.8); Lymphocytes % (A) 14 %; MCH 29.3 pg (25.0-35.0); MCHC 33.6 g/dL (31.0-37.0); MCV 87.3 fL (80.0-100.0); Mean Platelet Volume 7.6; Monocytes # (A) 0.5 k/uL (0-1.0); Monocytes % (A) 4 %; Neutrophils # (A) 10.6 k/uL (1.3-7.7); Neutrophils % (A) 80 %; Platelet Count 293 k/uL (150-450); RBC 5.18 m/uL (4.30-5.90); RDW 13.8 % (11.5-15.5); WBC 13.2 k/uL (3.8-10.6)
[2023-02-04 18:32] LABS: ALT 44 U/L (4-49); AST 36 U/L (17-59); African American GFR (CKD) >90 (>60 ml/min/1.73 sqM); Albumin 4.6 g/dL (3.5-5.0); Alkaline Phosphatase 102 U/L (38-126); Anion Gap 12 mmol/L; Blood Urea Nitrogen 20 mg/dL (9-20); Calcium 9.8 mg/dL (8.4-10.2); Carbon Dioxide 23 mmol/L (22-30); Chloride 104 mmol/L (98-107); Glucose 140 mg/dL (74-99); Magnesium 2.1 mg/dL (1.6-2.3); Non-African American GFR(CKD) >90 (>60 ml/min/1.73 sqM); Potassium 3.7 mmol/L (3.5-5.1); Sodium 139 mmol/L (137-145); Total Bilirubin 0.6 mg/dL (0.2-1.3); Total Protein 7.8 g/dL (6.3-8.2)
--- NOTE | 2023-02-04 18:32 | XR ---
EXAMINATION TYPE: XR chest 2V DATE OF EXAM: 02/04/2023 COMPARISON: 12/13/21 HISTORY: Shortness of breath TECHNIQUE: Frontal and lateral views of the chest are obtained. FINDINGS: Scattered senescent parenchymal changes noted. Hyperinflation compatible with COPD. No evidence for infiltrate. No evidence for atelectasis. Heart size is stable. Mediastinal structures are stable and grossly unremarkable. No evidence for hilar prominence. Degenerative changes dorsal spine. IMPRESSION: 1. No evidence for acute pulmonary disease.
[2023-02-04 18:38] LABS: Partial Thromboplastin Time 24.6 sec (22.0-30.0)
[2023-02-04 19:13] VITALS: TEMP 98.4
[2023-02-04] MEDS ORDERED: ASPIRIN 81 MG PO STA (20:14)
[2023-02-04] MEDS ORDERED: ACETAMINOPHEN TAB 325 MG TAB PO PRN (20:17)
[2023-02-04] MEDS ORDERED: NALOXONE 0.4 MG/ML 1 ML VIAL IV PRN (20:17)
[2023-02-04] MEDS ORDERED: ALBUTEROL NEBULIZED 2.5 MG/3 ML INHALATION PRN (22:12)
[2023-02-04] MEDS ORDERED: MONTELUKAST 10 MG TAB PO SCH (22:15)
[2023-02-04] MEDS ORDERED: ATORVASTATIN 40 MG TAB PO SCH (22:15)
[2023-02-04] MEDS ORDERED: amLODIPine 5 MG TAB PO SCH (22:15)
[2023-02-04] MEDS: GABAPENTIN 400 MG CAP PO SCH (22:46)
[2023-02-04] MEDS: KETOTIFEN 0.025% OPHTH DROPS 5 ML BTL BOTH EYES SCH (22:55)
[2023-02-04] MEDS ORDERED: FLUTICASONE 50MCG/SPRAY NASAL 16GM EA NOSTRIL SCH (23:00)
[2023-02-05] MEDS ORDERED: POTASSIUM CHLORIDE ER 20 MEQ TAB.ER PO STA (08:01)
[2023-02-05] MEDS ORDERED: SODIUM CHLORIDE 0.9% 1,000 ML IV SCH (08:15)
--- NOTE | 2023-02-05 08:31 | P.CRDCN ---
History of Present Illness History of present illness: HISTORY OF PRESENT ILLNESS: This is a 62-year-old male with a past medical history significant for hypertension, hyperlipidemia, nonobstructive CAD, and morbid obesity. Patient follows in the office with Dr. Whitfield. We have been asked to see the patient in consultation for chest pain. Patient examined at the bedside. Patient states he has been working 7 days a week, 12 hour shifts. He states he has been feeling exhausted lately. He states on Wednesday he was having diarrhea and numbness of his left arm and face. He states he stayed home from work on Wednesday. He reports yesterday he began to have pain in the middle of his chest and his upper back between his shoulder blades. He states the pain is worse with deep inspiration. He decided to come to the emergency room for further evaluation. At the time of examination, the patient denies chest pain or pressure. He denies shortness of breath. Vital signs are stable. * EKG reveals sinus mechanism with no signs of acute ischemia * Chest xray negative for acute process * Laboratory data: WBC 13.2. Hemoglobin 15.2. Platelet count 293. Sodium 139. Potassium 3.7. BUN 20. Creatinine 0.73. Troponin negative 3 * Current home cardiac medications include aspirin 81 mg daily, atorvastatin 40 mg at night, losartan 100 mg daily, metoprolol succinate 25 mg daily, amlodipine 5 mg at night, Hydrocort thiazide 25 mg daily * Most recent echocardiogram obtained in December 2021 revealed normal LV systolic function, mild basilar inferior wall hypokinesis, mild TR * Cardiac catheterization history: December 2021 revealing normal filling pressures. No gradient across aortic valve. Left dominant system with circumflex with 40% diffuse disease, nondominant RCA is free of significant disease. LAD has minor irregularities. Medical management was recommended. REVIEW OF SYSTEMS: At the time of my exam: CONSTITUTIONAL: Denies fever or chills. HEENT: Denies blurred vision, vision changes, or eye pain. Denies hemoptysis CARDIOVASCULAR: Denies chest pain. Denies orthopnea. Denies PND. Denies palpitations RESPIRATORY: Denies shortness of breath. GASTROINTESTINAL: Denies abdominal pain. Denies nausea or vomiting. HEMATOLOGIC: Denies bleeding disorders. GENITOURINARY: Denies any blood in urine. SKIN: Denies pruitis. Denies rash. PHYSICAL EXAM: VITAL SIGNS: Reviewed. GENERAL: Well-developed in no acute distress. HEENT: Head is normocephalic. Pupils are equal, round. Sclerae anicteric. Mucous membranes of the mouth are moist. Neck supple. No JVD or thyromegaly LUNGS: Respirations even and unlabored. Lungs essentially clear to auscultation bilaterally. HEART: Regular rate and rhythm. S1 and S2 heard. ABDOMEN: Soft. Nondistended. Nontender. EXTREMITIES: Normal range of motion. No clubbing or cyanosis. Peripheral pulses intact. No lower extremity edema NEUROLOGIC: Awake and alert. Oriented x 3. ASSESSMENT: Chest pain, atypical, troponin negative 3 Diarrhea Hypertension Hyperlipidemia Nonobstructive CAD Morbid obesity PLAN: An acute coronary event has been ruled out No need to repeat echocardiogram at this time Resume home cardiac medications Patient may be discharged home today from a cardiac standpoint. He was instructed not to work more than 5 days a week, 8 hours per shift Patient is to follow up post discharge with Dr. Whitfield Nurse practitioner note has been reviewed by physician. Signing provider agrees with the documented findings, assessment, and plan of care. Past Medical History Past Medical History: Chest Pain / Angina, Diabetes Mellitus, GERD/Reflux, Hyperlipidemia, Hypertension, Osteoarthritis (OA), Skin Disorder, Sleep Apnea/CPAP/BIPAP, Syncope Additional Past Medical History / Comment(s): psoriasis, Gout STRESS TEST 2016- NEG,DDD, STEROID INJ IN BACK, CPAP at home, TYPE II DIABETES, sciatic nerve, neuropathy History of Any Multi-Drug Resistant Organisms: None Reported Past Surgical History: Appendectomy, Cholecystectomy, Hernia Repair, Orthopedic Surgery Additional Past Surgical History / Comment(s): rt inguinal hernia x 3, [facility] HERNIA REPAIR,vasectomy, left knee surgery Past Anesthesia/Blood Transfusion Reactions: Motion Sickness Additional Past Anesthesia/Blood Transfusion Reaction / Comment(s): no hx blood transfusion Past Psychological History: Anxiety, Panic Disorder Additional Psychological History / Comment(s): 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 LIVES ALONE IN 2ND FLOOR APT, NO PETS. 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 SERVICE Smoking Status: Former smoker Past Alcohol Use History: Occasional Additional Past Alcohol Use History / Comment(s): STARTED 1997 AND QUIT 2015 SMOKED 1 PPD Past Drug Use History: None Reported - Past Family History Father Family Medical History: Congestive Heart Failure (CHF), Myocardial Infarction ([place]) Additional Family Medical History / Comment(s): alcoholism Mother Family Medical History: Osteoarthritis (OA) Medications and Allergies Home Medications Medication Instructions Recorded Confirmed Type Fluticasone Nasal [place] [Flonase 1 spr EA NOSTRIL HS 10/21/15 02/04/23 History Nasal [place]] Montelukast Sodium [Singulair] 10 mg PO HS 10/21/15 02/04/23 History Gabapentin [Neurontin] 400 mg PO TID 05/07/17 02/04/23 History Aspirin EC [Ecotrin Low Dose] 81 mg PO DAILY #30 tablet. 05/09/17 02/04/23 Rx Atorvastatin [Lipitor] 40 mg PO HS 07/24/17 02/04/23 History allopurinoL [Zyloprim] 300 mg PO DAILY 10/30/17 02/04/23 History Metoprolol Succinate (ER) [Toprol 25 mg PO DAILY 12/01/17 02/04/23 History XL] Cetirizine HCl [Zyrtec] 10 mg PO DAILY PRN 05/25/19 02/04/23 History hydroCHLOROthiazide 25 mg PO DAILY 05/25/19 02/04/23 History Albuterol Inhaler [Ventolin Hfa 2 puff INHALATION RT-QID PRN 09/24/20 02/04/23 History Inhaler] Olopatadine HCl [Patanol 0.1%] 1 drop BOTH EYES BID 09/24/20 02/04/23 History Losartan Potassium [Cozaar] 100 mg PO DAILY 12/13/21 02/04/23 History ALPRAZolam [Xanax] 0.25 mg PO DIRECTED PRN 02/04/23 02/04/23 History Ibuprofen [Motrin] 800 mg PO TID PRN 02/04/23 02/04/23 History amLODIPine [Norvasc] 5 mg PO HS 02/04/23 02/04/23 History Allergies Allergy/AdvReac Type Severity Reaction Status Date / Time No Known Allergies Allergy Verified 02/04/23 21:03 Physical Exam Vitals: Vital Signs Temp Pulse Resp BP Pulse Ox 02/05/23 04:00 50 L 16 109/59 98 02/05/23 01:31 53 L 15 114/68 02/04/23 23:34 50 L 22 140/60 02/04/23 22:02 56 L 11 L 126/67 02/04/23 20:41 70 17 141/70 96 02/04/23 19:56 68 16 160/81 02/04/23 17:50 98.4 F 66 16 177/78 97 Intake and Output 02/04/23 02/05/23 02/05/23 22:59 06:59 14:59 Other: Weight 117.934 kg Results 02/04/23 17:54 02/04/23 17:54 Cardiac Enzymes 02/04/23 02/04/23 02/04/23 Range/Units 17:54 17:54 21:05 AST 36 (17-59) U/L Troponin I <0.012 <0.012 (0.000-0.034) ng/mL 02/04/23 Range/Units 23:54 AST (17-59) U/L Troponin I <0.012 (0.000-0.034) ng/mL Coagulation 02/04/23 Range/Units 17:54 PT 11.0 (9.0-12.0) sec APTT 24.6 (22.0-30.0) sec CBC 02/04/23 Range/Units 17:54 WBC 13.2 H (3.8-10.6) k/uL RBC 5.18 (4.30-5.90) m/uL Hgb 15.2 (13.0-17.5) gm/dL Hct 45.2 (39.0-53.0) % Plt Count 293 (150-450) k/uL Comprehensive Metabolic Panel 02/04/23 Range/Units 17:54 Sodium 139 (137-145) mmol/L Potassium 3.7 (3.5-5.1) mmol/L Chloride 104 (98-107) mmol/L Carbon Dioxide 23 (22-30) mmol/L BUN 20 (9-20) mg/dL Creatinine 0.73 (0.66-1.25) mg/dL Glucose 140 H (74-99) mg/dL Calcium 9.8 (8.4-10.2) mg/dL AST 36 (17-59) U/L ALT 44 (4-49) U/L Alkaline Phosphatase 102 (38-126) U/L Total Protein 7.8 (6.3-8.2) g/dL Albumin 4.6 (3.5-5.0) g/dL Current Medications Generic Name Dose Route Start Last Admin Trade Name Freq PRN Reason Stop Dose Admin Acetaminophen 650 mg 02/04/23 20:17 Acetaminophen Tab 325 Mg Tab PO Q6HR PRN Mild Pain or Fever > 100.5 Albuterol Sulfate 2.5 mg 02/04/23 22:12 Albuterol Nebulized 2.5 Mg/3 Ml INHALATION RT-QID PRN Shortness Of Breath Allopurinol 300 mg 02/05/23 09:00 Allopurinol 300 Mg Tab PO DAILY MARIAELENA Amlodipine Besylate 5 mg 02/04/23 22:15 02/04/23 22:47 Amlodipine 5 Mg Tab PO 5 mg HS MARIAELENA Administration Aspirin 81 mg 02/05/23 09:00 Aspirin 81 Mg PO DAILY MARIAELENA Atorvastatin Calcium 40 mg 02/04/23 22:15 02/04/23 22:46 Atorvastatin 40 Mg Tab PO 40 mg HS MARIAELENA Administration Fluticasone Propionate 1 spray 02/04/23 23:00 02/04/23 22:55 Fluticasone 50mcg/[place] Nasal 16gm EA NOSTRIL 1 spray HS MARIAELENA Administration Gabapentin 400 mg 02/04/23 22:15 02/04/23 22:46 Gabapentin 400 Mg Cap PO 400 mg TID MARIAELENA Administration Ketotifen Fumarate 1 drops 02/04/23 22:15 02/04/23 22:55 Ketotifen 0.025% Ophth Drops 5 Ml Btl BOTH EYES 1 drops BID MARIAELENA Administration Losartan Potassium 100 mg 02/05/23 09:00 Losartan 50 Mg Tab PO DAILY [facility] Metoprolol Succinate 25 mg 02/05/23 09:00 Metoprolol Succinate (Er) 25 Mg Tab.Er.24h PO DAILY [facility] Montelukast Sodium 10 mg 02/04/23 22:15 02/04/23 22:47 Montelukast 10 Mg Tab PO 10 mg HS MARIAELENA Administration Naloxone HCl 0.2 mg 02/04/23 20:17 Naloxone 0.4 Mg/Ml 1 Ml Vial IV Q2M PRN Opioid Reversal Intake and Output 02/04/23 02/05/23 02/05/23 22:59 06:59 14:59 Other: Weight 117.934 kg 02/04/23 17:54 02/04/23 17:54
[2023-02-05] MEDS ORDERED: allopurinoL 300 MG TAB PO SCH (09:00)
[2023-02-05] MEDS ORDERED: LOSARTAN 50 MG TAB PO SCH (09:00)
[2023-02-05] MEDS ORDERED: METOPROLOL SUCCINATE (ER) 25 MG TAB.ER.24H PO SCH (09:00)
[2023-02-05] MEDS ORDERED: ASPIRIN 81 MG PO SCH (09:00)
[2023-02-05] MEDS: GABAPENTIN 400 MG CAP PO SCH (09:32)
[2023-02-05] MEDS: KETOTIFEN 0.025% OPHTH DROPS 5 ML BTL BOTH EYES SCH (09:33)
[2023-02-05 10:41] VITALS: RESP 18
[2023-02-05 12:26] VITALS: BP 120/76; PULSE 62
--- NOTE | 2023-02-05 14:55 | P.HPIM ---
History of Present Illness H&P Date: 02/05/23 Chief Complaint: Chest pain History of presenting complaint: This is a 62-year-old patient, follows with Patti Jaffe/Dr. Dover. Chronic stable medical conditions include diabetes, GERD, hypertension, hyperlipidemia, osteoarthritis, obstructive Sleep apnea, scoliosis, gout, has a CPAP at home. Patient has been working anywhere from 10-12 hours a day 7 days weak since July of this year. 4 days ago patient felt some weakness of the left arm. Decided to go home. From work felt exhausted. Next day felt very exhausted and tired. Stayed home most of the day. Yesterday developed some palpitations and pain in the middle of the back still feeling tired. Decided to come in admitted to rule out unstable angina. Patient does take Neurontin for sciatica. Review of systems: GEN.: Tired EYES: None HEENT: None NECK: None RESPIRATORY: None CARDIOVASCULAR: As above GASTROINTESTINAL: None GENITOURINARY: None MUSCULOSKELETAL: None LYMPHATICS: None HEMATOLOGICAL: None PSYCHIATRY: None NEUROLOGICAL: She does not sleep well. Past medical history to include: Diabetes mellitus, GERD, hypertension, hyperlipidemia, osteoarthritis, scoliosis, obstructive sleep apnea uses CPAP, gout, anxiety Social history: Lives alone. Works at [employer]. smoked for 18 years 1 pack a day stopped in 2015. Alcohol-Occasionally. Physical examination: VITAL SIGNS: 98.4, 50, 16, 109/59, 98% room air GENERAL: BMI 35.3, declining in bed EYES: Pupils equal. Conjunctiva normal. HEENT: External appearance of nose and ears normal, oral cavity grossly normal. NECK: JVD not raised; masses not palpable. HEART: First and second heart sounds are normal; no edema. LUNGS: Respiratory rate normal; clear to auscultation. ABDOMEN: Soft, nontender, liver spleen not palpable, no masses palpable. PSYCH: Alert and oriented x3; mood and affect normal. NEUROLOGICAL: Cranial nerves grossly intact; no facial asymmetry, power and sensation grossly intact. LYMPHATICS: No lymph nodes palpable in the axilla and neck INVESTIGATIONS, reviewed in the clinical context: White count 13.2 hemoglobin 15.2 platelets 293 sodium 139 potassium 3.7 creatinine 0.73 Troponin I less than 0.0123 Influenza type A, B, RSV, COVID-19: Not detected EKG tracing personally reviewed by me-normal sinus rhythm Chest x-ray film personally reviewed by me-unremarkable Assessment and plan: -Presenting with pain between the shoulder blade tired for 2 days palpitations. EKG unremarkable. Troponin negative.: Questionable unstable angina Telemetry. Cardiology consulted. -Essential hypertension on Cozaar, Toprol-XL, amlodipine. -Hyperlipidemia On Lipitor -Chronic gout On allopurinol -Anxiety not otherwise specified On Xanax when necessary -Obstructive sleep apnea Uses CPAP -Obesity BMI 35.3 Weight loss measures, outpatient -Insomnia Discussed with patient. Cardiology was consulted. Past Medical History Past Medical History: Chest Pain / Angina, Diabetes Mellitus, GERD/Reflux, Hyperlipidemia, Hypertension, Osteoarthritis (OA), Skin Disorder, Sleep Apnea/CPAP/BIPAP, Syncope Additional Past Medical History / Comment(s): psoriasis, Gout STRESS TEST 2016- NEG,DDD, STEROID INJ IN BACK, CPAP at home, TYPE II DIABETES, sciatic nerve, neuropathy History of Any Multi-Drug Resistant Organisms: None Reported Past Surgical History: Appendectomy, Cholecystectomy, Hernia Repair, Orthopedic Surgery Additional Past Surgical History / Comment(s): rt inguinal hernia x 3, [facility] HERNIA REPAIR,vasectomy, left knee surgery Past Anesthesia/Blood Transfusion Reactions: Motion Sickness Additional Past Anesthesia/Blood Transfusion Reaction / Comment(s): no hx blood transfusion Past Psychological History: Anxiety, Panic Disorder Additional Psychological History / Comment(s): 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 LIVES ALONE IN 2ND FLOOR APT, NO PETS. 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 SERVICE Smoking Status: Former smoker Past Alcohol Use History: Occasional Additional Past Alcohol Use History / Comment(s): STARTED 1997 AND QUIT 2015 SMOKED 1 PPD Past Drug Use History: None Reported - Past Family History Father Family Medical History: Congestive Heart Failure (CHF), Myocardial Infarction ([place]) Additional Family Medical History / Comment(s): alcoholism Mother Family Medical History: Osteoarthritis (OA) Medications and Allergies Home Medications Medication Instructions Recorded Confirmed Type Fluticasone Nasal [place] [Flonase 1 spr EA NOSTRIL HS 10/21/15 02/04/23 History Nasal [place]] Montelukast Sodium [Singulair] 10 mg PO HS 10/21/15 02/04/23 History Gabapentin [Neurontin] 400 mg PO TID 05/07/17 02/04/23 History Aspirin EC [Ecotrin Low Dose] 81 mg PO DAILY #30 tablet. 05/09/17 02/04/23 Rx Atorvastatin [Lipitor] 40 mg PO HS 07/24/17 02/04/23 History allopurinoL [Zyloprim] 300 mg PO DAILY 10/30/17 02/04/23 History Metoprolol Succinate (ER) [Toprol 25 mg PO DAILY 12/01/17 02/04/23 History XL] Cetirizine HCl [Zyrtec] 10 mg PO DAILY PRN 05/25/19 02/04/23 History hydroCHLOROthiazide 25 mg PO DAILY 05/25/19 02/04/23 History Albuterol Inhaler [Ventolin Hfa 2 puff INHALATION RT-QID PRN 09/24/20 02/04/23 H istory Inhaler] Olopatadine HCl [Patanol 0.1%] 1 drop BOTH EYES BID 09/24/20 02/04/23 History Losartan Potassium [Cozaar] 100 mg PO DAILY 12/13/21 02/04/23 History ALPRAZolam [Xanax] 0.25 mg PO DIRECTED PRN 02/04/23 02/04/23 History Ibuprofen [Motrin] 800 mg PO TID PRN 02/04/23 02/04/23 History amLODIPine [Norvasc] 5 mg PO HS 02/04/23 02/04/23 History Allergies Allergy/AdvReac Type Severity Reaction Status Date / Time No Known Allergies Allergy Verified 02/04/23 21:03 Physical Exam Vitals: Vital Signs Temp Pulse Resp BP Pulse Ox 02/05/23 04:00 50 L 16 109/59 98 02/05/23 01:31 53 L 15 114/68 02/04/23 23:34 50 L 22 140/60 02/04/23 22:02 56 L 11 L 126/67 02/04/23 20:41 70 17 141/70 96 02/04/23 19:56 68 16 160/81 02/04/23 17:50 98.4 F 66 16 177/78 97 Intake and Output 02/04/23 02/05/23 02/05/23 22:59 06:59 14:59 Other: Weight 117.934 kg Results CBC & Chem 7: 02/04/23 17:54 02/04/23 17:54 Labs: Abnormal Lab Results - Last 24 Hours (Table) 02/04/23 02/04/23 Range/Units 17:54 17:54 WBC 13.2 H (3.8-10.6) k/uL Neutrophils # 10.6 H (1.3-7.7) k/uL Glucose 140 H (74-99) mg/dL Thrombosis Risk Factor Assmnt - Choose All That Apply Any of the Below Risk Factors Present?: Yes Each Factor Represents 1 point: Obesity (BMI >25) Other Risk Factors: Yes Each Risk Factor Represents 2 Points: Age 61-74 years Thrombosis Risk Factor Assessment Total Risk Factor Score: 3 Thrombosis Risk Factor Assessment Level: Moderate Risk
--- NOTE | 2023-02-05 21:16 | P.DS ---
Providers Date of admission: 02/04/23 20:39 Expected date of discharge: 02/05/23 Attending physician: Joseph Cherry Consults: 02/04/23 20:17 Consult Physician Urgent Consulting Provider: [facility] Consult Reason/Comments: chest pain Do you want consulting provider notified?: Yes Primary care physician: [facility] Course: Chief Complaint: Chest pain History of presenting complaint: This is a 62-year-old patient, follows with Patti Jaffe/Dr. Dover. Chronic stable medical conditions include diabetes, GERD, hypertension, hyperlipidemia, osteoarthritis, obstructive Sleep apnea, scoliosis, gout, has a CPAP at home. Patient has been working anywhere from 10-12 hours a day 7 days weak since July of this year. 4 days ago patient felt some weakness of the left arm. Decided to go home. From work felt exhausted. Next day felt very exhausted and tired. Stayed home most of the day. Yesterday developed some palpitations and pain in the middle of the back still feeling tired. Decided to come in admitted to rule out unstable angina. Patient does take Neurontin for sciatica. Patient was seen by krunal Godfrey for discharge. He was advised not to work more than 5 days a week 8 hour shifts per cardiology. Follow up with Dr. PAM Whitfield. Past medical history to include: Diabetes mellitus, GERD, hypertension, hyperlipidemia, osteoarthritis, scoliosis, obstructive sleep apnea uses CPAP, gout, anxiety Social history: Lives alone. Works at [employer]. smoked for 18 years 1 pack a day stopped in 2015. Alcohol-Occasionally. Physical examination: VITAL SIGNS: 62, 18, 120/76, 97% room air GENERAL: BMI 35.3, declining in bed EYES: Pupils equal. Conjunctiva normal. HEENT: External appearance of nose and ears normal, oral cavity grossly normal. NECK: JVD not raised; masses not palpable. HEART: First and second heart sounds are normal; no edema. LUNGS: Respiratory rate normal; clear to auscultation. ABDOMEN: Soft, nontender, liver spleen not palpable, no masses palpable. PSYCH: Alert and oriented x3; mood and affect normal. NEUROLOGICAL: Cranial nerves grossly intact; no facial asymmetry, power and sensation grossly intact. LYMPHATICS: No lymph nodes palpable in the axilla and neck INVESTIGATIONS, reviewed in the clinical context: White count 13.2 hemoglobin 15.2 platelets 293 sodium 139 potassium 3.7 creatinine 0.73 Troponin I less than 0.0123 Influenza type A, B, RSV, COVID-19: Not detected EKG tracing personally reviewed by me-normal sinus rhythm Chest x-ray film personally reviewed by me-unremarkable Assessment and plan: -Presenting with pain between the shoulder blade tired for 2 days palpitations. EKG unremarkable. Troponin negative.: Questionable unstable angina Seen by Dr. PAM Whitfield from [facility]. Cleared for discharge. Follow-up outpatient. No change in medications. -Essential hypertension on Cozaar, Toprol-XL, amlodipine. -Hyperlipidemia On Lipitor -Chronic gout On allopurinol -Anxiety not otherwise specified On Xanax when necessary -Obstructive sleep apnea Uses CPAP -Obesity BMI 35.3 Weight loss measures, outpatient -Insomnia -Full code Disposition: Home Past Medical History Past Medical History: Chest Pain / Angina, Diabetes Mellitus, GERD/Reflux, Hyperlipidemia, Hypertension, Osteoarthritis (OA), Skin Disorder, Sleep Apnea/CPAP/BIPAP, Syncope Additional Past Medical History / Comment(s): psoriasis, Gout STRESS TEST 2016- NEG,DDD, STEROID INJ IN BACK, CPAP at home, TYPE II DIABETES, sciatic nerve, neuropathy History of Any Multi-Drug Resistant Organisms: None Reported Past Surgical History: Appendectomy, Cholecystectomy, Hernia Repair, Orthopedic Surgery Additional Past Surgical History / Comment(s): rt inguinal hernia x 3, [facility] HERNIA REPAIR,vasectomy, left knee surgery Past Anesthesia/Blood Transfusion Reactions: Motion Sickness Additional Past Anesthesia/Blood Transfusion Reaction / Comment(s): no hx blood transfusion Past Psychological History: Anxiety, Panic Disorder Additional Psychological History / Comment(s): 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 LIVES ALONE IN 2ND FLOOR APT, NO PETS. 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 SERVICE Smoking Status: Former smoker Past Alcohol Use History: Occasional Additional Past Alcohol Use History / Comment(s): STARTED 1997 AND QUIT 2016 SMOKED 1 PPD Past Drug Use History: None Reported - Past Family History Father Family Medical History: Congestive Heart Failure ([place]), Myocardial Infarction ([place]) Additional Family Medical History / Comment(s): alcoholism Mother Family Medical History: Osteoarthritis ([place]) Plan - Discharge Summary Discharge Rx Participant: Yes New Discharge Prescriptions: Continue Fluticasone Nasal [place] [Flonase Nasal [place]] 1 spr EA NOSTRIL HS Montelukast Sodium [Singulair] 10 mg PO HS Gabapentin [Neurontin] 400 mg PO TID Aspirin EC [Ecotrin Low Dose] 81 mg PO DAILY #30 tablet. Atorvastatin [Lipitor] 40 mg PO HS allopurinoL [Zyloprim] 300 mg PO DAILY Metoprolol Succinate (ER) [Toprol XL] 25 mg PO DAILY hydroCHLOROthiazide 25 mg PO DAILY Cetirizine HCl [Zyrtec] 10 mg PO DAILY PRN PRN Reason: Allergy Symptoms Losartan Potassium [Cozaar] 100 mg PO DAILY Ibuprofen [Motrin] 800 mg PO TID PRN PRN Reason: Pain ALPRAZolam [Xanax] 0.25 mg PO DIRECTED PRN PRN Reason: Anxiety Albuterol Inhaler [Ventolin Hfa Inhaler] 2 puff INHALATION RT-QID PRN PRN Reason: Shortness Of Breath Olopatadine HCl [Patanol 0.1%] 1 drop BOTH EYES BID amLODIPine [Norvasc] 5 mg PO HS Discharge Medication List Fluticasone Nasal [place] [Flonase Nasal [place]] 1 spr EA NOSTRIL HS 10/21/15 [History] Montelukast Sodium [Singulair] 10 mg PO HS 10/21/15 [History] Gabapentin [Neurontin] 400 mg PO TID 05/07/17 [History] Aspirin EC [Ecotrin Low Dose] 81 mg PO DAILY #30 tablet. 05/09/17 [Rx] Atorvastatin [Lipitor] 40 mg PO HS 07/24/17 [History] allopurinoL [Zyloprim] 300 mg PO DAILY 10/30/17 [History] Metoprolol Succinate (ER) [Toprol XL] 25 mg PO DAILY 12/01/17 [History] Cetirizine HCl [Zyrtec] 10 mg PO DAILY PRN 05/25/19 [History] hydroCHLOROthiazide 25 mg PO DAILY 05/25/19 [History] Albuterol Inhaler [Ventolin Hfa Inhaler] 2 puff INHALATION RT-QID PRN 09/24/20 [History] Olopatadine HCl [Patanol 0.1%] 1 drop BOTH EYES BID 09/24/20 [History] Losartan Potassium [Cozaar] 100 mg PO DAILY 12/13/21 [History] ALPRAZolam [Xanax] 0.25 mg PO DIRECTED PRN 02/04/23 [History] Ibuprofen [Motrin] 800 mg PO TID PRN 02/04/23 [History] amLODIPine [Norvasc] 5 mg PO HS 02/04/23 [History] Follow up Appointment(s)/Referral(s): Bg Whitfield MD [STAFF PHYSICIAN] - 1 Week Anuel Dover MD [Primary Care Provider] - 1-2 days Discharge Disposition: HOME SELF-CARE
== END 2023-02-05 12:26 | disposition home or self-care (01) ==
LOC: EC 17:39 → 6NMEDSUR 20:39
PROVIDERS: ADMIT Hospitalist; ATTEND Hospitalist
DX: R07.89 Other chest pain (principal); R00.2 Palpitations; M54.6 Pain in thoracic spine; I25.10 Atherosclerotic heart disease of native coronary artery without angina pectoris; I10 Essential (primary) hypertension; E11.40 Type 2 diabetes mellitus with diabetic neuropathy, unspecified; E78.5 Hyperlipidemia, unspecified; G47.33 Obstructive sleep apnea (adult) (pediatric); I07.1 Rheumatic tricuspid insufficiency; M54.30 Sciatica, unspecified side; M41.9 Scoliosis, unspecified; K21.9 Gastro-esophageal reflux disease without esophagitis; M1A.9XX0 Chronic gout, unspecified, without tophus (tophi); M19.90 Unspecified osteoarthritis, unspecified site; L40.9 Psoriasis, unspecified; G47.00 Insomnia, unspecified; R53.1 Weakness; R53.83 Other fatigue; F41.0 Panic disorder [episodic paroxysmal anxiety]; R19.7 Diarrhea, unspecified; R61 Generalized hyperhidrosis; E66.01 Morbid (severe) obesity due to excess calories; Z68.35 Body mass index [BMI] 35.0-35.9, adult; Z20.822 Contact with and (suspected) exposure to COVID-19; Z79.899 Other long term (current) drug therapy; Z79.82 Long term (current) use of aspirin; Z87.891 Personal history of nicotine dependence; Z98.52 Vasectomy status; Z98.890 Other specified postprocedural states; Z90.49 Acquired absence of other specified parts of digestive tract; Z82.49 Family history of ischemic heart disease and other diseases of the circulatory system; Z81.1 Family history of alcohol abuse and dependence; Z82.61 Family history of arthritis
CPT/HCPCS: 96360; 96361; 99285; 36415; 93005; 80053; 83735; 84484; 85025; 85610; 85730; 87636; 71046; G0378 ×2

== ENCOUNTER 2023-06-03 10:55 | Inpatient (IN) | payer BC ==
[2023-06-03] MEDS ORDERED: ASPIRIN 81 MG PO STA (11:28)
--- NOTE | 2023-06-03 11:31 | ED ---
General Adult HPI - General Chief complaint: Chest Pain Stated complaint: Chest Pain Time Seen by Provider: 06/03/23 11:03 Source: patient Mode of arrival: ambulatory Limitations: no limitations - History of Present Illness Initial comments: Dictation was produced using [employer] dictation software. please excuse any grammatical, word or spelling errors. Chief Complaint: 62-year-old male with known coronary artery disease presents to the ER for chest pain History of Present Illness: Patient 62-year-old male with known coronary artery disease presents to the ER for on and off symptoms of chest pain. He describes the pain as tightness to his substernal area. Nonradiating is associated with some nausea and diaphoresis. He has been getting some dizziness. He has known coronary artery disease seen on cardiac catheterization a year and a half ago. Patient states that he is asymptomatic at the bedside currently. Denies any cough runny nose or sore throat. No associated shortness of breath. He states that he has had some chills and his mother was recently admitted to the hospital for pneumonia. The ROS documented in this emergency department record has been reviewed and confirmed by me. Those systems with pertinent positive or negative responses have been documented in the HPI. All other systems are other negative and/or noncontributory. - Related Data Home Medications Medication Instructions Recorded Confirmed Fluticasone Nasal [place] [Flonase 1 spr EA NOSTRIL HS PRN 10/21/15 06/03/23 Nasal [place]] Montelukast Sodium [Singulair] 10 mg PO HS 10/21/15 06/03/23 Gabapentin [Neurontin] 400 mg PO TID 05/07/17 06/03/23 Atorvastatin [Lipitor] 40 mg PO HS 07/24/17 06/03/23 allopurinoL [Zyloprim] 300 mg PO DAILY 10/30/17 06/03/23 Metoprolol Succinate (ER) [Toprol 25 mg PO DAILY 12/01/17 06/03/23 XL] Cetirizine HCl [Zyrtec] 10 mg PO DAILY PRN 05/25/19 06/03/23 hydroCHLOROthiazide 25 mg PO DAILY 05/25/19 06/03/23 Albuterol Inhaler [Ventolin Hfa 2 puff INHALATION RT-QID PRN 09/24/20 06/03/23 Inhaler] Olopatadine HCl [Patanol 0.1%] 1 drop BOTH EYES HS 09/24/20 06/03/23 Losartan Potassium [Cozaar] 100 mg PO DAILY 12/13/21 06/03/23 ALPRAZolam [Xanax] 0.25 mg PO DAILY PRN 02/04/23 06/03/23 Ibuprofen [Motrin] 800 mg PO TID PRN 02/04/23 06/03/23 amLODIPine [Norvasc] 5 mg PO HS 02/04/23 06/03/23 Allergies Allergy/AdvReac Type Severity Reaction Status Date / Time No Known Allergies Allergy Verified 06/03/23 11:59 Review of Systems ROS Statement: Those systems with pertinent positive or pertinent negative responses have been documented in the HPI. ROS Other: All systems not noted in ROS Statement are negative. Past Medical History Past Medical History: Chest Pain / Angina, Diabetes Mellitus, GERD/Reflux, Hyperlipidemia, Hypertension, Osteoarthritis (OA), Skin Disorder, Sleep Apnea/CPAP/BIPAP, Syncope Additional Past Medical History / Comment(s): psoriasis, Gout STRESS TEST 2016- NEG,DDD, STEROID INJ IN BACK, CPAP at home, TYPE II DIABETES, sciatic nerve, neuropathy History of Any Multi-Drug Resistant Organisms: None Reported Past Surgical History: Appendectomy, Cholecystectomy, Hernia Repair, Orthopedic Surgery Additional Past Surgical History / Comment(s): rt inguinal hernia x 3, [facility] HERNIA REPAIR,vasectomy, left knee surgery Past Anesthesia/Blood Transfusion Reactions: Motion Sickness Additional Past Anesthesia/Blood Transfusion Reaction / Comment(s): no hx blood transfusion Past Psychological History: Anxiety, Panic Disorder Smoking Status: Former smoker Past Alcohol Use History: Occasional Past Drug Use History: None Reported - Past Family History Father Family Medical History: Congestive Heart Failure (CHF), Myocardial Infarction (OR) Additional Family Medical History / Comment(s): alcoholism Mother Family Medical History: Osteoarthritis (OA) General Exam - General Exam Comments Initial Comments: PHYSICAL EXAM: General Impression: Alert and oriented x3, not in acute distress HEENT: Normocephalic atraumatic, extra-ocular movements intact, pupils equal and reactive to light bilaterally, mucous membranes moist. Cardiovascular: Heart regular rate and rhythm Chest: Able to complete full sentences, no retractions, no tachypnea Abdomen: abdomen soft, non-tender, non-distended, no organomegaly Musculoskeletal: Pulses present and equal in all extremities, no peripheral edema Motor: no focal deficits noted Neurological: CN II-XII grossly intact, no focal motor or sensory deficits noted Skin: Intact with no visualized rashes Psych: Normal affect and mood Limitations: no limitations Course Vital Signs 06/03/23 06/03/23 11:00 11:39 Pulse Rate 82 74 Respiratory 18 18 Rate Blood Pressure 149/77 143/87 O2 Sat by Pulse 98 Oximetry EKG Findings - EKG Comments: EKG Findings:: My EKG interpretation: Ventricular rate 75, sinus rhythm,. 1-10, cures 1-2, QTc 454. No VA prolongation, no QTC prolongation, no ST or T-wave changes noted. Overall, this EKG is unremarkable Medical Decision Making - Medical Decision Making Was pt. sent in by a medical professional or institution (, PA, TRAFFIC SIGN ERECTION SUPERVISOR, urgent care, hospital, or senior living...) When possible be specific @ -No Did you speak to anyone other than the patient for history (EMS, parent, family, police, friend...)? What history was obtained from this source @ -No Did you review nursing and triage notes (agree or disagree)? Why? @ -I reviewed and agree with nursing and triage notes Were old charts reviewed (outside hosp., previous admission, EMS record, old E KG, old radiological studies, urgent care reports/EKG's, senior living records)? Report findings @ -No old charts were reviewed Differential Diagnosis (chest pain, altered mental status, abdominal pain women, abdominal pain men, vaginal bleeding, musculoskeletal, weakness, fever, dyspnea, syncope, headache, dizziness, GI bleed, back pain, seizure, CVA, palpatations, mental health)? @ -Differential Chest Pain: Stable Angina, Unstable Angina, STEMI, NSTEMI Aortic Dissection, Pneumothorax, Musculoskeletal, Esophageal Spasm GERD, Cholecystitis, Pancreatitis, Zoster, this is not meant to be an all-inclusive list. EKG interpreted by me (3pts min.). @ -See above X-rays interpreted by me (1pt min.). @ -Chest x-ray is nonacute CT interpreted by me (1pt min.). @ -None done U/S interpreted by me (1pt. min.). @ -None done What testing was considered but not performed or refused? (CT, X-rays, U/S, labs)? Why? @ -None What meds were considered but not given or refused? Why? @ -None Did you discuss the management of the patient with other professionals (professionals i.e. , PA, TRAFFIC SIGN ERECTION SUPERVISOR, lab, RT, psych nurse, social welfare clerk, lab technician, teacher, customer service officer, geriatric case manager)? Give summary @ -Case discussed with hospitalist for admission Was smoking cessation discussed for >3mins.? @ -No Was critical care preformed (if so, how long)? @ -No Were there social determinants of health that impacted care today? How? (Homelessness, low income, unemployed, alcoholism, drug addiction, transport ation, low edu. Level, literacy, decrease access to med. care, group home, rehab)? @ -No Was there de-escalation of care discussed even if they declined (Discuss DNR or withdrawal of care, Hospice)? DNR status @ -No What co-morbidities impacted this encounter? (DM, HTN, Smoking, COPD, CAD, Cancer, CVA, ARF, Chemo, Hep., AIDS, mental health diagnosis, sleep apnea, morbid obesity)? @ -None Was patient admitted / discharged? Hospital course, mention meds given and route, prescriptions, significant lab abnormalities, going to OR and other pertinent info. @ -62-year-old male presents emergency department for chest pain. He has known history of coronary artery disease. Vital signs stable. Patient well- appearing at the bedside. Physical examination is negative. EKG is unremarkable. Lab testing is negative. Troponin is negative. Patient is high risk. Disposition options were discussed he is agreeable for observation admission. Given aspirin. Admitted with consultation to cardiology Undiagnosed new problem with uncertain prognosis? @ -No Drug Therapy requiring intensive monitoring for toxicity (Heparin, Nitro, Insulin, Cardizem)? @ -No Were any procedures done? @ -No Diagnosis/symptom? Acute, or Chronic, or Acute on Chronic? Uncomplicated (without systemic symptoms) or Complicated (systemic symptoms)? @ -Chest pain Side effects of treatment? @ -No Exacerbation, Progression, or Severe Exacerbation? @ -No Poses a threat to life or bodily function? How? (Chest pain, USA, OR, pneumonia, PE, COPD, DKA, ARF, appy, cholecystitis, CVA, Diverticulitis, Homicidal, Suicidal, threat to staff... and all critical care pts) @ -yes - Lab Data Result diagrams: 06/03/23 11:33 06/03/23 11:33 Lab Results 06/03/23 06/03/23 06/03/23 Range/Units 11:28 11:33 11:33 WBC 9.5 (3.8-10.6) k/uL RBC 4.67 (4.30-5.90) m/uL Hgb 14.2 (13.0-17.5) gm/dL Hct 40.9 (39.0-53.0) % MCV 87.6 (80.0-100.0) fL MCH 30.5 (25.0-35.0) pg MCHC 34.8 (31.0-37.0) g/dL RDW 13.2 (11.5-15.5) % Plt Count 237 (150-450) k/uL MPV 8.4 Neutrophils % 77 % Lymphocytes % 16 % Monocytes % 4 % Eosinophils % 2 % Basophils % 0 % Neutrophils # 7.3 (1.3-7.7) k/uL Lymphocytes # 1.5 (1.0-4.8) k/uL Monocytes # 0.4 (0-1.0) k/uL Eosinophils # 0.2 (0-0.7) k/uL Basophils # 0.0 (0-0.2) k/uL PT 10.1 (10.0-12.5) sec INR 0.9 (<1.2) APTT 22.3 (22.0-30.0) sec Sodium (137-145) mmol/L Potassium (3.5-5.1) mmol/L Chloride (98-107) mmol/L Carbon Dioxide (22-30) mmol/L Anion Gap mmol/L BUN (9-20) mg/dL Creatinine (0.66-1.25) mg/dL Est GFR (CKD-EPI)AfAm (>60 ml/min/1.73 sqM) Est GFR (CKD-EPI)NonAf (>60 ml/min/1.73 sqM) Glucose (74-99) mg/dL Calcium (8.4-10.2) mg/dL Magnesium (1.6-2.3) mg/dL Total Bilirubin (0.2-1.3) mg/dL AST (17-59) U/L ALT (4-49) U/L Alkaline Phosphatase (38-126) U/L Troponin I (0.000-0.034) ng/mL Total Protein (6.3-8.2) g/dL Albumin (3.5-5.0) g/dL Influenza Type A (PCR) Not Detected (Not Detectd) Influenza Type B (PCR) Not Detected (Not Detectd) RSV (PCR) Not Detected (Not Detectd) SARS-CoV-2 (PCR) Not Detected (Not Detectd) 06/03/23 06/03/23 Range/Units 11:33 11:33 WBC (3.8-10.6) k/uL RBC (4.30-5.90) m/uL Hgb (13.0-17.5) gm/dL Hct (39.0-53.0) % MCV (80.0-100.0) fL MCH (25.0-35.0) pg MCHC (31.0-37.0) g/dL RDW (11.5-15.5) % Plt Count (150-450) k/uL MPV Neutrophils % % Lymphocytes % % Monocytes % % Eosinophils % % Basophils % % Neutrophils # (1.3-7.7) k/uL Lymphocytes # (1.0-4.8) k/uL Monocytes # (0-1.0) k/uL Eosinophils # (0-0.7) k/uL Basophils # (0-0.2) k/uL PT (10.0-12.5) sec INR (<1.2) APTT (22.0-30.0) sec Sodium 138 (137-145) mmol/L Potassium 3.5 (3.5-5.1) mmol/L Chloride 108 H (98-107) mmol/L Carbon Dioxide 22 (22-30) mmol/L Anion Gap 8 mmol/L BUN 26 H (9-20) mg/dL Creatinine 0.72 (0.66-1.25) mg/dL Est GFR (CKD-EPI)AfAm >90 (>60 ml/min/1.73 sqM) Est GFR (CKD-EPI)NonAf >90 (>60 ml/min/1.73 sqM) Glucose 192 H (74-99) mg/dL Calcium 9.4 (8.4-10.2) mg/dL Magnesium 1.8 (1.6-2.3) mg/dL Total Bilirubin 0.6 (0.2-1.3) mg/dL AST 33 (17-59) U/L ALT 29 (4-49) U/L Alkaline Phosphatase 102 (38-126) U/L Troponin I <0.012 (0.000-0.034) ng/mL Total Protein 7.1 (6.3-8.2) g/dL Albumin 4.5 (3.5-5.0) g/dL Influenza Type A (PCR) (Not Detectd) Influenza Type B (PCR) (Not Detectd) RSV (PCR) (Not Detectd) SARS-CoV-2 (PCR) (Not Detectd) Disposition Clinical Impression: Chest pain Disposition: ADMITTED IP TO THIS HOSP Condition: Fair Referrals: nAuel Dover MD [Primary Care Provider] - 1-2 days Decision Time: 13:11
[2023-06-03 11:43] LABS: Basophils % (A) 0 %; Eosinophils # (A) 0.2 k/uL (0-0.7); Eosinophils % (A) 2 %; HCT 40.9 % (39.0-53.0); HGB 14.2 gm/dL (13.0-17.5); Lymphocytes # (A) 1.5 k/uL (1.0-4.8); Lymphocytes % (A) 16 %; MCH 30.5 pg (25.0-35.0); MCHC 34.8 g/dL (31.0-37.0); MCV 87.6 fL (80.0-100.0); Mean Platelet Volume 8.4; Monocytes # (A) 0.4 k/uL (0-1.0); Monocytes % (A) 4 %; Neutrophils # (A) 7.3 k/uL (1.3-7.7); Neutrophils % (A) 77 %; Platelet Count 237 k/uL (150-450); RBC 4.67 m/uL (4.30-5.90); RDW 13.2 % (11.5-15.5); WBC 9.5 k/uL (3.8-10.6)
[2023-06-03 11:53] LABS: INR 0.9 (<1.2); Partial Thromboplastin Time 22.3 sec (22.0-30.0); Prothrombin Time 10.1 sec (10.0-12.5)
[2023-06-03 11:56] LABS: ALT 29 U/L (4-49); AST 33 U/L (17-59); African American GFR (CKD) >90 (>60 ml/min/1.73 sqM); Albumin 4.5 g/dL (3.5-5.0); Alkaline Phosphatase 102 U/L (38-126); Anion Gap 8 mmol/L; Blood Urea Nitrogen 26 mg/dL (9-20); Calcium 9.4 mg/dL (8.4-10.2); Carbon Dioxide 22 mmol/L (22-30); Chloride 108 mmol/L (98-107); Glucose 192 mg/dL (74-99); Magnesium 1.8 mg/dL (1.6-2.3); Non-African American GFR(CKD) >90 (>60 ml/min/1.73 sqM); Potassium 3.5 mmol/L (3.5-5.1); Sodium 138 mmol/L (137-145); Total Bilirubin 0.6 mg/dL (0.2-1.3); Total Protein 7.1 g/dL (6.3-8.2)
--- NOTE | 2023-06-03 12:42 | XR ---
EXAMINATION TYPE: XR chest 2V DATE OF EXAM: 06/03/2023 12:12 PM CLINICAL INDICATION:Male, 62 years old with history of Chest Pain; COMPARISON: Chest radiographs from 02/04/2023 TECHNIQUE: XR chest 2V Frontal and lateral views of the chest. FINDINGS: Lungs/Pleura: There is no evidence of pleural effusion, focal consolidation, or pneumothorax. Pulmonary vascularity: Unremarkable. Heart/mediastinum: Cardiomediastinal silhouette is unremarkable. Musculoskeletal: No acute osseous pathology. Other findings: None IMPRESSION: No acute cardiopulmonary disease/process.
[2023-06-03] MEDS ORDERED: NITROGLYCERIN SL TABS 0.4 MG TAB SUBLINGUAL PRN (13:09)
[2023-06-03] MEDS ORDERED: ALBUTEROL HFA INHALER INHALATION PRN (14:28)
[2023-06-03] MEDS ORDERED: ALPRAZolam 0.25 MG TAB PO PRN (14:28)
[2023-06-03] MEDS ORDERED: LORATADINE 10 MG TAB PO PRN (15:00)
[2023-06-03] MEDS: ENOXAPARIN 40 MG/0.4 ML SYRINGE SQ SCH (15:10)
[2023-06-03] MEDS: GABAPENTIN 400 MG CAP PO SCH ×2 (15:10→22:35)
[2023-06-03] MEDS ORDERED: ACETAMINOPHEN TAB 325 MG TAB PO PRN (18:03)
[2023-06-03] MEDS ORDERED: LACTULOSE 20 GM/30 ML CUP PO PRN (18:03)
[2023-06-03] MEDS ORDERED: NALOXONE 0.4 MG/ML 1 ML VIAL IV PRN (18:03)
[2023-06-03] MEDS ORDERED: ONDANSETRON 4 MG/2 ML VIAL IVP PRN (18:03)
[2023-06-03] MEDS ORDERED: MELATONIN 3 MG TABLET PO PRN (18:03)
[2023-06-03] MEDS ORDERED: CALCIUM CARBONATE 500 MG CHEWABLE PO PRN (18:03)
--- NOTE | 2023-06-03 18:04 | P.HPIM ---
History of Present Illness H&P Date: 06/03/23 Chief Complaint: Pain History of presenting complaint: This is a 62-year-old patient, follows with Patti Jaffe/Dr. Dover. Chronic stable medical conditions include diabetes, GERD, hypertension, hyperlipidemia, osteoarthritis, obstructive Sleep apnea, scoliosis, gout, has a CPAP at home. Patient was here in February 2023. Denies some chest pain then. Follow-up with Dr. PAM Whitfield. Was due to follow-up again very soon. In the last 1 week patient has been noticing having increasing palpitations. Feels heaviness in the chest and shortness of breath when he walks. Is better with rest. Frequency is gone up in the last few days. In December 2021 patient had about 40% disease of circumflex marginal. It was decided to manage him medically. Patient is employed for about 40 hours a week. Review of systems: GEN.: None EYES: None HEENT: None NECK: None RESPIRATORY: None CARDIOVASCULAR: As above GASTROINTESTINAL: None GENITOURINARY: None MUSCULOSKELETAL: None LYMPHATICS: None HEMATOLOGICAL: None PSYCHIATRY: General bit anxious about his mother's health was not doing well. NEUROLOGICAL: None Past medical history to include: Diabetes mellitus, GERD, hypertension, hyperlipidemia, osteoarthritis, scoliosis, obstructive sleep apnea uses CPAP, gout, anxiety. Nonobstructive coronary artery disease with about 40% disease in circumflex per cardiac catheterization in 2021 Social history: Lives alone. Works at [employer]. smoked for 18 years 1 pack a day stopped in 2015. Alcohol-Occasionally. Physical examination: VITAL SIGNS: 97.4, 70, 18, 140 x 70, 96% room air GENERAL: BMI 36.2, sitting at the edge of the bed, awake slightly anxious EYES: Pupils equal. Conjunctiva normal. HEENT: External appearance of nose and ears normal, oral cavity grossly normal. NECK: JVD not raised; masses not palpable. HEART: First and second heart sounds are normal; no edema. LUNGS: Respiratory rate normal; clear to auscultation. ABDOMEN: Soft, nontender, liver spleen not palpable, no masses palpable. PSYCH: Alert and oriented x3; mood and affect slightly anxious. NEUROLOGICAL: Cranial nerves grossly intact; no facial asymmetry, power and sensation grossly intact. LYMPHATICS: No lymph nodes palpable in the axilla and neck INVESTIGATIONS, reviewed in the clinical context: June 03: White count 9.5 hemoglobin 14.2 platelets 237 potassium 3.5 creatin ine 0.72 Troponin I x 3 negative Influenza type A, B, RSV, COVID-19: Not detected EKG tracing personally reviewed by me-normal sinus rhythm. PVC. Chest x-ray film personally reviewed by me-unremarkable Assessment and plan: -Anterior chest wall patient is a patient with known nonobstructive coronary artery disease with cardiac catheterization showing about 40% lesion circumflex in 2021. Does follow with Dr. PAM Whitfield. Possible unstable angina Troponin negative. Telemetry. Aspirin. Cardiology consulted -Essential hypertension Cozaar, Toprol-XL, amlodipine. -Hyperlipidemia Lipitor -Chronic gout On allopurinol -Anxiety not otherwise specified Xanax when necessary -Obstructive sleep apnea Uses CPAP -Obesity BMI 36.2 Weight loss measures, outpatient -Insomnia Care was discussed with the patient. Questions answered. Cardiology consulted. Past Medical History Past Medical History: Chest Pain / Angina, Diabetes Mellitus, GERD/Reflux, Hyperlipidemia, Hypertension, Osteoarthritis (OA), Skin Disorder, Sleep Apnea/CPAP/BIPAP, Syncope Additional Past Medical History / Comment(s): psoriasis, Gout STRESS TEST 2015- NEG,DDD, STEROID INJ IN BACK, CPAP at home, TYPE II DIABETES, sciatic nerve, neuropathy History of Any Multi-Drug Resistant Organisms: None Reported Past Surgical History: Appendectomy, Cholecystectomy, Hernia Repair, Orthopedic Surgery Additional Past Surgical History / Comment(s): rt inguinal hernia x 3, [facility] HERNIA REPAIR,vasectomy, left knee surgery Past Anesthesia/Blood Transfusion Reactions: Motion Sickness Additional Past Anesthesia/Blood Transfusion Reaction / Comment(s): no hx blood transfusion Past Psychological History: Anxiety, Panic Disorder Smoking Status: Former smoker Past Alcohol Use History: Occasional Past Drug Use History: None Reported - Past Family History Father Family Medical History: Congestive Heart Failure (CHF), Myocardial Infarction (ME) Additional Family Medical History / Comment(s): alcoholism Mother Family Medical History: Osteoarthritis (OA) Medications and Allergies Home Medications Medication Instructions Recorded Confirmed Type Fluticasone Nasal [place] [Flonase 1 spr EA NOSTRIL HS PRN 10/21/15 06/03/23 History Nasal [place]] Montelukast Sodium [Singulair] 10 mg PO HS 10/21/15 06/03/23 History Gabapentin [Neurontin] 400 mg PO TID 05/07/17 06/03/23 History Atorvastatin [Lipitor] 40 mg PO HS 07/24/17 06/03/23 History allopurinoL [Zyloprim] 300 mg PO DAILY 10/30/17 06/03/23 History Metoprolol Succinate (ER) [Toprol 25 mg PO DAILY 12/01/17 06/03/23 History XL] Cetirizine HCl [Zyrtec] 10 mg PO DAILY PRN 05/25/19 06/03/23 History hydroCHLOROthiazide 25 mg PO DAILY 05/25/19 06/03/23 History Albuterol Inhaler [Ventolin Hfa 2 puff INHALATION RT-QID PRN 09/24/20 06/03/23 History Inhaler] Olopatadine HCl [Patanol 0.1%] 1 drop BOTH EYES HS 09/24/20 06/03/23 History Losartan Potassium [Cozaar] 100 mg PO DAILY 12/13/21 06/03/23 History ALPRAZolam [Xanax] 0.25 mg PO DAILY PRN 02/04/23 06/03/23 History Ibuprofen [Motrin] 800 mg PO TID PRN 02/04/23 06/03/23 History amLODIPine [Norvasc] 5 mg PO HS 02/04/23 06/03/23 History Allergies Allergy/AdvReac Type Severity Reaction Status Date / Time No Known Allergies Allergy Verified 06/03/23 11:59 Physical Exam Vitals: Vital Signs Temp Pulse Resp BP Pulse Ox 06/03/23 13:38 97.4 F L 06/03/23 13:02 59 L 18 134/79 97 06/03/23 11:39 74 18 143/87 06/03/23 11:00 82 18 149/77 98 Intake and Output 06/02/23 06/03/23 06/03/23 22:59 06:59 14:59 Other: Weight 121.2 kg Results CBC & Chem 7: 06/03/23 11:33 06/03/23 11:33 Labs: Abnormal Lab Results - Last 24 Hours (Table) 06/03/23 Range/Units 11:33 Chloride 108 H (98-107) mmol/L BUN 26 H (9-20) mg/dL Glucose 192 H (74-99) mg/dL
[2023-06-03] MEDS: ATORVASTATIN 40 MG TAB PO SCH (22:35)
[2023-06-03] MEDS: MONTELUKAST 10 MG TAB PO SCH (22:35)
[2023-06-03] MEDS: amLODIPine 5 MG TAB PO SCH (22:35)
[2023-06-04] MEDS: KETOTIFEN 0.025% OPHTH DROPS 5 ML BTL BOTH EYES SCH ×2 (01:54→22:44)
[2023-06-04] MEDS ORDERED: REGADENOSON 0.4 MG/5 ML SYRINGE IV PRN (08:18)
[2023-06-04] MEDS ORDERED: CAFFEINE CITRATE 60 MG/3 ML VIAL IV PRN (08:18)
[2023-06-04] MEDS ORDERED: AMINOPHYLLINE 500 MG/20 ML VIAL IV PRN (08:18)
[2023-06-04] MEDS: ASPIRIN 325 MG TAB PO SCH (08:21)
[2023-06-04] MEDS: GABAPENTIN 400 MG CAP PO SCH ×3 (08:21→22:22)
[2023-06-04] MEDS: allopurinoL 300 MG TAB PO SCH (08:21)
[2023-06-04] MEDS: METOPROLOL SUCCINATE (ER) 25 MG TAB.ER.24H PO SCH (08:22)
[2023-06-04] MEDS: LOSARTAN 50 MG TAB PO SCH (09:06)
[2023-06-04] MEDS: ENOXAPARIN 40 MG/0.4 ML SYRINGE SQ SCH (09:06)
[2023-06-04 09:46] LABS: LDL Cholesterol,Calculated 63.5 mg/dL (0.0-131.0)
--- NOTE | 2023-06-04 10:14 | P.CRDCN ---
History of Present Illness Consult date: 06/04/23 Consult reason: chest pain History of present illness: History of present illness: This is a 62-year-old male patient of Dr. PAM Whitfield with past medical history of nonobstructive coronary artery disease, hypertension, hyperlipidemia, obesity. We have been asked to evaluate the patient for chest pain. Patient seen today in the emergency center waiting for bed in the observation unit. Patient complains of heaviness across the upper chest area that was a pressure and dull type pain. No radiation to his neck, jaws or arms. He states it was hard to catch his breath and he had some palpitations. He has had some dizziness and thinks he has water in his ears and room is spinning at times. Patient is prediabetic. He is a previous smoker. He does have family history of premature coronary artery disease. He states the pain lasted for about 1 to 2 hours. He has none now but he still can feel some palpitations. EKG sinus rhythm with PVCs Chest x-ray: No acute disease CBC normal. INR 0.9. Potassium 3.5, creatinine 0.72. Troponin negative x 3. Glucose 192. Liver function test are normal. Agnesian 1.8. Influenza A, influenza B, RSV, COVID-19 not detected. Home cardiac medications: Amlodipine 5 mg at bedtime, Lipitor 40 mg at bedtime, hydrochlorothiazide 25 mg daily, losartan 100 g daily, Toprol-XL 25 mg daily. Cardiac catheterization performed 12/16/2021 revealed normal filling pressures. No gradient across the valve. 40% disease in the circumflex, RCA free of disease and LAD with minor irregularities. Echocardiogram performed 12/15/2021 revealed EF of 60%, mild TR. Lexiscan stress test performed 12/15/2021 revealed EF 53%, fixed effect in the inferior and inferior apical wall. Small area of ischemia cannot be excluded. Review Of Systems: At the time of my evaluation: Constitutional: No fever, no chills. No weakness, fatigue or lethargy. EENT: No headache. No dizziness. Lungs: No shortness of breath, cough, no sputum production. No wheezing. Cardiovascular: No chest pain, no lower extremity edema. + palpitations. No paroxysmal nocturnal dyspnea. No orthopnea. + dizziness. No syncopal episodes. Abdominal: No abdominal pain. No nausea, vomiting. No diarrhea. No constipation. No bloody or tarry stools. Musculoskeletal: No myalgias. No muscle weakness, no frequent falls. Integumentary: No wounds. No rash. No unusual bruising. Neurologic: No aphasia. No facial droop. No change in mentation. Physical examination: Gen: This is a 62-year-old male in no acute distress VS: reviewed blood pressure 147/84, heart rate 52, afebrile, pulse ox 96% on room air. HEENT: Head is atraumatic, normocephalic. Pupils equal, round. Sclerae is anicteric. NECK: Supple. No JVD. . LUNGS: Clear to auscultation. No wheezes or rhonchi. No intercostal retractions. HEART: Regular rate and rhythm. No murmur. ABDOMEN: Soft No tenderness. EXTREMITIES: No pedal edema. No calf tenderness. NEUROLOGICAL: Patient is awake, alert and oriented x3. Assessment: Atypical chest pain, acute coronary syndrome ruled out Nonobstructive coronary artery disease Hypertension Hyperlipidemia Obesity Plan: Resume patient's home cardiac medications Schedule patient for Lexiscan stress test today Obtain 2-D echocardiogram and Doppler study to assess cardiac structure and function If testing is unremarkable, patient is cleared for discharge from cardiology. He may follow-up with Dr. PAM Whitfield in the office in 2 weeks. Thank you kindly for this consultation. Nurse practitioner note has been reviewed, I agree with documented findings and plan of care. Patient was seen and examined. Past Medical History Past Medical History: Chest Pain / Angina, Diabetes Mellitus, GERD/Reflux, Hyperlipidemia, Hypertension, Osteoarthritis (OA), Skin Disorder, Sleep Apnea/CPAP/BIPAP, Syncope Additional Past Medical History / Comment(s): psoriasis, Gout STRESS TEST 2016- NEG,DDD, STEROID INJ IN BACK, CPAP at home, TYPE II DIABETES, sciatic nerve, neuropathy History of Any Multi-Drug Resistant Organisms: None Reported Past Surgical History: Appendectomy, Cholecystectomy, Hernia Repair, Orthopedic Surgery Additional Past Surgical History / Comment(s): rt inguinal hernia x 3, [facility] [place] REPAIR,vasectomy, left knee surgery Past Anesthesia/Blood Transfusion Reactions: Motion Sickness Additional Past Anesthesia/Blood Transfusion Reaction / Comment(s): no hx blood transfusion Past Psychological History: Anxiety, Panic Disorder Smoking Status: Former smoker Past Alcohol Use History: Occasional Past Drug Use History: None Reported - Past Family History Father Family Medical History: Congestive Heart Failure (CHF), Myocardial Infarction (NC) Additional Family Medical History / Comment(s): alcoholism Mother Family Medical History: Osteoarthritis (OA) Medications and Allergies Home Medications Medication Instructions Recorded Confirmed Type Fluticasone Nasal [place] [Flonase 1 spr EA NOSTRIL HS PRN 10/21/15 06/03/23 History Nasal [place]] Montelukast Sodium [Singulair] 10 mg PO HS 10/21/15 06/03/23 History Gabapentin [Neurontin] 400 mg PO TID 05/07/17 06/03/23 History Atorvastatin [Lipitor] 40 mg PO HS 07/24/17 06/03/23 History allopurinoL [Zyloprim] 300 mg PO DAILY 10/30/17 06/03/23 History Metoprolol Succinate (ER) [Toprol 25 mg PO DAILY 12/01/17 06/03/23 History XL] Cetirizine HCl [Zyrtec] 10 mg PO DAILY PRN 05/25/19 06/03/23 History hydroCHLOROthiazide 25 mg PO DAILY 05/25/19 06/03/23 History Albuterol Inhaler [Ventolin Hfa 2 puff INHALATION RT-QID PRN 09/24/20 06/03/23 History Inhaler] Olopatadine HCl [Patanol 0.1%] 1 drop BOTH EYES HS 09/24/20 06/03/23 History Losartan Potassium [Cozaar] 100 mg PO DAILY 12/13/21 06/03/23 History ALPRAZolam [Xanax] 0.25 mg PO DAILY PRN 02/04/23 06/03/23 History Ibuprofen [Motrin] 800 mg PO TID PRN 02/04/23 06/03/23 History amLODIPine [Norvasc] 5 mg PO HS 02/04/23 06/03/23 History Allergies Allergy/AdvReac Type Severity Reaction Status Date / Time No Known Allergies Allergy Verified 06/03/23 11:59 Physical Exam Vitals: Vital Signs Temp Pulse Resp BP Pulse Ox 06/04/23 05:40 97.9 F 52 L 18 147/84 96 06/04/23 02:00 67 18 123/59 97 06/04/23 00:00 55 L 18 123/63 97 06/03/23 22:36 60 16 115/73 98 06/03/23 21:53 58 L 18 120/71 97 06/03/23 17:55 70 18 140/70 96 06/03/23 15:06 65 18 172/85 99 06/03/23 13:38 97.4 F L 06/03/23 13:02 59 L 18 134/79 97 06/03/23 11:39 74 18 143/87 06/03/23 11:00 82 18 149/77 98 Results 06/03/23 11:33 06/03/23 11:33 Cardiac Enzymes 06/03/23 06/03/23 06/03/23 Range/Units 11:33 11:33 13:18 AST 33 (17-59) U/L Troponin I <0.012 <0.012 (0.000-0.034) ng/mL 06/03/23 Range/Units 15:44 AST (17-59) U/L Troponin I <0.012 (0.000-0.034) ng/mL Coagulation 06/03/23 Range/Units 11:33 PT 10.1 (10.0-12.5) sec APTT 22.3 (22.0-30.0) sec CBC 06/03/23 Range/Units 11:33 WBC 9.5 (3.8-10.6) k/uL RBC 4.67 (4.30-5.90) m/uL Hgb 14.2 (13.0-17.5) gm/dL Hct 40.9 (39.0-53.0) % Plt Count 237 (150-450) k/uL Comprehensive Metabolic Panel 06/03/23 Range/Units 11:33 Sodium 138 (137-145) mmol/L Potassium 3.5 (3.5-5.1) mmol/L Chloride 108 H (98-107) mmol/L Carbon Dioxide 22 (22-30) mmol/L BUN 26 H (9-20) mg/dL Creatinine 0.72 (0.66-1.25) mg/dL Glucose 192 H (74-99) mg/dL Calcium 9.4 (8.4-10.2) mg/dL AST 33 (17-59) U/L ALT 29 (4-49) U/L Alkaline Phosphatase 102 (38-126) U/L Total Protein 7.1 (6.3-8.2) g/dL Albumin 4.5 (3.5-5.0) g/dL Current Medications Generic Name Dose Route Start Last Admin Trade Name Freq PRN Reason Stop Dose Admin Acetaminophen 650 mg 06/03/23 18:03 Acetaminophen Tab 325 Mg Tab PO Q6HR PRN Mild Pain or Fever > 100.5 Albuterol Sulfate 2 puff 06/03/23 14:28 Albuterol Hfa Inhaler INHALATION RT-QID PRN Shortness Of Breath Allopurinol 300 mg 06/04/23 09:00 Allopurinol 300 Mg Tab PO DAILY MARIAELENA Alprazolam 0.25 mg 06/03/23 14:28 Alprazolam 0.25 Mg Tab PO DAILY PRN Anxiety Amlodipine Besylate 5 mg 06/03/23 21:00 06/03/23 22:35 Amlodipine 5 Mg Tab PO 5 mg HS MARIAELENA Administration Aspirin 325 mg 06/04/23 09:00 Aspirin 325 Mg Tab PO DAILY MARIAELENA Atorvastatin Calcium 40 mg 06/03/23 21:00 06/03/23 22:35 Atorvastatin 40 Mg Tab PO 40 mg HS MARIAELENA Administration Calcium Carbonate/Glycine 1,000 mg 06/03/23 18:03 Calcium Carbonate 500 Mg Chewable PO Q4HR PRN Dyspepsia Enoxaparin Sodium 40 mg 06/03/23 14:30 06/03/23 15:10 Enoxaparin 40 Mg/0.4 Ml Syringe SQ 40 mg DAILY MARIAELENA Administration Gabapentin 400 mg 06/03/23 16:00 06/03/23 22:35 Gabapentin 400 Mg Cap PO 400 mg TID MARIAELENA Administration Ketotifen Fumarate 1 drops 06/03/23 21:00 06/04/23 01:54 Ketotifen 0.025% Ophth Drops 5 Ml Btl BOTH EYES Not Given HS [facility] Lactulose 20 gm 06/03/23 18:03 Lactulose 20 Gm/30 Ml Cup PO DAILY PRN Constipation Loratadine 10 mg 06/03/23 15:00 Loratadine 10 Mg Tab PO DAILY PRN Allergy Symptoms Losartan Potassium 100 mg 06/04/23 09:00 Losartan 50 Mg Tab PO DAILY MARIAELENA Melatonin 3 mg 06/03/23 18:03 Melatonin 3 Mg Tablet PO HS PRN Insomnia Metoprolol Succinate 25 mg 06/04/23 09:00 Metoprolol Succinate (Er) 25 Mg Tab.Er.24h PO DAILY MARIAELENA Montelukast Sodium 10 mg 06/03/23 21:00 06/03/23 22:35 Montelukast 10 Mg Tab PO 10 mg HS MARIAELENA Administration Naloxone HCl 0.2 mg 06/03/23 18:03 Naloxone 0.4 Mg/Ml 1 Ml Vial IV Q2M PRN Opioid Reversal Nitroglycerin 0.4 mg 06/03/23 13:09 Nitroglycerin Sl Tabs 0.4 Mg Tab SUBLINGUAL Q5M PRN Chest Pain Ondansetron HCl 4 mg 06/03/23 18:03 Ondansetron 4 Mg/2 Ml Vial IVP Q8HR PRN Nausea And Vomiting 06/03/23 11:33 06/03/23 11:33
--- NOTE | 2023-06-04 12:06 | NM ---
EXAMINATION TYPE: NM stress lexiscan cardiolite DATE OF EXAM: 06/04/2023 COMPARISON: NONE CLINICAL INDICATION: Male, 62 years old with history of cp; TECHNIQUE: After the intravenous administration of 9.4 mCi Tc 99m Sestamibi - Cardiolite resting SPE CT images acquired 50 minutes post injection. The patient received 0.4mg Lexiscan, 24.4 mCi Tc 99m Sestamibi - Stress images obtained [address] injection FINDINGS: Review of stress and rest SPECT images demonstrates areas of fixed defect along the inferior wall and apex. Rest also shows decreased activity along the mid to basal anterior wall ingesting attenuation artifact. No discrete reversibility is seen. Gated analysis shows normal wall motion with an estimate d left ventricular ejection fraction of 54 %. TID is increased at 1.27. IMPRESSION: 1. Small areas of fixed defect inferior wall and cardiac apex could represent old infarcts versus att enuation artifact. Clinically correlate. 2. While no suspicious focal reversibility is seen, transient ischemic dilatation ratio is abnormally increased. This can be seen in the setting of multivessel, global inducible ischemia. Consider furth er evaluation. 3. Estimated LVEF is borderline at 54%.
--- NOTE | 2023-06-04 16:26 | P.PN ---
Progress Note - Text Progress Note Date: 06/04/23 Chief Complaint: Pain History of presenting complaint: This is a 62-year-old patient, follows with Patti Jaffe/Dr. [place]. Chronic stable medical conditions include diabetes, GERD, hypertension, hyperlipidemia, osteoarthritis, obstructive Sleep apnea, scoliosis, gout, has a CPAP at home. Patient was here in February 2023. Denies some chest pain then. Follow-up with Dr. PAM Whitfield. Was due to follow-up again very soon. In the last 1 week patient has been noticing having increasing palpitations. Feels heaviness in the chest and shortness of breath when he walks. Is better with rest. Frequency is gone up in the last few days. In December 2021 patient had about 40% disease of circumflex marginal. It was decided to manage him medically. Patient is employed for about 40 hours a week. June 04: Lexiscan stress test suggestive of possible ischemia. Cardiology planning for cardiac catheterization. Occasional slight chest pressure. Follow-up with cardiology. Active Medications Acetaminophen (Acetaminophen Tab 325 Mg Tab) 650 mg PO Q6HR PRN PRN Reason: Mild Pain or Fever > 100.5 Albuterol Sulfate (Albuterol Hfa Inhaler) 2 puff INHALATION RT-QID PRN PRN Reason: Shortness Of Breath Allopurinol (Allopurinol 300 Mg Tab) 300 mg PO DAILY [facility] Last Admin: 06/04/23 08:21 Dose: Not Given Alprazolam (Alprazolam 0.25 Mg Tab) 0.25 mg PO DAILY PRN PRN Reason: Anxiety Amlodipine Besylate (Amlodipine 5 Mg Tab) 5 mg PO [facility] Last Admin: 06/03/23 22:35 Dose: 5 mg Aspirin (Aspirin 325 Mg Tab) 325 mg PO DAILY [facility] Last Admin: 06/04/23 08:21 Dose: Not Given Atorvastatin Calcium (Atorvastatin 40 Mg Tab) 40 mg PO [facility] Last Admin: 06/03/23 22:35 Dose: 40 mg Calcium Carbonate/Glycine (Calcium Carbonate 500 Mg Chewable) 1,000 mg PO Q4HR PRN PRN Reason: Dyspepsia Enoxaparin Sodium (Enoxaparin 40 Mg/0.4 Ml Syringe) 40 mg SQ DAILY [facility] Last Admin: 06/04/23 09:06 Dose: 40 mg Gabapentin (Gabapentin 400 Mg Cap) 400 mg PO TID [facility] Last Admin: 06/04/23 08:21 Dose: Not Given Ketotifen Fumarate (Ketotifen 0.025% Ophth Drops 5 Ml Btl) 1 drops BOTH EYES HS [facility] Last Admin: 06/04/23 01:54 Dose: Not Given Lactulose (Lactulose 20 Gm/30 Ml Cup) 20 gm PO DAILY PRN PRN Reason: Constipation Loratadine (Loratadine 10 Mg Tab) 10 mg PO DAILY PRN PRN Reason: Allergy Symptoms Losartan Potassium (Losartan 50 Mg Tab) 100 mg PO DAILY [facility] Last Admin: 06/04/23 09:06 Dose: 100 mg Melatonin (Melatonin 3 Mg Tablet) 3 mg PO HS PRN PRN Reason: Insomnia Metoprolol Succinate (Metoprolol Succinate (Er) 25 Mg Tab.Er.24h) 25 mg PO DAILY [facility] Last Admin: 06/04/23 08:22 Dose: Not Given Montelukast Sodium (Montelukast 10 Mg Tab) 10 mg PO HS [facility] Last Admin: 06/03/23 22:35 Dose: 10 mg Naloxone HCl (Naloxone 0.4 Mg/Ml 1 Ml Vial) 0.2 mg IV Q2M PRN PRN Reason: Opioid Reversal Nitroglycerin (Nitroglycerin Sl Tabs 0.4 Mg Tab) 0.4 mg SUBLINGUAL Q5M PRN PRN Reason: Chest Pain Ondansetron HCl (Ondansetron 4 Mg/2 Ml Vial) 4 mg IVP Q8HR PRN PRN Reason: Nausea And Vomiting Past medical history to include: Diabetes mellitus, GERD, hypertension, hyperlipidemia, osteoarthritis, scoliosis, obstructive sleep apnea uses CPAP, gout, anxiety. Nonobstructive coronary artery disease with about 40% disease in circumflex per cardiac catheterization in 2021 Social history: Lives alone. Works at [employer]. smoked for 18 years 1 pack a day stopped in 2016. Alcohol-Occasionally. Physical examination: VITAL SIGNS: 97.6, 68, 16, 131 x 66, 97% room air GENERAL: Resting in bed, comfortable EYES: Pupils equal. Conjunctiva normal. HEENT: External appearance of nose and ears normal, oral cavity grossly normal. NECK: JVD not raised; masses not palpable. HEART: First and second heart sounds are normal; no edema. LUNGS: Respiratory rate normal; clear to auscultation. ABDOMEN: Soft, nontender, liver spleen not palpable, no masses palpable. PSYCH: Alert and oriented x3; mood and affect slightly anxious. INVESTIGATIONS, reviewed in the clinical context: Lexiscan stress test: Possible suggestion of underlying ischemia LDL 63 triglycerides June 03: White count 9.5 hemoglobin 14.2 platelets 237 potassium 3.5 creatinine 0.72 Troponin I x 3 negative Influenza type A, B, RSV, COVID-19: Not detected EKG tracing personally reviewed by me-normal sinus rhythm. PVC. Chest x-ray film personally reviewed by me-unremarkable Assessment and plan: -Anterior chest wall patient is a patient with known nonobstructive coronary artery disease with cardiac catheterization showing about 40% lesion circumflex in 2021. Does follow with Dr. PAM Whitfield. Possible unstable angina Troponin negative. Telemetry. Aspirin. Cardiology following Lexiscan stress test possibly positive. For cardiac catheterization -Essential hypertension Cozaar, Toprol-XL, amlodipine. -Hyperlipidemia Lipitor -Chronic gout On allopurinol -Anxiety not otherwise specified Xanax when necessary -Obstructive sleep apnea Uses CPAP -Obesity BMI 36.2 Weight loss measures, outpatient -Insomnia Per cardiology patient to undergo cardiac catheterization. Discussed with patient. Past Medical History Past Medical History: Chest Pain / Angina, Diabetes Mellitus, GERD/Reflux, Hyperlipidemia, Hypertension, Osteoarthritis (OA), Skin Disorder, Sleep Apnea/CPAP/BIPAP, Syncope Additional Past Medical History / Comment(s): psoriasis, Gout STRESS TEST 2016- NEG,DDD, STEROID INJ IN BACK, CPAP at home, TYPE II DIABETES, sciatic nerve, neuropathy History of Any Multi-Drug Resistant Organisms: None Reported Past Surgical History: Appendectomy, Cholecystectomy, Hernia Repair, Orthopedic Surgery Additional Past Surgical History / Comment(s): rt inguinal hernia x 3, [facility] [place] REPAIR,vasectomy, left knee surgery Past Anesthesia/Blood Transfusion Reactions: Motion Sickness Additional Past Anesthesia/Blood Transfusion Reaction / Comment(s): no hx blood transfusion Past Psychological History: Anxiety, Panic Disorder Smoking Status: Former smoker Past Alcohol Use History: Occasional Past Drug Use History: None Reported
--- NOTE | 2023-06-04 18:34 | CA ---
Lexiscan Nuclear Stress Test Report Name: Vicente Lovelace Exam Date: 06/04/2023 10:31 Exam Location: [place] Stress Ht (in): 72 Wt (lb): 267 BSA: 2.41 Ordering Phys: Lelo Austin Referring Phys: KOKO,, Technologist: RYAN,, Age: 62 Gender: M : 1960 Procedure CPT: Indications: Reflex order-Stress test ICD-10 Codes: Patient History: Chest pain and shortness of breath Medications: Meds past 24 hrs: Pretest Chest Pain: STRESS TEST Lexiscan Protocol Exercise Duration (min:sec): 01:[address] Depressions (mm): Angina Score: Peñaloza Score: Resting HR (bpm): 62 Peak HR (bpm): 91 Resting BP (mmHg): 132 / 74 Peak BP (mmHg): 143 / 75 MPHR: 156 Target HR: 133 % MPHR: 58 METS: 1.0 Total Dose: Peak Dose: Atropine: Double Product: 55013 BP Response: Stress Termination: Reached target heart rate Stress Symptoms: No chest pain or symptoms Stress Summary: ECG ANALYSIS Resting ECG: Stress ECG: CONCLUSIONS Nonspecific EKG changes in response to Lexiscan Dr. Lyle Dailey MD (Electronically Signed) Final Date: 04 June 2023 18:33
--- NOTE | 2023-06-04 19:00 | CA ---
Transthoracic Echo Report Name: Vicente Lovelace Age: 62 Gender: M : 1960 Exam Date: 06/04/2023 14:37 Exam Location: [place] Echo Ht (in): 72 Wt (lb): 267 Ordering Physician: Lelo Austin Attending/Referring Phys: [id number], [employer] Segment Consultant Kindra Red RDCS Procedure CPT: Indications: LVF Cardiac Hx: Technical Quality: Fair Contrast 1: Total Dose (mL): Contrast 2: Total Dose (mL): MEASUREMENTS (Male / Female) Normal Values 2D ECHO LV Diastolic Diameter PLAX 5.2 cm 4.2 - 5.9 / 3.9 - 5.3 cm LV Systolic Diameter PLAX 4.0 cm IVS Diastolic Thickness 1.6 cm 0.6 - 1.0 / 0.6 - 0.9 cm LVPW Diastolic Thickness 1.3 cm 0.6 - 1.0 / 0.6 - 0.9 cm LV Relative Wall Thickness 0.5 RV Internal Dim ED PLAX 4.0 cm LA Systolic Diameter LX 4.0 cm 3.0 - 4.0 / 2.7 - 3.8 cm LV Diastolic Volume MOD 4C 95.1 cm??? LV Systolic Volume MOD 4C 40.0 cm??? LV Ejection Fraction MOD 4C 57.9 % LV Cardiac Index MOD 4C 1419.6 cm???/min???m??? LV Diastolic Length 4C 9.6 cm LV Systolic Length 4C 7.9 cm LV Diastolic Volume MOD 2C 100.8 cm??? LV Systolic Volume MOD 2C 42.1 cm??? LV Ejection Fraction MOD 2C 58.3 % LV Cardiac Index MOD 2C 1512.0 cm???/min???m??? LV Diastolic Length 2C 9.6 cm LV Systolic Length 2C 8.4 cm M-MODE Aortic Root Diameter MM 3.6 cm LA Systolic Diameter MM 2.9 cm LA Ao Ratio MM 0.8 DOPPLER AV Peak Velocity 170.2 cm/s AV Peak Gradient 11.6 mmHg Mitral E Point Velocity 82.9 cm/s Mitral A Point Velocity 77.8 cm/s Mitral E to A Ratio 1.1 MV Deceleration Time 267.3 ms MV E' Velocity 6.5 cm/s Mitral E to MV E' Ratio 12.8 FINDINGS Left Ventricle Left ventricular ejection fraction is estimated at 50%. Left ventricular cavity size normal. Moderately increased septal wall thickness. No obvious regional wall motion abnormalities. Right Ventricle Moderate right ventricular dilatation. Unable to estimate the right ventricular systolic pressure. Right Atrium Normal right atrial size. Left Atrium Normal left atrial size. Mitral Valve Structurally normal mitral valve. No mitral stenosis, regurgitation or prolapse. Aortic Valve Trileaflet aortic valve. No aortic valve stenosis or regurgitation. Tricuspid Valve Structurally normal tricuspid valve. No tricuspid regurgitation. Pulmonic Valve Pulmonic valve not well visualized. No pulmonic regurgitation. Pericardium No pericardial effusion. Aorta Normal size aortic root and proximal ascending aorta. CONCLUSIONS Low normal LV systolic function with EF at 50% Previewed by: Dr. Lyle Dailey MD (Electronically Signed) Final Date: 04 June 2023 18:59
[2023-06-04] MEDS: ATORVASTATIN 40 MG TAB PO SCH (19:51)
[2023-06-04] MEDS: amLODIPine 5 MG TAB PO SCH (19:51)
[2023-06-04] MEDS: MONTELUKAST 10 MG TAB PO SCH (19:51)
[2023-06-05] MEDS: ENOXAPARIN 40 MG/0.4 ML SYRINGE SQ SCH (09:40)
[2023-06-05] MEDS: METOPROLOL SUCCINATE (ER) 25 MG TAB.ER.24H PO SCH (09:41)
[2023-06-05] MEDS: allopurinoL 300 MG TAB PO SCH (09:41)
[2023-06-05] MEDS: GABAPENTIN 400 MG CAP PO SCH ×3 (09:41→21:32)
[2023-06-05] MEDS: LOSARTAN 50 MG TAB PO SCH (09:41)
[2023-06-05] MEDS: ASPIRIN 325 MG TAB PO SCH (09:41)
[2023-06-05] MEDS: KETOTIFEN 0.025% OPHTH DROPS 5 ML BTL BOTH EYES SCH ×2 (09:59→21:32)
--- NOTE | 2023-06-05 11:03 | P.PN ---
Subjective Progress Note Date: 06/05/23 Consult reason: chest pain History of present illness: History of present illness: This is a 62-year-old male patient of Dr. PAM Whitfield with past medical history of nonobstructive coronary artery disease, hypertension, hyperlipidemia, obesity. We have been asked to evaluate the patient for chest pain. Patient seen today in the emergency center waiting for bed in the observation unit. Patient complains of heaviness across the upper chest area that was a pressure and dull type pain. No radiation to his neck, jaws or arms. He states it was hard to catch his breath and he had some palpitations. He has had some dizziness and thinks he has water in his ears and room is spinning at times. Patient is prediabetic. He is a previous smoker. He does have family history of premature coronary artery disease. He states the pain lasted for about 1 to 2 hours. He has none now but he still can feel some palpitations. EKG sinus rhythm with PVCs Chest x-ray: No acute disease CBC normal. INR 0.9. Potassium 3.5, creatinine 0.72. Troponin negative x 3. Glucose 192. Liver function test are normal. Agnesian 1.8. Influenza A, influenza B, RSV, COVID-19 not detected. Home cardiac medications: Amlodipine 5 mg at bedtime, Lipitor 40 mg at bedtime, hydrochlorothiazide 25 mg daily, losartan 100 g daily, Toprol-XL 25 mg daily. Cardiac catheterization performed 12/16/2021 revealed normal filling pressures. No gradient across the valve. 40% disease in the circumflex, RCA free of disease and LAD with minor irregularities. Echocardiogram performed 12/15/2021 revealed EF of 60%, mild TR. Lexiscan stress test performed 12/15/2021 revealed EF 53%, fixed effect in the inferior and inferior apical wall. Small area of ischemia cannot be excluded. 06/05 Patient is seen today in follow-up on the observation unit. Yesterday he underwent a Lexiscan stress test that did show small areas of fixed defect in the inferior wall and cardiac apex could represent old fracture versus attenuation artifact. No suspicious focal reversibility is seen, transit is chemic dilatation ratio is abnormally increased. This could be seen in the setting of multi vessel global inducible ischemia. LVEF 54%. This result was reviewed with his teacher, Dr. PAM Whitfield and patient will be scheduled for cardiac catheterization on Wednesday. Patient denies having any chest pain but occasionally feels some heaviness. He continues to have some palpitations which are most likely due to PVCs. Echocardiogram reveals low normal EF at 50%. Cholesterol 139, triglycerides 212, LDL 63, HDL 33. Blood pressure 152/76, heart rate in the 50s. Pulse ox 96% on room air. Physical examination: Gen: This is a 62-year-old male in no acute distress VS: reviewed HEENT: Head is atraumatic, normocephalic. Pupils equal, round. Sclerae is anicteric. NECK: Supple. No JVD. . LUNGS: Clear to auscultation. No wheezes or rhonchi. No intercostal retractions. HEART: Regular rate and rhythm. No murmur. ABDOMEN: Soft No tenderness. EXTREMITIES: No pedal edema. No calf tenderness. NEUROLOGICAL: Patient is awake, alert and oriented x3. Assessment: Atypical chest pain, acute coronary syndrome ruled out Nonobstructive coronary artery disease Hypertension Hyperlipidemia Obesity Plan: Continue patient's home cardiac medications Schedule patient for cardiac catheterization on Wednesday with Dr. PAM Whitfield Further recommendations as patient progresses. Nurse practitioner note has been reviewed, I agree with documented findings and plan of care. Patient was seen and examined. Objective - Vital Signs Vital signs: Vital Signs Temp 97.6 F 06/05/23 07:00 Pulse 53 L 06/05/23 07:00 Resp 16 06/05/23 07:00 BP 152/76 06/05/23 07:00 Pulse Ox 96 06/05/23 07:00 FiO2 Intake & Output 06/04/23 06/05/23 06/05/23 18:59 06:59 18:59 Intake Total 600 Balance 600 Weight 121.2 kg Intake: Oral 600 Other: # Voids 3 - Labs CBC & Chem 7: 06/03/23 11:33 06/03/23 11:33 Labs: Abnormal Lab Results - Last 24 Hours (Table) 06/04/23 Range/Units 04:47 Triglycerides 212.00 H (0.00-149.00) mg/dL VLDL Cholesterol, Calc 42.40 H (5.00-40.00) mg/dL HDL Cholesterol 33.10 L (40.00-60.00) mg/dL
--- NOTE | 2023-06-05 14:17 | P.PN ---
Progress Note - Text Progress Note Date: 06/05/23 Chief Complaint: Pain History of presenting complaint: This is a 62-year-old patient, follows with Patti Jaffe/Dr. Dover. Chronic stable medical conditions include diabetes, GERD, hypertension, hyperlipidemia, osteoarthritis, obstructive Sleep apnea, scoliosis, gout, has a CPAP at home. Patient was here in February 2023. Denies some chest pain then. Follow-up with Dr. PAM Whitfield. Was due to follow-up again very soon. In the last 1 week patient has been noticing having increasing palpitations. Feels heaviness in the chest and shortness of breath when he walks. Is better with rest. Frequency is gone up in the last few days. In December 2021 patient had about 40% disease of circumflex marginal. It was decided to manage him medically. Patient is employed for about 40 hours a week. June 04: Lexiscan stress test suggestive of possible ischemia. Cardiology planning for cardiac catheterization. Occasional slight chest pressure. Follow-up with cardiology. June 05: Stable. No chest pain. Walking around the room. Plan for cardiac catheterization Wednesday. Active Medications Acetaminophen (Acetaminophen Tab 325 Mg Tab) 650 mg PO Q6HR PRN PRN Reason: Mild Pain or Fever > 100.5 Albuterol Sulfate (Albuterol Hfa Inhaler) 2 puff INHALATION RT-QID PRN PRN Reason: Shortness Of Breath Allopurinol (Allopurinol 300 Mg Tab) 300 mg PO DAILY [facility] Last Admin: 06/05/23 09:41 Dose: 300 mg Alprazolam (Alprazolam 0.25 Mg Tab) 0.25 mg PO DAILY PRN PRN Reason: Anxiety Amlodipine Besylate (Amlodipine 5 Mg Tab) 5 mg PO [facility] Last Admin: 06/04/23 19:51 Dose: 5 mg Aspirin (Aspirin 325 Mg Tab) 325 mg PO DAILY [facility] Last Admin: 06/05/23 09:41 Dose: 325 mg Atorvastatin Calcium (Atorvastatin 40 Mg Tab) 40 mg PO [facility] Last Admin: 06/04/23 19:51 Dose: 40 mg Calcium Carbonate/Glycine (Calcium Carbonate 500 Mg Chewable) 1,000 mg PO Q4HR PRN PRN Reason: Dyspepsia Enoxaparin Sodium (Enoxaparin 40 Mg/0.4 Ml Syringe) 40 mg SQ DAILY [facility] Last Admin: 06/05/23 09:40 Dose: 40 mg Gabapentin (Gabapentin 400 Mg Cap) 400 mg PO TID [facility] Last Admin: 06/05/23 09:41 Dose: 400 mg Heparin Sodium (Porcine) 10, (000 unit/ Sodium Chloride) 1,001 mls @ 999 mls/hr IRRIGATION ONCE PRN PRN Reason: INTRA-OP Stop: 06/07/23 23:00 Heparin Sodium (Porcine) 2,500 (unit/ Sodium Chloride) 250.5 mls @ 250 mls/hr IRRIGATION ONCE PRN PRN Reason: INTRA-OP Stop: 06/07/23 23:00 Sodium Chloride 1,000 ml/ IV (Solution) 1,000 mls @ 363.6 mls/hr IV .Q2H46M [facility] Ketotifen Fumarate (Ketotifen 0.025% Ophth Drops 5 Ml Btl) 1 drops BOTH EYES BID [facility] Last Admin: 06/05/23 09:59 Dose: 1 drops Lactulose (Lactulose 20 Gm/30 Ml Cup) 20 gm PO DAILY PRN PRN Reason: Constipation Loratadine (Loratadine 10 Mg Tab) 10 mg PO DAILY PRN PRN Reason: Allergy Symptoms Losartan Potassium (Losartan 50 Mg Tab) 100 mg PO DAILY [facility] Last Admin: 06/05/23 09:41 Dose: 100 mg Melatonin (Melatonin 3 Mg Tablet) 3 mg PO HS PRN PRN Reason: Insomnia Metoprolol Succinate (Metoprolol Succinate (Er) 25 Mg Tab.Er.24h) 25 mg PO DAILY [facility] Last Admin: 06/05/23 09:41 Dose: 25 mg Montelukast Sodium (Montelukast 10 Mg Tab) 10 mg PO HS [facility] Last Admin: 06/04/23 19:51 Dose: 10 mg Naloxone HCl (Naloxone 0.4 Mg/Ml 1 Ml Vial) 0.2 mg IV Q2M PRN PRN Reason: Opioid Reversal Nitroglycerin (Nitroglycerin Sl Tabs 0.4 Mg Tab) 0.4 mg SUBLINGUAL Q5M PRN PRN Reason: Chest Pain Ondansetron HCl (Ondansetron 4 Mg/2 Ml Vial) 4 mg IVP Q8HR PRN PRN Reason: Nausea And Vomiting Past medical history to include: Diabetes mellitus, GERD, hypertension, hyperlipidemia, osteoarthritis, scoliosis, obstructive sleep apnea uses CPAP, gout, anxiety. Nonobstructive coronary artery disease with about 40% disease in circumflex per cardiac catheterization in 2021 Social history: Lives alone. Works at [employer]. smoked for 18 years 1 pack a day stopped in 2016. Alcohol-Occasionally. Physical examination: VITAL SIGNS: 97.6, 53, 16, 152/76, 96% room air GENERAL: Resting in bed, comfortable EYES: Pupils equal. Conjunctiva normal. HEENT: External appearance of nose and ears normal, oral cavity grossly normal. NECK: JVD not raised; masses not palpable. HEART: First and second heart sounds are normal; no edema. LUNGS: Respiratory rate normal; clear to auscultation. ABDOMEN: Soft, nontender, liver spleen not palpable, no masses palpable. PSYCH: Alert and oriented x3; mood and affect slightly anxious. INVESTIGATIONS, reviewed in the clinical context: Lexiscan stress test: Possible suggestion of underlying ischemia LDL 63 triglycerides June 03: White count 9.5 hemoglobin 14.2 platelets 237 potassium 3.5 creatinine 0.72 Troponin I x 3 negative Influenza type A, B, RSV, COVID-19: Not detected EKG tracing personally reviewed by me-normal sinus rhythm. PVC. Chest x-ray film personally reviewed by me-unremarkable Assessment and plan: -Anterior chest wall patient is a patient with known nonobstructive coronary artery disease with cardiac catheterization showing about 40% lesion circumflex in 2021. Does follow with Dr. PAM Whitfield. Possible unstable angina Troponin negative. Telemetry. Aspirin. Cardiology following Lexiscan stress test possibly positive. For cardiac catheterization -Essential hypertension Cozaar, Toprol-XL, amlodipine. -Hyperlipidemia Lipitor -Chronic gout On allopurinol -Anxiety not otherwise specified Xanax when necessary -Obstructive sleep apnea Uses CPAP -Obesity BMI 36.2 Weight loss measures, outpatient -Insomnia Pending cardiac catheterization Wednesday. Discussed. Past Medical History Past Medical History: Chest Pain / Angina, Diabetes Mellitus, GERD/Reflux, Hyperlipidemia, Hypertension, Osteoarthritis (OA), Skin Disorder, Sleep Apnea/CPAP/BIPAP, Syncope Additional Past Medical History / Comment(s): psoriasis, Gout STRESS TEST 2016- NEG,DDD, STEROID INJ IN BACK, CPAP at home, TYPE II DIABETES, sciatic nerve, neuropathy History of Any Multi-Drug Resistant Organisms: None Reported Past Surgical History: Appendectomy, Cholecystectomy, Hernia Repair, Orthopedic Surgery Additional Past Surgical History / Comment(s): rt inguinal hernia x 3, [facility] HERNIA REPAIR,vasectomy, left knee surgery Past Anesthesia/Blood Transfusion Reactions: Motion Sickness Additional Past Anesthesia/Blood Transfusion Reaction / Comment(s): no hx blood transfusion Past Psychological History: Anxiety, Panic Disorder Smoking Status: Former smoker Past Alcohol Use History: Occasional Past Drug Use History: None Reported
[2023-06-05] MEDS: MONTELUKAST 10 MG TAB PO SCH (21:32)
[2023-06-05] MEDS: ATORVASTATIN 40 MG TAB PO SCH (21:32)
[2023-06-05] MEDS: amLODIPine 5 MG TAB PO SCH (21:32)
[2023-06-06] MEDS: LOSARTAN 50 MG TAB PO SCH (09:32)
[2023-06-06] MEDS: ASPIRIN 325 MG TAB PO SCH (09:32)
[2023-06-06] MEDS: ENOXAPARIN 40 MG/0.4 ML SYRINGE SQ SCH (09:32)
[2023-06-06] MEDS: METOPROLOL SUCCINATE (ER) 25 MG TAB.ER.24H PO SCH (09:33)
[2023-06-06] MEDS: KETOTIFEN 0.025% OPHTH DROPS 5 ML BTL BOTH EYES SCH ×2 (09:33→21:10)
[2023-06-06] MEDS: allopurinoL 300 MG TAB PO SCH (09:33)
[2023-06-06] MEDS: GABAPENTIN 400 MG CAP PO SCH ×3 (09:33→21:09)
--- NOTE | 2023-06-06 09:47 | P.PN ---
Progress Note - Text Progress Note Date: 06/06/23 Chief Complaint: Pain History of presenting complaint: This is a 62-year-old patient, follows with Patti Jaffe/Dr. Dover. Chronic stable medical conditions include diabetes, GERD, hypertension, hyperlipidemia, osteoarthritis, obstructive Sleep apnea, scoliosis, gout, has a CPAP at home. Patient was here in February 2023. Denies some chest pain then. Follow-up with Dr. PAM Whitfield. Was due to follow-up again very soon. In the last 1 week patient has been noticing having increasing palpitations. Feels heaviness in the chest and shortness of breath when he walks. Is better with rest. Frequency is gone up in the last few days. In December 2021 patient had about 40% disease of circumflex marginal. It was decided to manage him medically. Patient is employed for about 40 hours a week. June 04: Lexiscan stress test suggestive of possible ischemia. Cardiology planning for cardiac catheterization. Occasional slight chest pressure. Follow-up with cardiology. June 05: Stable. No chest pain. Walking around the room. Plan for cardiac catheterization Wednesday. June 06: Sitting up. Eating breakfast. Awaiting cardiac catheterization. No chest pain. Active Medications Acetaminophen (Acetaminophen Tab 325 Mg Tab) 650 mg PO Q6HR PRN PRN Reason: Mild Pain or Fever > 100.5 Albuterol Sulfate (Albuterol Hfa Inhaler) 2 puff INHALATION RT-QID PRN PRN Reason: Shortness Of Breath Allopurinol (Allopurinol 300 Mg Tab) 300 mg PO DAILY [facility] Last Admin: 06/06/23 09:33 Dose: 300 mg Alprazolam (Alprazolam 0.25 Mg Tab) 0.25 mg PO DAILY PRN PRN Reason: Anxiety Amlodipine Besylate (Amlodipine 5 Mg Tab) 5 mg PO [facility] Last Admin: 06/05/23 21:32 Dose: 5 mg Aspirin (Aspirin 325 Mg Tab) 325 mg PO DAILY [facility] Last Admin: 06/06/23 09:32 Dose: 325 mg Atorvastatin Calcium (Atorvastatin 40 Mg Tab) 40 mg PO HS [facility] Last Admin: 06/05/23 21:32 Dose: 40 mg Calcium Carbonate/Glycine (Calcium Carbonate 500 Mg Chewable) 1,000 mg PO Q4HR PRN PRN Reason: Dyspepsia Enoxaparin Sodium (Enoxaparin 40 Mg/0.4 Ml Syringe) 40 mg SQ DAILY [facility] Last Admin: 06/06/23 09:32 Dose: 40 mg Gabapentin (Gabapentin 400 Mg Cap) 400 mg PO TID [facility] Last Admin: 06/06/23 09:33 Dose: 400 mg Heparin Sodium (Porcine) 10, (000 unit/ Sodium Chloride) 1,001 mls @ 999 mls/hr IRRIGATION ONCE PRN PRN Reason: INTRA-OP Stop: 06/07/23 23:00 Heparin Sodium (Porcine) 2,500 (unit/ Sodium Chloride) 250.5 mls @ 250 mls/hr IRRIGATION ONCE PRN PRN Reason: INTRA-OP Stop: 06/07/23 23:00 Sodium Chloride 1,000 ml/ IV (Solution) 1,000 mls @ 363.6 mls/hr IV .Q2H46M [facility] Ketotifen Fumarate (Ketotifen 0.025% Ophth Drops 5 Ml Btl) 1 drops BOTH EYES BID [facility] Last Admin: 06/06/23 09:33 Dose: 1 drops Lactulose (Lactulose 20 Gm/30 Ml Cup) 20 gm PO DAILY PRN PRN Reason: Constipation Loratadine (Loratadine 10 Mg Tab) 10 mg PO DAILY PRN PRN Reason: Allergy Symptoms Losartan Potassium (Losartan 50 Mg Tab) 100 mg PO DAILY [facility] Last Admin: 06/06/23 09:32 Dose: 100 mg Melatonin (Melatonin 3 Mg Tablet) 3 mg PO HS PRN PRN Reason: Insomnia Metoprolol Succinate (Metoprolol Succinate (Er) 25 Mg Tab.Er.24h) 25 mg PO DAILY [facility] Last Admin: 06/06/23 09:33 Dose: 25 mg Montelukast Sodium (Montelukast 10 Mg Tab) 10 mg PO HS [facility] Last Admin: 06/05/23 21:32 Dose: 10 mg Naloxone HCl (Naloxone 0.4 Mg/Ml 1 Ml Vial) 0.2 mg IV Q2M PRN PRN Reason: Opioid Reversal Nitroglycerin (Nitroglycerin Sl Tabs 0.4 Mg Tab) 0.4 mg SUBLINGUAL Q5M PRN PRN Reason: Chest Pain Ondansetron HCl (Ondansetron 4 Mg/2 Ml Vial) 4 mg IVP Q8HR PRN PRN Reason: Nausea And Vomiting Past medical history to include: Diabetes mellitus, GERD, hypertension, hyperlipidemia, osteoarthritis, scoliosis, obstructive sleep apnea uses CPAP, gout, anxiety. Nonobstructive coronary artery disease with about 40% disease in circumflex per cardiac catheterization in 2021 Social history: Lives alone. Works at [employer]. smoked for 18 years 1 pack a day stopped in 2016. Alcohol-Occasionally. Physical examination: VITAL SIGNS: 97.3, 55, 14, 137 x 73, 97% room air GENERAL: Sitting up, eating breakfast EYES: Pupils equal. Conjunctiva normal. HEENT: External appearance of nose and ears normal, oral cavity grossly normal. NECK: JVD not raised; masses not palpable. HEART: First and second heart sounds are normal; no edema. LUNGS: Respiratory rate normal; clear to auscultation. ABDOMEN: Soft, nontender, liver spleen not palpable, no masses palpable. PSYCH: Alert and oriented x3; mood and affect slightly anxious. INVESTIGATIONS, reviewed in the clinical context: Lexiscan stress test: Possible suggestion of underlying ischemia LDL 63 triglycerides June 03: White count 9.5 hemoglobin 14.2 platelets 237 potassium 3.5 creatinine 0.72 Troponin I x 3 negative Influenza type A, B, RSV, COVID-19: Not detected EKG tracing personally reviewed by me-normal sinus rhythm. PVC. Chest x-ray film personally reviewed by me-unremarkable Assessment and plan: -Anterior chest wall patient is a patient with known nonobstructive coronary artery disease with cardiac catheterization showing about 40% lesion circumflex in 2021. Does follow with Dr. PAM Whitfield. Possible unstable angina Troponin negative. Telemetry. Aspirin. Cardiology following Lexiscan stress test possibly positive. For cardiac catheterization -Essential hypertension Cozaar, Toprol-XL, amlodipine. -Hyperlipidemia Lipitor -Chronic gout On allopurinol -Anxiety not otherwise specified Xanax when necessary -Obstructive sleep apnea Uses CPAP -Obesity BMI 36.2 Weight loss measures, outpatient -Insomnia Her cardiac catheterization tomorrow. No other issues. Past Medical History Past Medical History: Chest Pain / Angina, Diabetes Mellitus, GERD/Reflux, Hyperlipidemia, Hypertension, Osteoarthritis (OA), Skin Disorder, Sleep Apnea/CPAP/BIPAP, Syncope Additional Past Medical History / Comment(s): psoriasis, Gout STRESS TEST 2015- NEG,DDD, STEROID INJ IN BACK, CPAP at home, TYPE II DIABETES, sciatic nerve, neuropathy History of Any Multi-Drug Resistant Organisms: None Reported Past Surgical History: Appendectomy, Cholecystectomy, Hernia Repair, Orthopedic Surgery Additional Past Surgical History / Comment(s): rt inguinal hernia x 3, [facility] HERNIA REPAIR,vasectomy, left knee surgery Past Anesthesia/Blood Transfusion Reactions: Motion Sickness Additional Past Anesthesia/Blood Transfusion Reaction / Comment(s): no hx blood transfusion Past Psychological History: Anxiety, Panic Disorder Smoking Status: Former smoker Past Alcohol Use History: Occasional Past Drug Use History: None Reported
--- NOTE | 2023-06-06 11:38 | P.PN ---
Subjective Progress Note Date: 06/06/23 Consult reason: chest pain History of present illness: History of present illness: This is a 62-year-old male patient of Dr. PAM Whitfield with past medical history of nonobstructive coronary artery disease, hypertension, hyperlipidemia, obesity. We have been asked to evaluate the patient for chest pain. Patient seen today in the emergency center waiting for bed in the observation unit. Patient complains of heaviness across the upper chest area that was a pressure and dull type pain. No radiation to his neck, jaws or arms. He states it was hard to catch his breath and he had some palpitations. He has had some dizziness and thinks he has water in his ears and room is spinning at times. Patient is prediabetic. He is a previous smoker. He does have family history of premature coronary artery disease. He states the pain lasted for about 1 to 2 hours. He has none now but he still can feel some palpitations. EKG sinus rhythm with PVCs Chest x-ray: No acute disease CBC normal. INR 0.9. Potassium 3.5, creatinine 0.72. Troponin negative x 3. Glucose 192. Liver function test are normal. Agnesian 1.8. Influenza A, influenza B, RSV, COVID-19 not detected. Home cardiac medications: Amlodipine 5 mg at bedtime, Lipitor 40 mg at bedtime, hydrochlorothiazide 25 mg daily, losartan 100 g daily, Toprol-XL 25 mg daily. Cardiac catheterization performed 12/16/2021 revealed normal filling pressures. No gradient across the valve. 40% disease in the circumflex, RCA free of disease and LAD with minor irregularities. Echocardiogram performed 12/15/2021 revealed EF of 60%, mild TR. Lexiscan stress test performed 12/15/2021 revealed EF 53%, fixed effect in the inferior and inferior apical wall. Small area of ischemia cannot be excluded. 06/05 Patient is seen today in follow-up on the observation unit. Yesterday he underwent a Lexiscan stress test that did show small areas of fixed defect in the inferior wall and cardiac apex could represent old fracture versus attenuation artifact. No suspicious focal reversibility is seen, transit is chemic dilatation ratio is abnormally increased. This could be seen in the setting of multi vessel global inducible ischemia. LVEF 54%. This result was reviewed with his cooky packer, Dr. PAM Whitfield and patient will be scheduled for cardiac catheterization on Wednesday. Patient denies having any chest pain but occasionally feels some heaviness. He continues to have some palpitations which are most likely due to PVCs. Echocardiogram reveals low normal EF at 50%. Cholesterol 139, triglycerides 212, LDL 63, HDL 33. Blood pressure 152/76, heart rate in the 50s. Pulse ox 96% on room air. 06/06 Patient denies having any chest pain but continues to have palpitations. Heart rate is in the 50s, blood pressure 137/73, pulse ox 97% on room air. Physical examination: Gen: This is a 62-year-old male in no acute distress VS: reviewed HEENT: Head is atraumatic, normocephalic. Pupils equal, round. Sclerae is anicteric. LUNGS: Clear to auscultation. No wheezes or rhonchi. No intercostal retrac tions. HEART: Regular rate and rhythm. No murmur. EXTREMITIES: No pedal edema. No calf tenderness. NEUROLOGICAL: Patient is awake, alert and oriented x3. Assessment: Atypical chest pain, acute coronary syndrome ruled out Nonobstructive coronary artery disease Hypertension Hyperlipidemia Obesity Plan: Continue patient's home cardiac medications Schedule patient for cardiac catheterization on Wednesday with Dr. PAM Whitfield N.p.o. after midnight further recommendations as patient progresses. Nurse practitioner note has been reviewed, I agree with documented findings and plan of care. Patient was seen and examined. Objective - Vital Signs Vital signs: Vital Signs Temp 97.3 F L 06/06/23 07:00 Pulse 55 L 06/06/23 07:00 Resp 14 06/06/23 07:00 BP 137/73 06/06/23 07:00 Pulse Ox 97 06/06/23 07:00 FiO2 Intake & Output 06/05/23 06/06/23 06/06/23 18:59 06:59 18:59 Other: # Voids 3 1 # Bowel Movements 1 - Labs CBC & Chem 7: 06/03/23 11:33 06/03/23 11:33
[2023-06-06] MEDS: ATORVASTATIN 40 MG TAB PO SCH (21:09)
[2023-06-06] MEDS: amLODIPine 5 MG TAB PO SCH (21:09)
[2023-06-06] MEDS: MONTELUKAST 10 MG TAB PO SCH (21:09)
[2023-06-06] MEDS: SODIUM CHLORIDE 0.9% 1,000 ML in EMPTY BAG 1 BAG IV SCH (21:11)
[2023-06-07 03:20] VITALS: TEMP 97.9
[2023-06-07 06:39] LABS: African American GFR (CKD) >90 (>60 ml/min/1.73 sqM); Anion Gap 6 mmol/L; Blood Urea Nitrogen 13 mg/dL (9-20); Calcium 9.1 mg/dL (8.4-10.2); Carbon Dioxide 26 mmol/L (22-30); Chloride 108 mmol/L (98-107); Glucose 96 mg/dL (74-99); Non-African American GFR(CKD) >90 (>60 ml/min/1.73 sqM); Potassium 4.2 mmol/L (3.5-5.1); Sodium 140 mmol/L (137-145)
[2023-06-07] MEDS ORDERED: HEPARIN SODIUM,PORCINE 10,000 UNIT in SODIUM CHLORIDE 0.9% 1,000 ML IRRIGATION PRN (07:00)
[2023-06-07] MEDS ORDERED: HEPARIN SODIUM,PORCINE (1 ML) 2,500 UNIT in SODIUM CHLORIDE 0.9% 250 ML IRRIGATION PRN (07:00)
[2023-06-07] MEDS: SODIUM CHLORIDE 0.9% 1,000 ML in EMPTY BAG 1 BAG IV SCH ×5 (07:03→12:37)
[2023-06-07] MEDS: ENOXAPARIN 40 MG/0.4 ML SYRINGE SQ SCH (08:09)
[2023-06-07] MEDS: KETOTIFEN 0.025% OPHTH DROPS 5 ML BTL BOTH EYES SCH (08:34)
[2023-06-07] MEDS: GABAPENTIN 400 MG CAP PO SCH (08:34)
[2023-06-07] MEDS: ASPIRIN 325 MG TAB PO SCH (08:34)
[2023-06-07] MEDS: LOSARTAN 50 MG TAB PO SCH (08:34)
[2023-06-07] MEDS: allopurinoL 300 MG TAB PO SCH (08:34)
[2023-06-07] MEDS: METOPROLOL SUCCINATE (ER) 25 MG TAB.ER.24H PO SCH (08:34)
[2023-06-07] MEDS ORDERED: IV FLUID CONTINUATION 1,000 ML IV ONE (09:59)
[2023-06-07] MEDS ORDERED: VERAPAMIL 2.5 MG/ML 2 ML AMP ONE (10:05)
[2023-06-07] MEDS ORDERED: LIDOCAINE 1% INJ 10MG/ML (20 ML MDV) ONE (10:05)
[2023-06-07] MEDS ORDERED: MIDAZOLAM 2 MG/2 ML VIAL IVP ONE (10:27)
[2023-06-07] MEDS ORDERED: LIDOCAINE 1% INJ 10MG/ML (30 ML VIAL-PF) SQ ONE (10:30)
[2023-06-07] MEDS ORDERED: VERAPAMIL SYRINGE (5 MG/10 ML) INTRAARTER ONE (10:32)
[2023-06-07] MEDS ORDERED: HEPARIN SODIUM 1,000 UN/ML (10ML VL) IV ONE (10:35)
[2023-06-07] MEDS ORDERED: HEPARIN SODIUM 1,000 UN/ML (10ML VL) ONE (10:36)
[2023-06-07] MEDS ORDERED: IOPAMIDOL-370 100ML BTL INJ ONE (10:47)
--- NOTE | 2023-06-07 12:09 | CC ---
CARDIAC CATHETERIZATION REPORT Moderate conscious sedation time was 21 minutes. PROCEDURES: Left heart catheterization and coronary angiography. PERFORMED BY: Dr. Magaly Whitfield. ANESTHESIA: Moderate conscious sedation time was 21 minutes. The patient was administered Versed. Oxygen saturation, hemodynamics, and EKG were monitored closely. CLINICAL INFORMATION: Mr. Vicente Lovelace is a 62-year-old gentleman with a known history of hypertension, hyperlipidemia, borderline diabetes, and obstructive sleep apnea, who came into the hospital with episode of chest pain. Atypical stress test revealed transient ischemic dilatation without clear-cut reversible defect, but because of symptoms of chest tightness and transient ischemic dilatation, he was advised coronary angiography after due discussion regarding risks, benefits, and options. PROCEDURE NOTE: Under local anesthesia and strict aseptic precautions, a 6-Divehi introducer was placed in the right radial artery. Using a JL3.5 and JR4 catheters, I performed coronary angiography. The same JR4 catheter was used to check LV pressure, but LV-gram was not performed. Following the procedure, the sheath was taken out and TR band applied as per protocol. Saturation of the fingers of the right hand was 98%. The patient tolerated the procedure well without complications. The findings on the cardiac cath were discussed with the patient and also with his daughter. We will continue medical therapy with risk factor modification. He will be discharged later on today if okay by the admitting doctor. CARDIAC CATHETERIZATION FINDINGS: The left ventricular end-diastolic pressure was about 10 mmHg without any significant gradient across aortic valve. CORONARY ANGIOGRAPHY FINDINGS: Right coronary artery: Technically, a small nondominant vessel, minor irregularities, no significant disease, supplies somewhat of a limited amount of myocardium. Left main coronary artery: This is a short patent vessel, free of significant disease that bifurcates into LAD and circumflex. Left anterior descending coronary artery: Good caliber vessel extends along the anterior wall. It gives off septal and diagonal branches. There are minor irregularities of 30% or less. There are several small septal and diagonal branches. No significant disease in the LAD system. Angiographic appearance is similar to the one from December 2021 when he had his previous cardiac cath. Left posterior circumflex coronary artery: Technically, this is a dominant vessel, gives off a first obtuse marginal that runs laterally. This has about a 30% to 40% plaque throughout, but no significant disease. Multiple angiograms were seen in various projections. Distally, it bifurcates into multiple branches, one of which is the PDA and the PDA has a fair amount of myocardium supplied by it. No significant disease. Minor irregularities in the branches of the dominant circumflex distally. No critical stenosis. FINAL IMPRESSION: This patient has normal filling pressures and no gradient. He has a left dominant system with 30% to 40% plaque in the first obtuse marginal and minor diffuse disease in the branches of distal circumflex including PDA. LAD has minor irregularities, no significant disease. There are several branches of the diagonal and septals which have mild diffuse disease. No critical stenosis noted in the left system. RECOMMENDATIONS: Findings were discussed with the patient and daughter. We will continue aggressive medical therapy with risk factor modification. The patient was instructed regarding the importance and to be compliant with CPAP. He will be discharged later on today and I will see him in the office on Wednesday. Advised to call for question, concern, or problem. MMODL / IJN: [id number] /
[2023-06-07 12:55] VITALS: RESP 15
[2023-06-07 15:45] VITALS: BP 136/76; PULSE 66
--- NOTE | 2023-06-07 19:48 | P.DS ---
Providers Date of admission: 06/05/23 10:53 Expected date of discharge: 06/07/23 Attending physician: Joseph Cherry Consults: 06/03/23 13:09 Consult Physician Urgent Consulting Provider: Estrella Ridley Consult Reason/Comments: chest pain Do you want consulting provider notified?: Yes Primary care physician: [facility] Course: Chief Complaint: Pain History of presenting complaint: This is a 62-year-old patient, follows with Patti Jaffe/Dr. Dover. Chronic stable medical conditions include diabetes, GERD, hypertension, hyperlipidemia, osteoarthritis, obstructive Sleep apnea, scoliosis, gout, has a CPAP at home. Patient was here in February 2023. Denies some chest pain then. Follow-up with Dr. PAM Whitfield. Was due to follow-up again very soon. In the last 1 week patient has been noticing having increasing palpitations. Feels heaviness in the chest and shortness of breath when he walks. Is better with rest. Frequency is gone up in the last few days. In December 2021 patient had about 40% disease of circumflex marginal. It was decided to manage him medically. Patient is employed for about 40 hours a week. June 04: Lexiscan stress test suggestive of possible ischemia. Cardiology planning for cardiac catheterization. Occasional slight chest pressure. Follow-up with cardiology. June 05: Stable. No chest pain. Walking around the room. Plan for cardiac catheterization Wednesday. June 06: Sitting up. Eating breakfast. Awaiting cardiac catheterization. No chest pain. June 07: Patient underwent cardiac catheterization with Dr. PAM Whitfield. Nonobstructive disease was found. Follow-up outpatient. Currently no chest pain. Past medical history to include: Diabetes mellitus, GERD, hypertension, hyperlipidemia, osteoarthritis, scoliosis, obstructive sleep apnea uses CPAP, gout, anxiety. Nonobstructive coronary artery disease with about 40% disease in circumflex per cardiac catheterization in 2021 Social history: Lives alone. Works at [employer]. smoked for 18 years 1 pack a day stopped in 2015. Alcohol-Occasionally. Physical examination: VITAL SIGNS: Afebrile, 66, 16, 136/76, 96% room air GENERAL: Comfortable EYES: Pupils equal. Conjunctiva normal. HEENT: External appearance of nose and ears normal, oral cavity grossly normal. NECK: JVD not raised; masses not palpable. HEART: First and second heart sounds are normal; no edema. LUNGS: Respiratory rate normal; clear to auscultation. ABDOMEN: Soft, nontender, liver spleen not palpable, no masses palpable. PSYCH: Alert and oriented x3; mood and affect slightly anxious. INVESTIGATIONS, reviewed in the clinical context: June 07: Potassium 4.2 creatinine 0.75 Lexiscan stress test: Possible suggestion of underlying ischemia LDL 63 triglycerides 212 June 03: White count 9.5 hemoglobin 14.2 platelets 237 potassium 3.5 creatinine 0.72 Troponin I x 3 negative Influenza type A, B, RSV, COVID-19: Not detected EKG tracing personally reviewed by me-normal sinus rhythm. PVC. Chest x-ray film personally reviewed by me-unremarkable Assessment and plan: -Anterior chest wall patient is a patient with known nonobstructive coronary artery disease with cardiac catheterization showing about 40% lesion circumflex in 2021. Does follow with Dr. PAM Whitfield. Possible unstable angina Troponin negative. Telemetry. Aspirin. Cardiology following Lexiscan stress test possibly positive. Cardiac catheterization: Nonobstructive disease -Essential hypertension Cozaar, Toprol-XL, amlodipine. -Hyperlipidemia Lipitor -Chronic gout On allopurinol -Anxiety not otherwise specified Xanax when necessary -Obstructive sleep apnea Uses CPAP -Obesity BMI 36.2 Weight loss measures, outpatient -Insomnia Disposition: Home Past Medical History Past Medical History: Chest Pain / Angina, Diabetes Mellitus, GERD/Reflux, Hyperlipidemia, Hypertension, Osteoarthritis (OA), Skin Disorder, Sleep Apnea/CPAP/BIPAP, Syncope Additional Past Medical History / Comment(s): psoriasis, Gout STRESS TEST 2016- NEG,DDD, STEROID INJ IN BACK, CPAP at home, TYPE II DIABETES, sciatic nerve, neuropathy History of Any Multi-Drug Resistant Organisms: None Reported Past Surgical History: Appendectomy, Cholecystectomy, Hernia Repair, Orthopedic Surgery Additional Past Surgical History / Comment(s): rt inguinal hernia x 3, [facility] HERNIA REPAIR,vasectomy, left knee surgery Past Anesthesia/Blood Transfusion Reactions: Motion Sickness Additional Past Anesthesia/Blood Transfusion Reaction / Comment(s): no hx blood transfusion Past Psychological History: Anxiety, Panic Disorder Smoking Status: Former smoker Past Alcohol Use History: Occasional Past Drug Use History: None Reported Plan - Discharge Summary New Discharge Prescriptions: New Aspirin 81 mg PO DAILY #1 tab Nitroglycerin Sl Tabs [Nitrostat] 0.4 mg SUBLINGUAL Q5M PRN #30 tab PRN Reason: Chest Pain Continue Fluticasone Nasal [place] [Flonase Nasal [place]] 1 spr EA NOSTRIL HS PRN PRN Reason: Allergy Symptoms Montelukast Sodium [Singulair] 10 mg PO HS Gabapentin [Neurontin] 400 mg PO TID Atorvastatin [Lipitor] 40 mg PO HS allopurinoL [Zyloprim] 300 mg PO DAILY Metoprolol Succinate (ER) [Toprol XL] 25 mg PO DAILY Cetirizine HCl [Zyrtec] 10 mg PO DAILY PRN PRN Reason: Allergy Symptoms Losartan Potassium [Cozaar] 100 mg PO DAILY Ibuprofen [Motrin] 800 mg PO TID PRN PRN Reason: Pain ALPRAZolam [Xanax] 0.25 mg PO DAILY PRN PRN Reason: Anxiety Albuterol Inhaler [Ventolin Hfa Inhaler] 2 puff INHALATION RT-QID PRN PRN Reason: Shortness Of Breath Olopatadine HCl [Patanol 0.1%] 1 drop BOTH EYES HS amLODIPine [Norvasc] 5 mg PO HS Discontinued hydroCHLOROthiazide 25 mg PO DAILY Discharge Medication List Fluticasone Nasal [place] [Flonase Nasal [place]] 1 spr EA NOSTRIL HS PRN 10/21/15 [History] Montelukast Sodium [Singulair] 10 mg PO HS 10/21/15 [History] Gabapentin [Neurontin] 400 mg PO TID 05/07/17 [History] Atorvastatin [Lipitor] 40 mg PO HS 07/24/17 [History] allopurinoL [Zyloprim] 300 mg PO DAILY 10/30/17 [History] Metoprolol Succinate (ER) [Toprol XL] 25 mg PO DAILY 12/01/17 [History] Cetirizine HCl [Zyrtec] 10 mg PO DAILY PRN 05/25/19 [History] Albuterol Inhaler [Ventolin Hfa Inhaler] 2 puff INHALATION RT-QID PRN 09/24/20 [History] Olopatadine HCl [Patanol 0.1%] 1 drop BOTH EYES HS 09/24/20 [History] Losartan Potassium [Cozaar] 100 mg PO DAILY 12/13/21 [History] ALPRAZolam [Xanax] 0.25 mg PO DAILY PRN 02/04/23 [History] Ibuprofen [Motrin] 800 mg PO TID PRN 02/04/23 [History] amLODIPine [Norvasc] 5 mg PO HS 02/04/23 [History] Aspirin 81 mg PO DAILY #1 tab 06/07/23 [Rx] Nitroglycerin Sl Tabs [Nitrostat] 0.4 mg SUBLINGUAL Q5M PRN #30 tab 06/07/23 [Rx] Follow up Appointment(s)/Referral(s): Bg Whitfield MD [STAFF PHYSICIAN] - 06/11/23 9:30 am Anuel Dover MD [Primary Care Provider] - 1-2 days Patient Instructions/Handouts: Heart Catheterization (DC) Discharge Disposition: HOME SELF-CARE
== END 2023-06-07 16:02 | disposition home or self-care (01) | DRG 287 ==
LOC: EC 10:55 → 6NMEDSUR 13:10 → OBSVTOIN 06-05 10:53
PROVIDERS: ADMIT Hospitalist; ATTEND Hospitalist
PROC: B2111ZZ Fluoroscopy of Multiple Coronary Arteries using Low Osmolar Contrast (ICD-10-PCS; principal; 2023-06-07 08:25)
PROC: 4A023N7 Measurement of Cardiac Sampling and Pressure, Left Heart, Percutaneous Approach (ICD-10-PCS; principal; 2023-06-07 08:25)
DX: I25.110 Atherosclerotic heart disease of native coronary artery with unstable angina pectoris (principal); E11.40 Type 2 diabetes mellitus with diabetic neuropathy, unspecified; Z11.52 Encounter for screening for COVID-19; Z28.310 Unvaccinated for COVID-19; I10 Essential (primary) hypertension; E78.00 Pure hypercholesterolemia, unspecified; G47.33 Obstructive sleep apnea (adult) (pediatric); F41.9 Anxiety disorder, unspecified; G47.00 Insomnia, unspecified; M1A.9XX0 Chronic gout, unspecified, without tophus (tophi); I25.2 Old myocardial infarction; F41.0 Panic disorder [episodic paroxysmal anxiety]; I49.3 Ventricular premature depolarization; E66.9 Obesity, unspecified; Z68.36 Body mass index [BMI] 36.0-36.9, adult; K21.9 Gastro-esophageal reflux disease without esophagitis; M19.90 Unspecified osteoarthritis, unspecified site; K59.00 Constipation, unspecified; L40.9 Psoriasis, unspecified; M41.9 Scoliosis, unspecified; Z79.899 Other long term (current) drug therapy; Z87.891 Personal history of nicotine dependence; Z82.49 Family history of ischemic heart disease and other diseases of the circulatory system
CPT/HCPCS: 36415; 71046; 78452; 80048; 80053; 80061; 83735; 84484; 85025; 85610; 85730; 87636; 93005; 93017; 93306; 93458; 96372; 99285